=== PATIENT | male | born 1990 | race Caucasian/White ===

== ENCOUNTER → 2017-04-28 | Outpatient (CLI) | payer OTHER ==
[~2017-04-28] MED LIST: CITA10TA8 PO; MULT-506 PO
== END | disposition home or self-care (01) ==
LOC: C.LAB 02:15
DX: Z02.83 Encounter for blood-alcohol and blood-drug test (principal)

== ENCOUNTER 2019-08-01 02:54 | Inpatient (IN) ==
[2019-08-01 05:03] LABS: Hemoglobin 15.6 g/dL (14.0-18.0); Mean Corpuscular Hemoglobin 28.6 pg (25-34); Mean Corpuscular Hgb Conc 36.3 g/dL (32-36); Mean Corpuscular Volume 78.9 fL (80-100); Mean Platelet Volume 10.6 fL (7.4-10.4); Platelet Count 216 K/uL (130-400); RDW Coefficient of Variation 12.6 % (11.5-14.5); RDW Standard Deviation 35.8 fL (36.4-46.3); Red Blood Count 5.45 M/uL (4.7-6.1)
[2019-08-01 05:06] LABS: Appearance Urine Clear (Clear); Bilirubin Urine Negative (Negative); Blood Urine Negative (Negative); Color Urine Yellow; Glucose Urine UA Negative (Negative); Ketones Urine Negative (Negative); Leukocyte Esterase Urine Negative (Negative); Nitrite Urine Negative (Negative); Protein Urine Negative (Negative); Specific Gravity Urine 1.011 (1.000-1.030); Urobilinogen Urine Negative (Negative)
[2019-08-01 05:10] LABS: BUN Creatinine Ratio 13.5 (10-20); Blood Urea Nitrogen 14 mg/dl (7-18); Calcium 8.5 mg/dl (8.5-10.1); Carbon Dioxide 25 mmol/L (21-32); Chloride 109 mmol/L (98-107); Est GFR (African American) 113.8; Est GFR (Non-African American) 98.2; Glucose 96 mg/dl (70-99); Potassium 3.8 mmol/L (3.5-5.1); Sodium 140 mmol/L (136-145)
[2019-08-01 05:26] LABS: Amphetamines+Metham, Urine Neg (Neg); Barbiturates, Urine Neg (Neg); Benzodiazepine, Urine Neg (Neg); Cocaine, Urine Neg (Neg); MDMA (Ecstacy), Urine Neg (Neg); Methadone, Urine Neg (Neg); Opiate, Urine Neg (Neg); Phencyclidine, Urine Neg (Neg)
[2019-08-01 05:27] LABS: Acetaminophen < 2 ug/ml (10-30)
[2019-08-01 05:28] LABS: Salicylate < 1.7 mg/dl (2.8-20)
--- NOTE | 2019-08-01 06:27 | Emergency Department Note ---
Entered by Ivan Silva acting as a scribe for Carina Vallejo DO History of Present Illness General Chief complaint: Mental Health Evaluation Time Seen by Provider: 08/01/19 04:12 Source: patient History of Present Illness Onset (ago): day(s) (this morning) Location: head Pain Consistency: + other (an episode) Quality: + other (suicide attempt) Associated symptoms: + other (Positive for throat pain.) The patient is a 29 year old male who presents to the emergency department with complaints of an episode of a suicide attempt occurring this morning. The patient states that he has a history of previous suicide attempts from ten years ago. He notes that he put a lamp cord over a cushioned chair and tried to hang himself this morning. He reports that he was drinking tonight. The patient states that he wants to be treated for his alcoholism. He notes that he spoke to his sister on the phone this morning, which upset him and caused him to drink. He also complains of throat pain. Home Medications Home Medications Medication Instructions Recorded Confirmed Type citalopram 10 mg PO QAM 10/15/18 08/01/19 History citalopram 20 mg PO QAM 10/15/18 08/01/19 History multivitamin 1 tab PO QAM 10/31/18 08/01/19 History ascorbic acid (vitamin C) [Vitamin 1 g PO QAM 12/04/18 08/01/19 History C] cyclobenzaprine 10 mg PO TID PRN #10 tab 02/02/19 08/01/19 Rx Allergies Allergy/AdvReac Type Severity Reaction Status Date / Time No Known Allergies Allergy Verified 08/01/19 05:49 Past Med/Surg History Medical History Asthma (Chronic) Depression Deviated nasal septum Elevated blood uric acid level Elevated liver enzymes IN THE PAST (NOW WNL) Obesity Sciatica Sleep apnea NO DEVICE Surgical History [place] teeth removed (Resolved) History of appendectomy History of esophageal dilatation History of esophagogastroduodenoscopy (EGD) History of removal of skin mole History of tooth extraction Social History Preferred Language: Telugu Communication Ability: Effective 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 and A total of 10 systems reviewed and were otherwise negative Physical Exam General: Smells of alcohol. HEENT: Head - normocephalic and atraumatic Pupils are equal, round, and reactive to light. Extraocular eye muscles are intact, and sclera are anicteric. Nose - moist nasal mucosa without discharge. Mouth - moist buccal mucosa. Oropharynx is nonerythematous and there is no tonsillar exudate or edema noted. Neck: Supple; no JVD, nuchal rigidity, cervical lymphadenopathy Small area of contusion to the left anterior neck Heart: Regular rate and rhythm. There is a normal S1 and S2 with no murmurs, clicks, or gallops appreciated. Lungs: Clear to auscultation bilaterally with no wheezes, rales, or rhonchi. Abdomen: Soft, completely nontender, nondistended, with good bowel sounds. There are no palpable pulsatile masses or hepatosplenomegaly. There is no guarding, rigidity, or rebound noted. Extremities: No evidence of cyanosis, clubbing, or edema. There are easily palpable peripheral pulses. Skin: warm and dry with good turgor and no rashes. Psych: Intoxicated, admits to attempt to hang himself. Course 0302: The patient was evaluated in room A5. A complete history and physical exam was performed. Laboratory studies were drawn as above. 0552: I rechecked the patient. He is sleeping. 0630: The patient will be signed out to Dr. Castillo at the change of shift. Medical Decision Making Differential Diagnosis Differential diagnoses include: alcohol intoxication, mood disorder, suicide attempt by hanging. Medical Records Attestation: I reviewed the patient's medical records. Home Medications Current Medication List: was personally reviewed by me Laboratory Data Attestation: I reviewed the patient's lab results. Result diagrams: 08/01/19 03:45 08/01/19 03:45 Lab Results 08/01/19 08/01/19 08/01/19 Range/Units 03:45 03:45 03:45 WBC 8.10 (4.8-10.8) K/uL RBC 5.45 (4.7-6.1) M/uL Hgb 15.6 (14.0-18.0) g/dL Hct 43.0 (42-52) % MCV 78.9 L (80-100) fL MCH 28.6 (25-34) pg MCHC 36.3 H (32-36) g/dL RDW Std Deviation 35.8 L (36.4-46.3) fL RDW Coeff of Lobo 12.6 (11.5-14.5) % Plt Count 216 (130-400) K/uL MPV 10.6 H (7.4-10.4) fL Sodium 140 (136-145) mmol/L Potassium 3.8 (3.5-5.1) mmol/L Chloride 109 H (98-107) mmol/L Carbon Dioxide 25 (21-32) mmol/L Anion Gap 6.0 (3-11) BUN 14 (7-18) mg/dl Creatinine 1.02 (0.6-1.4) mg/dl Est Cr Clr Drug Dosing Not Reportable Est GFR ( Amer) 113.8 Est GFR (Non-Af Amer) 98.2 BUN/Creatinine Ratio 13.5 (10-20) Glucose 96 (70-99) mg/dl Calcium 8.5 (8.5-10.1) mg/dl TSH 1.640 (0.300-4.500) uIu/ml Urine Color Urine Appearance (Clear) Urine pH (4.5-7.5) Ur Specific [place] (1.000-1.030) Urine Protein (Negative) Urine Glucose (UA) (Negative) Urine Ketones (Negative) Urine Blood (Negative) Urine Nitrite (Negative) Urine Bilirubin (Negative) Urine Urobilinogen (Negative) Ur Leukocyte Esterase (Negative) Salicylates < 1.7 L (2.8-20) mg/dl Urine Opiates Screen (Neg) Ur Methadone, Qual (Neg) Acetaminophen < 2 L (10-30) ug/ml Urine Barbiturates (Neg) Ur Phencyclidine (PCP) (Neg) U Amphetamin/Meth Scrn (Neg) MDMA (Ecstasy) Screen (Neg) U Benzodiazepines Scrn (Neg) Ur Cocaine Metabolite (Neg) U Marijuana (THC) Screen (Neg) Ethyl Alcohol mg/dL (0-3) mg/dl 1008/01/19 08/01/19 Range/Units 03:45 03:45 03:45 WBC (4.8-10.8) K/uL RBC (4.7-6.1) M/uL Hgb (14.0-18.0) g/dL Hct (42-52) % MCV (80-100) fL MCH (25-34) pg MCHC (32-36) g/dL RDW Std Deviation (36.4-46.3) fL RDW Coeff of Lobo (11.5-14.5) % Plt Count (130-400) K/uL MPV (7.4-10.4) fL Sodium (136-145) mmol/L Potassium (3.5-5.1) mmol/L Chloride (98-107) mmol/L Carbon Dioxide (21-32) mmol/L Anion Gap (3-11) BUN (7-18) mg/dl Creatinine (0.6-1.4) mg/dl Est Cr Clr Drug Dosing Est GFR ( Amer) Est GFR (Non-Af Amer) BUN/Creatinine Ratio (10-20) Glucose (70-99) mg/dl Calcium (8.5-10.1) mg/dl TSH (0.300-4.500) uIu/ml Urine Color Yellow Urine Appearance Clear (Clear) Urine pH 5.0 (4.5-7.5) Ur Specific [place] 1.011 (1.000-1.030) Urine Protein Negative (Negative) Urine Glucose (UA) Negative (Negative) Urine Ketones Negative (Negative) Urine Blood Negative (Negative) Urine Nitrite Negative (Negative) Urine Bilirubin Negative (Negative) Urine Urobilinogen Negative (Negative) Ur Leukocyte Esterase Negative (Negative) Salicylates (2.8-20) mg/dl Urine Opiates Screen Neg (Neg) Ur Methadone, Qual Neg (Neg) Acetaminophen (10-30) ug/ml Urine Barbiturates Neg (Neg) Ur Phencyclidine (PCP) Neg (Neg) U Amphetamin/Meth Scrn Neg (Neg) MDMA (Ecstasy) Screen Neg (Neg) U Benzodiazepines Scrn Neg (Neg) Ur Cocaine Metabolite Neg (Neg) U Marijuana (THC) Screen Neg (Neg) Ethyl Alcohol mg/dL 225.0 H (0-3) mg/dl Blood Pressure Blood Pressure Findings: Normal blood pressure Blood Pressure Disposition: did not require urgent referral MDM Narrative The patient is a 29 year old male who presents to the emergency department with complaints of an episode of a suicide attempt occurring this morning. The patient admits to frequently drinking alcohol to self medicate. He denies any previous inpatient psychiatric stays. He states that he had a conversation today with his sister that was very disappointing. He then attempted to hang himself with a lamp cord over a chair. He was unsuccessful and called 911. The patient is significantly intoxicated with an alcohol greater than 200. He will be given some time to sober up and then will have further evaluation. The case will be signed out to Dr. Castillo at change of shift awaiting sobriety. Impression & Plan Suicide attempt, Alcohol intoxication Discharge Plan Visit Data Chief Complaint: Mental Health Evaluation ED Provider: Carina Vallejo Discharge Problem: Suicide attempt, Alcohol intoxication Patient Disposition: Still a Patient Forms Stand Alone Forms: My [facility], Suicide Prevention Resources Prescriptions Prescriptions: No Action multivitamin Tablet 1 tab PO QAM RF: 0 cyclobenzaprine 10 mg tablet 10 mg PO TID PRN (Reason: muscle spasm) Qty: 10 RF: 0 citalopram 10 mg tablet 10 mg PO QAM RF: 0 citalopram 20 mg tablet 20 mg PO QAM RF: 0 ascorbic acid (vitamin C) [Vitamin C] 1,000 mg Tablet 1 g PO QAM RF: 0 Referrals Referrals: Gabriel Ashford [Primary Care Provider] - Discharge Problem: Alcohol intoxication Qualifiers: Complication of substance-induced condition: uncomplicated Qualified Code(s): F10.920 - Alcohol use, unspecified with intoxication, uncomplicated The scribe's documentation has been prepared under my direction and personally reviewed by me in its entirety. I confirm that the note above accurately reflects all work, treatment, procedures, and medical decision making performed by me.
[2019-08-01] MEDS ORDERED: GABAPENTIN 1200MG ALCOHOL WITHDRAWAL LOAD PO STA (13:27)
[2019-08-01] MEDS ORDERED: SODIUM CHLORIDE 0.65% NA SOLN 45 ML (OCEAN) PRN (13:27)
[2019-08-01] MEDS ORDERED: BISMUTH SUBSALICYLATE PER ML OMNICELL CHARGE PO PRN (13:27)
[2019-08-01] MEDS ORDERED: MAGNESIUM HYDROXIDE SUSP 30 ML UDC PO PRN (13:27)
[2019-08-01] MEDS ORDERED: LORazepam 1 MG TAB PO PRN (13:27)
--- NOTE | 2019-08-01 13:59 | Emergency Department Note ---
ED Visit Note Patient signed out to me at change of shift by Dr. Vallejo awaiting sobriety and psychiatric evaluation. Patient seen and evaluated and referred to [facility] Patient seen and evaluated by [facility] who will accept the patient for additional inpatient psychiatric treatment of his depression and suicidal ideation. . : Alcohol intoxication Qualifiers: Complication of substance-induced condition: uncomplicated Qualified Code(s): F10.920 - Alcohol use, unspecified with intoxication, uncomplicated
[2019-08-01] MEDS ORDERED: GABAPENTIN 600 MG TAB PO SCH (14:30)
[2019-08-01] MEDS ORDERED: NON-FORMULARY MEDICATION (Citalopram 10 MG) PO SCH (15:45)
[2019-08-01] MEDS: CITALOPRAM 20 MG TAB PO SCH (17:16)
[2019-08-01] MEDS: NICOTINE 21 MG/24 HR TDSY TD SCH (17:16)
[2019-08-01] MEDS: ALUMINUM/MAGNESIUM SUSP 30 ML UDC PO PRN ×2 (17:18→22:53)
[2019-08-01] MEDS ORDERED: INFLUENZA VIRUS QUAD VACCINE 0.5 ML SYR IM ONE (19:45)
[2019-08-01] MEDS ORDERED: INFLUENZA ADMINISTRATION CHARGE ONE (19:45)
[2019-08-01] MEDS: GABAPENTIN 600 MG TAB PO SCH (21:30)
[2019-08-01] MEDS: LORazepam 1 MG TAB PO PRN (21:43)
[2019-08-02] MEDS: GABAPENTIN 600 MG TAB PO SCH ×3 (02:11→21:27)
--- NOTE | 2019-08-02 09:32 | History & Physical ---
Date of Service August 02, 2019 Impression / Recommendations Impression 29-year-old male admitted voluntarily for inpatient psychiatric treatment on 08/01/19 after present to the ED via police following a reported suicide attempt. Pt admits to rather significant alcohol abuse, and reported that while intoxicated he had attempted to hang himself with an extension cord in his living room. When his attempt was interrupted by the cord slipping, the patient called police requesting treatment. Pt states that due to intoxication, he is unable to recall a specific triggering event that led to the attempt and is unsure of his thought process at the time. He does admit to having had suicidal ideation prior to the attempt. Pt does have a history of a prior plan to hang himself back around 2011, but states he was interrupted by his father entering the room. Pt recognizes his alcohol abuse has been playing a detrimental role in his life at this point, and verbalizes willingness at time of encounter to consider inpatient D&A rehabilitation after discharge. He is open to working with social work to determine possible outpatient treatment options that would target both his mental health concerns as well as his substance abuse. After significant discussion regarding medication options (titration of citalopram versus trial of an alternative agent), patient is requesting initiation of fluoxetine. He is agreeable to cross-taper from citalopram to fluoxetine starting with tomorrow morning's doses. Risks, benefits, and potential side effects of this medication decision were reviewed, patient verbalized understanding and is agreeable with treatment plan. Pt will be encouraged to participate in group and recreational programming during his admission. He will be encouraged to involve outpatient supports in a meeting to discuss discharge and safety planning. Inpatient psychiatric admission is medically necessary at this time due to suicidal ideation, having had an attempt to end his life with prior history of such, inability to contract for safety outside of the hospital setting, and need to monitor for symptoms/treatment of alcohol withdrawal. He remains at high risk of suicide if he is discharged prematurely, without adequate mitigation of risk factors. Dr. Rome Craig was directly involved in review and discussion of the patient's case and participated in medical decision making regarding treatment recommendations. (1) Suicide attempt: 08/02 - Admitted to a locked inpatient behavioral health unit, on q15 minute safety checks - Encourage medication initiation/adjustments as indicated - Encourage participation in group and recreational therapies - Gather collateral information from outpatient providers - Suggest family meeting to involve outpatient supports in safety planning - Arrange appropriate aftercare (2) Depression: 08/02 - Pt verbalizes recognition that citalopram at its current dosage has not been effective for his symptoms of depression and anxiety. Various treatment options were reviewed, including option to titrate citalopram to a higher dosage as well as consideration to switch antidepressant agents. After reviewing several options in detail, patient verbalized desire to cross-taper from citalopram to fluoxetine. - Will order 20mg of citalopram tomorrow morning, and initiate 10mg of fluoxetine tomorrow morning - can continue remainder of cross-taper as tolerated - Encourage participation in group and recreational programming - Encourage development of healthy and effective coping strategies - Family meeting with outpatient supports - Referral for after care prior to discharge Active/Remission status: currently active Depression Type: major depressive disorder Major depression episode severity: severe Major depression recurrence: recurrent Psychotic features: without psychotic features Qualified Code(s): F33.2 - Major depressive disorder, recurrent severe without psychotic features (3) Generalized anxiety disorder with panic attacks: 08/02 - Cross taper from citalopram to fluoxetine as outlined above - Hydroxyzine 25mg prn for episodes of acute anxiety - Encourage development of healthy and effective coping strategies (4) Alcohol abuse: 08/02 - AWSS protocol ordered with gabapentin taper, pt has been periodically sco ring high enough to receive lorazepam - highest score has been 6 - Recovery protocol, encourage processing of circumstances leading to alcohol use, assist with development of healthy and effective coping strategies - Recommending inpatient D&A rehab, which patient is open to considering - ideally would at least agree to outpatient D&A counseling - Brief intervention was offered and accepted: Intervention was greater than 5 min in length. Brief interventions include: 1. Assess Readiness to Quit, 2. Advise: Help Patient to Reduce or Abstain from Alcohol, 3. Agree: Set Specific, Feasible Goa ls, 4. Assist: Anticipate barriers, Problem-Solving Solutions. Social work to 5. Arrange: Referrals to appropriate treatment. Summary of intervention: The patient is in contemplation stage with regards to transtheoretical model of change. The patient is advised to decrease alcohol consumption due to depressant effects and risk of interactions with prescription medications. The patient was advised of recommendations for abstinence from alcohol and other abusable substances and to attend substance abuse treatment at discharge, and will be provided with recovery materials to continue to education self on how to cope with their condition without drinking. (5) Disordered eatin/1 - Pt admits to episodes of disordered eating habits, including periods of binge eating, purging behavior by vomiting, and excessive exercise - Continue to gather information to determine criteria for formal diagnoses, as patient admits that at times the vomiting has been brought on by anxiety/difficulty swallowing - Episodes of disordered eating are reportedly intermittent, and related to periods of worsening depression/anxiety Inventory Assets Strengths: willingness for treatment, desire to consider D&A rehab, supportive family Needs: cessation from alcohol use, medication adjustments to target anxiety and depression, completion of discharge and safety planning Risk Factors Assessment Male: Yes : Yes Health Problems: No Mental Health Diagnoses: Yes Substance Use Disorders: Yes Previous Attempt: Yes Previous Psychiatric Hospitalization: No Hopelessness: Yes Smoker: Yes Protective Factors Assessment Mormon Beliefs: No : No Responsible for Young Children: No 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 Pt has a history of anxiety and depression, and was admitted on 08/01/19 13:27 on a 201 voluntary commitment for worsening depression, anxiety, and suicidality. He reportedly called 911 after a failed hanging attempt while intoxicated. [address] warrant was completed in order to complete mental health evaluation, and patient agreed to voluntarily psychiatric treatment after he regained sobriety. Information is gathered from hospital documentation and the patient himself, the combination of which is considered to be reliable. Chief Complaint "So there are like different aspects of my life, and I just feel like there is something going on in each category. When I look at everything, the top position on the tree is alcohol." History of Present Illness Branden Browning is a 29-year-old male admitted voluntarily for inpatient psychiatric treatment on 08/01/19 after presenting to the ED for mental health evaluation. Pt was brought to the ED by police after he called 911 to report he had attempted to end his life. Pt had admitted to attempting to utilize a electrical cord to hang himself while intoxicated from a night of alcohol use. When patient regained sobriety, he verbalized ongoing SI and was requesting inpatient mental health treatment. [address] warrant completed by [employer] Police was dispo'ed in the ED given patient's voluntary status. His case was reviewed and discussed this morning during treatment team. Pt is cooperative with psychiatric evaluation. He states that he has had numerous stressors recently, including financial concerns, strained relationship with sister, guilt regarding relying on parents, and anxiety surrounding the physical health of his parents and grandparents. He states that in order to cope with these stressors, he often turns to alcohol. Pt admits to consuming alcohol daily, often drinking a fifth of vodka. He admits to two DUIs, finishing up CESAR for his second. Pt states, "I see that as a good thing, but it still worries me. I can't get another one. I need help." Pt admits to history of D&A counseling as part of CESAR, but did not find it helpful. Pt states that the alcohol use even interfered with his understanding of the events that occurred prior to his admission. He states he had been having suicidal ideation prior to the night of ED presentation, but he is unsure of the thought process that led him to his hanging attempt. ED documentation suggests it was a difficult phone call with his sister, but patient cannot confirm this. He states, "from what I remember, there are just bits and pieces. I must have been upset or something. I grabbed an extension cord and pulled it over a chair in my living room. The next thing I remember was the cord slipping off my chin and it came off. I just sat there and cried. I knew I needed help, so I called 911." Pt admits to a prior plan to end his life by hanging in 2011, having all the materials ready in his parent's house. He states his plan was interrupted by his father coming home. This led to the initiation of outpatient psychiatric treatment with Dr. Shaffer. Pt was started on citalopram 30mg and has remained on it "for over 10 years." Pt admits to depressive symptoms of low mood, anhedonia, decreased energy, increased desire to sleep, difficulty falling and staying asleep, hopelessness, guilt, and SI. He admits to limited appetite during the day, but reports "binge eating" at night - waking from sleep to "eat everything in my house." Pt admits to increased anxiety, reporting symptoms of irritability, tendency to withdrawal from friends/family, increased stress eating, and diaphoresis. He admits that panic attacks are triggered at times, often related to public speaking or conver sations with superiors. 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 He estimates washing his hands about 30 times a day. Pt denies HI, SIB, A/V hallucinations, paranoia, aria/hypomania, other symptoms more suggestive of a bipolar presentation, PTSD, and other specific psychiatric symptoms. Past Psychiatric History Previous Psych History: Pt reports outpatient psychiatric treatment for anxiety and depression, but now receives medication from his PCP. He admits to D&A counseling through [facility] after his DUIs, but states he did not find it helpful. Current Psychiatric Diagnosis: MDD Outpatient Services: Celexa has been prescribed by patient's PCP; has worked with Dr. Shaffer in the past - no current therapy Previous Psych Admissions: Denies History of Previous Suicide Attempt: Yes Describe Attempts in the Past: 2011 attempted hanging, interrupted by dad Past Medication Trials: Per patient reports: 1. Celexa - 30mg x 10+ years 2. Ativan - lost insurance 3. BuSpar - paradoxical effects, increased anxiety Past Head Trauma/Neuro History History of Concussion/Seizure: No Allergies Allergy/AdvReac Type Severity Reaction Status Date / Time No Known Allergies Allergy Verified 08/01/19 05:49 Home Medications Home Medications Medication Instructions Recorded Confirmed Type citalopram 10 mg PO QAM 10/15/18 08/01/19 History citalopram 20 mg PO QAM 10/15/18 08/01/19 History multivitamin 1 tab PO QAM 10/31/18 08/01/19 History ascorbic acid (vitamin C) [Vitamin 1 g PO QAM 12/04/18 08/01/19 History C] Family History Family History of: Depression (father and mother), Anxiety (father), Alcoholism/Drug Abuse (paternal side of family, uncles, aunts, grandmother and several cousins ), Suicide Attempts and Suicide Completion (maternal second cousin) Alcohol History Hx of Alcohol Use Over the Past 12 Months: Yes (Drinks a fifth of vodka daily, 6 out of 7 days a week) AUDIT Total Score: 31 Pt admits to consuming alcohol daily, generally a fifth of vodka. Often goes out to drink while socializing with friends. Admits to 2 DUIs, reporting he is nearly done with CESAR requirements for his second. Admits to mandated D&A coun seling after receiving DUIs, but denies inpatient rehab or other formal treatment Smoking Use Have You Smoked or Used Tobacco Products in the Last 30 Days: Yes tobacco type: cigarettes Smoking Status: Current every day smoker Smoking packs per day: 20 Substance History Hx of Prescription Med Misuse Over the Past 12 Months: No Hx of Over the Counter Med Misuse Over the Past 12 Months: No Hx of Inhalent Misuse Over the Past 12 Months: No Hx of Organic Substance Use Over the Past 12 Months: Yes (Marijuana ocassionally, last use yesterday) Hx of Illegal Substances/Street Drug Use Over Past 12 Months: No Problems as a Result of Past Substance Use: Arrested Problems as a Result of Past Substance Use Comments: 2 DUIs in the past Admits to occasional use of marijuana. Denies use of other illicit substances. Drinks several cups of coffee daily. 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 [employer]) Marital Status: Single Number Of Children: None Beliefs That Will Affect Care: None Current Legal Problems: Yes (serving CESAR for 2nd DUI) Hx Legal Problems: Yes (probation and house arrest for DUIs) Hx Traumatic Life Events: Yes ( of uncle 10+ years ago) Patient History Medical History Asthma (Chronic) Depression Deviated nasal septum Elevated blood uric acid level Elevated liver enzymes IN THE PAST (NOW WNL) Obesity Sciatica Sleep apnea NO DEVICE Surgical History [place] teeth removed (Resolved) History of appendectomy History of esophageal dilatation History of esophagogastroduodenoscopy (EGD) History of removal of skin mole History of tooth extraction Family History Father Multiple sclerosis Father Family history of ITP Aunt Family history of diabetes mellitus Social History Preferred Language: Yoruba Communication Ability: Effective Internal Communications Intern Required: No Beliefs That Will Affect Care: None Feels Safe at Home: Yes Smoking Status: Current every day smoker Tobacco Type: cigarettes ; Second Hand Exposure: No ; Hx Alcohol Use: Yes Alcohol type: wine and hard liquor Alcohol Intake Frequency: Daily Hx Substance Use: No Review of Systems Review of Systems: Constitutional: reports headache and generalized body aches Cardiovascular: denied Respiratory: denied Gastrointestinal: reports nausea, persistent diarrhea Neurological: reports tremor Psychiatric: denies symptoms other than stated above Total of at least 10 systems reviewed, pertinent positives as above and in HPI. Physical Exam Psychiatric: Orientation: alert, oriented x 3 and cooperative (and pleasant) Apperance: appropriately dressed, appropriately groomed and appeared stated age Obese-appearing male seated in no acute distress. Pt is appropriately dressed in casually clothing, wearing a thermal long-sleeve shirt and scrub pants. Pt has a full richter and clean-appearing hair. Level of hygiene and grooming appears adequate. Eye Contact: good eye contact Motor Behavior: steady gait and station and no abnormal motor movements Speech: normal rate/rhythm/volume of speech Affect: + depressed affect, + tearful affect and mood congruent with affect Mood: + depressed mood and + anxious mood ("I know I need something for anxiety") Thought Process: goal directed thought process, clear/coherent thought process and thought association intact Thought Content: reality based without delusions, + hopelessness, + guilt and + self deprecation Suicidal Thoughts: + reports suicidal thoughts Admits to ongoing SI at time of encounter, but denies current intent to act. Admits to attempt to hang himself prior to admission. Homicidal Thoughts: denies homicidal thoughts Hallucinations: no auditory hallucinations and no visual hallucinations Cognition: remote memory grossly intact, attention grossly intact and language grossly intact; + recent memory not intact (impaired by level of intoxication prior to admission) Estimated Intelligence: consistent with education level Insight: + fair insight Judgement: + poor judgement Vital Signs (Past 24 Hours): Last Vital Signs Temp 36.5 C 08/02/19 06:44 Pulse 71 08/02/19 06:44 Resp 18 08/02/19 06:44 BP 122/75 08/02/19 06:44 Pulse Ox 95 08/01/19 14:12 Exam Statement: A physical exam was performed in the ER prior to admission to the unit by Dr. Lynne Vallejo DO. I accept that physical as correct/medical clearance for the inpatient physical exam. Results & Data Current Inpatient Medications Current Inpatient Medications: Current Inpatient Medications Acetaminophen (Tylenol) 650 mg PO Q4H PRN PRN Reason: Headache or Minor Fever Stop: 08/31/19 13:26 Al Hydrox/Mg Hydrox/Simethicone (Maalox) 30 ml PO Q4H PRN PRN Reason: GI Upset Stop: 08/31/19 13:26 Last Admin: 08/01/19 22:53 Dose: 30 ml Documented by: Ascorbic Acid (Vitamin C) 1,000 mg PO QAM LISA Stop: 09/01/19 08:59 Bismuth Subsalicylate (Kaopectate) 15 ml PO PRN PRN PRN Reason: Loose Stool Stop: 08/31/19 13:26 Citalopram Hydrobromide (Celexa) 30 mg PO QAM LISA Stop: 08/31/19 15:59 Last Admin: 08/01/19 17:16 Dose: 30 mg Documented by: Gabapentin (Neurontin) 600 mg PO Q12H LISA Stop: 08/04/19 06:01 Gabapentin (Neurontin) 600 mg PO Q24H LISA Stop: 08/05/19 06:01 Gabapentin (Neurontin) 600 mg PO Q8H LISA Stop: 08/03/19 06:01 Hydroxyzine HCl (Vistaril) 25 mg PO Q4H PRN PRN Reason: Anxiety Stop: 08/31/19 13:26 Last Admin: 08/01/19 18:46 Dose: 25 mg Documented by: Hydroxyzine HCl (Vistaril) 50 mg PO HSZ PRN PRN Reason: Insomnia Stop: 08/31/19 13:26 Last Admin: 08/02/19 02:25 Dose: 50 mg Documented by: Lorazepam (Ativan) 1 - 3 mg PO UD PRN; Protocol PRN Reason: EtoH Withdrawal AWSS 6-10+ Stop: 08/31/19 16:36 Last Admin: 08/01/19 21:43 Dose: 1 mg Documented by: Magnesium Hydroxide (Milk Of Magnesia) 30 ml PO DAILY PRN PRN Reason: Constipation Stop: 08/31/19 13:26 Miscellaneous (Remove Nicoderm Patch) 1 ea N/A HS LISA Stop: 08/31/19 20:59 Last Admin: 08/01/19 21:35 Dose: Not Given Documented by: Multivitamins (Multivitamin Tab) 1 tab PO QAM [facility] Stop: 09/01/19 08:59 Nicotine (Nicoderm Cq) 21 mg TD QAM [facility] Stop: 08/31/19 16:14 Last Admin: 08/01/19 17:16 Dose: 21 mg Documented by: Sodium Chloride (Elbert Nasal) 1 - 2 sprays NA PRN PRN PRN Reason: Nasal Dryness/Congestion Stop: 08/31/19 13:26
[2019-08-02] MEDS: CITALOPRAM 20 MG TAB PO SCH (10:27)
[2019-08-02] MEDS: ASCORBIC ACID 500 MG TAB PO SCH (10:28)
[2019-08-02] MEDS: MULTIVITAMIN TAB PO SCH (10:29)
[2019-08-02] MEDS: LORazepam 1 MG TAB PO PRN ×5 (10:31→21:59)
[2019-08-02] MEDS: NICOTINE 21 MG/24 HR TDSY TD SCH (10:31)
[2019-08-02] MEDS: ONDANSETRON 8MG OD TAB PO PRN (14:20)
[2019-08-02] MEDS ORDERED: ONDANSETRON 8MG OD TAB PO STA (20:02)
[2019-08-02] MEDS ORDERED: chlordiazePOXIDE HCl 25 MG CAP PO ONE (23:03)
[2019-08-03] MEDS: GABAPENTIN 600 MG TAB PO SCH ×2 (06:10→17:18)
[2019-08-03] MEDS ORDERED: CITALOPRAM 20 MG TAB PO SCH (09:00)
[2019-08-03] MEDS: MULTIVITAMIN TAB PO SCH (09:11)
[2019-08-03] MEDS: NICOTINE 21 MG/24 HR TDSY TD SCH (09:11)
[2019-08-03] MEDS: FLUOXETINE HCL 10 MG CAP PO SCH (09:12)
[2019-08-03] MEDS: ASCORBIC ACID 500 MG TAB PO SCH (09:12)
--- NOTE | 2019-08-03 09:55 | Psychiatric Progress Note ---
Date of Service August 03, 2019 Impression / Recommendations Impression 29-year-old male admitted voluntarily for inpatient psychiatric treatment on 08/01/19 after present to the ED via police following a reported suicide attempt. Pt admits to rather significant alcohol abuse, and reported that while intoxicated he had attempted to hang himself with an extension cord in his living room. Pt does have a history of a prior plan to hang himself back around 2011, but states he was interrupted by his father entering the room. Crosstapering from Celexa to fluoxetine. Inpatient psychiatric admission is medically necessary at this time due to suicidal ideation, having had an attempt to end his life with prior history of such, inability to contract for safety outside of the hospital setting, and need to monitor for symptoms/treatment of alcohol withdrawal. He remains at high ris k of suicide if he is discharged prematurely, without adequate mitigation of risk factors. (1) Suicide attempt: 08/02 - Admitted to a locked inpatient behavioral health unit, on q15 minute safety checks - Encourage medication initiation/adjustments as indicated - Encourage participation in group and recreational therapies - Gather collateral information from outpatient providers - Suggest family meeting to involve outpatient supports in safety planning - Arrange appropriate aftercare (2) Depression: 08/02 - Pt verbalizes recognition that citalopram at its current dosage has not been effective for his symptoms of depression and anxiety. Various treatment options were reviewed, including option to titrate citalopram to a higher dosage as well as consideration to switch antidepressant agents. After reviewing several options in detail, patient verbalized desire to cross-taper from citalopram to fluoxetine. - Will order 20mg of citalopram tomorrow morning, and initiate 10mg of fluoxetine tomorrow morning - can continue remainder of cross-taper as tolerated - Encourage participation in group and recreational programming - Encourage development of healthy and effective coping strategies - Family meeting with outpatient supports - Referral for after care prior to discharge 08/03--decrease Celexa to 10 mg tomorrow for last dose, hold titration of Prozac until no emesis for >24 hrs. (3) Generalized anxiety disorder with panic attacks: 08/02 - Cross taper from citalopram to fluoxetine as outlined above - Hydroxyzine 25mg prn for episodes of acute anxiety - Encourage development of healthy and effective coping strategies (4) Alcohol abuse: 08/02 - AWSS protocol ordered with gabapentin taper, pt has been periodically scoring high enough to receive lorazepam - highest score has been 6 - Recovery protocol, encourage processing of circumstances leading to alcohol use, assist with development of healthy and effective coping strategies - Recommending inpatient D&A rehab, which patient is open to considering - ideally would at least agree to outpatient D&A counseling - Brief intervention was offered and accepted: Intervention was greater than 5 min in length. Brief interventions include: 1. Assess Readiness to Quit, 2. Advise: Help Patient to Reduce or Abstain from Alcohol, 3. Agree: Set Specific, Feasible Goals, 4. Assist: Anticipate barriers, Problem-Solving Solutions. Social work to 5. Arrange: Referrals to appropriate treatment. Summary of intervention: The patient is in contemplation stage with regards to transtheoretical model of change. The patient is advised to decrease alcohol consumption due to depressant effects and risk of interactions with prescription medications. The patient was advised of recommendations for abstinence from alcohol and other abusable substances and to attend substance abuse treatment at discharge, and will be provided with recovery materials to continue to education self on how to cope with their condition without drinking. 08/03--AWSS protocol, Librium 50 mg po BID today with plan to taper. (5) Disordered eatin/1 - Pt admits to episodes of disordered eating habits, including periods of binge eating, purging behavior by vomiting, and excessive exercise - Continue to gather information to determine criteria for formal diagnoses, as patient admits that at times the vomiting has been brought on by anxiety/difficulty swallowing - Episodes of disordered eating are reportedly intermittent, and related to periods of worsening depression/anxiety Inventory Assets Strengths: willingness for treatment, desire to consider D&A rehab, supportive family Needs: cessation from alcohol use, medication adjustments to target anxiety and depression, completion of discharge and safety planning Risk Factors Assessment Male: Yes : Yes Health Problems: No Mental Health Diagnoses: Yes Substance Use Disorders: Yes Previous Attempt: Yes Previous Psychiatric Hospitalization: No Hopelessness: Yes Smoker: Yes Protective Factors Assessment Shinto Beliefs: No : No Responsible for Young Children: No 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 Review of Systems Sleep Information Total Hours of Sleep: 5.5 Meal Information Percent Meal Consumed - Breakfast: 100 Percent Meal Consumed - Lunch: 50 Percent Meal Consumed - Dinner: 100 Nutrition Comment: pt. vomited after eating breakfast Subjective Subjective Patient was seen & assessed and interval progress reviewed with nursing and social work. Patient having breathrough withdrawal yesterday pm, minimal change in symptoms after 8 mg total of Ativan, given librium 50 mg X1 with good effect. VS stable this am, does have coarse hand tremor and reports nausea with emesis after breakfast. Racing thoughts are attributed to withdrawal. Looking forward to family meeting, still considering options for residential vs outpatient rehab programs, discussed impact of his drinking on DUIs and [employer] license. Physical Exam Psychiatric Orientation: alert Apperance: appropriately dressed and appropriately groomed Eye Contact: good eye contact Motor Behavior: steady gait and station Speech: normal rate/rhythm/volume of speech Affect: + depressed affect Mood: + depressed mood Thought Process: goal directed thought process Thought Content: + preoccupation Suicidal Thoughts: denies suicidal thoughts Homicidal Thoughts: denies homicidal thoughts Hallucinations: no auditory hallucinations and no visual hallucinations Cognition: recent memory grossly intact Estimated Intelligence: consistent with education level Insight: + fair insight Judgement: + fair judgement Vital Signs (Past 24 Hours) Last Vital Signs Temp 36.7 C 08/03/19 08:51 Pulse 72 08/03/19 08:51 Resp 14 08/03/19 08:51 BP 113/73 08/03/19 08:51 Pulse Ox 95 08/01/19 14:12 Results & Data Current Inpatient Medications Current Inpatient Medications: Current Inpatient Medications Acetaminophen (Tylenol) 650 mg PO Q4H PRN PRN Reason: Headache or Minor Fever Stop: 08/31/19 13:26 Al Hydrox/Mg Hydrox/Simethicone (Maalox) 30 ml PO Q4H PRN PRN Reason: GI Upset Stop: 08/31/19 13:26 Last Admin: 08/01/19 22:53 Dose: 30 ml Documented by: Ascorbic Acid (Vitamin C) 1,000 mg PO QAM [facility] Stop: 09/01/19 08:59 Last Admin: 08/03/19 09:12 Dose: 1,000 mg Documented by: Bismuth Subsalicylate (Kaopectate) 15 ml PO PRN PRN PRN Reason: Loose Stool Stop: 08/31/19 13:26 Chlordiazepoxide HCl (Librium) 50 mg PO BID [facility] Stop: 09/02/19 09:44 Fluoxetine HCl (Prozac) 10 mg PO QAM [facility] Stop: 09/02/19 08:59 Last Admin: 08/03/19 09:12 Dose: 10 mg Documented by: Gabapentin (Neurontin) 600 mg PO Q12H [facility] Stop: 08/04/19 06:01 Gabapentin (Neurontin) 600 mg PO Q24H [facility] Stop: 08/05/19 06:01 Hydroxyzine HCl (Vistaril) 25 mg PO Q4H PRN PRN Reason: Anxiety Stop: 08/31/19 13:26 Last Admin: 08/03/19 09:15 Dose: 25 mg Documented by: Hydroxyzine HCl (Vistaril) 50 mg PO HSZ PRN PRN Reason: Insomnia Stop: 08/31/19 13:26 Last Admin: 08/02/19 23:41 Dose: 50 mg Documented by: Lorazepam (Ativan) 1 - 3 mg PO UD PRN; Protocol PRN Reason: EtoH Withdrawal AWSS 6-10+ Stop: 08/31/19 16:36 Last Admin: 08/02/19 21:59 Dose: 2 mg Documented by: Magnesium Hydroxide (Milk Of Magnesia) 30 ml PO DAILY PRN PRN Reason: Constipation Stop: 08/31/19 13:26 Miscellaneous (Remove Nicoderm Patch) 1 ea N/A HS [facility] Stop: 08/31/19 20:59 Last Admin: 08/02/19 21:27 Dose: Not Given Documented by: [facility]it[facility] ([facility] Tab) [facility] [place]: 09/01/19 08:59 Last Admin: 08/03/19 09:11 Dose: 1 tab Documented by: Nicotine (Nicoderm Cq) 21 mg TD QAM [facility] Stop: 08/31/19 16:14 Last Admin: 08/03/19 09:11 Dose: 21 mg Documented by: Ondansetron HCl (Zofran Odt) 8 mg PO Q6H PRN PRN Reason: Nausea Stop: 09/01/19 13:45 Last Admin: 08/02/19 14:20 Dose: 8 mg Documented by: Sodium Chloride ([place] Nasal) 1 - 2 sprays NA PRN PRN PRN Reason: Nasal Dryness/Congestion Stop: 08/31/19 13:26 Post Discharge Appointments Primary Care Physician Name Of Family Doctor: Dr. Ashford at [facility] (1) Depression Depression Type: major depressive disorder Major depression recurrence: recurrent Active/Remission status: currently active Major depression episode severity: severe Psychotic features: without psychotic features Qualified Code(s): F33.2 - Major depressive disorder, recurrent severe without psychotic features
[2019-08-03] MEDS: ONDANSETRON 8MG OD TAB PO PRN ×2 (10:07→15:26)
[2019-08-03] MEDS: chlordiazePOXIDE HCl 25 MG CAP PO SCH ×2 (10:07→20:53)
[2019-08-03] MEDS: LORazepam 1 MG TAB PO PRN ×3 (13:10→19:55)
[2019-08-03 16:21] LABS: Albumin Level 3.7 gm/dl (3.4-5.0); BUN Creatinine Ratio 8.5 (10-20); Calcium 8.9 mg/dl (8.5-10.1); Creatinine Clr Calc Pharmacy 104.2 ml/min; Est GFR (African American) 85.7; Est GFR (Non-African American) 73.9; Magnesium 2.4 mg/dl (1.8-2.4); Potassium 4.2 mmol/L (3.5-5.1)
[2019-08-03 16:25] LABS: Albumin Globulin Ratio 1.1 (0.9-2); Bilirubin,Total 0.4 mg/dl (0.2-1); Globulin 3.3 gm/dl (2.5-4.0); Phosphorus 3.1 mg/dl (2.5-4.9)
[2019-08-03] MEDS: LANSOPRAZOLE 15 MG SOLTAB PO SCH ×2 (19:48→20:51)
[2019-08-04] MEDS: GABAPENTIN 600 MG TAB PO SCH (06:12)
[2019-08-04] MEDS ORDERED: CITALOPRAM 20 MG TAB PO ONE (09:00)
[2019-08-04] MEDS: MULTIVITAMIN TAB PO SCH (09:12)
[2019-08-04] MEDS: NICOTINE 21 MG/24 HR TDSY TD SCH (09:12)
[2019-08-04] MEDS: chlordiazePOXIDE HCl 25 MG CAP PO SCH ×2 (09:12→20:52)
[2019-08-04] MEDS: LANSOPRAZOLE 15 MG SOLTAB PO SCH ×2 (09:13→20:52)
[2019-08-04] MEDS: FLUOXETINE HCL 10 MG CAP PO SCH (09:13)
[2019-08-04] MEDS: ASCORBIC ACID 500 MG TAB PO SCH (09:13)
--- NOTE | 2019-08-04 11:01 | Psychiatric Progress Note ---
Date of Service August 04, 2019 Impression / Recommendations Impression 29-year-old male admitted voluntarily for inpatient psychiatric treatment on 08/01/19 after present to the ED via police following a reported suicide attempt. Pt admits to rather significant alcohol abuse, and reported that while intoxicated he had attempted to hang himself with an extension cord in his living room. Pt does have a history of a prior plan to hang himself back around 2011, but states he was interrupted by his father entering the room. Crosstapering from Celexa to fluoxetine. Inpatient psychiatric admission is medically necessary at this time due to suicidal ideation, having had an attempt to end his life with prior history of such, inability to contract for safety outside of the hospital setting, and need to monitor for symptoms/treatment of alcohol withdrawal. He remains at high ris k of suicide if he is discharged prematurely, without adequate mitigation of risk factors. (1) Suicide attempt: 08/02 - Admitted to a locked inpatient behavioral health unit, on q15 minute safety checks - Encourage medication initiation/adjustments as indicated - Encourage participation in group and recreational therapies - Gather collateral information from outpatient providers - Suggest family meeting to involve outpatient supports in safety planning - Arrange appropriate aftercare (2) Depression: 08/02 - Pt verbalizes recognition that citalopram at its current dosage has not been effective for his symptoms of depression and anxiety. Various treatment options were reviewed, including option to titrate citalopram to a higher dosage as well as consideration to switch antidepressant agents. After reviewing several options in detail, patient verbalized desire to cross-taper from citalopram to fluoxetine. - Will order 20mg of citalopram tomorrow morning, and initiate 10mg of fluoxetine tomorrow morning - can continue remainder of cross-taper as tolerated - Encourage participation in group and recreational programming - Encourage development of healthy and effective coping strategies - Family meeting with outpatient supports - Referral for after care prior to discharge 08/03--decrease Celexa to 10 mg tomorrow for last dose, hold titration of Prozac until no emesis for >24 hrs. 08/04--titrate Prozac to 20 mg starting tomorrow. (3) Generalized anxiety disorder with panic attacks: 08/02 - Cross taper from citalopram to fluoxetine as outlined above - Hydroxyzine 25mg prn for episodes of acute anxiety - Encourage development of healthy and effective coping strategies (4) Alcohol abuse: 08/02 - AWSS protocol ordered with gabapentin taper, pt has been periodically scoring high enough to receive lorazepam - highest score has been 6 - Recovery protocol, encourage processing of circumstances leading to alcohol use, assist with development of healthy and effective coping strategies - Recommending inpatient D&A rehab, which patient is open to considering - ideally would at least agree to outpatient D&A counseling - Brief intervention was offered and accepted: Intervention was greater than 5 min in length. Brief interventions include: 1. Assess Readiness to Quit, 2. Advise: Help Patient to Reduce or Abstain from Alcohol, 3. Agree: Set Specific, Feasible Goals, 4. Assist: Anticipate barriers, Problem-Solving Solutions. Social work to 5. Arrange: Referrals to appropriate treatment. Summary of intervention: The patient is in contemplation stage with regards to transtheoretical model of change. The patient is advised to decrease alcohol consumption due to depressant effects and risk of interactions with prescription medications. The patient was advised of recommendations for abstinence from alcohol and other abusable substances and to attend substance abuse treatment at discharge, and will be provided with recovery materials to continue to education self on how to cope with their condition without drinking. 08/03--AWSS protocol, Librium 50 mg po BID today with plan to taper. SW initiating referral to [facility]. 08/04--decrease Librium to 25 mg po BID starting tomorrow. (5) Disordered eatin/1 - Pt admits to episodes of disordered eating habits, including periods of binge eating, purging behavior by vomiting, and excessive exercise - Continue to gather information to determine criteria for formal diagnoses, as patient admits that at times the vomiting has been brought on by anxiety/difficulty swallowing - Episodes of disordered eating are reportedly intermittent, and related to periods of worsening depression/anxiety Inventory Assets Strengths: willingness for treatment, desire to consider D&A rehab, supportive family Needs: cessation from alcohol use, medication adjustments to target anxiety and depression, completion of discharge and safety planning Risk Factors Assessment Male: Yes : Yes Health Problems: No Mental Health Diagnoses: Yes Substance Use Disorders: Yes Previous Attempt: Yes Previous Psychiatric Hospitalization: No Hopelessness: Yes Smoker: Yes Protective Factors Assessment Holiness Beliefs: No : No Responsible for Young Children: No 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 Review of Systems Sleep Information Total Hours of Sleep: 8.75 Meal Information Percent Meal Consumed - Breakfast: 100 Percent Meal Consumed - Lunch: 0 Percent Meal Consumed - Dinner: 75 Nutrition Comment: N/V Subjective Subjective Patient was seen & assessed and interval progress reviewed with nursing and social work. Father presented as angry and accusatory in family meeting per SW, patient is able to recognize that father is projecting anger at himself for feelings of inadequate parenting given the patient's and his sister's issues. He reports they also may be angry as he withheld his difficulties. He also expressed guilt for "cheating" on his partner though they are clearly not in a monogamous relationship. Reviewed with patient that Truvada may be appropriate and states his partner is taking it and will follow through with PCP following hospitalization (or subsequent rehab). Still some tremor and quick to tear up but able to eat this am, gastritis/withdrawal appear to be resolving. VS improved. Minimal Ativan yesterday. Physical Exam Mental Examination The patient presented as alert and cooperative. The patient was casually dressed and groomed. Eye contact was fair. No psychomotor restlessness or agitation was noted. Speech was normal in rate, rhythm, and volume. Affect was mood congruent. The patients mood appeared depressed. Thought processes were clear, coherent and goal directed without evidence of loose associations or flight of ideas. Thought content/perception was reality based without delusions. The patient denied suicidal and homicidal ideation. The patient denied hallucinations and did not appear to be responding to internal stimuli. Cognition was grossly intact with orientation to person, place and time. Fund of Knowledge/Intelligence were consistent with level of education. Insight and Judgement were improving. Vital Signs (Past 24 Hours) Last Vital Signs Temp 36.5 C 08/04/19 08:39 Pulse 71 08/04/19 08:39 Resp 14 08/04/19 08:39 BP 114/71 08/04/19 08:39 Pulse Ox 95 08/01/19 14:12 Results & Data Laboratory Results Laboratory Results - last 24 hr 08/03/19 15:58 Sodium 138 Potassium 4.2 Chloride 108 H Carbon Dioxide 25 Anion Gap 6.0 BUN 11 Creatinine 1.29 Est Cr Clr Drug Dosing 104.2 Est GFR ( Amer) 85.7 Est GFR (Non-Af Amer) 73.9 BUN/Creatinine Ratio 8.5 L Glucose 108 H Calcium 8.9 Phosphorus 3.1 Magnesium 2.4 Total Bilirubin 0.4 AST 26 ALT 74 Alkaline Phosphatase 50 Total Protein 7.0 Albumin 3.7 Globulin 3.3 Albumin/Globulin Ratio 1.1 Amylase 49 Lipase 121 Current Inpatient Medications Current Inpatient Medications: Current Inpatient Medications Acetaminophen (Tylenol) 650 mg PO Q4H PRN PRN Reason: Headache or Minor Fever Stop: 08/31/19 13:26 Al Hydrox/Mg Hydrox/Simethicone (Maalox) 30 ml PO Q4H PRN PRN Reason: GI Upset Stop: 08/31/19 13:26 Last Admin: 08/01/19 22:53 Dose: 30 ml Documented by: Ascorbic Acid (Vitamin C) 1,000 mg PO QAM [facility] Stop: 09/01/19 08:59 Last Admin: 08/04/19 09:13 Dose: 1,000 mg Documented by: Bismuth Subsalicylate (Kaopectate) 15 ml PO PRN PRN PRN Reason: Loose Stool Stop: 08/31/19 13:26 Chlordiazepoxide HCl (Librium) 50 mg PO BID [facility] Stop: 08/04/19 21:01 Last Admin: 08/04/19 09:12 Dose: 50 mg Documented by: Chlordiazepoxide HCl (Chlordiazepoxide Alcohol Withdrawl 25mg) 1 ea PO BID [facility]; Protocol Stop: 09/04/19 08:59 Fluoxetine HCl (Prozac) 20 mg PO QAM [facility] Stop: 09/04/19 08:59 Gabapentin (Neurontin) 600 mg PO Q24H [facility] Stop: 08/05/19 06:01 Hydroxyzine HCl (Vistaril) 25 mg PO Q4H PRN PRN Reason: Anxiety Stop: 08/31/19 13:26 Last Admin: 08/03/19 13:55 Dose: 25 mg Documented by: Hydroxyzine HCl (Vistaril) 50 mg PO HSZ PRN PRN Reason: Insomnia Stop: 08/31/19 13:26 Last Admin: 08/04/19 02:55 Dose: 50 mg Documented by: Lansoprazole (Prevacid) 15 mg PO BID [facility] Stop: 09/02/19 17:29 Last Admin: 08/04/19 09:13 Dose: 15 mg Documented by: Lorazepam (Ativan) 1 - 3 mg PO UD PRN; Protocol PRN Reason: EtoH Withdrawal AWSS 6-10+ Stop: 08/31/19 16:36 Last Admin: 08/03/19 19:55 Dose: 1 mg Documented by: Magnesium Hydroxide (Milk Of Magnesia) 30 ml PO DAILY PRN PRN Reason: Constipation Stop: 08/31/19 13:26 Miscellaneous (Remove Nicoderm Patch) 1 ea N/A HS [facility] Stop: 08/31/19 20:59 Last Admin: 08/03/19 20:56 Dose: Not Given Documented by: Multivitamins (Multivitamin Tab) 1 tab PO QAM [facility] Stop: 09/01/19 08:59 Last Admin: 08/04/19 09:12 Dose: 1 tab Documented by: Nicotine (Nicoderm Cq) 21 mg TD QAM [facility] Stop: 08/31/19 16:14 Last Admin: 08/04/19 09:12 Dose: 21 mg Documented by: Ondansetron HCl (Zofran Odt) 8 mg PO Q6H PRN PRN Reason: Nausea Stop: 09/01/19 13:45 Last Admin: 08/03/19 15:26 Dose: 8 mg Documented by: Sodium Chloride ([place] Nasal) 1 - 2 sprays NA PRN PRN PRN Reason: Nasal Dryness/Congestion Stop: 08/31/19 13:26 Post Discharge Appointments Primary Care Physician Name Of Family Doctor: Dr. Ashford at [facility] (1) Depression Depression Type: major depressive disorder Major depression recurrence: recurrent Active/Remission status: currently active Major depression episode severity: severe Psychotic features: without psychotic features Qualified Code(s): F33.2 - Major depressive disorder, recurrent severe without psychotic features
[2019-08-04] MEDS: ACETAMINOPHEN 325 MG TAB PO PRN (12:12)
[2019-08-04] MEDS: LORazepam 1 MG TAB PO PRN (12:12)
[2019-08-04] MEDS: ONDANSETRON 8MG OD TAB PO PRN (13:39)
[2019-08-04] MEDS: ALUMINUM/MAGNESIUM SUSP 30 ML UDC PO PRN (18:32)
[2019-08-05] MEDS ORDERED: GABAPENTIN 600 MG TAB PO SCH (06:00)
[2019-08-05] MEDS ORDERED: chlordiazePOXIDE ALCOHOL WITHDRAWL 25MG PO SCH (09:00)
[2019-08-05] MEDS: NICOTINE 21 MG/24 HR TDSY TD SCH (09:01)
[2019-08-05] MEDS: MULTIVITAMIN TAB PO SCH (09:01)
[2019-08-05] MEDS: FLUOXETINE HCL 20 MG CAP PO SCH (09:01)
[2019-08-05] MEDS: LANSOPRAZOLE 15 MG SOLTAB PO SCH ×2 (09:01→21:26)
[2019-08-05] MEDS: ASCORBIC ACID 500 MG TAB PO SCH (09:02)
[2019-08-05] MEDS: chlordiazePOXIDE HCl 25 MG CAP PO SCH ×2 (09:03→21:26)
--- NOTE | 2019-08-05 12:40 | Psychiatric Progress Note ---
Date of Service August 05, 2019 Impression / Recommendations Impression 29-year-old male admitted voluntarily for inpatient psychiatric treatment on 08/01/19 after present to the ED via police following a reported suicide attempt. Pt admits to rather significant alcohol abuse, and reported that while intoxicated he had attempted to hang himself with an extension cord in his living room. Pt does have a history of a prior plan to hang himself back around 2011, but states he was interrupted by his father entering the room. Crosstapering from Celexa to fluoxetine. Inpatient psychiatric admission is medically necessary until patient is accepted at an inpatient D&A rehab facility. He remains at high risk of continued alcohol use and possible suicide if he is discharged prematurely, without adequate mitigation of risk factors. (1) Suicide attempt: 08/02 - Admitted to a locked inpatient behavioral health unit, on q15 minute safety checks - Encourage medication initiation/adjustments as indicated - Encourage participation in group and recreational therapies - Gather collateral information from outpatient providers - Suggest family meeting to involve outpatient supports in safety planning - Arrange appropriate aftercare 08/05 - Pt denies persistent SI - Unable to better process suicidal thoughts, as admits he was drunk and does not recall what event/thoughts led him to this point (2) Depression: 08/02 - Pt verbalizes recognition that citalopram at its current dosage has not been effective for his symptoms of depression and anxiety. Various treatment options were reviewed, including option to titrate citalopram to a higher dosage as well as consideration to switch antidepressant agents. After reviewing several options in detail, patient verbalized desire to cross-taper from citalopram to fluoxetine. - Will order 20mg of citalopram tomorrow morning, and initiate 10mg of fluoxetine tomorrow morning - can continue remainder of cross-taper as tolerated - Encourage participation in group and recreational programming - Encourage development of healthy and effective coping strategies - Family meeting with outpatient supports - Referral for after care prior to discharge 08/03--decrease Celexa to 10 mg tomorrow for last dose, hold titration of Prozac until no emesis for >24 hrs. 08/04--titrate Prozac to 20 mg starting tomorrow. 08/05 - Continue fluoxetine 20mg for tomorrow morning, as patient admits to continued nausea (3) Generalized anxiety disorder with panic attacks: 11/1 - Cross taper from citalopram to fluoxetine as outlined above - Hydroxyzine 25mg prn for episodes of acute anxiety - Encourage development of healthy and effective coping strategies 08/05 - Pt reports hydroxyzine has been ineffective for anxiety - agreeable to trial of dose titration - Reviewed risks, benefits, and potential side effects; will titrate daytime dosing to 50mg, and HS dosing to 100mg (4) Alcohol abuse: 08/02 - AWSS protocol ordered with gabapentin taper, pt has been periodically scoring high enough to receive lorazepam - highest score has been 6 - Recovery protocol, encourage processing of circumstances leading to alcohol use, assist with development of healthy and effective coping strategies - Recommending inpatient D&A rehab, which patient is open to considering - ideally would at least agree to outpatient D&A counseling - Brief intervention was offered and accepted: Intervention was greater than 5 min in length. Brief interventions include: 1. Assess Readiness to Quit, 2. Advise: Help Patient to Reduce or Abstain from Alcohol, 3. Agree: Set Specific, Feasible Goals, 4. Assist: Anticipate barriers, Problem-Solving Solutions. Social work to 5. Arrange: Referrals to appropriate treatment. Summary of intervention: The patient is in contemplation stage with regards to transtheoretical model of change. The patient is advised to decrease alcohol consumption due to depressant effects and risk of interactions with prescription medications. The patient was advised of recommendations for abstinence from alcohol and other abusable substances and to attend substance abuse treatment at discharge, and will be provided with recovery materials to continue to education self on how to cope with their condition without drinking. 08/03--AWSS protocol, Librium 50 mg po BID today with plan to taper. SW initiating referral to [facility]. 08/04--decrease Librium to 25 mg po BID starting tomorrow. 08/05 - In light of rehab referrals, will taper Librium to 25mg qAM starting tomorrow - Can discontinue if rehab requesting patient be off the medication (5) Disordered eatin/1 - Pt admits to episodes of disordered eating habits, including periods of binge eating, purging behavior by vomiting, and excessive exercise - Continue to gather information to determine criteria for formal diagnoses, as patient admits that at times the vomiting has been brought on by anxiety/difficulty swallowing - Episodes of disordered eating are reportedly intermittent, and related to periods of worsening depression/anxiety 08/05 - Pt admitting he has not been consuming most meals, reporting nausea/vomiting with withdrawal symptoms and anxiety - Does admit to waking up in the middle of the night and eating a snack - Continue to encourage appropriate coping strategies - Although it would be helpful to continue to monitor and discuss, this is not a primary focus of treatment at this time Inventory Assets Strengths: willingness for treatment, desire to consider D&A rehab, supportive family Needs: cessation from alcohol use, medication adjustments to target anxiety and depression, completion of discharge and safety planning Risk Factors Assessment Male: Yes : Yes Health Problems: No Mental Health Diagnoses: Yes Substance Use Disorders: Yes Previous Attempt: Yes Previous Psychiatric Hospitalization: No Hopelessness: Yes Smoker: Yes Protective Factors Assessment Muslim Beliefs: No : No Responsible for Young Children: No 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 Pt has a history of anxiety and depression, and was admitted on 08/01/19 13:27 on a 201 voluntary commitment for worsening depression, anxiety, and suicidality. He reportedly called 911 after a failed hanging attempt while intoxicated. Patient agreed to voluntarily psychiatric treatment after he regained sobriety. Chief Complaint "I have been pretty emotional today." Review of Systems Notes Constitutional: reports reduced appetite Cardiovascular: denied Respiratory: denied Gastrointestinal: reports nausea after meals, no emesis since yesterday afternoon Neurological: denied Psychiatric: denies symptoms other than stated above Total of at least 10 systems reviewed, pertinent positives as above and in HPI. Sleep Information Total Hours of Sleep: 6.75 Sleep Comments: nettie was awake shortly after 0230 rounds. he was feeling hungry so ate his saved food. he requested and received his second hs vistaril dose for sleep aid Meal Information Percent Meal Consumed - Breakfast: 0 Percent Meal Consumed - Lunch: 0 Percent Meal Consumed - Dinner: 100 Nutrition Comment: patient notified that dinner arrived but requested to sleep instead Subjective Subjective Patient was seen & assessed and interval progress reviewed with treatment team. Staff reports the patient has been participating in group programming. He consented to a meeting with his parents this weekend, which was reportedly difficult for the patient. Last evening, the patient rated his mood a 34/10 and "irritated." He has remained agreeable to inpatient drug and alcohol rehab after discharge. Patient was seen today to assess progress since admission. He states that he is feeling "emotional" today. Patient states "my anxiety is pretty high, like really high." Patient is honest with this provider about being "pissed off" that he will likely not be able to see his cat he is transported to rehab. Patient verbalizes understanding, but states that he was hoping to go home prior to attending rehab, and was shocked was not recommended. Patient states that he has continued to benefit from his admission here and states "groups are helping a lot, and is still not sure what I should start letting things out." Patient shares that there is some things from his past that he still does not yet feel comfortable sharing in the group setting, but is hoping to discuss these further once he is at rehab. Patient reports ongoing confusion about the thoughts that lead to his suicide attempt. Patient states "I just want to know why I did it. I do not even know what triggered the thought because I was drunk." The patient is honest about admitting to this provider that his alcohol cravings are very high, stating "all I want right now is vodka." Patient states that he feels comfortable with going to rehab when a bed becomes available as "I feel like I need to be around people who are struggling with the same things. This is helpful, but I need to move forward." Patient denies ongoing suicidality, as well as other needs or concerns at this time. Physical Exam Psychiatric Orientation: alert, oriented x 3 and cooperative (and pleasant) Apperance: appropriately dressed (casually in a t-shirt and sweat pants), appropriately groomed and appeared stated age Eye Contact: good eye contact Motor Behavior: steady gait and station and no abnormal motor movements Speech: normal rate/rhythm/volume of speech Affect: + depressed affect, + anxious affect, + tearful affect and mood congruent with affect Mood: + depressed mood and + anxious mood ("My anxiety is pretty high, like really high") Thought Process: goal directed thought process, linear/logical thought process, clear/coherent thought process and thought association intact Thought Content: reality based without delusions and + guilt; no hopelessness and no worthlessness Suicidal Thoughts: denies suicidal thoughts and denies suicidal intent Homicidal Thoughts: denies homicidal thoughts Hallucinations: no auditory hallucinations and no visual hallucinations Cognition: attention grossly intact and language grossly intact Insight: + fair insight Judgement: + fair judgement Vital Signs (Past 24 Hours) Last Vital Signs Temp 36.7 C 08/05/19 06:57 Pulse 79 08/05/19 06:58 Resp 18 08/05/19 06:57 BP 105/72 08/05/19 06:58 Pulse Ox 95 08/01/19 14:12 Results & Data Current Inpatient Medications Current Inpatient Medications: Current Inpatient Medications Acetaminophen (Tylenol) 650 mg PO Q4H PRN PRN Reason: Headache or Minor Fever Stop: 08/31/19 13:26 Last Admin: 08/04/19 12:12 Dose: 650 mg Documented by: Al Hydrox/Mg Hydrox/Simethicone (Maalox) 30 ml PO Q4H PRN PRN Reason: GI Upset Stop: 08/31/19 13:26 Last Admin: 08/04/19 18:32 Dose: 30 ml Documented by: Ascorbic Acid (Vitamin C) 1,000 mg PO QAM [facility] Stop: 09/01/19 08:59 Last Admin: 08/05/19 09:02 Dose: 1,000 mg Documented by: Bismuth Subsalicylate (Kaopectate) 15 ml PO PRN PRN PRN Reason: Loose Stool Stop: 08/31/19 13:26 Chlordiazepoxide HCl (Librium) 25 mg PO BID [facility] Stop: 09/04/19 08:59 Last Admin: 08/05/19 09:03 Dose: 25 mg Documented by: Fluoxetine HCl (Prozac) 20 mg PO QAM [facility] Stop: 09/04/19 08:59 Last Admin: 08/05/19 09:01 Dose: 20 mg Documented by: Hydroxyzine HCl (Vistaril) 25 mg PO Q4H PRN PRN Reason: Anxiety Stop: 08/31/19 13:26 Last Admin: 08/05/19 12:36 Dose: 25 mg Documented by: Hydroxyzine HCl (Vistaril) 50 mg PO HSZ PRN PRN Reason: Insomnia Stop: 08/31/19 13:26 Last Admin: 08/05/19 02:42 Dose: 50 mg Documented by: Lansoprazole (Prevacid) 15 mg PO BID [facility] Stop: 09/02/19 17:29 Last Admin: 08/05/19 09:01 Dose: 15 mg Documented by: Lorazepam (Ativan) 1 - 3 mg PO UD PRN; Protocol PRN Reason: EtoH Withdrawal AWSS 6-10+ Stop: 08/31/19 16:36 Last Admin: 08/04/19 12:12 Dose: 1 mg Documented by: Magnesium Hydroxide (Milk Of Magnesia) 30 ml PO DAILY PRN PRN Reason: Constipation Stop: 08/31/19 13:26 Miscellaneous (Remove Nicoderm Patch) 1 ea N/A HS [facility] Stop: 08/31/19 20:59 Last Admin: 08/04/19 20:57 Dose: Not Given Documented by: Multivitamins (Multivitamin Tab) 1 tab PO QAM [facility] Stop: 09/01/19 08:59 Last Admin: 08/05/19 09:01 Dose: 1 tab Documented by: Nicotine (Nicoderm Cq) 21 mg TD QAM [facility] Stop: 08/31/19 16:14 Last Admin: 08/05/19 09:01 Dose: 21 mg Documented by: Ondansetron HCl (Zofran Odt) 8 mg PO Q6H PRN PRN Reason: Nausea Stop: 09/01/19 13:45 Last Admin: 08/04/19 13:39 Dose: 8 mg Documented by: Sodium Chloride ([place] Nasal) 1 - 2 sprays NA PRN PRN PRN Reason: Nasal Dryness/Congestion Stop: 08/31/19 13:26 Post Discharge Appointments Primary Care Physician Name Of Family Doctor: Dr. Ashford at [facility] (1) Depression Active/Remission status: currently active Depression Type: major depressive disorder Major depression episode severity: severe Major depression recurrence: recurrent Psychotic features: without psychotic features Qualified Code(s): F33.2 - Major depressive disorder, recurrent severe without psychotic features
[2019-08-05] MEDS: ACETAMINOPHEN 325 MG TAB PO PRN (16:08)
[2019-08-06] MEDS: chlordiazePOXIDE HCl 25 MG CAP PO SCH ×2 (08:42→10:34)
[2019-08-06] MEDS: MULTIVITAMIN TAB PO SCH (08:42)
[2019-08-06] MEDS: LANSOPRAZOLE 15 MG SOLTAB PO SCH ×2 (08:43→22:00)
[2019-08-06] MEDS: NICOTINE 21 MG/24 HR TDSY TD SCH (08:43)
[2019-08-06] MEDS: ASCORBIC ACID 500 MG TAB PO SCH (08:43)
[2019-08-06] MEDS: FLUOXETINE HCL 20 MG CAP PO SCH (08:43)
--- NOTE | 2019-08-06 09:34 | Psychiatric Progress Note ---
Date of Service August 06, 2019 Impression / Recommendations Impression 29-year-old male admitted voluntarily for inpatient psychiatric treatment on 08/01/19 after present to the ED via police following a reported suicide attempt. Pt admits to rather significant alcohol abuse, and reported that while intoxicated he had attempted to hang himself with an extension cord in his living room. Pt does have a history of a prior plan to hang himself back around 2011, but states he was interrupted by his father entering the room. Crosstapering from Celexa to fluoxetine. Fluoxetine is being titrated to 40 mg daily after discussion of risks, benefits, and potential side effects. Patient has been accepted to [facility] for inpatient D&A rehabilitation, with anticipated discharge date of 08/07/19. Inpatient psychiatric admission is medically necessary until patient is accepted at an inpatient D&A rehab facility. He remains at high risk of continued alcohol use and possible suicide if he is discharged prematurely, without adequate mitigation of risk factors. (1) Suicide attempt: 08/02 - Admitted to a locked inpatient behavioral health unit, on q15 minute safety checks - Encourage medication initiation/adjustments as indicated - Encourage participation in group and recreational therapies - Gather collateral information from outpatient providers - Suggest family meeting to involve outpatient supports in safety planning - Arrange appropriate aftercare 08/05 - Pt denies persistent SI - Unable to better process suicidal thoughts, as admits he was drunk and does not recall what event/thoughts led him to this point 08/06 - Denies ongoing SI (2) Depression: 08/02 - Pt verbalizes recognition that citalopram at its current dosage has not been effective for his symptoms of depression and anxiety. Various treatment options were reviewed, including option to titrate citalopram to a higher dosage as well as consideration to switch antidepressant agents. After reviewing several options in detail, patient verbalized desire to cross-taper from citalopram to fluoxetine. - Will order 20mg of citalopram tomorrow morning, and initiate 10mg of fluoxetine tomorrow morning - can continue remainder of cross-taper as tolerated - Encourage participation in group and recreational programming - Encourage development of healthy and effective coping strategies - Family meeting with outpatient supports - Referral for after care prior to discharge 08/03--decrease Celexa to 10 mg tomorrow for last dose, hold titration of Prozac until no emesis for >24 hrs. 08/04--titrate Prozac to 20 mg starting tomorrow. 08/05 - Continue fluoxetine 20mg for tomorrow morning, as patient admits to continued nausea 08/06 - will receive additional 20mg dose this afternoon, titrating to 40mg qAM for tomorrow - Pt reports still feeling "a little black cloud over my head", but reports hopefulness for the future - Coordinate care with [facility], who has accepted the patient for inpatient D&A rehabilitation (3) Generalized anxiety disorder with panic attacks: 08/02 - Cross taper from citalopram to fluoxetine as outlined above - Hydroxyzine 25mg prn for episodes of acute anxiety - Encourage development of healthy and effective coping strategies 08/05 - Pt reports hydroxyzine has been ineffective for anxiety - agreeable to trial of dose titration - Reviewed risks, benefits, and potential side effects; will titrate daytime dosing to 50mg, and HS dosing to 100mg 08/06 - Titration of hydroxyzine has reportedly been beneficial (4) Alcohol abuse: 08/02 - AWSS protocol ordered with gabapentin taper, pt has been periodically scoring high enough to receive lorazepam - highest score has been 6 - Recovery protocol, encourage processing of circumstances leading to alcohol use, assist with development of healthy and effective coping strategies - Recommending inpatient D&A rehab, which patient is open to considering - ideally would at least agree to outpatient D&A counseling - Brief intervention was offered and accepted: Intervention was greater than 5 min in length. Brief interventions include: 1. Assess Readiness to Quit, 2. Advise: Help Patient to Reduce or Abstain from Alcohol, 3. Agree: Set Specific, Feasible Goals, 4. Assist: Anticipate barriers, Problem-Solving Solutions. Social work to 5. Arrange: Referrals to appropriate treatment. Summary of intervention: The patient is in contemplation stage with regards to transtheoretical model of change. The patient is advised to decrease alcohol consumption due to depressant effects and risk of interactions with prescription medications. The patient was advised of recommendations for abstinence from alcohol and other abusable substances and to attend substance abuse treatment at discharge, and will be provided with recovery materials to continue to education self on how to cope with their condition without drinking. 08/03--AWSS protocol, Librium 50 mg po BID today with plan to taper. SW initiating referral to [facility]. 08/04--decrease Librium to 25 mg po BID starting tomorrow. 08/05 - In light of rehab referrals, will taper Librium to 25mg qAM starting tomorrow - Can discontinue if rehab requesting patient be off the medication (5) Disordered eatin/1 - Pt admits to episodes of disordered eating habits, including periods of binge eating, purging behavior by vomiting, and excessive exercise - Continue to gather information to determine criteria for formal diagnoses, as patient admits that at times the vomiting has been brought on by anxiety/difficulty swallowing - Episodes of disordered eating are reportedly intermittent, and related to periods of worsening depression/anxiety 08/05 - Pt admitting he has not been consuming most meals, reporting nausea/vomiting with withdrawal symptoms and anxiety - Does admit to waking up in the middle of the night and eating a snack - Continue to encourage appropriate coping strategies - Although it would be helpful to continue to monitor and discuss, this is not a primary focus of treatment at this time Inventory Assets Strengths: willingness for treatment, desire to consider D&A rehab, supportive family Needs: cessation from alcohol use, medication adjustments to target anxiety and depression, completion of discharge and safety planning Risk Factors Assessment Male: Yes : Yes Health Problems: No Mental Health Diagnoses: Yes Substance Use Disorders: Yes Previous Attempt: Yes Previous Psychiatric Hospitalization: No Hopelessness: Yes Smoker: Yes Protective Factors Assessment Confucianist Beliefs: No : No Responsible for Young Children: No 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 Pt has a history of anxiety and depression, and was admitted on 08/01/19 13:27 on a 201 voluntary commitment for worsening depression, anxiety, and suicidality. He reportedly called 911 after a failed hanging attempt while intoxicated. Patient agreed to voluntarily psychiatric treatment after he regained sobriety. Chief Complaint "I. Finally. Slept." Review of Systems Notes Constitutional: reports improvement in appetite Cardiovascular: denied Respiratory: denied Gastrointestinal: denied Neurological: denied Psychiatric: denies symptoms other than stated above Total of at least 10 systems reviewed, pertinent positives as above and in HPI. Sleep Information Total Hours of Sleep: 7.5 Sleep Comments: nettie was awake shortly after 0230 rounds. he was feeling hungry so ate his saved food. he requested and received his second hs vistaril dose for sleep aid Meal Information Percent Meal Consumed - Breakfast: 0 Percent Meal Consumed - Lunch: 0 Percent Meal Consumed - Dinner: 25 Nutrition Comment: patient notified that dinner arrived but requested to sleep instead Subjective Subjective Patient was seen & assessed and interval progress reviewed with nursing and social work. Staff reports the patient continues to participate appropriately in group programming. He was accepted to [facility] D&A rehab facility, with anticipated discharge of 08/07/19. Patient rated his mood a 03/11 and "content" last evening. Staff report the patient responded favorably to titration of evening dose of hydroxyzine. Patient reportedly slept 7.5 hours last night. Patient was seen today to assess progress since admission. Patient, too, admits that he "finally slept." Patient states that he feels well rested and "refreshed" this morning, which is reduced his usual anxiety level. Patient states that he does anticipate some increased anxiety later this morning, as his parents are coming to drop off some belongings for rehab. Patient states "I know I am going to be emotional." We discussed utilization of hydroxyzine, as patient states he will likely need some after his interaction. This provider also offered the suggestion that he could utilize the medication before his parents arrive, if he is aware that it will be a stressful visit. Patient states he also received a visit from his boss last evening, who was supportive and reassured him he will still have a position when he completes delmi ab. Patient reports improvement in physical concerns previously related to withdrawal. He does inquire about ability to titrate his dose of fluoxetine. This topic was reviewed, and patient's questions were answered. Patient is agreeable to receiving an additional 20 mg dose of fluoxetine this afternoon, with titration to 40 mg each morning starting tomorrow. Patient denies any physical side effects he believes to be related to the medication. He states that he leaves a higher dose will be helpful as "I still have a little black cloud over my head." We reviewed anticipated necessary dosing, as well as a reasonable timeline for response to the medications. Patient states he is aware it will take multiple weeks in order to know the full benefits received from the medication. Patient denies ongoing suicidality and reports hopefulness about going to rehab. He does state that he continues to be anxious about these next steps. Patient denies other needs or concerns at this time. Physical Exam Psychiatric Orientation: alert, oriented x 3 and cooperative (And pleasant) Apperance: appropriately dressed (Casually), appropriately groomed and appeared stated age Eye Contact: good eye contact Motor Behavior: steady gait and station and no abnormal motor movements Speech: normal rate/rhythm/volume of speech Affect: + depressed affect (Demonstrating some improvement, joking at times) and + anxious affect Mood: + depressed mood ("I still have a little black cloud over my head") and + anxious mood ("Just still nervous about these next steps") Thought Process: goal directed thought process, linear/logical thought process, clear/coherent thought process and thought association intact Thought Content: reality based without delusions and + guilt; no hopelessness Suicidal Thoughts: denies suicidal thoughts and denies suicidal intent Homicidal Thoughts: denies homicidal thoughts Hallucinations: no auditory hallucinations and no visual hallucinations Cognition: attention grossly intact and language grossly intact Insight: good insight Judgement: good judgement Vital Signs (Past 24 Hours) Last Vital Signs Temp 36.5 C 08/06/19 06:00 Pulse 62 08/06/19 06:23 Resp 16 08/06/19 06:00 BP 110/75 08/06/19 06:23 Pulse Ox 95 08/01/19 14:12 Results & Data Current Inpatient Medications Current Inpatient Medications: Current Inpatient Medications Acetaminophen (Tylenol) 650 mg PO Q4H PRN PRN Reason: Headache or Minor Fever Stop: 08/31/19 13:26 Last Admin: 08/05/19 16:08 Dose: 650 mg Documented by: Al Hydrox/Mg Hydrox/Simethicone (Maalox) 30 ml PO Q4H PRN PRN Reason: GI Upset Stop: 08/31/19 13:26 Last Admin: 08/04/19 18:32 Dose: 30 ml Documented by: Ascorbic Acid (Vitamin C) 1,000 mg PO QAM [facility] Stop: 09/01/19 08:59 Last Admin: 08/06/19 08:43 Dose: 1,000 mg Documented by: Bismuth Subsalicylate (Kaopectate) 15 ml PO PRN PRN PRN Reason: Loose Stool Stop: 08/31/19 13:26 Chlordiazepoxide HCl (Librium) 25 mg PO BID [facility] Stop: 09/04/19 08:59 Last Admin: 08/06/19 08:42 Dose: 25 mg Documented by: Fluoxetine HCl (Prozac) 20 mg PO ONE ONE Stop: 08/06/19 12:31 Fluoxetine HCl (Prozac) [facility] [place] Stop: 09/06/19 08:59 Hydroxyzine HCl (Vistaril) 100 mg PO HSZ PRN PRN Reason: Insomnia Stop: 08/31/19 13:26 Last Admin: 08/05/19 21:28 Dose: 100 mg Documented by: Hydroxyzine HCl (Vistaril) 50 mg PO Q4H PRN PRN Reason: Anxiety Stop: 08/31/19 13:26 Last Admin: 08/05/19 17:40 Dose: 50 mg Documented by: Lansoprazole (Prevacid) 15 mg PO BID [facility] Stop: 09/02/19 17:29 Last Admin: 08/06/19 08:43 Dose: 15 mg Documented by: Lorazepam (Ativan) 1 - 3 mg PO UD PRN; Protocol PRN Reason: EtoH Withdrawal AWSS 6-10+ Stop: 08/31/19 16:36 Last Admin: 08/04/19 12:12 Dose: 1 mg Documented by: Magnesium Hydroxide (Milk Of Magnesia) 30 ml PO DAILY PRN PRN Reason: Constipation Stop: 08/31/19 13:26 Miscellaneous (Remove Nicoderm Patch) 1 ea N/A HS [facility] Stop: 08/31/19 20:59 Last Admin: 08/05/19 21:32 Dose: Not Given Documented by: Multivitamins (Multivitamin Tab) 1 tab PO [facility] Stop: 09/01/19 08:59 Last Admin: 08/06/19 08:42 Dose: 1 tab Documented by: Nicotine (Nicoderm Cq) 21 mg TD [facility] Stop: 08/31/19 16:14 Last Admin: 08/06/19 08:43 Dose: 21 mg Documented by: Ondansetron HCl (Zofran Odt) 8 mg PO Q6H PRN PRN Reason: Nausea Stop: 09/01/19 13:45 Last Admin: 08/04/19 13:39 Dose: 8 mg Documented by: Sodium Chloride (Glades Nasal) 1 - 2 sprays NA PRN PRN PRN Reason: Nasal Dryness/Congestion Stop: 08/31/19 13:26 Post Discharge Appointments Primary Care Physician Name Of Family Doctor: Dr. Ashford at [facility] Other #1: Name of Aftercare Appointment: [facility] Phone Number of Aftercare Appointment: Aftercare Appointment Comment: [address], [place] [id number] (1) Depression Active/Remission status: currently active Depression Type: major depressive disorder Major depression episode severity: severe Major depression recurrence: recurrent Psychotic features: without psychotic features Qualified Code(s): F33.2 - Major depressive disorder, recurrent severe without psychotic features
[2019-08-06] MEDS ORDERED: FLUOXETINE HCL 20 MG CAP PO ONE (12:30)
[2019-08-07] MEDS ORDERED: FLUOXETINE HCL 20 MG CAP PO SCH (09:00)
--- NOTE | 2019-08-07 09:11 | Discharge Summary ---
Date of Service August 07, 2019 History of Present Illness Branden Browning is a 29-year-old male admitted voluntarily for inpatient psychiatric treatment on 08/01/19 after presenting to the ED for mental health evaluation. Pt was brought to the ED by police after he called 911 to report he had attempted to end his life. Pt had admitted to attempting to utilize a electrical cord to hang himself while intoxicated from a night of alcohol use. When patient regained sobriety, he verbalized ongoing SI and was requesting inpatient mental health treatment. [address] warrant completed by [employer] Police was dispo'ed in the ED given patient's voluntary status. His case was reviewed and discussed this morning during treatment team. Pt is cooperative with psychiatric evaluation. He states that he has had numerous stressors recently, including financial concerns, strained relationship with sister, guilt regarding relying on parents, and anxiety surrounding the physical health of his parents and grandparents. He states that in order to cope with these stressors, he often turns to alcohol. Pt admits to consuming alcohol daily, often drinking a fifth of vodka. He admits to two DUIs, finishing up [facility] for his second. Pt states, "I see that as a good thing, but it still worries me. I can't get another one. I need help." Pt admits to history of D&A counseling as part of [facility], but did not find it helpful. Pt states that the alcohol use even interfered with his understanding of the events that occurred prior to his admission. He states he had been having suicidal ideation prior to the night of ED presentation, but he is unsure of the thought process that led him to his hanging attempt. ED documentation suggests it was a difficult phone call with his sister, but patient cannot confirm this. He states, "from what I remember, there are just bits and pieces. I must have been upset or something. I grabbed an extension cord and pulled it over a chair in my living room. The next thing I remember was the cord slipping off my chin and it came off. I just sat there and cried. I knew I needed help, so I called 911." Pt admits to a prior plan to end his life by hanging in 2011, having all the materials ready in his parent's house. He states his plan was interrupted by his father coming home. This led to the initiation of outpatient psychiatric treatment with Dr. Shaffer. Pt was started on citalopram 30mg and has remained on it "for over 10 years." Pt admits to depressive symptoms of low mood, anhedonia, decreased energy, increased desire to sleep, difficulty falling and staying asleep, hopelessness, guilt, and SI. He admits to limited appetite during the day, but reports "binge eating" at night - waking from sleep to "eat everything in my house." Pt admits to increased anxiety, reporting symptoms of irritability, tendency to withdrawal from friends/family, increased stress eating, and diaphoresis. He admits that panic attacks are triggered at times, often related to public speaking or conversations with superiors. He endorses "calling in sick to meetings to get out of having to speak." Pt also reports increased hand washing behavior - admitting it is part of his job as an [employer], but also that he has anxiety surrounding smelling like tobacco - so will wash his hands after each cigarette. He estimates washing his hands about 30 times a day. Pt denies HI, SIB, A/V hallucinations, paranoia, aria/hypomania, other symptoms more suggestive of a bipolar presentation, PTSD, and other specific psychiatric symptoms. Physical Exam Psychiatric Orientation: alert, oriented x 3 and cooperative (And pleasant) Apperance: appropriately dressed (Casually, in pullover sweater and sweatpants), appropriately groomed (And recently showered) and appeared stated age Eye Contact: good eye contact Motor Behavior: steady gait and station and no abnormal motor movements Speech: normal rate/rhythm/volume of speech Affect: + depressed affect (Mildly, but appropriately reactive during conversation; smiling/laughing), + anxious affect and mood congruent with affect Mood: + depressed mood and + anxious mood ("Really nervous. Really, really nervous.") Thought Process: goal directed thought process, linear/logical thought process, clear/coherent thought process and thought association intact Thought Content: reality based without delusions and + guilt (Improving over the course of admission); no hopelessness and no worthlessness Suicidal Thoughts: denies suicidal thoughts, denies suicidal plan and denies suicidal intent Homicidal Thoughts: denies homicidal thoughts Hallucinations: no auditory hallucinations and no visual hallucinations Cognition: remote memory grossly intact, attention grossly intact and language grossly intact Insight: good insight Judgement: good judgement Vital Signs (Past 24 Hours) Last Vital Signs Temp 36.4 C L 08/07/19 07:18 Pulse 79 08/07/19 07:19 Resp 16 08/07/19 07:18 BP 112/73 08/07/19 07:19 Pulse Ox 95 08/01/19 14:12 Principal Diagnosis - Major depressive disorder, recurrent, severe, without psychotic features - Generalized anxiety disorder with panic attacks - Alcohol abuse - r/o Disordered eating behaviors Psychiatric Data 29-year-old male admitted voluntarily for inpatient psychiatric treatment on 08/01/2019 following a failed attempt to hang himself while intoxicated. Patient presented to the ED on a [address] warrant, after he admitted to calling 911, reportedly scared by his suicidal actions. Patient was evaluated for mental health concerns after he regained sobriety, and continued to verbalize depression and was willing for admission for psychiatric treatment. Pt verbalized worsening depression and anxiety related to multiple situational stressors. He also admits that he has been consuming alcohol daily, reportedly utilizing it to cope with his anxiety. Pt admitted that he was not sure what led to his suicidal actions, as he was heavily intoxicated at the time - but admitted to hopelessness and significant guilt upon admission. Pt was placed on AWSS protocol for alcohol withdrawal, initially with high enough scores to receive prn dosing of lorazepam. Lorazepam was eventually discontinued in favor of Librium taper, which was discontinued by the time of discharge. Pt had been prescribed citalopram for 10+ years prior to admission, having been titrated to a dose of 30mg daily. After review of medication options, including possibility to further titrate citalopram, patient verbalized desire for a trial of fluoxetine. Once withdrawal symptoms improved, crosstaper from citalopram to fluoxetine was initiated. Pt was titrated to a dose of fluoxetine 40mg qAM by the time of discharge, and is reportedly tolerating the medication. Pt did utilize hydroxyzine prn for both anxiety and insomnia. Hydroxyzine was titrated to effective dosing, 100mg qHS and 50mg prn for daytime anxiety. He participated appropriately in group and recreational programming. Pt consented to a family meeting involving his parents, who remain supportive. He also completed a safety plan prior to discharge, which was personally reviewed by this provider. D&A treatment options were discussed with the patient, who verba lized desire for inpatient D&A rehabilitation. Referral was sent to [facility], who accepted the patient and arranged transportation. Pt continued to deny suicidality over the course of his admission, and reported improvement in mood. Anxiety remained high due to uncertainties of rehab and maintaining stability. Based on review of patient's case and their current presentation, risk of harm to self or others is no longer perceived to be acute. Pt seems appropriate for discharge with recommendation for consistent follow-up with outpatient psychiatric prescriber and therapist after rehab. Pt verbalized understanding of discharge plan reviewed and is agreeable with plan to be discharged [facility] D&A rehab facility today. Recommendation is for outpatient mental health treatment after completion of their program. Day of Discharge Assessment Patient's case was reviewed and discussed during treatment team. Staff reports the patient has continued to attend group programming, and has been supportive of peers. He has been observed to be rather anxious on the unit, verbalizing a feeling of nervousness surrounding transfer to rehab. Discharge plans have been coordinated with [facility] D&A rehab facility - who is accepting the patient for admission today, with transportation arriving around 10:00 AM. Patient was seen today to assess readiness for discharge. Patient presents as upbeat, but admits to feeling "really nervous. Really, really nervous." Patient denies any specific anxieties, stating that in general he is nervous about "the unknown." Patient states he is motivated to "make this whole experience worth it", and verbalizes desire to ensure he is connecting with the appropriate people to keep him working towards his goal. Patient does admit that his anxiety is an 8/10 (10 = highest). Despite feeling nervous, he states "overall I am feeling really good." Patient denies any physical symptoms rel ated to medication side effects or continued withdrawal. He states that his appetite has slowly been improving, and he has been better able to stomach meals. He does share with this provider that he had "a breakdown" yesterday, over "just really wanting a drink." Patient states that he is motivated to "tackle this problem", but admits that his alcohol cravings are rather high. Patient is cooperative with review of discharge plan and medications. He remains agreeable with discharge today, and is being provided with transportation to [facility] for specialized D&A treatment. Patient denies ongoing suicidality, as well as other needs or concerns prior to discharge. ROS: Constitutional: reports significant improvement in sleep with use of hydroxyzine Cardiovascular: denied Respiratory: denied Gastrointestinal: denied Neurological: denied Psychiatric: denies symptoms other than stated above Total of at least 10 systems reviewed, pertinent positives as above and in HPI. Transition of Care Transition Of Care Record: was reviewed with the patient Advance Directives Advance Directives Information Provided: Yes Advance Directives: No Mental Health Advance Directive: No Advance Directives on File: No Living Will: No Power of Supervisor Electrolytic Tinning: No Advance Directives Reason:: Declines as Mental Health Visit. Risk Factors Assessment Presenting risk factors reviewed on discharge. Precipitating stressors mitigated by: admission for inpatient psychiatric observation and treatment, appropriate adjustments to medications to target symptoms, attendance of therapeutic treatment groups, development of healthy and effective coping strategies, involvement of outpatient supports, completion of a safety plan, confirmation of guns and weapons being secured, discussion regarding substance abuse and effects on mental health diagnoses, and education on diagnoses. Pt has demonstrated improvement in condition with regard to improvement in mood, resolution of SI, ability to address alcohol abuse, involvement of outpatient supports in family meeting, and referral for inpatient D&A rehab on discharge. At this time, patient is requesting discharge and is no longer considered to be at acute risk of harm to himself or others. Pt will be discharged to inpatient D&A rehab, with recommendation for ongoing outpatient psychiatric treatment after completion of their program. 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) Stable Relationships: No Supportive Family: Yes Tobacco Cessation at Discharge Tobacco Cessation Medication Prescribed at Discharge: Offered & Prescribed (Rx for nicotine patches printed at patient's request) Total Time Total Time Spent: Greater Than 30 Minutes Total Time Includes: Examination of the patient, Discharge Planning, Medication Reconciliation and Communication with other providers Discharge Data Lab Results 08/01/19 08/01/19 08/01/19 03:45 03:45 03:45 WBC 8.10 RBC 5.45 Hgb 15.6 Hct 43.0 MCV 78.9 L MCH 28.6 MCHC 36.3 H RDW Std Deviation 35.8 L RDW Coeff of Lobo 12.6 Plt Count 216 MPV 10.6 H Sodium 140 Potassium 3.8 Chloride 109 H Carbon Dioxide 25 Anion Gap 6.0 BUN 14 Creatinine 1.02 Est Cr Clr Drug Dosing Not Reportable Est GFR ( Amer) 113.8 Est GFR (Non-Af Amer) 98.2 BUN/Creatinine Ratio 13.5 Glucose 96 Calcium 8.5 Phosphorus Magnesium Total Bilirubin AST ALT Alkaline Phosphatase Total Protein Albumin Globulin Albumin/Globulin Ratio Amylase Lipase TSH 1.640 Urine Color Urine Appearance Urine pH Ur Specific [place] Urine Protein Urine Glucose (UA) Urine Ketones Urine Blood Urine Nitrite Urine Bilirubin Urine Urobilinogen Ur Leukocyte Esterase Salicylates < 1.7 L Urine Opiates Screen Ur Methadone, Qual Acetaminophen < 2 L Urine Barbiturates Ur Phencyclidine (PCP) U Amphetamin/Meth Scrn MDMA (Ecstasy) Screen U Benzodiazepines Scrn Ur Cocaine Metabolite U Marijuana (THC) Screen Ethyl Alcohol mg/dL 08/01/19 08/01/19 08/01/19 03:45 03:45 03:45 WBC RBC Hgb Hct MCV MCH MCHC RDW Std Deviation RDW Coeff of Lobo Plt Count MPV Sodium Potassium Chloride Carbon Dioxide Anion Gap BUN Creatinine Est Cr Clr Drug Dosing Est GFR ( Amer) Est GFR (Non-Af Amer) BUN/Creatinine Ratio Glucose Calcium Phosphorus Magnesium Total Bilirubin AST ALT Alkaline Phosphatase Total Protein Albumin Globulin Albumin/Globulin Ratio Amylase Lipase TSH Urine Color Yellow Urine Appearance Clear Urine pH 5.0 Ur Specific [place] 1.011 Urine Protein Negative Urine Glucose (UA) Negative Urine Ketones Negative Urine Blood Negative Urine Nitrite Negative Urine Bilirubin Negative Urine Urobilinogen Negative Ur Leukocyte Esterase Negative Salicylates Urine Opiates Screen Neg Ur Methadone, Qual Neg Acetaminophen Urine Barbiturates Neg Ur Phencyclidine (PCP) Neg U Amphetamin/Meth Scrn Neg MDMA (Ecstasy) Screen Neg U Benzodiazepines Scrn Neg Ur Cocaine Metabolite Neg U Marijuana (THC) Screen Neg Ethyl Alcohol mg/dL 225.0 H 08/03/19 15:58 WBC RBC Hgb Hct MCV MCH MCHC RDW Std Deviation RDW Coeff of Lobo Plt Count MPV Sodium 138 Potassium 4.2 Chloride 108 H Carbon Dioxide 25 Anion Gap 6.0 BUN 11 Creatinine 1.29 Est Cr Clr Drug Dosing 104.2 Est GFR ( Amer) 85.7 Est GFR (Non-Af Amer) 73.9 BUN/Creatinine Ratio 8.5 L Glucose 108 H Calcium 8.9 Phosphorus 3.1 Magnesium 2.4 Total Bilirubin 0.4 AST 26 ALT 74 Alkaline Phosphatase 50 Total Protein 7.0 Albumin 3.7 Globulin 3.3 Albumin/Globulin Ratio 1.1 Amylase 49 Lipase 121 TSH Urine Color Urine Appearance Urine pH Ur Specific [place] Urine Protein Urine Glucose (UA) Urine Ketones Urine Blood Urine Nitrite Urine Bilirubin Urine Urobilinogen Ur Leukocyte Esterase Salicylates Urine Opiates Screen Ur Methadone, Qual Acetaminophen Urine Barbiturates Ur Phencyclidine (PCP) U Amphetamin/Meth Scrn MDMA (Ecstasy) Screen U Benzodiazepines Scrn Ur Cocaine Metabolite U Marijuana (THC) Screen Ethyl Alcohol mg/dL Hospital Course (1) Suicide attempt: 08/02 - Admitted to a locked inpatient behavioral health unit, on q15 minute safety checks - Encourage medication initiation/adjustments as indicated - Encourage participation in group and recreational therapies - Gather collateral information from outpatient providers - Suggest family meeting to involve outpatient supports in safety planning - Arrange appropriate aftercare 08/05 - Pt denies persistent SI - Unable to better process suicidal thoughts, as admits he was drunk and does not recall what event/thoughts led him to this point 08/06 - Denies ongoing SI (2) Depression: 08/02 - Pt verbalizes recognition that citalopram at its current dosage has not been effective for his symptoms of depression and anxiety. Various treatment options were reviewed, including option to titrate citalopram to a higher dosage as well as consideration to switch antidepressant agents. After reviewing several options in detail, patient verbalized desire to cross-taper from c italopram to fluoxetine. - Will order 20mg of citalopram tomorrow morning, and initiate 10mg of fluoxetine tomorrow morning - can continue remainder of cross-taper as tolerated - Encourage participation in group and recreational programming - Encourage development of healthy and effective coping strategies - Family meeting with outpatient supports - Referral for after care prior to discharge 08/03--decrease Celexa to 10 mg tomorrow for last dose, hold titration of Prozac until no emesis for >24 hrs. 08/04--titrate Prozac to 20 mg starting tomorrow. 08/05 - Continue fluoxetine 20mg for tomorrow morning, as patient admits to continued nausea 08/06 - will receive additional 20mg dose this afternoon, titrating to 40mg qAM for tomorrow - Pt reports still feeling "a little black cloud over my head", but reports hopefulness for the future - Coordinate care with [facility], who has accepted the patient for inpatient D&A rehabilitation (3) Generalized anxiety disorder with panic attacks: 08/02 - Cross taper from citalopram to fluoxetine as outlined above - Hydroxyzine 25mg prn for episodes of acute anxiety - Encourage development of healthy and effective coping strategies 08/05 - Pt reports hydroxyzine has been ineffective for anxiety - agreeable to trial of dose titration - Reviewed risks, benefits, and potential side effects; will titrate daytime dosing to 50mg, and HS dosing to 100mg 08/06 - Titration of hydroxyzine has reportedly been beneficial (4) Alcohol abuse: 08/02 - AWSS protocol ordered with gabapentin taper, pt has been periodically scoring high enough to receive lorazepam - highest score has been 6 - Recovery protocol, encourage processing of circumstances leading to alcohol use, assist with development of healthy and effective coping strategies - Recommending inpatient D&A rehab, which patient is open to considering - ideally would at least agree to outpatient D&A counseling - Brief intervention was offered and accepted: Intervention was greater than 5 min in length. Brief interventions include: 1. Assess Readiness to Quit, 2. Advise: Help Patient to Reduce or Abstain from Alcohol, 3. Agree: Set Specific, Feasible Goals, 4. Assist: Anticipate barriers, Problem-Solving Solutions. Social work to 5. Arrange: Referrals to appropriate treatment. Summary of intervention: The patient is in contemplation stage with regards to transtheoretical model of change. The patient is advised to decrease alcohol consumption due to depressant effects and risk of interactions with prescription medications. The patient was advised of recommendations for abstinence from alcohol and other abusable substances and to attend substance abuse treatment at discharge, and will be provided with recovery materials to continue to education self on how to cope with their condition without drinking. 08/03--AWSS protocol, Librium 50 mg po BID today with plan to taper. SW initiating referral to [facility]. 08/04--decrease Librium to 25 mg po BID starting tomorrow. 08/05 - In light of rehab referrals, will taper Librium to 25mg qAM starting tomorrow - Can discontinue if rehab requesting patient be off the medication (5) Disordered eatin/1 - Pt admits to episodes of disordered eating habits, including periods of binge eating, purging behavior by vomiting, and excessive exercise - Continue to gather information to determine criteria for formal diagnoses, as patient admits that at times the vomiting has been brought on by anxiety/difficulty swallowing - Episodes of disordered eating are reportedly intermittent, and related to periods of worsening depression/anxiety 08/05 - Pt admitting he has not been consuming most meals, reporting nausea/vomiting with withdrawal symptoms and anxiety - Does admit to waking up in the middle of the night and eating a snack - Continue to encourage appropriate coping strategies - Although it would be helpful to continue to monitor and discuss, this is not a primary focus of treatment at this time Post Discharge Appointments Primary Care Physician Name Of Family Doctor: Pranav Arias - Dr. Ashford Primary Care Time of Appointment with PCP: Follow up as needed Provider Appointment Comment: [address] [facility], [address], [place] Smoking Cessation Counseling Tobacco Cessation Medication Prescribed at Discharge: Offered & Prescribed (Rx for nicotine patches printed at patient's request) Other #1: Name of Aftercare Appointment: [facility] Phone Number of Aftercare Appointment: Date of Aftercare Appointment: 08/07/19 Time of Aftercare Appointment: 10:00 a.m. Aftercare Appointment Comment: [facility] [address], [place] [address] Contact Information Discharge Discharge Address: [address] [place] [address], [place] [address] Contact Information Comment: Discharged directly to [facility] Discharge Plan Discharge Items Patient Disposition: Drug & Alcohol Rehab Reason For Visit: DEPRESSIVE DISORDER UNSPECIFIED Discharge Diagnosis: - Depression - Anxiety - Alcohol Abuse Condition on Discharge: Good Activity: Resume your previous activity Non-emergency contact: Primary Care Provider, Psychiatrist and Therapist Call non-emergency contact if: you have any medication questions and your symptoms worsen Follow-up/Referrals: Gabriel Ashford [Primary Care Provider] - Diet: Regular Addtl Attending Provider Instructions: SPECIAL CARE INSTRUCTIONS: Follow discharge instructions per D&A rehab 1. Follow through with your scheduled aftercare appointments. If unable to keep an appointment, please call to reschedule. 2. Take your medication only as prescribed. Medication should not be changed or stopped without the approval of your doctor. In the event of worsening symptoms or concerns about side effects, contact your doctor immediately. 3. Utilize new healthy coping skills, anger management skills, and stress management skills learned during your hospitalization. Journal feelings and process them with a support person. Identify stressors or situations that may result in relapse, deterioration or inappropriate behaviors and develop a plan to deal with those issues. 4. If your coping skills are ineffective and you are in crisis, contact your outpatient providers for direction. If unable to reach your providers, please call the CAN HELP LINE AT or go to the closest Emergency Room. 5. Avoid alcohol and un-prescribed drugs. 6. You have been provided with the Mental Health Advance Directives Pamphlet for your review. AFTERCARE APPOINTMENTS: * Please call your insurance company prior to your scheduled appointment to confirm your aftercare providers are covered. Take your insurance information to your appointments. WHO TO CALL AND WHEN: Medical Emergencies: For questions or emergencies related to your hospital stay, please contact the Inpatient Behavioral Health Unit at [phone]. A rn invasive is on-call 24/04 for the Behavioral Health Unit for emergencies At any time you feel your situation is an emergency, you may also call 911 immediately. Your Discharge Instructions noted above were prepared by provider Kary Avalos PA-C. Pending Studies at Discharge: No Stand-Alone Forms: My [facility], Suicide Prevention Resources Skilled Items Patient informed of condition?: Yes DNR: No Discharge Level of Care: Other Communicable Disease: No Discharge Prognosis: Stable Lines: None Urinary Catheter: No Medications and DC Order Prescriptions: New nicotine [Nicoderm CQ] 21 mg/24 hr Patch 24 Hour 21 mg transdermal QAM PRN (Reason: nicotine cravings) Qty: 28 RF: 0 fluoxetine 40 mg capsule 40 mg PO QAM 30 Days Qty: 30 RF: 0 hydroxyzine HCl 50 mg tablet 100 mg PO HSZ PRN (Reason: insomnia) 30 Days Qty: 60 RF: 0 hydroxyzine HCl 50 mg tablet 50 mg PO Q4H PRN (Reason: anxiety) 30 Days Qty: 30 RF: 0 Continued multivitamin Tablet 1 tab PO QAM RF: 0 ascorbic acid (vitamin C) [Vitamin C] 1,000 mg Tablet 1 g PO QAM RF: 0 Discontinued citalopram 10 mg tablet 10 mg PO QAM RF: 0 citalopram 20 mg tablet 20 mg PO QAM RF: 0 Discharge Orders: Discharge Order (Routine); Ordered 08/07/19 Ordered By: Kary Avalos Admission Data Admit Date/Time: 08/01/19 13:27 Attending Provider: Shanda Palafox Admit Provider: Shanda Palafox Primary Care Provider: Gabriel Ashford Other Interventions: PSY Interdisciplinary Discharge Planning Last Done: 08/07/19 09:33 Coding Level of Care Code 59756 D/C day mgmt > 30 min Diagnoses Suicide attempt [id number] Depression F33.2 Active/Remission status: currently active Depression Type: major depressive disorder Major depression episode severity: severe Major depression recurrence: recurrent Psychotic features: without psychotic features Generalized anxiety disorder with panic attacks F41.1; F41.0 Alcohol abuse F10.10 Disordered eating F50.9
[2019-08-07] MEDS: NICOTINE 21 MG/24 HR TDSY TD SCH (09:38)
[2019-08-07] MEDS: MULTIVITAMIN TAB PO SCH (09:38)
[2019-08-07] MEDS: ASCORBIC ACID 500 MG TAB PO SCH (09:39)
[2019-08-07] MEDS: LANSOPRAZOLE 15 MG SOLTAB PO SCH (09:40)
[2019-08-07] MEDS: chlordiazePOXIDE HCl 25 MG CAP PO SCH (09:43)
== END 2019-08-07 10:09 | disposition alcohol treatment (31) | DRG 885 ==
LOC: ED 02:54 → 3S 13:27

== ENCOUNTER 2020-07-31 03:37 | Inpatient (IN) ==
[2020-07-31] MEDS ORDERED: SODIUM CHLORIDE 0.9% 1000ML 1,000 ML IV SCH (04:00)
[2020-07-31] MEDS ORDERED: PIPERACILL/TAZOBAC CONSULT ACTIVE PRN ×2 (04:00→08:16)
[2020-07-31] MEDS ORDERED: PIPERACILLIN/TAZOBACTAM 4.5 GM/120 ML BAG IV ONE (04:00)
[2020-07-31] MEDS ORDERED: MoRPHine SULFATE 4 MG/ML 1 ML CARP\\VIAL IV STA (04:02)
[2020-07-31] MEDS ORDERED: ONDANSETRON INJ 2 MG/ML 2 ML VIAL IV STA (04:02)
--- NOTE | 2020-07-31 04:12 | Emergency Department Note ---
History of Present Illness General Chief complaint: Fever Stated complaint: +COVID, FEVER 102,SOB,PAIN Time Seen by Provider: 07/31/20 03:47 History of Present Illness Maximum Pain Intensity: 10 This 30-year-old presents to the ER complaining of fever, chills, rectal pain for the past 5 days who tested positive for Covid 10 days ago. 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 He tested positive for Covid 10 days ago. Initially he was feeling better and then 5 days ago he started to feel ill again with rectal pain fevers and chills. Patient saw his family doctor and was given Valtrex and prednisone for possible herpes outbreaks. He does receive anal intercourse. Patient states he put his fingers up his rectum and had severe pain. His main complaint is the rectal discomfort and fever. Home Medications Home Medications Medication Instructions Recorded Confirmed Type multivitamin 1 tab PO QAM 10/31/18 07/31/20 History acetaminophen [Tylenol Extra 1,000 mg PO Q8H PRN 07/31/20 07/31/20 History Strength] ascorbic acid (vitamin C) [Vitamin 1 g PO DAILY 07/31/20 07/31/20 History C] cholecalciferol (vitamin D3) 100 mcg PO DAILY 07/31/20 07/31/20 History [Vitamin D3] ibuprofen 800 mg PO TID PRN 07/31/20 07/31/20 History prednisone 40 mg PO DAILY 07/31/20 07/31/20 History sertraline 100 mg PO DAILY 07/31/20 07/31/20 History valacyclovir 500 mg PO BID 07/31/20 07/31/20 History zinc 50 mg PO DAILY 07/31/20 07/31/20 History Allergies Allergy/AdvReac Type Severity Reaction Status Date / Time No Known Allergies Allergy Verified 07/31/20 04:52 Past Med/Surg History Medical History (Updated 07/31/20 @ 05:53 by Faina Carlson PA-C) Asthma Bursitis Depression Deviated nasal septum Elevated blood uric acid level Elevated liver enzymes IN THE PAST (NOW WNL) Gout Obesity Sciatica Sleep apnea NO DEVICE Surgical History History of appendectomy History of esophageal dilatation History of esophagogastroduodenoscopy (EGD) History of removal of skin mole History of tooth extraction [place] teeth removed Family History Father Multiple sclerosis Father Family history of ITP Aunt Family history of diabetes mellitus Social History Smoking Status: Never smoker Tobacco Type: Cigarettes Second Hand Exposure: No; Hx Alcohol Use: Yes Alcohol type: wine and hard liquor Hx Substance Use: No Preferred Language: Wolof Communication Ability: Effective Circulation Tender Required: No Beliefs That Will Affect Care: None Feels Safe at Home: Yes Assistive Devices: None Review of Systems A total of 10 systems reviewed and were otherwise negative Physical Exam Vital Signs Vital Signs - 24 hr 07/31/20 03:47 07/31/20 04:04 07/31/20 04:30 Temperature 37.8 C H Temperature Source Oral Pulse Rate 108 H 99 H Respiratory Rate 18 19 Blood Pressure 160/93 H 140/88 Blood Pressure Mean 115 101 Blood Pressure Position Lying Pulse Oximetry 99 98 Oxygen Delivery Method Room Air Room Air Sepsis Recent Fever Within 48 Hours Yes Sepsis New/Unexplained Change in Mental Status No Sepsis Action Taken by Nursing No Action Required 07/31/20 05:19 07/31/20 05:54 Temperature 38 C H Temperature Source Oral Pulse Rate 110 H Respiratory Rate 22 Blood Pressure 139/97 Blood Pressure Mean 120 Blood Pressure Position Pulse Oximetry 100 Oxygen Delivery Method Sepsis Recent Fever Within 48 Hours Sepsis New/Unexplained Change in Mental Status Sepsis Action Taken by Nursing VITALS: Vitals are noted on the nurse's note and reviewed by myself. Vital sign s febrile. GENERAL: Pleasant male mildly ill-appearing, who appears in pain SKIN: The skin was without rashes, erythema, edema, or bruising. There is no tenting of the skin. Capillary reflex less than 2 seconds. HEAD: Normocephalic atraumatic. EARS: External auditory canals clear, tympanic membranes pearly [place] without erythema or effusion bilaterally. EYES: Pupils equal round and reactive to light and accommodation. Conjunctivae without injection, sclerae without icterus. Extraocular movements intact. NOSE: Patent, turbinates without inflammation or discharge. No sinus tenderness. MOUTH: Mucous membranes moist. Pharynx without erythema or exudate. Uvula midline. Airway patent. Tongue does not deviate. NECK: Supple without nuchal rigidity. No lymphadenopathy. No thyromegaly. Cervical spine is nontender. No JVD. HEART: Mildly tachycardic rate and rhythm LUNGS: Mild diffuse end expiratory wheezes, without rales or rhonchi. No retractions or accessory muscle use. ABDOMEN: Positive bowel sounds x 4. Normal tympanic percussion. Soft, nontender, without masses or organomegaly. Bunch sign negative. No guarding or rebound tenderness. No CVA tenderness Rectal exam: No fissures or tears, no lesions for herpes, exquisitely tender just above the rectum. No palpable abscess. Hazmat Cdl A Driver present of the nurses. MUSCULOSKELETAL: No muscle atrophy, erythema, or edema noted. NEURO: Patient was alert and oriented to person place and time. Normal sensation to light and sharp touch. No focal neurological deficits. Course Administered Medications Sodium Chloride (Nss 1000ml) 1,000 mls @ 999 mls/hr IV .Q1H1M ONE Stop: 07/31/20 06:12 Last Admin: 07/31/20 05:20 Dose: 999 mls/hr Documented by: [id number] Discontinued Medications Doxycycline Hyclate (Doxycycline Hyclate 100 Mg Cap) 100 mg PO NOW STA Stop: 07/31/20 05:36 Last Admin: 07/31/20 05:49 Dose: 100 mg Documented by: [id number] Hydromorphone HCl (Hydromorphone Inj 1 Mg/Ml Syringe) 1 mg IV NOW STA Stop: 07/31/20 04:40 Last Admin: 07/31/20 04:46 Dose: 1 mg Documented by: [id number] Hydromorphone HCl (Hydromorphone Inj 1 Mg/Ml Syringe) 1 mg IV NOW STA Stop: 07/31/20 05:13 Last Admin: 07/31/20 05:20 Dose: 1 mg Documented by: [id number] Piperacillin Sod/Tazobactam Sod (Zosyn) 4.5 gm in 120 mls @ 240 mls/hr IV NOW ONE Stop: 07/31/20 04:29 Last Infusion: 07/31/20 04:49 Dose: 0 mls/hr Documented by: [id number] Admin: 07/31/20 04:14 Dose: 240 mls/hr Documented by: [id number] Sodium Chloride (Nss 1000ml) 1,000 mls @ 999 mls/hr IV .Q1H1M LISA Stop: 07/31/20 05:00 Last Infusion: 07/31/20 05:16 Dose: 0 mls/hr Documented by: [id number] Admin: 07/31/20 04:14 Dose: 999 mls/hr Documented by: [id number] Ioversol (Ioversol 100ml) 94 ml IV ONCE ONE Stop: 07/31/20 05:20 Last Admin: 07/31/20 05:20 Dose: 94 ml Documented by: [id number] Morphine Sulfate (Morphine Sulfate 4 Mg/Ml 1 Ml Carp\Vial) 4 mg IV NOW STA Stop: 07/31/20 04:03 Last Admin: 07/31/20 04:14 Dose: 4 mg Documented by: [id number] Ondansetron HCl (Ondansetron Inj 2 Mg/Ml 2 Ml Vial) 4 mg IV NOW STA Stop: 07/31/20 04:03 Last Admin: 07/31/20 04:14 Dose: 4 mg Documented by: [id number] Medical Decision Making Medical Records Attestation: I reviewed the patient's medical records. Home Medications Current Medication List: was personally reviewed by me Laboratory Data Attestation: I reviewed the patient's lab results. Result diagrams: 07/31/20 04:04 07/31/20 04:04 Lab Results 07/31/20 07/31/20 07/31/20 Range/Units 04:04 04:04 04:04 WBC 13.80 H (4.8-10.8) K/uL RBC 5.18 (4.7-6.1) M/uL Hgb 14.2 (14.0-18.0) g/dL Hct 42.3 (42-52) % MCV 81.7 (80-100) fL MCH 27.4 (25-34) pg MCHC 33.6 (32-36) g/dL RDW Std Deviation 38.8 (36.4-46.3) fL RDW Coeff of Lobo 12.8 (11.5-14.5) % Plt Count 227 (130-400) K/uL MPV 10.8 H (7.4-10.4) fL Immature Gran % (Auto) 0.3 % Neut % (Auto) 73.3 % Lymph % (Auto) 18.0 % [place] % (Auto) 7.9 % Eos % (Auto) 0.4 % Baso % (Auto) 0.1 % Neut # (Auto) 10.10 H (1.4-6.5) K/uL Lymph # (Auto) 2.49 (1.2-3.4) K/uL [place] # (Auto) 1.09 H (0.11-0.59) K/uL Eos # (Auto) 0.06 (0-0.5) K/uL Baso # (Auto) 0.02 (0-0.2) K/uL Immature Gran # (Auto) 0.04 H (0.00-0.02) K/uL PT 10.2 (9.0-12.0) Seconds INR 1.0 (0.9-1.1) APTT 26.9 (21.0-31.0) Seconds PTT Ratio 1.0 Sodium 138 (136-145) mmol/L Potassium 3.2 L (3.5-5.1) mmol/L Chloride 108 H (98-107) mmol/L Carbon Dioxide 22 (21-32) mmol/L Anion Gap 8.0 (3-11) BUN 13 (7-18) mg/dl Creatinine 0.96 (0.6-1.4) mg/dl Est Cr Clr Drug Dosing 142.7 ml/min Est GFR ( Amer) 121.6 Est GFR (Non-Af Amer) 104.9 BUN/Creatinine Ratio 13.0 (10-20) Glucose 128 H (70-99) mg/dl Lactate (0.4-2.0) mmol/L Calcium 8.8 (8.5-10.1) mg/dl Magnesium 2.0 (1.8-2.4) mg/dl Total Bilirubin 0.3 (0.2-1) mg/dl AST 234 H (15-37) U/L ALT 370 H (12-78) U/L Alkaline Phosphatase 196 H (45-117) U/L Troponin I < 0.015 (0-0.045) ng/ml Total Protein 7.4 (6.4-8.2) gm/dl Albumin 3.2 L (3.4-5.0) gm/dl Globulin 4.2 H (2.5-4.0) gm/dl Albumin/Globulin Ratio 0.8 L (0.9-2) Urine Color Urine Appearance (Clear) Urine pH (4.5-7.5) Ur Specific [place] (1.000-1.030) Urine Protein (Negative) Urine Glucose (UA) (Negative) Urine Ketones (Negative) Urine Blood (Negative) Urine Nitrite (Negative) Urine Bilirubin (Negative) Urine Urobilinogen (Negative) Ur Leukocyte Esterase (Negative) 07/31/20 07/31/20 Range/Units 04:04 04:45 WBC (4.8-10.8) K/uL RBC (4.7-6.1) M/uL Hgb (14.0-18.0) g/dL Hct (42-52) % MCV (80-100) fL MCH (25-34) pg MCHC (32-36) g/dL RDW Std Deviation (36.4-46.3) fL RDW Coeff of Lobo (11.5-14.5) % Plt Count (130-400) K/uL MPV (7.4-10.4) fL Immature Gran % (Auto) % Neut % (Auto) % Lymph % (Auto) % [place] % (Auto) % Eos % (Auto) % Baso % (Auto) % Neut # (Auto) (1.4-6.5) K/uL Lymph # (Auto) (1.2-3.4) K/uL [place] # (Auto) (0.11-0.59) K/uL Eos # (Auto) (0-0.5) K/uL Baso # (Auto) (0-0.2) K/uL Immature Gran # (Auto) (0.00-0.02) K/uL PT (9.0-12.0) Seconds INR (0.9-1.1) APTT (21.0-31.0) Seconds PTT Ratio Sodium (136-145) mmol/L Potassium (3.5-5.1) mmol/L Chloride (98-107) mmol/L Carbon Dioxide (21-32) mmol/L Anion Gap (3-11) BUN (7-18) mg/dl Creatinine (0.6-1.4) mg/dl Est Cr Clr Drug Dosing ml/min Est GFR ( Amer) Est GFR (Non-Af Amer) BUN/Creatinine Ratio (10-20) Glucose (70-99) mg/dl Lactate 1.5 (0.4-2.0) mmol/L Calcium (8.5-10.1) mg/dl Magnesium (1.8-2.4) mg/dl Total Bilirubin (0.2-1) mg/dl AST (15-37) U/L ALT (12-78) U/L Alkaline Phosphatase (45-117) U/L Troponin I (0-0.045) ng/ml Total Protein (6.4-8.2) gm/dl Albumin (3.4-5.0) gm/dl Globulin (2.5-4.0) gm/dl Albumin/Globulin Ratio (0.9-2) Urine Color Yellow Urine Appearance Clear (Clear) Urine pH 5.5 (4.5-7.5) Ur Specific [place] 1.014 (1.000-1.030) Urine Protein Negative (Negative) Urine Glucose (UA) Negative (Negative) Urine Ketones Negative (Negative) Urine Blood Negative (Negative) Urine Nitrite Negative (Negative) Urine Bilirubin Negative (Negative) Urine Urobilinogen Negative (Negative) Ur Leukocyte Esterase Negative (Negative) Imaging Data Attestation: I personally reviewed and interpreted this imaging study as follows: MDM Narrative Prior records/ancillary studies reviewed. Triage Nursing notes reviewed. The patient's history was concerning for fever. Differential diagnosis: Etiologies such as prostatitis, rectal infx, viral syndrome, otitis, pharyngitis, pneumonia, influenza, meningitis, urinary tract infection, sepsis, bacteremia, as well as others were entertained. Physical examination: As above ER treatment provided: An order was placed for continuous cardiac monitoring. The monitor shows a rate of 60-1 20 with a sinus rhythm. IV fluids, Zosyn, morphine, Zofran, doxy On reassessment the patient felt better. Diagnostics interpreted by me: ECG: Normal sinus, incomplete right bundle branch block, no acute ST-T wave changes. Impression sinus tachycardia with incomplete right bundle branch block interpreted by myself Ordered for dyspnea I think arrhythmia is unlikely. EKG shows no interval abnormalities such as QT prolongation or WPW. There are no findings to suggest Brugada syndrome. Cardiac monitoring in the emergency department reveals no tachycardic or bradycardic dysrhythmia. Hypertrophic cardiomyopathy was considered but there are no clear historical elements pointing toward this. EKG is not suggestive. The QRS voltage is not extremely large and there are no suggestive Q waves. The labs revealed leukocytosis, elevated LFTs Blood cultures pending Stable coags Imaging studies: CT ABDOMEN & PELVIS With Contrast: Impression: There is 4.3 x 1.6 cm right perianal abscess. There is also 2.4 cm diameter low density focus seen posterior to the anorectal junction which also likely represents an abscess with communication with the right perianal abscess. Radiologist: Jose Goncalves MD Consultation: A consultation was placed with Dr. Mohamud and Dr. Marti. The case was discussed and diagnostics were reviewed. The patient was evaluated in the ER for further treatment. Medicine will admit and surgery will evaluate the patient. This appears to be consistent with perianal and analorectal infection. Patient most likely also has prostatitis. Patient also tested positive for Covid 10 days ago. Medicine and surgery were consulted. He is started on antibiotics. By the evaluation outlined above emergent etiologies such as otitis, pharyngitis, pneumonia, meningitis, urinary tract infection, as well as others were deemed relatively unlikely. The pt informed about the findings as listed above. All questions were answered and pleased with the treatment. . The chart was completed utilizing [employer] Speech voice recognition software. Grammatical errors, random word insertions, pronoun errors, and incomplete sentences are an occassional consequence of this system due to software limitations, ambient noise, and hardware issues. Any formal questions or concerns about the content, text, or information contained within the body of this dictation should be directly addressed to the physician assistant hall director for clarification. Impression & Plan Perianal abscess, COVID-19, Fever, Elevated liver function tests Discharge Plan Visit Data Chief Complaint: Fever Stated Complaint: +COVID, FEVER 102,SOB,PAIN ED Provider: Carina Vallejo ED Midlevel Provider: Faina Carlson Discharge Problem: Perianal abscess, COVID-19, Fever, Elevated liver function tests Patient Disposition: Admitted As Inpatient Condition: Fair Forms Stand Alone Forms: [employer] [facility] [employer] Prescriptions Prescriptions: No Action multivitamin Tablet 1 tab PO QAM RF: 0 ascorbic acid (vitamin C) [Vitamin C] 1,000 mg Tablet 1 g PO DAILY RF: 0 ibuprofen 800 mg tablet 800 mg PO TID PRN (Reason: FEVER/PAIN) RF: 0 prednisone 20 mg tablet 40 mg PO DAILY RF: 0 sertraline 100 mg tablet 100 mg PO DAILY RF: 0 valacyclovir 500 mg tablet 500 mg PO BID RF: 0 acetaminophen [Tylenol Extra Strength] 500 mg Tablet 1,000 mg PO Q8H PRN (Reason: FEVER/PAIN) RF: 0 Vitamin D3 100 mcg (4,000 unit) Capsule 100 mcg PO DAILY RF: 0 zinc 50 mg Tablet 50 mg PO DAILY RF: 0 Referrals Referrals: Angeles Jay CRNP [Primary Care Provider] -
[2020-07-31 04:27] LABS: Partial Thromboplastin Time 26.9 Seconds (21.0-31.0); Prothrombin Time 10.2 Seconds (9.0-12.0)
[2020-07-31 04:34] LABS: Alanine Aminotransferase 370 U/L (12-78); Albumin Level 3.2 gm/dl (3.4-5.0); Aspartate Aminotransferase 234 U/L (15-37); Blood Urea Nitrogen 13 mg/dl (7-18); Calcium 8.8 mg/dl (8.5-10.1); Carbon Dioxide 22 mmol/L (21-32); Chloride 108 mmol/L (98-107); Creatinine Clr Calc Pharmacy 142.7 ml/min; Est GFR (African American) 121.6; Est GFR (Non-African American) 104.9; Glucose 128 mg/dl (70-99); Potassium 3.2 mmol/L (3.5-5.1); Sodium 138 mmol/L (136-145)
[2020-07-31 04:39] LABS: Albumin Globulin Ratio 0.8 (0.9-2); Alkaline Phosphatase 196 U/L (45-117); Bilirubin,Total 0.3 mg/dl (0.2-1); Globulin 4.2 gm/dl (2.5-4.0); Total Protein 7.4 gm/dl (6.4-8.2); Troponin I < 0.015 ng/ml (0-0.045)
[2020-07-31] MEDS ORDERED: HYDROmorphone INJ 1 MG/ML SYRINGE IV STA ×2 (04:39→05:12)
[2020-07-31 04:41] LABS: Basophils # (auto) 0.02 K/uL (0-0.2); Basophils % (auto) 0.1 %; Eosinophils # (auto) 0.06 K/uL (0-0.5); Eosinophils % (auto) 0.4 %; Hematocrit (blood only) 42.3 % (42-52); Hemoglobin 14.2 g/dL (14.0-18.0); Immature Granulocytes # (auto) 0.04 K/uL (0.00-0.02); Immature Granulocytes % (auto) 0.3 %; Lymphocytes # (auto) 2.49 K/uL (1.2-3.4); Mean Corpuscular Hemoglobin 27.4 pg (25-34); Mean Corpuscular Hgb Conc 33.6 g/dL (32-36); Mean Corpuscular Volume 81.7 fL (80-100); Mean Platelet Volume 10.8 fL (7.4-10.4); Monocytes # (auto) 1.09 K/uL (0.11-0.59); Monocytes % (auto) 7.9 %; Neutrophils % (auto) 73.3 %; Platelet Count 227 K/uL (130-400); RDW Coefficient of Variation 12.8 % (11.5-14.5); RDW Standard Deviation 38.8 fL (36.4-46.3); Red Blood Count 5.18 M/uL (4.7-6.1)
[2020-07-31 05:00] LABS: Appearance Urine Clear (Clear); Bilirubin Urine Negative (Negative); Blood Urine Negative (Negative); Color Urine Yellow; Glucose Urine UA Negative (Negative); Ketones Urine Negative (Negative); Leukocyte Esterase Urine Negative (Negative); Nitrite Urine Negative (Negative); Protein Urine Negative (Negative); Specific Gravity Urine 1.014 (1.000-1.030); Urobilinogen Urine Negative (Negative); pH Urine 5.5 (4.5-7.5)
[2020-07-31] MEDS ORDERED: SODIUM CHLORIDE 0.9% 1000ML 1,000 ML IV ONE (05:12)
[2020-07-31] MEDS ORDERED: IOVERSOL 100ml IV ONE (05:19)
[2020-07-31] MEDS ORDERED: DOXYCYCLINE HYCLATE 100 MG CAP PO STA (05:35)
--- NOTE | 2020-07-31 06:41 | History & Physical Report ---
Date of Service July 31, 2020 Assessment & Plan (1) Perianal abscess: NPO Zosyn 4.5 g IV every 8 hours Flagyl 500 mg IV every 8 hours Zofran 4 mg IV every 6 hours as needed Famotidine 20 mg IV every 12 hours Dilaudid 0.5 mg IV every 3 hours as needed severe pain NSS + KCl 20 mEq at 100 mils per hour General surgery consult Present on Admission?: Yes (2) COVID-19: Diagnosed initially 10 days ago. No hypoxia at this time. Does still report issues with decreased smell and taste Present on Admission?: Yes (3) Elevated liver function tests: AST 234, ALT 370. No baseline laboratories for comparison CT abdomen/ pelvis did not note liver abnormalities structurally Concerns include alcohol related, TALBOT, hepatitis. Order acute hepatitis profile Present on Admission?: Yes (4) Depression: Depression/generalized anxiety disorder with panic attacks- Resume sertraline 100 mg daily when no longer n.p.o. Present on Admission?: Yes (5) Generalized anxiety disorder with panic attacks: (6) Alcohol abuse: History of Present Illness Chief Complaint: The patient presents to the emergency department with complaint of fevers, chills and rectal pain for the past 5 days Primary Care Provider: Angeles Jay The patient is a 30-year-old male with a past medical history included generalized anxiety disorder with panic attacks, depression, alcohol abuse, suicide attempt, asthma and obesity. 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 He presents today with complaints of rectal pain, fevers and chills. He did have recent anal receptive intercourse. He reports that he had a telemedicine consult due to concerns regarding possible herpes infection, and that was recently prescribed acyclovir and prednisone. Work-up in the emergency department included a CT scan of abdomen pelvis which showed 2 perianal abscesses. Allergies Allergy/AdvReac Type Severity Reaction Status Date / Time No Known Allergies Allergy Verified 07/31/20 04:52 Home Medications Home Medications Medication Instructions Recorded Confirmed Type multivitamin 1 tab PO QAM 10/31/18 07/31/20 History acetaminophen [Tylenol Extra 1,000 mg PO Q8H PRN 07/31/20 07/31/20 History Strength] ascorbic acid (vitamin C) [Vitamin 1 g PO DAILY 07/31/20 07/31/20 History C] cholecalciferol (vitamin D3) 100 mcg PO DAILY 07/31/20 07/31/20 History [Vitamin D3] ibuprofen 800 mg PO TID PRN 07/31/20 07/31/20 History prednisone 40 mg PO DAILY 07/31/20 07/31/20 History sertraline 100 mg PO DAILY 07/31/20 07/31/20 History valacyclovir 500 mg PO BID 07/31/20 07/31/20 History zinc 50 mg PO DAILY 07/31/20 07/31/20 History Past Med/Surg History Medical History (Updated 07/31/20 @ 13:50 by Ben Moreno MD) Asthma Bursitis COVID-19 Depression Deviated nasal septum Elevated blood uric acid level Elevated liver enzymes IN THE PAST (NOW WNL) Gout Obesity Sciatica Sleep apnea NO DEVICE Surgical History History of appendectomy History of esophageal dilatation History of esophagogastroduodenoscopy (EGD) History of removal of skin mole History of tooth extraction [place] teeth removed Family History Father Multiple sclerosis Father Family history of ITP Aunt Family history of diabetes mellitus Social History Smoking Status: Current every day smoker Tobacco Type: Cigarettes Cigarettes Per Day: 10; Second Hand Exposure: Yes; Do You Dip or Chew Tobacco: No; Tobacco Cessation Education Requested by Patient: Yes Hx Alcohol Use: No Hx Substance Use: No Preferred Language: Korean Communication Ability: Effective Child Care Associate Required: Yes Beliefs That Will Affect Care: None Current Living Situation: Other Current Living Situation Comment: roomate Other Information That Helps Us Care for You: No Feels Safe at Home: Yes Safety Concerns: Feels Safe At This Time Assistive Devices: None Review of Systems Review of Systems: The patient denies chest pain, palpitations, shortness of breath, dyspnea on exertion, cough, lower extremity swelling, sore throat, fevers, chills, sweats, nausea, vomiting, blood in urine or stool, dysuria, urinary frequency or urgency, lightheadedness, dizziness, headache, memory loss, loss of consciousness, rash, abnormal bruising or bleeding, imbalance, focal or generalized weakness, numbness or tingling in arms or legs, generalized arthralgias or myalgias, back or neck pain, or night sweats. The review of systems is otherwise negative other than for that already noted above, and at least 10 systems have been reviewed. Physical Exam Physical Exam: The patient is awake, alert and oriented 3, well developed and well nourished, normocephalic and atraumatic, lying in bed and in mild to moderate distress. HEENT--PERRL, EOMI, mucous membranes and oropharynx dry. Neck--supple. No JVD. No bruits. Thyroid normal, trachea midline, no adenopathy. Heart--normal S1 and S2. No murmurs, rubs or gallops. Lungs--clear bilaterally, no respiratory distress, no accessory muscle use. Abdomen--normal bowel sounds and soft. Nontender. Nondistended. Rectal exam as noted in ED notes Extremities--no cyanosis or clubbing. No edema. Dermatologic--normal skin turgor, normal color, no abnormal lymph nodes, no rash. Neurologic--cranial nerves II through XII grossly intact. Rheumatologic--normal range of motion. Psychiatric--normal affect. Results & Data Results & Data ([facility]) Vital Signs (Past 12 Hours) Vital Signs Temp Pulse Resp BP Pulse Ox 07/31/20 05:54 100.4 F H 07/31/20 05:19 110 H 22 139/97 100 07/31/20 04:30 99 H 19 140/88 98 07/31/20 03:47 100.0 F H 108 H 18 160/93 H 99 Laboratory Results Laboratory Results WBC 13.80 K/uL (4.8-10.8) H 07/31/20 04:04 RBC 5.18 M/uL (4.7-6.1) 07/31/20 04:04 Hgb 14.2 g/dL (14.0-18.0) 07/31/20 04:04 Hct 42.3 % (42-52) 07/31/20 04:04 MCV 81.7 fL (80-100) 07/31/20 04:04 MCH 27.4 pg (25-34) 07/31/20 04:04 MCHC 33.6 g/dL (32-36) 07/31/20 04:04 RDW Std Deviation 38.8 fL (36.4-46.3) 07/31/20 04:04 RDW Coeff of Lobo 12.8 % (11.5-14.5) 07/31/20 04:04 Plt Count 227 K/uL (130-400) 07/31/20 04:04 MPV 10.8 fL (7.4-10.4) H 07/31/20 04:04 Immature Gran % (Auto) 0.3 % 07/31/20 04:04 Neut % (Auto) 73.3 % 07/31/20 04:04 Lymph % (Auto) 18.0 % 07/31/20 04:04 [place] % (Auto) 7.9 % 07/31/20 04:04 Eos % (Auto) 0.4 % 07/31/20 04:04 Baso % (Auto) 0.1 % 07/31/20 04:04 Neut # (Auto) 10.10 K/uL (1.4-6.5) H 07/31/20 04:04 Lymph # (Auto) 2.49 K/uL (1.2-3.4) 07/31/20 04:04 [place] # (Auto) 1.09 K/uL (0.11-0.59) H 07/31/20 04:04 Eos # (Auto) 0.06 K/uL (0-0.5) 07/31/20 04:04 Baso # (Auto) 0.02 K/uL (0-0.2) 07/31/20 04:04 Immature Gran # (Auto) 0.04 K/uL (0.00-0.02) H 07/31/20 04:04 PT 10.2 Seconds (9.0-12.0) 07/31/20 04:04 INR 1.0 (0.9-1.1) 07/31/20 04:04 APTT 26.9 Seconds (21.0-31.0) 07/31/20 04:04 PTT Ratio 1.0 07/31/20 04:04 Sodium 138 mmol/L (136-145) 07/31/20 04:04 Potassium 3.2 mmol/L (3.5-5.1) L 07/31/20 04:04 Chloride 108 mmol/L (98-107) H 07/31/20 04:04 Carbon Dioxide 22 mmol/L (21-32) 07/31/20 04:04 Anion Gap 8.0 (3-11) 07/31/20 04:04 BUN 13 mg/dl (7-18) 07/31/20 04:04 Creatinine 0.96 mg/dl (0.6-1.4) 07/31/20 04:04 Est Cr Clr Drug Dosing 142.7 ml/min 07/31/20 04:04 Est GFR ( Amer) 121.6 07/31/20 04:04 Est GFR (Non-Af Amer) 104.9 07/31/20 04:04 BUN/Creatinine Ratio 13.0 (-20) 07/31/20 04:04 Glucose 128 mg/dl (70-99) H 07/31/20 04:04 Lactate 1.5 mmol/L (0.4-2.0) 07/31/20 04:04 Calcium 8.8 mg/dl (8.5-10.1) 07/31/20 04:04 Magnesium 2.0 mg/dl (1.8-2.4) 07/31/20 04:04 Total Bilirubin 0.3 mg/dl (0.2-1) 07/31/20 04:04 AST 234 U/L (15-37) H 07/31/20 04:04 ALT 370 U/L (12-78) H 07/31/20 04:04 Alkaline Phosphatase 196 U/L (45-117) H 07/31/20 04:04 Troponin I < 0.015 ng/ml (0-0.045) 07/31/20 04:04 Total Protein 7.4 gm/dl (6.4-8.2) 07/31/20 04:04 Albumin 3.2 gm/dl (3.4-5.0) L 07/31/20 04:04 Globulin 4.2 gm/dl (2.5-4.0) H 07/31/20 04:04 Albumin/Globulin Ratio 0.8 (0.9-2) L 07/31/20 04:04 Procalcitonin 0.06 ng/ml (0-0.5) 07/31/20 04:04 Urine Color Yellow 07/31/20 04:45 Urine Appearance Clear (Clear) 07/31/20 04:45 Urine pH 5.5 (4.5-7.5) 07/31/20 04:45 Ur Specific [place] 1.014 (1.000-1.030) 07/31/20 04:45 Urine Protein Negative (Negative) 07/31/20 04:45 Urine Glucose (UA) Negative (Negative) 07/31/20 04:45 Urine Ketones Negative (Negative) 07/31/20 04:45 Urine Blood Negative (Negative) 07/31/20 04:45 Urine Nitrite Negative (Negative) 07/31/20 04:45 Urine Bilirubin Negative (Negative) 07/31/20 04:45 Urine Urobilinogen Negative (Negative) 07/31/20 04:45 Ur Leukocyte Esterase Negative (Negative) 07/31/20 04:45 COVID-19 Eval Order Covid19 Done at [facility] 07/31/20 05:53 Diagnostic Findings [facility] Patient: SADE NUÑEZ (Male) : 88 Status: ER Date: 07/31/20 05:19 Room #: History: rectal pain, recent rectal intercourse, ? prostatitis, no appendix Slices: [phone] Priors: Tech: MaklauraNata guillermo @ [phone] Exams: CT ABDOMEN & PELVIS With Contrast Contrast: IV Amt: 94 cc's Accession Numbers: [id number] Preliminary Findings Only See Final Report For Complete Findings CT ABDOMEN & PELVIS With Contrast: Impression: There is 4.3 x 1.6 cm right perianal abscess. There is also 2.4 cm diameter low density focus seen posterior to the anorectal junction which also likely represents an abscess with communication with the right perianal abscess. Radiologist: Jose Goncalves MD Study ready at 05:24 and initial results transmitted at 05:43 *This report constitutes a preliminary interpretation only. Non-acute findings felt to be unrelated to the clinical presentation may not be discussed in this report. The study will be interpreted and a final report will be generated by the local Radiologist the following shift. To reach the hospital radiology department call [phone]. If a discrepancy is found between the preliminary and final interpretations of this study, please notify us via our Client Portal at [email or web address] can also fax this report with a description of the discrepancy, or include the final report, to our daytime fax number [phone].If faxing, please indicate the severity of discrepancy using one of the following categories: [ ] 1 - Agree/Informational [ ] 2 - Unlikely to Affect Management [ ] 3 - Possible Eventual Change of Management [ ] 4 - Probable Immediate Change of Management For all other patient related information, please fax us at [phone]. [id number] Code Status & VTE Plan Code Status Full code VTE Prophylaxis Plan VTE Prophylaxis will be ordered: Yes PG Care Time/CCT Total # of Minutes Spent Total Time Spent with Patient: Total time spent is greater than 50% in coordination of care (as documented) at patient's floor/unit and/or counseling patient: Coding Level of Care Code 49021 Initial Inpt Care Lvl 3 Diagnoses Perianal abscess K61.0 COVID-19 U07.1 Elevated liver function tests R79.89 Depression F33.3 Active/Remission status: currently active Depression Type: major depressive disorder Major depression episode severity: severe Major depression recurrence: recurrent Psychotic features: with psychotic features Generalized anxiety disorder with panic attacks F41.1; F41.0 Alcohol abuse F10.10 (1) Depression Active/Remission status: currently active Depression Type: major depressive disorder Major depression episode severity: severe Major depression recurrence: recurrent Psychotic features: with psychotic features Qualified Code(s): F33.3 - Major depressive disorder, recurrent, severe with psychotic symptoms
--- NOTE | 2020-07-31 06:54 | XRay Report ---
XR chest 1V portable CLINICAL HISTORY: SEPSIS COMPARISON STUDY: 04/08/2020 FINDINGS: The cardiac and mediastinal contours are normal. There is no evidence of focal pulmonary co nsolidation. There is no evidence of failure. No pleural effusions are visualized.[ IMPRESSION: No active disease in the chest. ACT 112: Negative or not required by law. Electronically signed by: Jose Henderson M.D. 07/31/2020 6:52 AM
--- NOTE | 2020-07-31 07:37 | CT Scan Report ---
ABDOMEN AND PELVIS CT WITH IV CONTRAST CT DOSE: 1161.73 mGycm HISTORY: rectal pain,? prostatitis,anal intercourse, fever,+COVID TECHNIQUE: Multiaxial CT images of the abdomen and pelvis were performed following the use of intrave nous contrast. A dose lowering technique was utilized adhering to the principles of ALARA. COMPARISON STUDY: Abdomen and pelvis CT 02/02/2019. FINDINGS: The lung bases are clear. No pneumoperitoneum. No pneumatosis. No suspicious lytic or blast ic osseous lesions. The liver, gallbladder, pancreas, spleen, adrenal glands unremarkable. The kidney s enhance normally. No hydronephrosis. Normal caliber abdominal aorta. There is a left retroaortic re nal vein. No retroperitoneal lymphadenopathy. Normal bladder. No evidence for bowel obstruction. The appendix is not identified and reportedly surgically absent. There are 2 adjacent perianal abscesses. The right-sided perianal abscess measures 4.7 x 2.1 cm. The posterior perianal abscess measures 2.6 x 2.2 cm. These may communicate. There is mild perianal fat stranding likely reactive. No supralevato r extension of the abscesses. IMPRESSION: There are 2 adjacent perianal abscesses as described above which may communicate. ACT 112: Negative or not required by law. Electronically signed by: Nathanael James M.D. 07/31/2020 7:35 AM
[2020-07-31] MEDS ORDERED: ONDANSETRON INJ 2 MG/ML 2 ML VIAL IV PRN ×2 (08:16→16:09)
[2020-07-31 08:33] LABS: Hepatitis B Surface Antigen Neg (Neg)
[2020-07-31] MEDS: HYDROmorphone INJ 0.5 MG/0.5 ML SYR IV PRN ×5 (08:40→21:31)
[2020-07-31 09:02] LABS: Hepatitis C IgG 13Yrs+Old_Rflx Neg (Neg)
[2020-07-31] MEDS ORDERED: INFLUENZA VIRUS QUAD VACCINE 0.5 ML SYR IM ONE (09:03)
[2020-07-31] MEDS ORDERED: INFLUENZA ADMINISTRATION CHARGE ONE (09:03)
[2020-07-31] MEDS: NSS + 20MEQ KCL 20 MEQ/1,000 ML BAG IV SCH ×2 (09:48→17:25)
[2020-07-31] MEDS: PIPERACILLIN/TAZOBACTAM 4.5 GM in DEXTROSE 5% 100 ML IV SCH ×2 (09:48→17:24)
[2020-07-31] MEDS: NICOTINE 21 MG/24 HR TDSY TD SCH (09:57)
[2020-07-31] MEDS: POTASSIUM CHLORIDE CRTAB 20 MEQ TABCR PO SCH ×3 (09:57→21:31)
[2020-07-31] MEDS: KETOROLAC 30 MG/ML VIAL IV PRN ×2 (09:57→17:59)
[2020-07-31] MEDS ORDERED: metroNIDAZOLE 500 MG/100 ML BAG IV SCH (10:00)
--- NOTE | 2020-07-31 10:38 | Surgery Consultation ---
Date of Consultation July 31, 2020 Assessment & Plan (1) Perianal abscess: This is a 30y M with PMH of anxiety/depression & history suicidal attempts & recent positive diagnosis of Covid-19 who presents to the [facility] ED on 07/31/20 with rectal pain. Workup with a CT a/p revealed findings concerning for 2 perianal abscesses measuring 4.7x2.1cm and 2.6x2.2 cm. Patient's WBC 13.8 and he is febrile and tachycardic. Patient has been started on IV zosyn and flagyl. Patient reports pain has been present since about Monday with no relief. He endorses + pain and swelling asya-rectally without drainage noted. Based on clinical findings we will proceed with operative intervention for I&D of asya- anal abscesses. Patient is Covid19 positive so we will have to coordinate with the OR regarding timing. We have him tentatively placed on the schedule for today. Please keep NPO with IV abx. as above. pt seen. +gluteal abcesses on both sides, right greater than left. discussed options/risks. will proceed with Incision and drainage of bilateral asya-rectal abcesses. pt agreeable. History of Present Illness Attending Physician: Mervin Becker History of Present Illness This is a 30y M with PMH of anxiety/depression & history suicidal attempts & recent positive diagnosis of Covid-19 who presents to the [facility] [place] ED on 07/31/20 with rectal pain. Of note this H&P was obtained via telephone interview due to + Covid isolation. 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 He was sent home and felt fatigued and over the course of the next few days developed fever, nausea, diarrhea, headaches, and loss of taste & smell. Starting this past Monday he developed pain around his rectum. He called his PCP thinking he was having an outbreak of herpes and they prescribed him valtrex, tylenol and ibuprofen. Then starting Monday his symptoms were not better so his PCP prescribed him a course of prednisone. Over the next few days his pain started to become even more severe that he could not sit, lie on his back, or walk without discomfort and he noticed an elevation in his fevers. Last night he noticed the area above his anus started swelling and due to progression in his symptoms he decided to come to the ER for further evaluation. A CT a/p was obtained that revealed 2 adjacent perianal abscesses. The right-sided perianal abscess measures 4.7 x 2.1 cm. The posterior perianal abscess measures 2.6 x 2.2 cm. Patient reports his pain is a 10/10 and says the buttocks swelling is becoming worse. He is only getting minimal relief with pain medication. He denies any drainage from the site. His last BM was 1 day ago which was normal. He currently denies any chest pain or shortness of breath. He does have a history of anal sex. Allergies Allergy/AdvReac Type Severity Reaction Status Date / Time No Known Allergies Allergy Verified 07/31/20 04:52 Home Medications Home Medications Medication Instructions Recorded Confirmed Type multivitamin 1 tab PO QAM 10/31/18 07/31/20 History acetaminophen [Tylenol Extra 1,000 mg PO Q8H PRN 07/31/20 07/31/20 History Strength] ascorbic acid (vitamin C) [Vitamin 1 g PO DAILY 07/31/20 07/31/20 History C] cholecalciferol (vitamin D3) 100 mcg PO DAILY 07/31/20 07/31/20 History [Vitamin D3] ibuprofen 800 mg PO TID PRN 07/31/20 07/31/20 History prednisone 40 mg PO DAILY 07/31/20 07/31/20 History sertraline 100 mg PO DAILY 07/31/20 07/31/20 History valacyclovir 500 mg PO BID 07/31/20 07/31/20 History zinc 50 mg PO DAILY 07/31/20 07/31/20 History Patient History Medical History (Updated 07/31/20 @ 13:50 by Ben Moreno MD) Asthma Bursitis COVID-19 Depression Deviated nasal septum Elevated blood uric acid level Elevated liver enzymes IN THE PAST (NOW WNL) Gout Obesity Sciatica Sleep apnea NO DEVICE Surgical History History of appendectomy History of esophageal dilatation History of esophagogastroduodenoscopy (EGD) History of removal of skin mole History of tooth extraction [place] teeth removed Family History Father Multiple sclerosis Father Family history of ITP Aunt Family history of diabetes mellitus Social History Smoking Status: Current every day smoker Tobacco Type: Cigarettes Cigarettes Per Day: 10; Second Hand Exposure: Yes; Do You Dip or Chew Tobacco: No; Tobacco Cessation Education Requested by Patient: Yes Hx Alcohol Use: No Hx Substance Use: No Preferred Language: Eritrean Communication Ability: Effective Wire Spooler Required: Yes Beliefs That Will Affect Care: None Current Living Situation: Other Current Living Situation Comment: roomate Other Information That Helps Us Care for You: No Feels Safe at Home: Yes Safety Concerns: Feels Safe At This Time Assistive Devices: None Review of Systems Constitutional: + fever and + fatigue Respiratory: no dyspnea Cardiovascular: no chest pain Gastrointestinal: + nausea; no vomiting Integumentary: + perianal swelling and tenderness to palpation; no drainage Physical Exam Physical Exam: awake/alert; cooperative and pleasant over the phone. Full exam not performed on this telephone visit due to covid-19 isolation. Results & Data ([facility]) Vital Signs (Past 12 Hours) Vital Signs Temp Pulse Pulse Resp BP BP Pulse Ox 07/31/20 09:04 18 97 07/31/20 08:46 39.2 C H 115 H 18 129/73 97 07/31/20 08:21 39.2 C H 115 H 18 129/73 97 07/31/20 07:30 121 H 15 111/64 98 07/31/20 06:30 117 H 31 H 158/97 H 99 07/31/20 06:00 118 H 19 150/100 H 97 07/31/20 05:54 38 C H 07/31/20 05:30 94 H 18 154/95 H 97 07/31/20 05:19 110 H 22 139/97 100 07/31/20 04:30 99 H 19 140/88 98 07/31/20 03:47 37.8 C H 108 H 18 160/93 H [address] WITH IV CONTRAST CT DOSE: 1161.73 mGycm HISTORY: rectal pain,? prostatitis,anal intercourse, fever,+COVID TECHNIQUE: Multiaxial CT images of the abdomen and pelvis were performed following the use of intravenous contrast. A dose lowering technique was utilized adhering to the principles of ALARA. COMPARISON STUDY: Abdomen and pelvis CT 02/02/2019. FINDINGS: The lung bases are clear. No pneumoperitoneum. No pneumatosis. No suspicious lytic or blastic osseous lesions. The liver, gallbladder, pancreas, spleen, adrenal glands unremarkable. The kidneys enhance normally. No hydronephrosis. Normal caliber abdominal aorta. There is a left retroaortic renal vein. No retroperitoneal lymphadenopathy. Normal bladder. No evidence for bowel obstruction. The appendix is not identified and reportedly surgically absent. There are 2 adjacent perianal abscesses. The right-sided perianal abscess measures 4.7 x 2.1 cm. The posterior perianal abscess measures 2.6 x 2.2 cm. These may communicate. There is mild perianal fat stranding likely reactive. No supralevator extension of the abscesses. IMPRESSION: There are 2 adjacent perianal abscesses as described above which may communicate. ACT 112: Negative or not required by law. Electronically signed by: Nathanael James M.D. 07/31/2020 7:35 AM PG Care Time/CCT Total # of Minutes Spent Total Time Spent with Patient: Total time spent is greater than 50% in coordination of care (as documented) at patient's floor/unit and/or counseling patient: Coding Level of Care Code 08989 Inpt Consult Level 2 Diagnoses Perianal abscess K61.0
[2020-07-31] MEDS ORDERED: LORazepam 0.5 MG/1 ML VIAL IV STA (13:35)
[2020-07-31] MEDS ORDERED: DexMEDEtomidine HCL IV 100 MCG/ML VIAL ONE (13:43)
[2020-07-31] MEDS ORDERED: ACETAMINOPHEN 1000 MG/100 ML IV IV ONE (13:43)
--- NOTE | 2020-07-31 13:50 | Anesthesiology Consultation ---
Date of Service July 31, 2020 Assessment & Plan (1) Encounter for pre-operative examination: Chart Review Chart Review: Acceptable Risk for Surgery (Covid positive but urgent surgery) History Surgery Operation Date: 07/31/20 14:55 Proposed Procedures p Perirectal Abscess - Bill Barahona DO Height/Weight Height: 5 ft 10 in Weight: 116.8 kg Allergies Allergy/AdvReac Type Severity Reaction Status Date / Time No Known Allergies Allergy Verified 07/31/20 04:52 Medications Home Medications Medication Instructions Recorded Confirmed Last Taken multivitamin 1 tab PO QAM 10/31/18 07/31/20 07/30/20 acetaminophen [Tylenol Extra 1,000 mg PO Q8H PRN 07/31/20 07/31/20 07/31/20 03:00 Strength] ascorbic acid (vitamin C) [Vitamin 1 g PO DAILY 07/31/20 07/31/20 07/30/20 C] cholecalciferol (vitamin D3) 100 mcg PO DAILY 07/31/20 07/31/20 07/30/20 [Vitamin D3] ibuprofen 800 mg PO TID PRN 07/31/20 07/31/20 07/30/20 23:00 prednisone 40 mg PO DAILY 07/31/20 07/31/20 07/30/20 sertraline 100 mg PO DAILY 07/31/20 07/31/20 07/30/20 valacyclovir 500 mg PO BID 07/31/20 07/31/20 07/30/20 zinc 50 mg PO DAILY 07/31/20 07/31/20 07/30/20 Active Medications Generic Name Dose Route Start Last Admin Trade Name Freq PRN Reason Stop Dose Admin Hydromorphone HCl 0.5 mg 07/31/20 08:16 07/31/20 13:32 Hydromorphone Inj 0.5 Mg/0.5 Ml Syr IV 08/14/20 08:15 0.5 mg Q3H PRN Administration Severe Pain Piperacillin Sod/Tazobactam 120 mls @ 30 mls/hr 07/31/20 10:00 07/31/20 13:34 Sod 4.5 gm/ Dextrose IV 08/10/20 09:59 Infused Q8H LISA Infusion Protocol Potassium Chloride/Sodium Chloride 20 meq in 1,000 mls @ 100 mls/hr 07/31/20 08:30 07/31/20 09:48 Normal Saline W/20 Meq Kcl IV 08/30/20 08:29 100 mls/hr .Q10H LISA Administration Ketorolac Tromethamine 30 mg 07/31/20 08:41 07/31/20 09:57 Ketorolac 30 Mg/Ml Vial IV 08/05/20 08:40 30 mg Q6H PRN Administration Pain or temp >100 degrees Nicotine 21 mg 07/31/20 09:45 07/31/20 09:57 Nicotine 21 Mg/24 Hr Tdsy TD 08/30/20 09:44 21 mg QAM LISA Administration Potassium Chloride 40 meq 07/31/20 09:35 07/31/20 09:57 Potassium Chloride 20 Meq Tabcr PO 07/31/20 21:01 40 meq TID LISA Administration NPO Date Last Intake of Fluids: 07/31/20 Time Last Intake of Fluids: 00:00 Date Last Intake of Solids: 07/30/20 Time Last Intake of Solids: 03:00 Past Medical History Medical History (Updated 07/31/20 @ 13:50 by Ben Moreno MD) Asthma Bursitis COVID-19 Depression Deviated nasal septum Elevated blood uric acid level Elevated liver enzymes IN THE PAST (NOW WNL) Gout Obesity Sciatica Sleep apnea NO DEVICE Past Family History Family History Father Multiple sclerosis Father Family history of ITP Aunt Family history of diabetes mellitus Past Surgical History Surgical History History of appendectomy History of esophageal dilatation History of esophagogastroduodenoscopy (EGD) History of removal of skin mole History of tooth extraction [place] teeth removed Social History Smoking Status: Current every day smoker tobacco type: cigarettes Smoking cigarettes per day: 10 Do You Dip or Chew Tobacco: No Hx Alcohol Use: No Alcohol type: wine and hard liquor alcohol intake frequency: holidays/special occasions only Hx Substance Use: No substance use type: does not use Physical Exam Vital Signs Last Vital Signs Temp 39.2 C H 07/31/20 08:46 Pulse 115 H 07/31/20 08:46 Resp 18 07/31/20 09:04 BP 129/73 07/31/20 08:46 Pulse Ox 97 07/31/20 09:04 Testing Laboratory Results 07/31/20 04:04 07/31/20 04:04 PT 10.2 Seconds (9.0-12.0) 07/31/20 04:04 INR 1.0 (0.9-1.1) 07/31/20 04:04 APTT 26.9 Seconds (21.0-31.0) 07/31/20 04:04 Urine Color Yellow 07/31/20 04:45 Urine Appearance Clear (Clear) 07/31/20 04:45 Urine pH 5.5 (4.5-7.5) 07/31/20 04:45 Ur Specific [place] 1.014 (1.000-1.030) 07/31/20 04:45 Urine Protein Negative (Negative) 07/31/20 04:45 Urine Glucose (UA) Negative (Negative) 07/31/20 04:45 Urine Ketones Negative (Negative) 07/31/20 04:45 Urine Nitrite Negative (Negative) 07/31/20 04:45 Ur Leukocyte Esterase Negative (Negative) 07/31/20 04:45
[2020-07-31] MEDS ORDERED: fentaNYL citrate 100 MCG/2 ML VIAL ONE ×2 (14:12)
[2020-07-31] MEDS ORDERED: MIDAZOLAM HCL 1 MG/ML 2ML VIAL ONE ×2 (14:12→14:19)
[2020-07-31] MEDS ORDERED: BUPIVACAINE 0.5 % 5 MG/1 ML MPF 30ML VIAL ONE (14:14)
[2020-07-31] MEDS ORDERED: PROPOFOL IV EMULSION 10 MG/ML 20 ML VIAL IV ONE (14:17)
--- NOTE | 2020-07-31 15:42 | Operative Report ---
PG Post Operative Report Pre & Post Diagnosis Operation Date: 07/31/20 14:55 Pre-Op Diagnosis: asya rectal abcess Post-Op Diagnosis: asya rectal abcess I identified the patient and participated in the time-out.: Yes Procedure Operation Date: 07/31/20 14:55 Actual Procedures p Incision and drainage of Perirectal Abscess - Bill Barahona DO Surgeon Bill Barahona, DO Vp Production none Estimated Blood Loss 20 Findings Consistent with Post-Op Diagnosis Specimens none Description of Procedure After informed consent was obtained the patient was taken to the procedure room and placed in supine position. IV sedation was administered by anesthesia and titrated to effect. After adequate sedation the patient was placed in a high lithotomy position. The perirectal area was sterilely prepped and draped in usual fashion. I began with a 15 blade scalpel and made a vertical incision directly over the firm palpable mass on his right gluteal area. I used hemostats and primarily blunt dissection to tunnel my way into the ischial rectal fossa. I was at least 4 to 5 cm into the fossa and was unable to obtain any purulent fluid. The entire area was very firm indurated consistent with a severe cellulitis. I also used a large bore needle to try and acess the abscess cavity closer to the rectum without success. Additionally I made a second small incision lateral and posterior to the initial 1 on a different area of the large indurated mass. Again I was able to tunnel my way for at least 4 cm in depth. Again no purulent fluid was encountered. Again I tried to access any hidden cavities using a large bore needle. In similar fashion on the left buttock I again made incision directly over the palpable indurated area. Again I tunneled my way for several centimeters deep into the fossa without success as far as obtaining purulent fluid. I also performed a digital rectal exam to to rule out a more superior abscess. The digital rectal exam felt normal. I certainly did not feel comfortable going deeper or more medial for fear of injuring the sphincter muscles. I thoroughly irrigated the wound. They were packed with half-inch plain packing and sterile dressings were applied. The patient was awakened and recovered in the very same room. I attest to the content of the Intraoperative Record and any orders documented therein. Any exceptions are noted below.
[2020-07-31] MEDS ORDERED: ATROPINE SULFATE 0.1 MG/ML 10ML SYR IV PRN (16:09)
[2020-07-31] MEDS ORDERED: KETOROLAC 30 MG/ML VIAL IV PRN (16:09)
--- NOTE | 2020-07-31 16:09 | Anesthesiology Progress Note ---
Date of Service July 31, 2020 Anesthesia Post Procedure Vital Signs Vital Signs: Temp Pulse Pulse Pulse Resp BP BP 07/31/20 16:00 82 16 101/64 07/31/20 15:50 85 16 93/54 L 07/31/20 15:40 100 H 14 98/57 L 07/31/20 15:30 103 H 14 92/53 L 07/31/20 15:20 101 H 14 105/65 07/31/20 09:04 18 07/31/20 08:46 39.2 C H 115 H 18 129/73 07/31/20 08:21 39.2 C H 115 H 18 129/73 07/31/20 07:30 121 H 15 111/64 07/31/20 06:30 117 H 31 H 158/97 H 07/31/20 06:00 118 H 19 150/100 H 07/31/20 05:54 38 C H 07/31/20 05:30 94 H 18 154/95 H 07/31/20 05:19 110 H 22 139/97 07/31/20 04:30 99 H 19 140/88 07/31/20 03:47 37.8 C H 108 H 18 160/93 H Pulse Ox 07/31/20 16:00 97 07/31/20 15:50 98 07/31/20 15:40 97 07/31/20 15:30 99 07/31/20 15:20 96 07/31/20 09:04 97 07/31/20 08:46 97 07/31/20 08:21 97 07/31/20 07:30 98 07/31/20 06:30 99 07/31/20 06:00 97 07/31/20 05:54 07/31/20 05:30 97 07/31/20 05:19 100 07/31/20 04:30 98 07/31/20 03:47 99 Pain Intensity Rectal: Pain Intensity: 8 Transfer of Care Handoff Completed per policy Notes Mental Status: alert / awake / arousable Patient Amnestic to Procedure: Yes Nausea / Vomiting: adequately controlled Pain: adequately controlled Airway Patency, RR, SpO2: stable & adequate BP & HR: stable & adequate Hydration State: stable & adequate Anesthetic Complications: no major complications apparent
[2020-07-31] MEDS: HYDROmorphone INJ 1 MG/ML SYRINGE IV PRN ×3 (16:20→16:30)
[2020-07-31] MEDS: valACYclovir HCL 500 MG TABLET PO SCH ×2 (17:21→21:31)
[2020-07-31] MEDS: SERTRALINE HCL 100 MG TABLET PO SCH (17:22)
--- NOTE | 2020-07-31 19:28 | Electrocardiogram Report ---
Test Reason : Blood Pressure : / mmHG Vent. Rate : 102 BPM Atrial Rate : 102 BPM P-R Int : 148 ms QRS Dur : 108 ms QT Int : 326 ms P-R-T Axes : 061 046 054 degrees QTc Int : 424 ms Poor data quality, interpretation may be adversely affected Sinus tachycardia Possible Left atrial enlargement Incomplete right bundle branch block Borderline ECG When compared with ECG of 08-APR-2020 19:05, Vent. rate has increased BY 36 BPM Confirmed by James Kohler ([id number]) on 07/31/2020 7:28:16 PM Referred By: REFERRED SELF Confirmed By:James Kohler
[2020-07-31 21:29] LABS: Albumin Level 2.6 gm/dl (3.4-5.0); Bilirubin Direct 0.4 mg/dl (0-0.2); Bilirubin,Total 0.9 mg/dl (0.2-1); Total Protein 6.6 gm/dl (6.4-8.2)
--- NOTE | 2020-07-31 21:29 | Communication Note ---
Date of Service: July 31, 2020 Spoke with patient post I/D by gen surg. Reported 7/10 pain despite dilaudid and toradol. Reports toradol working well for fever and discomfort. Requests increase in dilaudid. I asked him about recent etoh use. Denies that he has been drinking since he was diagnosed with COVID on MondayJuly 20. He reports tylenol use for fever related to COVID last week, and tylenol over the last few days related to fever with his perirectal abscess. Most days he was taking about 4000mg. Able to eat some dinner following his procedure. Discussed that abnormal LFTs may be related to COVID. Potentially/theoretically could be tylenol-related -- but doubt. Liver appeared healthy on CT abd/pelvis. INR normal this am. Will repeat LFTs and tylenol level this am. If LFTs are rising still - even if tylenol level is normal - consider mucomyst protocol to be on safe side. Mervin Becker MD
[2020-08-01] MEDS: HYDROmorphone INJ 0.5 MG/0.5 ML SYR IV PRN ×7 (00:21→20:15)
[2020-08-01] MEDS: KETOROLAC 30 MG/ML VIAL IV PRN ×4 (00:21→18:11)
[2020-08-01] MEDS ORDERED: MELATONIN 3 MG TAB PO ONE (01:26)
[2020-08-01] MEDS: PIPERACILLIN/TAZOBACTAM 4.5 GM in DEXTROSE 5% 100 ML IV SCH ×3 (01:47→17:29)
[2020-08-01] MEDS: NSS + 20MEQ KCL 20 MEQ/1,000 ML BAG IV SCH ×2 (01:48→11:48)
[2020-08-01 04:21] LABS: Hepatitis A Antibody IgM NON-REACTIVE (NON-REACTIVE); Hepatitis B Core Antibody IgM NON-REACTIVE (NON-REACTIVE)
[2020-08-01 05:39] LABS: Hematocrit (blood only) 37.4 % (42-52); Hemoglobin 12.5 g/dL (14.0-18.0); Mean Corpuscular Hemoglobin 27.8 pg (25-34); Mean Corpuscular Hgb Conc 33.4 g/dL (32-36); Mean Corpuscular Volume 83.1 fL (80-100); Mean Platelet Volume 10.8 fL (7.4-10.4); Platelet Count 218 K/uL (130-400); RDW Standard Deviation 39.4 fL (36.4-46.3); White Blood Count 15.31 K/uL (4.8-10.8)
[2020-08-01 06:18] LABS: Albumin Globulin Ratio 0.7 (0.9-2); Albumin Level 2.5 gm/dl (3.4-5.0); BUN Creatinine Ratio 10.1 (10-20); Bilirubin,Total 0.9 mg/dl (0.2-1); Calcium 8.4 mg/dl (8.5-10.1); Creatinine Clr Calc Pharmacy 142.7 ml/min; Est GFR (African American) 121.6; Est GFR (Non-African American) 104.9; Globulin 3.8 gm/dl (2.5-4.0); Potassium 4.4 mmol/L (3.5-5.1); Total Protein 6.3 gm/dl (6.4-8.2)
[2020-08-01] MEDS ORDERED: ACETAMINOPHEN 500 MG TAB PO STA (09:42)
[2020-08-01] MEDS: SERTRALINE HCL 100 MG TABLET PO SCH (09:42)
[2020-08-01] MEDS ORDERED: VANCOMYCIN CONSULT ACTIVE PRN (09:42)
[2020-08-01] MEDS: valACYclovir HCL 500 MG TABLET PO SCH ×2 (09:43→20:15)
[2020-08-01] MEDS: NICOTINE 21 MG/24 HR TDSY TD SCH (09:43)
[2020-08-01] MEDS ORDERED: VANCOMYCIN HCL 2,500 MG in SODIUM CHLORIDE 0.9% 500 ML IV SCH (10:00)
--- NOTE | 2020-08-01 12:01 | Pharmacy Report ---
Pharmacy Abx Initial Consult - Date of Service August 01, 2020 - Pharmacy Dosing Scope Date of Consult: 08/01/20 Consultation requested by: Dr. Becker Pharmacy is consulted to initiate vancomycin and Zosyn IV dosing therapy, order appropriate labs and adjust drug dose/frequency. - Subjective The patient is a 30 year old M admitted on 07/31/20 06:20. - Objective Height: 5 ft 10 in Weight: 116.8 kg Vital Signs (Past 12hrs): Vital Signs Temp Pulse Resp BP Pulse Ox 08/01/20 11:26 37.8 C H 101 H 16 152/89 H 96 08/01/20 09:39 39.2 C H 104 H 16 143/97 H 96 08/01/20 03:44 36.8 C 102 H 14 120/72 99 08/01/20 00:20 37.7 C H 103 H 16 122/83 98 Lab Results (24hrs): Laboratory Tests (24 Hours) 08/01/20 08/01/20 05:15 05:15 WBC 15.31 H Creatinine 0.96 Est Cr Clr Drug Dosing 142.7 - Assessment & Plan Assessment * 30 year old M who presented to [facility] with complaints of fever,chills, and rectal pain. CT scan reveal 2 adjacent perianal abscesses. * Pharmacy consulted to initiate Zosyn. * General surgery also consulted, pt underwent I&D yesterday. * Despite I&D + Zosyn therapy, patient remains febrile. Vancomycin added on today for more coverage. * Of note, patient has recent concern for possible herpes infection - prescribed Valtrex outpatient. Continued inpatient. Plan Vancomycin IV * Estimated PK Parameters: Vd 0.6 L/kg, Shaji 0.083 hr-1, t1/2 8 hr * Loading dose: 2500 mg (21.5 mg/kg) * Maintenance dose: 1500 mg IV (13 mg/kg) every 12 hours * Goal trough level: 15 to 20 mcg/mL * Trough level ordered for 08/03 @ 1130 * A less than traditional dose and/or extended dosing interval have been selected due to likelihood of drug accumulation in obese patient Piperacillin/tazobactam * 4.5 g bolus administered over 30 minutes, then 4.5 g IV extended infusion every 8 hours for CrCl greater than 20 mL/min * Aggressive dosing selected due to BMI 35 or more Pharmacy will continue to follow and will adjust dose/frequency as necessary. Thank you.
--- NOTE | 2020-08-01 12:20 | Surgery Progress Note ---
Date of Service August 01, 2020 Assessment & Plan (1) Perianal abscess: pt with low grade fever and wbc slightly elevated....? if infection worsening or from me "stirring " it up yesterday yesterday was primarily severe cellulitis with no formal fluid organization. if no better tomorrow and WBC goes higher I may repeat CT scan and may need to go back to OR for washout/packing change under anesthesia. continue IV antibiotics. Admission and Anticipated Discharge Date Admission Date: July 31, 2020 Subjective pt still quite sore on his asya rectal area. no new complaints. Physical Exam Physical Exam: alert. nad dressings intact with small amount of blood. Results & Data ([facility]) Vital Signs (Past 12 Hours) Vital Signs Temp Pulse Resp BP Pulse Ox 08/01/20 11:26 37.8 C H 101 H 16 152/89 H 96 08/01/20 09:39 39.2 C H 104 H 16 143/97 H 96 08/01/20 03:44 36.8 C 102 H 14 120/72 99 08/01/20 00:20 37.7 C H 103 H 16 122/83 98 PG Care Time/CCT Total # of Minutes Spent Total Time Spent with Patient: Total time spent is greater than 50% in c oordination of care (as documented) at patient's floor/unit and/or counseling patient: Coding Level of Care Code None Diagnoses Perianal abscess K61.0
[2020-08-01] MEDS ORDERED: POLYETHYLENE (MIRALAX) 17 GM PACK PO PRN (14:54)
--- NOTE | 2020-08-01 15:45 | Hospitalist Progress Note ---
Date of Service August 01, 2020 Assessment & Plan (1) Sepsis: 2nd perirectal abscesses. hemodynamically stable. cont IVF. appreciate gen surg consultation and recs. blood cx's remain neg. (2) Perianal abscess: POD #1 - s/p incision/drainage by Dr Barahona. Unfortunately during drainage procedure no purulence was obtained for culture (no pus could be expressed). He remains febrile on Zosyn 4.5 g IV every 8 hours. Check MRSA [employer] swab. Add IV vanco. Dr Barahona states that patient may need repeat imaging and/or return to OR tomorrow. Keep NPO after MN tonight for possible OR on Monday. (3) COVID-19: Diagnosed initially 10-11 days ago. cxr neg. No symptoms from COVID at this time. Does have resolving transaminitis. (4) Elevated liver function tests: improving. likely reactive transaminitis from COVID-19. patient adamant he hadn't drank etoh in last 2 weeks. infectious hepatitis panel thus far negative. repeat lfts am. (5) Depression: Depression/generalized anxiety disorder with panic attacks- Resume sertraline 100 mg daily. (6) Generalized anxiety disorder with panic attacks: SSRI (7) Alcohol abuse: none while ill with COVID per patient no signs/symptoms of etoh withdrawal (8) Constipation: miralax daily (9) DVT prophylaxis: add lovenox 40m daliy cont IVF stop valtrex no evidence of herpes infection in rectal area Admission and Anticipated Discharge Date Admission Date: July 31, 2020 Subjective patient still w/ significant discomfort in rectal region. requiring dilaudid and toradol frequently; patient reports latter is more effective. pain maybe slightly better than pre-incision/drainage. denies any nasal congestion, sore throat, headache, loss of taste or smell, diarrhea, nausea, abd pain, cough or dyspnea. previous COVID-19 symptoms are resolved (he had had loss of taste/smell, fever, and diarrhea when dx with COVID). denies h/o MRSA infection. 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 Review of Systems Constitutional: + fever, + chills and + fatigue; no anorexia Respiratory: no dyspnea Cardiovascular: no chest pain Gastrointestinal: + constipation; no abdominal pain Physical Exam Constitutional: + obese; no acute distress and no altered mental status ENMT: external ear and nose normal, oropharynx normal Respiratory: normal respiratory effort, lungs clear to auscultation Cardiovascular: Rate/Rhythm: regular rate and regular rhythm Heart Sounds: normal S1 and normal S2; no murmur Vessels: posterior tibial pulses present and dorsalis pedis pulses present; no JVD Extremities: no edema Gastrointestinal (Abdomen): normal bowel sounds, soft, nontender, no hepatosplenomegaly external rectal exam - mild erythema of perirectal region extending onto the buttocks; evidence of b/l incision/drainage procedures of b/l perirectal abscess; minimal drainage on dressing Skin: no rashes, warm and dry Psychiatric: A+Ox3, euthymic affect Results & Data Results & Data ([facility]) Vital Signs (Past 12 Hours) Vital Signs Temp Pulse Resp BP Pulse Ox 08/01/20 11:26 37.8 C H 101 H 16 152/89 H 96 08/01/20 09:39 39.2 C H 104 H 16 143/97 H 96 Laboratory Results Laboratory Results - last 24 hr 07/31/20 07/31/20 07/31/20 04:04 20:52 20:52 WBC RBC Hgb Hct MCV MCH MCHC RDW Std Deviation RDW Coeff of Lobo Plt Count MPV Sodium Potassium Chloride Carbon Dioxide Anion Gap BUN Creatinine Est Cr Clr Drug Dosing Est GFR ( Amer) Est GFR (Non-Af Amer) BUN/Creatinine Ratio Glucose Calcium Total Bilirubin 0.9 D Direct Bilirubin 0.4 H AST 63 H ALT 214 H Alkaline Phosphatase 140 H Total Protein 6.6 Albumin 2.6 L Globulin Albumin/Globulin Ratio Nasal Screen MRSA (PCR) Acetaminophen < 2 L Hepatitis A IgM Ab NON-REACTIVE Hep B Core IgM Ab NON-REACTIVE 08/01/20 08/01/20 08/01/20 05:15 05:15 14:25 WBC 15.31 H RBC 4.50 L Hgb 12.5 L Hct 37.4 L MCV 83.1 MCH 27.8 MCHC 33.4 RDW Std Deviation 39.4 RDW Coeff of Lobo 13.0 Plt Count 218 MPV 10.8 H Sodium 138 Potassium 4.4 D Chloride 108 H Carbon Dioxide 26 Anion Gap 4.0 BUN 10 Creatinine 0.96 Est Cr Clr Drug Dosing 142.7 Est GFR ( Amer) 121.6 Est GFR (Non-Af Amer) 104.9 BUN/Creatinine Ratio 10.1 Glucose 101 H Calcium 8.4 L Total Bilirubin 0.9 Direct Bilirubin AST 42 H ALT 183 H Alkaline Phosphatase 150 H Total Protein 6.3 L Albumin 2.5 L Globulin 3.8 Albumin/Globulin Ratio 0.7 L Nasal Screen MRSA (PCR) Pending Acetaminophen Hepatitis A IgM Ab Hep B Core IgM Ab blood cx's neg PG Care Time/CCT Total # of Minutes Spent Total Time Spent with Patient: Total time spent is greater than 50% in coordination of care (as documented) at patient's floor/unit and/or counseling patient: Coding Level of Care Code 05733 Subseq Hosp Care Lvl 3 Diagnoses Sepsis A41.9 Perianal abscess K61.0 COVID-19 U07.1 Elevated liver function tests R79.89 Depression F33.3 Depression Type: major depressive disorder Major depression recurrence: recurrent Active/Remission status: currently active Major depression episode severity: severe Psychotic features: with psychotic features Generalized anxiety disorder with panic attacks F41.1; F41.0 Alcohol abuse F10.10 Constipation K59.00 DVT prophylaxis Z29.9 (1) Depression Depression Type: major depressive disorder Major depression recurrence: recurrent Active/Remission status: currently active Major depression episode severity: severe Psychotic features: with psychotic features Qualified Code(s): F33.3 - Major depressive disorder, recurrent, severe with psychotic symptoms
[2020-08-01] MEDS: VANCOMYCIN HCL 1,500 MG in SODIUM CHLORIDE 0.9% 500 ML IV SCH (23:57)
[2020-08-02] MEDS: KETOROLAC 30 MG/ML VIAL IV PRN ×4 (00:32→21:07)
[2020-08-02] MEDS: HYDROmorphone INJ 0.5 MG/0.5 ML SYR IV PRN ×5 (00:32→14:46)
[2020-08-02] MEDS: ZOLPIDEM TARTRATE 10 MG TAB PO PRN ×2 (00:32→21:07)
[2020-08-02] MEDS: NSS + 20MEQ KCL 20 MEQ/1,000 ML BAG IV SCH ×3 (00:33→21:39)
[2020-08-02] MEDS: PIPERACILLIN/TAZOBACTAM 4.5 GM in DEXTROSE 5% 100 ML IV SCH ×3 (02:30→17:46)
[2020-08-02 05:49] LABS: Basophils # (auto) 0.02 K/uL (0-0.2); Basophils % (auto) 0.1 %; Eosinophils # (auto) 0.07 K/uL (0-0.5); Eosinophils % (auto) 0.5 %; Hematocrit (blood only) 37.1 % (42-52); Hemoglobin 12.2 g/dL (14.0-18.0); Immature Granulocytes # (auto) 0.07 K/uL (0.00-0.02); Immature Granulocytes % (auto) 0.5 %; Lymphocytes # (auto) 1.78 K/uL (1.2-3.4); Lymphocytes % (auto) 12.1 %; Mean Corpuscular Hemoglobin 27.4 pg (25-34); Mean Corpuscular Hgb Conc 32.9 g/dL (32-36); Mean Corpuscular Volume 83.4 fL (80-100); Mean Platelet Volume 10.4 fL (7.4-10.4); Monocytes # (auto) 1.53 K/uL (0.11-0.59); Monocytes % (auto) 10.4 %; Neutrophils # (auto) 11.21 K/uL (1.4-6.5); Neutrophils % (auto) 76.4 %; Platelet Count 229 K/uL (130-400); RDW Standard Deviation 39.4 fL (36.4-46.3); Red Blood Count 4.45 M/uL (4.7-6.1); White Blood Count 14.68 K/uL (4.8-10.8)
[2020-08-02 06:30] LABS: Albumin Level 2.4 gm/dl (3.4-5.0); BUN Creatinine Ratio 10.2 (10-20); Calcium 8.5 mg/dl (8.5-10.1); Creatinine Clr Calc Pharmacy 147.4 ml/min; Est GFR (African American) 126.3; Potassium 4.3 mmol/L (3.5-5.1)
[2020-08-02 06:33] LABS: Albumin Globulin Ratio 0.6 (0.9-2); Total Protein 6.4 gm/dl (6.4-8.2)
--- NOTE | 2020-08-02 07:25 | History & Physical Bridge Note ---
Date of Service August 02, 2020 History & Physical Bridge Note I have examined the patient, reviewed the History & Physical and in the interval since the performance of the History & Physical I have noted the following changes of clinical significance: no changes noted pt seen. not feeling any better. low grade fever and tachycardic with leukocytosis. area with increased erythema. will take back to OR for repeat attempt at incision and drainage with general anesthesia. discussed options/risks ( bleeding/infection/injury to nearby structure such as sphincter muscles etc....). questions answered. will proceed with this AM.
--- NOTE | 2020-08-02 08:06 | Anesthesiology Consultation ---
Date of Service August 02, 2020 Assessment & Plan (1) Encounter for pre-operative examination: Chart Review Chart Review: Acceptable Risk for Surgery History Surgery Operation Date: 07/31/20 14:55 Proposed Procedures p Perirectal Abscess - Bill Barahona DO Height/Weight Height: 5 ft 10 in Weight: 116.8 kg Allergies Allergy/AdvReac Type Severity Reaction Status Date / Time No Known Allergies Allergy Verified 07/31/20 04:52 Medications Home Medications Medication Instructions Recorded Confirmed Last Taken multivitamin 1 tab PO QAM 10/31/18 07/31/20 07/30/20 acetaminophen [Tylenol Extra 1,000 mg PO Q8H PRN 07/31/20 07/31/20 07/31/20 03:00 Strength] ascorbic acid (vitamin C) [Vitamin 1 g PO DAILY 07/31/20 07/31/20 07/30/20 C] cholecalciferol (vitamin D3) 100 mcg PO DAILY 07/31/20 07/31/20 07/30/20 [Vitamin D3] ibuprofen 800 mg PO TID PRN 07/31/20 07/31/20 07/30/20 23:00 prednisone 40 mg PO DAILY 07/31/20 07/31/20 07/30/20 sertraline 100 mg PO DAILY 07/31/20 07/31/20 07/30/20 valacyclovir 500 mg PO BID 07/31/20 07/31/20 07/30/20 zinc 50 mg PO DAILY 07/31/20 07/31/20 07/30/20 Active Medications Generic Name Dose Route Start Last Admin Trade Name Freq PRN Reason Stop Dose Admin Hydromorphone HCl 1 mg 07/31/20 20:15 08/02/20 06:25 Hydromorphone Inj 0.5 Mg/0.5 Ml Syr IV 08/14/20 20:14 1 mg Q3H PRN Administration Pain Piperacillin Sod/Tazobactam 120 mls @ 30 mls/hr 07/31/20 10:00 08/02/20 07:28 Sod 4.5 gm/ Dextrose IV 08/10/20 09:59 Infused Q8H LISA Infusion Protocol Potassium Chloride/Sodium Chloride 20 meq in 1,000 mls @ 100 mls/hr 07/31/20 08:30 08/02/20 00:33 Normal Saline W/20 Meq Kcl IV 08/30/20 08:29 100 mls/hr .Q10H LISA Administration Vancomycin HCl 1,500 mg/ 530 mls @ 200 mls/hr 08/02/20 00:00 08/02/20 02:28 Sodium Chloride IV 08/12/20 00:00 Infused Q12H LISA Infusion Protocol Ketorolac Tromethamine 30 mg 07/31/20 08:41 08/02/20 07:13 Ketorolac 30 Mg/Ml Vial IV 08/05/20 08:40 30 mg Q6H PRN Administration Pain or temp >100 degrees Miscellaneous 1 ea 08/01/20 08:59 08/01/20 05:59 Remove Nicoderm Patch N/A 08/31/20 08:58 1 ea [id number] LISA Administration Nicotine 21 mg 07/31/20 09:45 08/01/20 09:43 Nicotine 21 Mg/24 Hr Tdsy TD 08/30/20 09:44 21 mg QAM LISA Administration Sertraline HCl 100 mg 07/31/20 13:30 08/01/20 09:42 Sertraline Hcl 100 Mg Tablet PO 08/30/20 13:29 100 mg QAM LISA Administration Zolpidem Tartrate 10 mg 08/01/20 12:21 08/02/20 00:32 Zolpidem Tartrate 10 Mg Tab PO 08/31/20 12:20 10 mg HS PRN Administration Sleep NPO Date Last Intake of Fluids: 07/31/20 Time Last Intake of Fluids: 00:00 Date Last Intake of Solids: 07/30/20 Time Last Intake of Solids: 03:00 Past Medical History Medical History Asthma Bursitis COVID-19 Depression Deviated nasal septum Elevated blood uric acid level Elevated liver enzymes IN THE PAST (NOW WNL) Gout Obesity Sciatica Sleep apnea NO DEVICE Past Family History Family History Father Multiple sclerosis Father Family history of ITP Aunt Family history of diabetes mellitus Past Surgical History Surgical History History of appendectomy History of esophageal dilatation History of esophagogastroduodenoscopy (EGD) History of removal of skin mole History of tooth extraction [place] teeth removed Social History Smoking Status: Current every day smoker tobacco type: cigarettes Smoking cigarettes per day: 10 Do You Dip or Chew Tobacco: No Hx Alcohol Use: No Alcohol type: wine and hard liquor alcohol intake frequency: holidays/special occasions only Hx Substance Use: No substance use type: does not use Physical Exam Vital Signs Last Vital Signs Temp 37.0 C 08/02/20 01:55 EST Pulse 100 H 08/02/20 02:30 Resp 20 08/01/20 23:43 BP 144/71 H 08/01/20 23:43 Pulse Ox 99 08/02/20 02:30 Testing Laboratory Results 08/02/20 05:33 08/02/20 05:33 PT 10.2 Seconds (9.0-12.0) 07/31/20 04:04 INR 1.0 (0.9-1.1) 07/31/20 04:04 APTT 26.9 Seconds (21.0-31.0) 07/31/20 04:04 Urine Color Yellow 07/31/20 04:45 Urine Appearance Clear (Clear) 07/31/20 04:45 Urine pH 5.5 (4.5-7.5) 07/31/20 04:45 Ur Specific [place] 1.014 (1.000-1.030) 07/31/20 04:45 Urine Protein Negative (Negative) 07/31/20 04:45 Urine Glucose (UA) Negative (Negative) 07/31/20 04:45 Urine Ketones Negative (Negative) 07/31/20 04:45 Urine Nitrite Negative (Negative) 07/31/20 04:45 Ur Leukocyte Esterase Negative (Negative) 07/31/20 04:45 07/31/20 04:04 Aerobic Blood Culture - Preliminary Blood No growth in Aerobic bottle after 48 hours. Anaerobic Blood Culture - Preliminary No growth in Anaerobic bottle after 48 hours. 07/31/20 04:13 Aerobic Blood Culture - Preliminary Blood No growth in Aerobic bottle after 48 hours. Anaerobic Blood Culture - Preliminary No growth in Anaerobic bottle after 48 hours.
[2020-08-02] MEDS: SERTRALINE HCL 100 MG TABLET PO SCH (08:39)
[2020-08-02] MEDS: NICOTINE 21 MG/24 HR TDSY TD SCH (08:39)
--- NOTE | 2020-08-02 09:43 | Hospitalist Progress Note ---
Date of Service August 02, 2020 Assessment & Plan (1) Sepsis: resolved with treatment of perirectal abscesses. General surgery returns Pt to OR 08/02/20 blood cx's remain neg. wound culture grew group B beta strep antibiotics were streamlined to Zosyn therapy to cover the strep but also anaerobic gram-negative since the areas in his perirectal region (2) Perianal abscess: Pt with scheduled second drainage on 08/02/20 on Zosyn therapy likely t ransition to Augmentin at time of discharge will need wounds packed will have nursing begin to educate the patient and his significant other about packing of the wound (3) COVID-19: Diagnosed initially 10-11 days ago. cxr neg. No symptoms from COVID at this time. Does have resolving transaminitis. (4) Elevated liver function tests: improving. likely reactive transaminitis from COVID-19. patient adamant he hadn't drank etoh in last 2 weeks. infectious hepatitis panel thus far negative. repeat lfts continue improving (5) Depression: Depression/generalized anxiety disorder with panic attacks- Resume sertraline 100 mg daily, if taking po well. (6) Generalized anxiety disorder with panic attacks: SSRI (7) Alcohol abuse: none while ill with COVID per patient no signs/symptoms of etoh withdrawal (8) Constipation: miralax daily (9) DVT prophylaxis: add lovenox 40m daliy cont IVF stop valtrex no evidence of herpes infection in rectal area Admission and Anticipated Discharge Date Admission Date: July 31, 2020 Subjective pt was having consistent and persistent pain around his surgical incisions difficulty with mobility moving about the room, has had very little symptoms from his Covid diagnoses he has had no shortness of breath or cough no coryza or upper respiratory type symptoms Review of Systems Review of Systems: Mild distress and fatigue no headache, blurry or double vision no speech or swallowing issues no chest pain, pressure or palpitations no shortness of breath, cough or wheezes no abdominal pain, nausea or vomiting, persistent asya rectal pain no dysuria, hematuria or frequency no focal joint pain or swelling no back pain, CVA tenderness or radicular pain no bruising, bleeding or rashes no focal signs of weakness or numbness or altered sensation no complaints of anxiety or depression. Physical Exam Physical Exam: The patient appeared well nourished and normally developed. Vital signs as documented. Head exam is normocephalic atraumatic no scleral icterus Neck is without JVD, thyromegaly, or carotid bruits. Lungs are clear to auscultation, no focal loss of breath sounds Cardiac exam, Rhythm is regular.. No murmurs, rubs or gallops. Abdominal exam reveals normal bowel sounds, soft non tender, no masses Extremities are nonedematous and both pedal pulses are present Neurologic exam is alert and oriented, no focal loss of strength or sensation Skin is 3 stab wounds on his buttocks to the right one on the left the upper most wounds are approximately 2 to 3 cm in length and 1 cm deep there is some mild packing is fallen out of the right upper 1. The lower right buttock wound has a Lance drain which is sutured in place. There is no significant erythema or drainage or fluctuance in the area. Psychologically is without concerns for anxiety or depression. Results & Data Results & Data ([facility]) Vital Signs (Past 12 Hours) Vital Signs Temp Pulse Pulse Resp BP Pulse Ox 08/02/20 08:36 99.0 F 104 H 18 156/80 H 95 08/02/20 02:30 100 H 99 08/02/20 01:55 EST 98.6 F 08/01/20 23:43 100.6 F H 103 H 20 144/71 H 99 PG Care Time/CCT Total # of Minutes Spent Total Time Spent with Patient: Total time spent is greater than 50% in coordination of care (as documented) at patient's floor/unit and/or counseling patient: Coding Level of Care Code 92240 Subseq Hosp Care Lvl 3 Diagnoses Sepsis A41.9 Perianal abscess K61.0 COVID-19 U07.1 Elevated liver function tests R79.89 Depression F33.3 Active/Remission status: currently active Depression Type: major depressive disorder Major depression episode severity: severe Major depression recurrence: recurrent Psychotic features: with psychotic features Generalized anxiety disorder with panic attacks F41.1; F41.0 Alcohol abuse F10.10 Constipation K59.00 DVT prophylaxis Z29.9 (1) Depression Active/Remission status: currently active Depression Type: major depressive disorder Major depression episode severity: severe Major depression recurrence: recurrent Psychotic features: with psychotic features Qualified Code(s): F33.3 - Major depressive disorder, recurrent, severe with psychotic symptoms
[2020-08-02] MEDS: POLYETHYLENE (MIRALAX) 17 GM PACK PO SCH (10:46)
[2020-08-02] MEDS: ENOXAPARIN INJ 40 MG/0.4 ML SYR SQ SCH (11:13)
[2020-08-02] MEDS ORDERED: SUCCINYLCHOLINE CHLORIDE 20 MG/ML 10 ML VIAL IV ONE (11:38)
[2020-08-02] MEDS ORDERED: ROCURONIUM BROMIDE 10 MG/ML 5 ML VIAL IV ONE (11:39)
[2020-08-02] MEDS ORDERED: fentaNYL citrate 100 MCG/2 ML VIAL ONE (11:40)
[2020-08-02] MEDS ORDERED: NEOSTIGMINE METHYLSULFATE 5 MG/5 ML SYR ONE (11:41)
[2020-08-02] MEDS ORDERED: GLYCOPYRROLATE 0.2 MG/ML VIAL ONE (11:41)
[2020-08-02] MEDS ORDERED: MIDAZOLAM HCL 1 MG/ML 2ML VIAL ONE (11:42)
[2020-08-02] MEDS ORDERED: PROPOFOL IV EMULSION 10 MG/ML 20 ML VIAL IV ONE (11:43)
[2020-08-02] MEDS ORDERED: ONDANSETRON INJ 2 MG/ML 2 ML VIAL IV PRN (12:07)
[2020-08-02] MEDS ORDERED: LABETALOL HCL IV 5 MG/ML 20ML IV PRN (12:07)
[2020-08-02] MEDS ORDERED: HYDROmorphone INJ 1 MG/ML SYRINGE IV PRN ×2 (12:07→15:44)
[2020-08-02] MEDS ORDERED: ATROPINE SULFATE 0.1 MG/ML 10ML SYR IV PRN (12:07)
--- NOTE | 2020-08-02 13:35 | Operative Report ---
PG Post Operative Report Pre & Post Diagnosis Operation Date: 07/31/20 14:55 Pre-Op Diagnosis: asya rectal abcess Post-Op Diagnosis: asya rectal abcess Operation Date: 08/02/20 10:00 Pre-Op Diagnosis: Perirectal abscess Post-Op Diagnosis: Perirectal abscess I identified the patient and participated in the time-out.: Yes Procedure Operation Date: 07/31/20 14:55 Actual Procedures p Incision and drainage of Perirectal Abscess - Bill Barahona DO Operation Date: 08/02/20 10:00 Actual Procedures p Incision and Drainage perirectal abscess - Bill Barahona DO Surgeon Bill Barahona DO Tray Packer none Estimated Blood Loss 15 Findings Consistent with Post-Op Diagnosis Specimens abcess fluid for culture Description of Procedure After informed consent was obtained the patient was taken to the operating room and placed in supine position. After successful intubation the patient was placed into a high lithotomy position in candycane stirrups. The previous packing was removed and the entire gluteal/rectal area was sterilely prepped and draped in usual fashion with Betadine solution. I began by using an 18-gauge needle to identify the abscess cavity. It was directly medial to the previous incision. I was able to use a Elisa clamp to come in through the previous incision and spread the abscess cavity releasing a large amount of purulent fluid. A portion of this was sent to the lab for Gram stain culture and sensitivity. I was able to express several 100 cc of fluid. Gentle finger fractionation was performed. The wound was thoroughly irrigated. The previous left-sided abscess was much improved. I did attempt several times with the finder needle to find a second left-sided abscess cavity on the left gluteal region but there was none. I irrigated the other 2 wounds ( one other one on the right side as well as the only one on the left side). These 2 wounds were packed with quarter inch plain packing. In the larger abscess cavity wound I placed 1/2 inch [place] drain and secured to the skin using 2-0 nylon. Sterile dressings were applied. Mesh shorts were applied as well. The patient was placed back to a supine position extubated and transferred to recovery area in stable condition. I attest to the content of the Intraoperative Record and any orders documented therein. Any exceptions are noted below.
--- NOTE | 2020-08-02 14:06 | Anesthesiology Progress Note ---
Date of Service August 02, 2020 Anesthesia Post Procedure Vital Signs Vital Signs: Temp Pulse Pulse Resp BP BP Pulse Ox 08/02/20 13:40 99 H 18 111/80 95 08/02/20 13:34 37.2 C 91 H 18 118/80 96 08/02/20 11:42 37.2 C 91 H 18 137/88 96 08/02/20 08:36 37.2 C 104 H 18 156/80 H 95 08/02/20 02:30 100 H 99 08/02/20 01:55 EST 37.0 C 08/01/20 23:43 38.1 C H 103 H 20 144/71 H 99 08/01/20 20:14 37.3 C 08/01/20 18:25 39 C H 08/01/20 17:44 38 C H 98 H 18 142/93 H 98 Pain Intensity Rectal: Pain Intensity: 10 Bilateral Buttock: Pain Intensity: 8 Transfer of Care Handoff Completed per policy Notes Mental Status: alert / awake / arousable Patient Amnestic to Procedure: Yes Nausea / Vomiting: adequately controlled Pain: adequately controlled Airway Patency, RR, SpO2: stable & adequate BP & HR: stable & adequate Hydration State: stable & adequate Anesthetic Complications: no major complications apparent
[2020-08-02] MEDS: VANCOMYCIN HCL 1,500 MG in SODIUM CHLORIDE 0.9% 500 ML IV SCH (14:46)
[2020-08-02] MEDS ORDERED: ACETAMINOPHEN 500 MG TAB PO PRN (15:43)
[2020-08-02] MEDS: HYDROmorphone INJ 1 MG/ML SYRINGE IV PRN ×2 (17:46→21:05)
[2020-08-03] MEDS: HYDROmorphone INJ 0.5 MG/0.5 ML SYR IV PRN ×4 (00:54→17:37)
[2020-08-03] MEDS: HYDROmorphone INJ 1 MG/ML SYRINGE IV PRN ×7 (02:24→23:40)
[2020-08-03] MEDS: VANCOMYCIN HCL 1,500 MG in SODIUM CHLORIDE 0.9% 500 ML IV SCH ×2 (02:24→14:40)
[2020-08-03] MEDS: PIPERACILLIN/TAZOBACTAM 4.5 GM in DEXTROSE 5% 100 ML IV SCH ×3 (02:25→17:35)
[2020-08-03] MEDS: KETOROLAC 30 MG/ML VIAL IV PRN ×4 (03:34→23:39)
[2020-08-03 05:38] LABS: Basophils # (auto) 0.04 K/uL (0-0.2); Basophils % (auto) 0.3 %; Eosinophils # (auto) 0.32 K/uL (0-0.5); Eosinophils % (auto) 2.1 %; Hematocrit (blood only) 36.4 % (42-52); Hemoglobin 11.9 g/dL (14.0-18.0); Immature Granulocytes # (auto) 0.12 K/uL (0.00-0.02); Immature Granulocytes % (auto) 0.8 %; Lymphocytes # (auto) 2.32 K/uL (1.2-3.4); Lymphocytes % (auto) 15.3 %; Mean Corpuscular Hemoglobin 27.3 pg (25-34); Mean Corpuscular Hgb Conc 32.7 g/dL (32-36); Mean Corpuscular Volume 83.5 fL (80-100); Mean Platelet Volume 10.5 fL (7.4-10.4); Monocytes # (auto) 1.67 K/uL (0.11-0.59); Neutrophils # (auto) 10.69 K/uL (1.4-6.5); Neutrophils % (auto) 70.5 %; Platelet Count 272 K/uL (130-400); RDW Coefficient of Variation 13.3 % (11.5-14.5); RDW Standard Deviation 40.5 fL (36.4-46.3); Red Blood Count 4.36 M/uL (4.7-6.1); White Blood Count 15.16 K/uL (4.8-10.8)
[2020-08-03 06:01] LABS: Albumin Level 2.4 gm/dl (3.4-5.0); BUN Creatinine Ratio 8.3 (10-20); Calcium 8.5 mg/dl (8.5-10.1); Creatinine Clr Calc Pharmacy 144.2 ml/min; Est GFR (African American) 123.1; Est GFR (Non-African American) 106.2; Potassium 3.7 mmol/L (3.5-5.1)
[2020-08-03 06:03] LABS: Albumin Globulin Ratio 0.5 (0.9-2); Bilirubin,Total 0.6 mg/dl (0.2-1); Globulin 4.4 gm/dl (2.5-4.0); Total Protein 6.8 gm/dl (6.4-8.2)
[2020-08-03] MEDS: NSS + 20MEQ KCL 20 MEQ/1,000 ML BAG IV SCH ×2 (07:34→16:07)
[2020-08-03] MEDS: POLYETHYLENE (MIRALAX) 17 GM PACK PO SCH (07:44)
[2020-08-03] MEDS: NICOTINE 21 MG/24 HR TDSY TD SCH (07:44)
[2020-08-03] MEDS: SERTRALINE HCL 100 MG TABLET PO SCH (07:44)
[2020-08-03] MEDS: ENOXAPARIN INJ 40 MG/0.4 ML SYR SQ SCH (07:44)
[2020-08-03 09:46] VITALS: TEMP 98.8; O2SAT 95
--- NOTE | 2020-08-03 11:15 | Surgery Progress Note ---
Date of Service August 03, 2020 Assessment & Plan (1) Perianal abscess: clinically improving d/w Dr. Cordoba. Ok for d/c when ok with primary service.... catherine is sutured in place so visiting nurses may or may not be required. f/u with me on Monday for drain removal. Admission and Anticipated Discharge Date Admission Date: July 31, 2020 Subjective pt seen. still having pain but "different, definitely better than yesterday" Results & Data ([facility]) Vital Signs (Past 12 Hours) Vital Signs Temp Pulse Resp BP Pulse Ox 08/03/20 09:45 37.1 C 84 18 146/84 H 95 08/03/20 00:57 37 C 82 16 144/72 H 96 PG Care Time/CCT Total # of Minutes Spent Total Time Spent with Patient: Total time spent is greater than 50% in coordination of care (as documented) at patient's floor/unit and/or counseling patient: Coding Level of Care Code None Diagnoses Perianal abscess K61.0
[2020-08-03] MEDS ORDERED: VANCOMYCIN TROUGH ONE ×2 (11:30→13:30)
[2020-08-03] MEDS ORDERED: SODIUM CHLORIDE 0.65% NA SOLN 45 ML (OCEAN) PRN (19:59)
[2020-08-03] MEDS: ZOLPIDEM TARTRATE 10 MG TAB PO PRN (23:38)
[2020-08-04] MEDS: NSS + 20MEQ KCL 20 MEQ/1,000 ML BAG IV SCH ×2 (02:20→13:01)
[2020-08-04] MEDS: PIPERACILLIN/TAZOBACTAM 4.5 GM in DEXTROSE 5% 100 ML IV SCH ×2 (02:20→10:13)
[2020-08-04] MEDS: HYDROmorphone INJ 1 MG/ML SYRINGE IV PRN ×2 (02:52→06:40)
[2020-08-04] MEDS: KETOROLAC 30 MG/ML VIAL IV PRN (06:40)
[2020-08-04] MEDS ORDERED: traMADol HCL 50 MG TABLET PO PRN (07:19)
[2020-08-04] MEDS ORDERED: oxyCODONE HCL IR 5 MG TAB (IMMEDIATE RELEASE) PO PRN ×2 (08:19)
--- NOTE | 2020-08-04 08:25 | Surgery Progress Note ---
Date of Service August 04, 2020 Assessment & Plan (1) Perianal abscess: will recheck cbc prior do d/c. if decreasing could be discharged at any time added ibuprofen and stopped toradol added percocet. would try to wean off dilaudid follow up with me monday for drain removal. Admission and Anticipated Discharge Date Admission Date: July 31, 2020 Subjective pt seen. continues to slowly improve. Physical Exam Physical Exam: area much improved. much less firm, red etc...continues to have some purulent drainage. PG Care Time/CCT Total # of Minutes Spent Total Time Spent with Patient: Total time spent is greater than 50% in coordination of care (as documented) at patient's floor/unit and/or counseling patient: Coding Level of Care Code None Diagnoses Perianal abscess K61.0
[2020-08-04] MEDS ORDERED: ZOLPIDEM TARTRATE 5 MG TAB PO PRN (08:30)
[2020-08-04] MEDS ORDERED: IBUPROFEN 600 MG TAB PO SCH (09:00)
[2020-08-04] MEDS ORDERED: traMADol HCL 50 MG TABLET PO SCH (09:00)
[2020-08-04] MEDS: ENOXAPARIN INJ 40 MG/0.4 ML SYR SQ SCH (09:20)
[2020-08-04] MEDS: POLYETHYLENE (MIRALAX) 17 GM PACK PO SCH (09:21)
[2020-08-04] MEDS: ACETAMINOPHEN 500 MG TAB PO SCH ×2 (09:22→13:02)
[2020-08-04] MEDS: NICOTINE 21 MG/24 HR TDSY TD SCH (09:22)
[2020-08-04] MEDS: SERTRALINE HCL 100 MG TABLET PO SCH (09:23)
[2020-08-04 09:53] LABS: Basophils # (auto) 0.03 K/uL (0-0.2); Basophils % (auto) 0.3 %; Eosinophils # (auto) 0.33 K/uL (0-0.5); Eosinophils % (auto) 3.1 %; Hematocrit (blood only) 32.8 % (42-52); Hemoglobin 10.9 g/dL (14.0-18.0); Immature Granulocytes % (auto) 1.9 %; Lymphocytes # (auto) 1.85 K/uL (1.2-3.4); Lymphocytes % (auto) 17.4 %; Mean Corpuscular Hemoglobin 27.5 pg (25-34); Mean Corpuscular Hgb Conc 33.2 g/dL (32-36); Mean Corpuscular Volume 82.8 fL (80-100); Mean Platelet Volume 10.2 fL (7.4-10.4); Monocytes # (auto) 1.34 K/uL (0.11-0.59); Monocytes % (auto) 12.6 %; Neutrophils # (auto) 6.89 K/uL (1.4-6.5); Neutrophils % (auto) 64.7 %; Platelet Count 327 K/uL (130-400); RDW Coefficient of Variation 13.4 % (11.5-14.5); RDW Standard Deviation 40.9 fL (36.4-46.3); Red Blood Count 3.96 M/uL (4.7-6.1); White Blood Count 10.64 K/uL (4.8-10.8)
[2020-08-04] MEDS ORDERED: HYDROmorphone INJ 0.5 MG/0.5 ML SYR IV PRN (10:00)
[2020-08-04 14:07] VITALS: BP 139/80; PULSE 100
--- NOTE | 2020-08-04 17:21 | Discharge Summary ---
Date of Service August 04, 2020 Admission HPI Per Admitting Provider The patient is a 30-year-old male with a past medical history included generalized anxiety disorder with panic attacks, depression, alcohol abuse, suicide attempt, asthma and obesity. 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 He presents today with complaints of rectal pain, fevers and chills. He did have recent anal receptive intercourse. He reports that he had a telemedicine consult due to concerns regarding possible herpes infection, and that was recently prescribed acyclovir and prednisone. Work-up in the emergency department included a CT scan of abdomen pelvis which showed 2 perianal abscesses. Principal Diagnosis perirectal abscess s/p drainage covid positive prior to arrival at hospital-> no pulmonary symptoms Discharge Exam The patient appeared to be in much less pain Vital signs as documented. Lungs are clear to auscultation and appear unlabored Cardiac exam, Rhythm is regular.. No murmurs, rubs or gallops. Abdominal exam reveals normal bowel sounds, soft non tender, no masses Extremities are nonedematous and both pedal pulses are normal. Neurologic exam is alert and oriented, no focal loss of strength or sensation Skin is with [place] drain sutured in place and most inferior buttocks wound 2 small lacerations in the upper buttocks which are not draining at this time Psychologically is without concerns for anxiety or depression. Discharge Data Allergies Allergy/AdvReac Type Severity Reaction Status Date / Time No Known Allergies Allergy Verified 07/31/20 04:52 Consultations 07/31/20 05:53 ED Decision to Admit Stat 07/31/20 09:37 Consult General Surgery Routine Procedures Performed Operation Date: 07/31/20 14:55 Actual Procedures p Incision and drainage of Perirectal Abscess - Bill Barahona DO Operation Date: 08/02/20 10:00 Actual Procedures p Incision and Drainage perirectal abscess - Bill Barahona DO Ordered Studies 07/31/20 04:00 CT abd pelvis IV con only Urgent Hospital Course (1) Sepsis: resolved with treatment of perirectal abscesses. General surgery returns Pt to OR 08/02/20 blood cx's remain neg. wound culture grew group B beta strep antibiotics were streamlined to Zosyn therapy to cover the strep but also anaerobic gram-negative since the areas in his perirectal region, will discharge on augmentin and have surgical follow up in surgery office (2) Perianal abscess: Pt with scheduled second drainage on 08/02/20 on Zosyn transition to Augmentin at time of discharge will need wound addressed in office and may need wound care follow up (3) COVID-19: Diagnosed initially almost 2 weeks ago cxr neg. No symptoms from COVID at this time. Does have resolving transaminitis. (4) Elevated liver function tests: improving. likely reactive transaminitis from COVID-19. patient adamant he hadn't drank etoh in last 2 weeks. infectious hepatitis panel thus far negative. repeat lfts continue improving (5) Depression: Depression/generalized anxiety disorder with panic attacks- Resume sertraline 100 mg daily, if taking po well. (6) Generalized anxiety disorder with panic attacks: SSRI (7) Alcohol abuse: none while ill with COVID per patient no signs/symptoms of etoh withdrawal (8) Constipation: miralax daily Total Time Total Time Spent Total Time Spent (In Minutes): It required greater than 30 minutes to prepare this patient for discharge Discharge Plan Discharge Items Patient Disposition: Home - Self-Care Reason For Visit: +COVID, FEVER 102,SOB,PAIN Discharge Diagnosis: asya rectal abscess s/p drainage strep infection in abscess covid 19 infection pre hospital Condition on Discharge: Fair Activity: Per Instructions section Activity Comment: no submersion bathing, Non-emergency contact: Surgeon Call non-emergency contact if: you have any medication questions Follow-up/Referrals: Bill Barahona, [Surgeon] - 08/07/20 9:30 am (call to schedule follow up in clinic within 1-2 weeks) Angeles Jay CRNP [Primary Care Provider] - Diet: Regular Addtl Attending Provider Instructions: please keep wounds clean and dry, no need to attempt packing until you see Dr Barahona in the office wear disposable underwear to avoid blood staining on your clothes follow up with Dr Barahona this week Pending Studies at Discharge: No Stand-Alone Forms: My [employer], Smoking Cessation Medications and DC Order Prescriptions: New tramadol 50 mg Tablet 50 mg PO BID PRN (Reason: pain) Qty: 20 RF: 0 sertraline 100 mg Tablet 100 mg PO QAM Qty: 30 RF: 3 amoxicillin-pot clavulanate [Augmentin] 875-125 mg tablet 1 tab PO BID Qty: 22 RF: 0 Continued multivitamin Tablet 1 tab PO QAM RF: 0 ascorbic acid (vitamin C) [Vitamin C] 1,000 mg Tablet 1 g PO DAILY RF: 0 ibuprofen 800 mg tablet 800 mg PO TID PRN (Reason: FEVER/PAIN) RF: 0 sertraline 100 mg tablet 100 mg PO DAILY RF: 0 acetaminophen [Tylenol Extra Strength] 500 mg Tablet 1,000 mg PO Q8H PRN (Reason: FEVER/PAIN) RF: 0 Vitamin D3 100 mcg (4,000 unit) Capsule 100 mcg PO DAILY RF: 0 Discontinued prednisone 20 mg tablet 40 mg PO DAILY RF: 0 valacyclovir 500 mg tablet 500 mg PO BID RF: 0 zinc 50 mg Tablet 50 mg PO DAILY RF: 0 Discharge Orders: Discharge Order (Routine); Ordered 08/04/20 Ordered By: Sonny Vogt/Other Patient Handouts: Understanding Perianal Abscess Admission Data Admit Date/Time: 07/31/20 06:20 Attending Provider: Sonny Cordoba Admit Provider: Eros Harvey Primary Care Provider: Angeles Jay Other Providers: Eros Harvey ; Bill Barahona ; [facility] Other Interventions: Discharge Summary Assessment (RN) Last Done: 08/04/20 14:06 Coding Level of Care Code D/C Day Management >30 mins Diagnoses Sepsis A41.9 Perianal abscess K61.0 COVID-19 U07.1 Elevated liver function tests R79.89 Depression F33.3 Depression Type: major depressive disorder Major depression recurrence: recurrent Active/Remission status: currently active Major depression episode severity: severe Psychotic features: with psychotic features Generalized anxiety disorder with panic attacks F41.1; F41.0 Alcohol abuse F10.10 Constipation K59.00
== END 2020-08-04 14:58 | disposition home or self-care (01) | DRG 853 ==
LOC: ED 03:37 → SUATTDRO 06:20 → 3W 06:20
DX: M10.9 Gout, unspecified; J45.909 Unspecified asthma, uncomplicated; U07.1 COVID-19; F41.0 Panic disorder [episodic paroxysmal anxiety]; A41.9 Sepsis, unspecified organism; F32.9 Major depressive disorder, single episode, unspecified; Z68.36 Body mass index [BMI] 36.0-36.9, adult; K61.1 Rectal abscess; R43.8 Other disturbances of smell and taste; Z79.899 Other long term (current) drug therapy; E66.9 Obesity, unspecified; K59.00 Constipation, unspecified; Z79.52 Long term (current) use of systemic steroids; K61.0 Anal abscess; F10.10 Alcohol abuse, uncomplicated; F41.1 Generalized anxiety disorder; F17.210 Nicotine dependence, cigarettes, uncomplicated

== ENCOUNTER 2021-10-28 22:37 | Inpatient (IN) ==
[2021-10-28 23:04] LABS: Basophils # (auto) 0.02 K/uL (0-0.2); Basophils % (auto) 0.1 %; Eosinophils # (auto) 0.06 K/uL (0-0.5); Eosinophils % (auto) 0.4 %; Hematocrit (blood only) 46.7 % (42-52); Hemoglobin 15.5 g/dL (14.0-18.0); Immature Granulocytes # (auto) 0.02 K/uL (0.00-0.02); Immature Granulocytes % (auto) 0.1 %; Lymphocytes # (auto) 2.31 K/uL (1.2-3.4); Lymphocytes % (auto) 15.4 %; Mean Corpuscular Hemoglobin 27.7 pg (25-34); Mean Corpuscular Hgb Conc 33.2 g/dL (32-36); Mean Corpuscular Volume 83.4 fL (80-100); Monocytes # (auto) 1.51 K/uL (0.11-0.59); Monocytes % (auto) 10.1 %; Neutrophils # (auto) 11.05 K/uL (1.4-6.5); Neutrophils % (auto) 73.9 %; Platelet Count 212 K/uL (130-400); RDW Coefficient of Variation 13.2 % (11.5-14.5); RDW Standard Deviation 39.7 fL (36.4-46.3); White Blood Count 14.97 K/uL (4.8-10.8)
[2021-10-28 23:27] LABS: Albumin Globulin Ratio 1.5 (0.9-2); Albumin Level 4.6 gm/dl (3.4-5.0); Bilirubin,Total 0.9 mg/dl (0.2-1.0); Creatinine Clr Calc Pharmacy 134.9 ml/min; Est GFR (African American) 114.9 ml/min; Est GFR (Non-African American) 99.1 ml/min; Globulin 3.1 gm/dl (2.5-4.0); Potassium 3.8 mmol/L (3.5-5.1); Total Protein 7.7 gm/dl (6.0-8.3)
[2021-10-28] MEDS ORDERED: SODIUM CHLORIDE 0.9% 1000ML 1,000 ML IV ONE (23:28)
[2021-10-28] MEDS ORDERED: ONDANSETRON INJ 2 MG/ML 2 ML VIAL IV STA (23:28)
[2021-10-28] MEDS ORDERED: PIPERACILLIN/TAZOBACTAM 4.5 GM/120 ML BAG IV ONE (23:28)
[2021-10-28] MEDS ORDERED: HYDROmorphone INJ 1 MG/ML SYRINGE IV STA (23:28)
--- NOTE | 2021-10-28 23:57 | Emergency Department Note ---
History of Present Illness General Chief complaint: Pain (Generalized) Stated complaint: FEVER 102, RECTAL PAIN, CHILLS, NAUSEA, Time Seen by Provider: 10/28/21 23:14 History of Present Illness Maximum Pain Intensity: 7 This 31-year-old male patient presents to the emergency department today for evaluation of buttock pain. The patient states he had similar symptoms in the past and was diagnosed with perianal abscess requiring surgical I&D. The patient does report a history of herpes and states he felt a tingling sensation about 2 days ago. He immediately started taking Valtrex, but has not noticed improvement in his symptoms. He notes this evening that he noted his right buttock appeared to be swollen, causing him concern. He is extremely tender in this area. He has been experiencing fevers for the past few days, taking ibuprofen for the fevers. He denies any nausea or vomiting. No recent diarrhea. He is sexually active with male partners, but has not been sexually active in about 4 months. The patient states he does get regular HIV and STD testing, testing has been negative in the past. He rates his current pain a 7/10 and describes it as aching and sharp. Home Medications Medication Instructions Recorded Confirmed Type multivitamin 1 tab PO QAM 10/31/18 10/29/21 History ascorbic acid (vitamin C) 1,000 mg 1,000 mg PO QAM 07/31/20 03/21/21 History tablet (Vitamin C) sertraline 100 mg tablet 100 mg PO QAM #30 tab 08/04/20 10/29/21 Rx cholecalciferol (vitamin D3) 50 50 mcg PO QAM 12/22/20 03/21/21 History mcg (2,000 unit) capsule (Vitamin D3) ondansetron 4 mg disintegrating 4 mg PO Q6H PRN #10 tab 03/21/21 Rx tablet Allergies Allergy/AdvReac Type Severity Reaction Status Date / Time No Known Allergies Allergy Verified 03/21/21 12:07 Past Med/Surg History Medical History Asthma Bursitis COVID-19 Depression Deviated nasal septum Elevated blood uric acid level Elevated liver enzymes IN THE PAST (NOW WNL) Gout Leg pain, right Obesity Sciatica Sleep apnea NO DEVICE Surgical History History of appendectomy History of esophageal dilatation History of esophagogastroduodenoscopy (EGD) History of removal of skin mole History of tooth extraction [place] teeth removed Family History Father Multiple sclerosis Father Family history of ITP Aunt Family history of diabetes mellitus Social History Smoking Status: Current every day smoker Tobacco Type: Cigarettes Cigarettes Per Day: 5-10; Second Hand Exposure: Yes; Hx Alcohol Use: Yes Alcohol type: wine Hx Substance Use: No Preferred Language: Malawian Communication Ability: Effective Professor Of Geography Required: No Beliefs That Will Affect Care: None Current Living Situation: Alone Current Living Situation Comment: roomate Feels Safe at Home: Yes Assistive Devices: None Review of Systems A total of 10 systems reviewed and were otherwise negative Physical Exam Vital Signs Vital Signs - 24 hr 10/28/21 22:43 Temperature 37.8 C H Temperature Source Oral Pulse Rate 109 H Respiratory Rate 20 Respiratory Effort / Characteristics Non-Labored Spontaneous Respiratory Depth Normal Blood Pressure 151/94 H Blood Pressure Mean 113 Pulse Oximetry 97 Oxygen Delivery Method Room Air Sepsis Recent Fever Within 48 Hours Yes Sepsis New/Unexplained Change in Mental Status N/A Sepsis Action Taken by Nursing No Action Required VITALS: Vitals are noted on the nurse's note and reviewed by myself. Patient febrile. GENERAL: This is a 31-year-old white male, in no acute distress, nondiaphoretic, well-developed well-nourished. SKIN: The skin was without rashes, erythema, edema, or bruising. There is no tenting of the skin. Capillary refill less than 2 seconds. HEAD: Normocephalic atraumatic. EYES: Conjunctivae without injection, sclerae without icterus. NECK: Supple without nuchal rigidity. No lymphadenopathy. No JVD. HEART: Regular rate and rhythm without murmurs gallops or rubs. LUNGS: Clear to auscultation bilaterally without wheezes, rales or rhonchi. No retractions or accessory muscle use. ABDOMEN: Positive bowel sounds x 4. Soft, nontender, without masses or organomegaly. Bunch sign negative. No guarding or rebound tenderness. BUTTOCKS: Right buttock inflamed and indurated. No fluctuance. No pointing or drainage. No obvious perianal involvement at this time. MUSCULOSKELETAL: No muscle atrophy, erythema, or edema noted. Full range of motion without joint tenderness in all extremities. No tenderness to palpation. Normal gait. Strength 5/5 throughout. NEURO: Patient was alert and oriented to person place and time. No focal neurological deficits. Course Course The patient was seen and evaluated as above. An order was placed for continuous cardiac monitoring. The monitor shows a normal sinus rhythm at a rate of 90 bpm. IV access obtained, labs drawn. Pt. medicated with IV fluids, Dilaudid, Zofran, and Zosyn. Imaging performed and reviewed by myself and radiologist as noted. Labs reviewed by myself. I discussed the findings with the patient at bedside. He is still complaining of pain. He was medicated with IV Toradol and Dilaudid. I discussed case with the flight operations manager I discussed the case with Dr. Lorenzo, [facility] physician. She did agree to see and evaluate the patient for admission. Administered Medications Acetaminophen (Acetaminophen 325 Mg Tab) 650 mg PO Q6H PRN PRN Reason: Pain & Pre PT Stop: 11/28/21 02:56 Last Admin: 10/29/21 03:47 Dose: 650 mg Documented by: [id number] Lactated Ringer's (Lr) 1,000 mls @ 125 mls/hr IV .Q8H LISA Stop: 10/29/21 18:56 Last Admin: 10/29/21 03:10 Dose: 125 mls/hr Documented by: [id number] Morphine Sulfate (Morphine Sulfate 4 Mg/Ml 1 Ml Carp\Vial) 3 mg IV Q2H PRN PRN Reason: Pain (6,7,8,9,10) Stop: 11/12/21 02:56 Last Admin: 10/29/21 03:03 Dose: 3 mg Documented by: [id number] Discontinued Medications Hydromorphone HCl (Hydromorphone Inj 1 Mg/Ml Syringe) 1 mg IV NOW STA Stop: 10/28/21 23:29 Last Admin: 10/28/21 23:46 Dose: 1 mg Documented by: [id number] Hydromorphone HCl (Hydromorphone Inj 0.5 Mg/0.5 Ml Syr) 0.5 mg IV NOW STA Stop: 10/29/21 00:58 Last Admin: 10/29/21 01:11 Dose: 0.5 mg Documented by: [id number] Sodium Chloride (Nss 1000ml) 1,000 mls @ 999 mls/hr IV .Q1H1M ONE Stop: 10/29/21 00:28 Last Infusion: 10/29/21 01:26 Dose: 0 mls/hr Documented by: [id number] Admin: 10/29/21 00:10 Dose: 999 mls/hr Documented by: [id number] Piperacillin Sod/Tazobactam Sod (Zosyn) 4.5 gm in 120 mls @ 240 mls/hr IV NOW ONE Stop: 10/28/21 23:57 Last Infusion: 10/29/21 00:37 Dose: 0 mls/hr Documented by: [id number] Admin: 10/29/21 00:10 Dose: 240 mls/hr Documented by: [id number] Ioversol (Optiray 320 100ml) 94 ml IV ONCE ONE Stop: 10/29/21 00:00 Last Admin: 10/29/21 00:00 Dose: 94 ml Documented by: [id number] Ketorolac Tromethamine (Ketorolac Tromethamine 15 Mg/Ml Vial) Confirm Administered Dose 15 mg .ROUTE .STK-MED ONE Stop: 10/29/21 00:53 Last Admin: 10/29/21 00:55 Dose: 15 mg Documented by: [id number] Ketorolac Tromethamine (Ketorolac 30 Mg/Ml Vial) 30 mg IV NOW STA Stop: 10/29/21 00:58 Last Admin: 10/29/21 01:05 Dose: Not Given Documented by: [id number] Morphine Sulfate (Morphine Sulfate 4 Mg/Ml 1 Ml Carp\Vial) Confirm Administered Dose 4 mg .ROUTE .STK-MED ONE Stop: 10/29/21 03:02 Last Admin: 10/29/21 03:54 Dose: Not Given Documented by: [id number] Ondansetron HCl (Ondansetron Inj 2 Mg/Ml 2 Ml Vial) 4 mg IV NOW STA Stop: 10/28/21 23:29 Last Admin: 10/28/21 23:46 Dose: 4 mg Documented by: [id number] Medical Decision Making Differential Diagnosis Cellulitis, abscess, MRSA infection, DVT, necrotizing fasciitis, dermatitis, drug eruption, allergic reaction, Yumiko's gangrene, as well as other pathologies. Medical Records Attestation: I reviewed the patient's medical records. Home Medications Current Medication List: was personally reviewed by me Laboratory Data Attestation: I reviewed the patient's lab results. Leukocytosis of 14,000. No anemia or thrombocytopenia. Renal, hepatic function and electrolytes without significant abnormality though transaminases are mildly elevated. CRP 20. Urinalysis positive for trace ketones, but no evidence of bl ood. COVID-19 testing negative Result diagrams: 10/28/21 22:54 10/28/21 22:54 Lab Results 10/28/21 10/28/21 10/28/21 Range/Units 22:54 22:54 22:54 WBC 14.97 H (4.8-10.8) K/uL RBC 5.60 (4.7-6.1) M/uL Hgb 15.5 (14.0-18.0) g/dL Hct 46.7 (42-52) % MCV 83.4 (80-100) fL MCH 27.7 (25-34) pg MCHC 33.2 (32-36) g/dL RDW Std Deviation 39.7 (36.4-46.3) fL RDW Coeff of [place] 13.2 (11.5-14.5) % Plt Count 212 (130-400) K/uL MPV 11.0 H (7.4-10.4) fL Immature Gran % (Auto) 0.1 % Neut % (Auto) 73.9 % Lymph % (Auto) 15.4 % [place] % (Auto) 10.1 % Eos % (Auto) 0.4 % Baso % (Auto) 0.1 % Neut # (Auto) 11.05 H (1.4-6.5) K/uL Lymph # (Auto) 2.31 (1.2-3.4) K/uL [place] # (Auto) 1.51 H (0.11-0.59) K/uL Eos # (Auto) 0.06 (0-0.5) K/uL Baso # (Auto) 0.02 (0-0.2) K/uL Immature Gran # (Auto) 0.02 (0.00-0.02) K/uL Sodium 135 L (136-145) mmol/L Potassium 3.8 (3.5-5.1) mmol/L Chloride 101 (98-107) mmol/L Carbon Dioxide 26 (21-32) mmol/L Anion Gap 8 (3-11) BUN 12 (6-23) mg/dl Creatinine 1.00 (0.6-1.4) mg/dl Est Cr Clr Drug Dosing 134.9 ml/min Est GFR ( Amer) 114.9 ml/min Est GFR (Non-Af Amer) 99.1 ml/min BUN/Creatinine Ratio 12.0 (10-20) Glucose 95 (70-99(Fasting)) mg/dl Calcium 10.0 (8.5-10.1) mg/dl Total Bilirubin 0.9 (0.2-1.0) mg/dl AST 75 H (13-39) U/L ALT 89 H (7-52) U/L Alkaline Phosphatase 81 (34-104) U/L C-Reactive Protein 20.15 H (0-0.5) mg/dl Total Protein 7.7 (6.0-8.3) gm/dl Albumin 4.6 (3.4-5.0) gm/dl Globulin 3.1 (2.5-4.0) gm/dl Albumin/Globulin Ratio 1.5 (0.9-2) Urine Color Urine Appearance (Clear) Urine pH (4.5-7.5) Ur Specific [place] (1.000-1.030) Urine Protein (Negative) Urine Glucose (UA) (Negative) Urine Ketones (Negative) Urine Blood (Negative) Urine Nitrite (Negative) Urine Bilirubin (Negative) Urine Urobilinogen (Negative) Ur Leukocyte Esterase (Negative) SARS-CoV-2, RNA, NAAT (NEGATIVE) 10/28/21 10/29/21 Range/Units 23:50 00:00 WBC (4.8-10.8) K/uL RBC (4.7-6.1) M/uL Hgb (14.0-18.0) g/dL Hct (42-52) % MCV (80-100) fL MCH (25-34) pg MCHC (32-36) g/dL RDW Std Deviation (36.4-46.3) fL RDW Coeff of [place]obo (11.5-14.5) % Plt Count (130-400) K/uL MPV (7.4-10.4) fL Immature Gran % (Auto) % Neut % (Auto) % Lymph % (Auto) % [place] % (Auto) % Eos % (Auto) % Baso % (Auto) % Neut # (Auto) (1.4-6.5) K/uL Lymph # (Auto) (1.2-3.4) K/uL [place] # (Auto) (0.11-0.59) K/uL Eos # (Auto) (0-0.5) K/uL Baso # (Auto) (0-0.2) K/uL Immature Gran # (Auto) (0.00-0.02) K/uL Sodium (136-145) mmol/L Potassium (3.5-5.1) mmol/L Chloride (98-107) mmol/L Carbon Dioxide (21-32) mmol/L Anion Gap (3-11) BUN (6-23) mg/dl Creatinine (0.6-1.4) mg/dl Est Cr Clr Drug Dosing ml/min Est GFR ( Amer) ml/min Est GFR (Non-Af Amer) ml/min BUN/Creatinine Ratio (10-20) Glucose (70-99(Fasting)) mg/dl Calcium (8.5-10.1) mg/dl Total Bilirubin (0.2-1.0) mg/dl AST (13-39) U/L ALT (7-52) U/L Alkaline Phosphatase (34-104) U/L C-Reactive Protein (0-0.5) mg/dl Total Protein (6.0-8.3) gm/dl Albumin (3.4-5.0) gm/dl Globulin (2.5-4.0) gm/dl Albumin/Globulin Ratio (0.9-2) Urine Color Dark Yellow Urine Appearance Clear (Clear) Urine pH 5.5 (4.5-7.5) Ur Specific [place] 1.028 (1.000-1.030) Urine Protein Negative (Negative) Urine Glucose (UA) Negative (Negative) Urine Ketones Trace H (Negative) Urine Blood Negative (Negative) Urine Nitrite Negative (Negative) Urine Bilirubin Negative (Negative) Urine Urobilinogen Negative (Negative) Ur Leukocyte Esterase Negative (Negative) SARS-CoV-2, RNA, NAAT NEGATIVE (NEGATIVE) Imaging Data Radiologist's Impression: CT ABDOMEN & PELVIS With Contrast: Comparison to December 22, 2020. There is an a pproximately 1.8 cm lobular phlegmon/developing perirectal abscess posteriorly and to the right with respect to the anal sphincter. This does not extend up into the perirectal fat plane. The appendix has been removed. The bowel loops are nondilated. No other acute inflammatory changes are seen involving the bowel. The liver, gallbladder, pancreas, spleen, adrenal glands, and kidneys appear within normal limits. Skeletal structures are unremarkable. Radiologist: Saurabh Lorenzo MD Blood Pressure Blood Pressure Findings: Elevated blood pressure Blood Pressure Disposition: elevated BP felt to be situational MDM Narrative This 31-year-old male patient presents to the emergency department today for evaluation of right buttock pain. He does have history of perirectal abscess requiring surgical I&D in the past. Patient is febrile upon arrival. Given his history and examination, CT imaging performed which was consistent with early phlegmon/abscess perirectally on the right. The patient does have a leukocytosis. He was medicated with narcotics and antibiotics. He will be admitted to the hospitalist service for ongoing management of his infection. Please see hospitalist dictation regarding ongoing management care of this patient. The chart was completed utilizing [employer] voice recognition software. Grammatical errors, random word insertions, pronoun errors, and incomplete sentences are an occasional consequence of this system due to software limitati ons, ambient noise, and hardware issues. Any formal questions or concerns about the content, text, or information contained within the body of this dictation should be directly addressed to the provider for clarification. Impression & Plan Perianal abscess, Fever Discharge Plan Visit Data Chief Complaint: Pain (Generalized) Stated Complaint: FEVER 102, RECTAL PAIN, CHILLS, NAUSEA, ED Midlevel Provider: Clara Dumont Discharge Problem: Perianal abscess, Fever Patient Disposition: Admitted As Inpatient Discharge Instructions Interventions: ED Discharge Assessment Last Done: 10/29/21 02:26
[2021-10-28] MEDS ORDERED: OPTIRAY 320 100ml IV ONE (23:59)
[2021-10-29 00:04] LABS: Appearance Urine Clear (Clear); Bilirubin Urine Negative (Negative); Blood Urine Negative (Negative); Color Urine Dark Yellow; Glucose Urine UA Negative (Negative); Ketones Urine Trace (Negative); Leukocyte Esterase Urine Negative (Negative); Nitrite Urine Negative (Negative); Protein Urine Negative (Negative); Specific Gravity Urine 1.028 (1.000-1.030); Urobilinogen Urine Negative (Negative); pH Urine 5.5 (4.5-7.5)
[2021-10-29] MEDS ORDERED: KETOROLAC TROMETHAMINE 15 MG/ML VIAL ONE (00:52)
[2021-10-29] MEDS ORDERED: KETOROLAC 30 MG/ML VIAL IV STA (00:57)
[2021-10-29] MEDS ORDERED: HYDROmorphone INJ 0.5 MG/0.5 ML SYR IV STA (00:57)
--- NOTE | 2021-10-29 02:05 | History & Physical Report ---
Date of Service October 29, 2021 Assessment & Plan (1) Perianal abscess: Plan: 31yo male presenting early perirectal abscess. Patient with history of large bilateral perirectal abscess requiring surgical drainage x 2 and antibiotics in 2019. Patient's symptoms feel similar to prior abscess. He reports fever, severe perirectal and lower abdominal pain and nausea. Labs are significant for leukocytosis with wbc=14.97 and elevated CRP to 20.15. CT findings as above. -Admit to medical -IVF with LR at 125mL/hr x 2 liters -Pain control with Tylenol, Morphine PRN -Zofran as needed for nausea -Zosyn 3.275gm IV q 8 -General surgery consultation appreciated (2) Depression: Plan: Chronic. Well controlled on Sertraline -Continue Sertraline 100mg po daily (3) Elevated liver function tests: Plan: Patient with history of the same. No RUQ tenderness noted on exam -Repeat LFTs in AM Plan: F/E/N - LR at 125mL/hr x 2 liters, electrolytes WNL, NPO for now for possible surgical intervention Ppx - SCDs Code - Full Dispo - Admit to medical History of Present Illness Chief Complaint: perirectal pain Primary Care Provider: [place] Jay Branden Browning is a 31yo male presenting with perirectal pain. Patient has history of perirectal abscess requiring surgical drainage x 2 and antibiotics in August 2020. Case performed by Dr. Barahona. Patient recovered fully with no complications identified. He returns to the ER today with perirectal pain that started 3 days ago. Patient has history of HSV-2 and began to feel some tingling in his perineum. He though that he may be getting a herpes outbreak so he took Valtrex 1gm on the evening of 10/27, he took two doses of Valtrex yesterday with no improvement in symptoms. He began developing perirectal fullness, swelling and pain as well as fever to 102. Has mild lower abdominal discomfort. Nausea associated with pain with one episode of non-bloody/non-bilious vomiting. Severe perirectal pain. No additional complaints. Patient with elevated temperature on arrival at 37.8, HR of 109 ER Course: Toradol 30mg IV, Dilaudid 1mg + 0.5mg, Zosyn, Zofran 4mg IV Allergies Allergy/AdvReac Type Severity Reaction Status Date / Time No Known Allergies Allergy Verified 03/21/21 12:07 Home Medications Medication Instructions Recorded Confirmed Type multivitamin 1 tab PO QAM 10/31/18 10/29/21 History ascorbic acid (vitamin C) 1,000 mg 1,000 mg PO QAM 07/31/20 03/21/21 History tablet (Vitamin C) sertraline 100 mg tablet 100 mg PO QAM #30 tab 08/04/20 10/29/21 Rx cholecalciferol (vitamin D3) 50 50 mcg PO QAM 12/22/20 03/21/21 History mcg (2,000 unit) capsule (Vitamin D3) ondansetron 4 mg disintegrating 4 mg PO Q6H PRN #10 tab 03/21/21 Rx tablet Past Med/Surg History Medical History Asthma Bursitis COVID-19 Depression Deviated nasal septum Elevated blood uric acid level Elevated liver enzymes IN THE PAST (NOW WNL) Gout Leg pain, right Obesity Sciatica Sleep apnea NO DEVICE Surgical History History of appendectomy History of esophageal dilatation History of esophagogastroduodenoscopy (EGD) History of removal of skin mole History of tooth extraction [place] teeth removed Family History Father Multiple sclerosis Father Family history of ITP Aunt Family history of diabetes mellitus Social History Smoking Status: Current every day smoker Tobacco Type: Cigarettes Cigarettes Per Day: 10; Second Hand Exposure: Yes; Hx Alcohol Use: No Hx Substance Use: No Preferred Language: Bulgarian Communication Ability: Effective Corporate Administrative Assistant Required: Yes Beliefs That Will Affect Care: None Current Living Situation: Other Current Living Situation Comment: roomate Feels Safe at Home: Yes Assistive Devices: None Review of Systems Review of Systems: All systems reviewed & are unremarkable except as noted in HPI & below Physical Exam Physical Exam: General: patient resting comfortably, NAD, non-toxic in appearance, AA&O x 4 Skin: warm, dry, intact HEENT: NC/AT, PERRL, EOMI, anicteric sclera, conjunctiva without injection, external ear normal to inspection and nontender, nares patent, moist mucus membranes, dentition intact, no oropharyngeal lesions, neck supple, trachea midline, no LAD, no thyromegaly, no JVD Heart: +S1/S2, regular, no m/r/g Lungs: equal air entry bilaterally, no rales/rhonchi/wheezes Abd: +BS, soft, NT/ND, no masses/organomegaly/ascites Extreme tenderness with palpation of buttock and perirectal region, fullness/firmness noted. No lesions, drainage or fluctuance Ext: warm, 2+ pulses in UE/LE bilaterally, no clubbing/cyanosis or edema Neuro: nonfocal, patient AA&O x 4, speech intact, no facial droop, moving all extremities on command with equal strength 5/5 Results & Data Results & Data ([facility]) Vital Signs (Past 12 Hours) Vital Signs Temp Pulse Resp BP Pulse Ox 10/28/21 22:43 37.8 C H 109 H 20 151/94 H 97 Laboratory Results Laboratory Results WBC 14.97 K/uL (4.8-10.8) H 10/28/21 22:54 RBC 5.60 M/uL (4.7-6.1) 10/28/21 22:54 Hgb 15.5 g/dL (14.0-18.0) 10/28/21 22:54 Hct 46.7 % (42-52) 10/28/21 22:54 MCV 83.4 fL (80-100) 10/28/21 22:54 MCH 27.7 pg (25-34) 10/28/21 22:54 MCHC 33.2 g/dL (32-36) 10/28/21 22:54 RDW Std Deviation 39.7 fL (36.4-46.3) 10/28/21 22:54 RDW Coeff of Lobo 13.2 % (11.5-14.5) 10/28/21 22:54 Plt Count 212 K/uL (130-400) 10/28/21 22:54 MPV 11.0 fL (7.4-10.4) H 10/28/21 22:54 Immature Gran % (Auto) 0.1 % 10/28/21 22:54 Neut % (Auto) 73.9 % 10/28/21 22:54 Lymph % (Auto) 15.4 % 10/28/21 22:54 [place] % (Auto) 10.1 % 10/28/21 22:54 Eos % (Auto) 0.4 % 10/28/21 22:54 Baso % (Auto) 0.1 % 10/28/21 22:54 Neut # (Auto) 11.05 K/uL (1.4-6.5) H 10/28/21 22:54 Lymph # (Auto) 2.31 K/uL (1.2-3.4) 10/28/21 22:54 [place] # (Auto) 1.51 K/uL (0.11-0.59) H 10/28/21 22:54 Eos # (Auto) 0.06 K/uL (0-0.5) 10/28/21 22:54 Baso # (Auto) 0.02 K/uL (0-0.2) 10/28/21 22:54 Immature Gran # (Auto) 0.02 K/uL (0.00-0.02) 10/28/21 22:54 Sodium 135 mmol/L (136-145) L 10/28/21 22:54 Potassium 3.8 mmol/L (3.5-5.1) 10/28/21 22:54 Chloride 101 mmol/L (98-107) 10/28/21 22:54 Carbon Dioxide 26 mmol/L (21-32) 10/28/21 22:54 Anion Gap 8 (3-11) 10/28/21 22:54 BUN 12 mg/dl (6-23) 10/28/21 22:54 Creatinine 1.00 mg/dl (0.6-1.4) 10/28/21 22:54 Est Cr Clr Drug Dosing 134.9 ml/min 10/28/21 22:54 Est GFR ( Amer) 114.9 ml/min 10/28/21 22:54 Est GFR (Non-Af Amer) 99.1 ml/min 10/28/21 22:54 BUN/Creatinine Ratio 12.0 (10-20) 10/28/21 22:54 Glucose 95 mg/dl (70-99(Fasting)) 10/28/21 22:54 Calcium 10.0 mg/dl (8.5-10.1) 10/28/21 22:54 Total Bilirubin 0.9 mg/dl (0.2-1.0) 10/28/21 22:54 AST 75 U/L (13-39) H 10/28/21 22:54 ALT 89 U/L (7-52) H 10/28/21 22:54 Alkaline Phosphatase 81 U/L (34-104) 10/28/21 22:54 C-Reactive Protein 20.15 mg/dl (0-0.5) H 10/28/21 22:54 Total Protein 7.7 gm/dl (6.0-8.3) 10/28/21 22:54 Albumin 4.6 gm/dl (3.4-5.0) 10/28/21 22:54 Globulin 3.1 gm/dl (2.5-4.0) 10/28/21 22:54 Albumin/Globulin Ratio 1.5 (0.9-2) 10/28/21 22:54 Urine Color Dark Yellow 10/28/21 23:50 Urine Appearance Clear (Clear) 10/28/21 23:50 Urine pH 5.5 (4.5-7.5) 10/28/21 23:50 Ur Specific [place] 1.028 (1.000-1.030) 10/28/21 23:50 Urine Protein Negative (Negative) 10/28/21 23:50 Urine Glucose (UA) Negative (Negative) 10/28/21 23:50 Urine Ketones Trace (Negative) H 10/28/21 23:50 Urine Blood Negative (Negative) 10/28/21 23:50 Urine Nitrite Negative (Negative) 10/28/21 23:50 Urine Bilirubin Negative (Negative) 10/28/21 23:50 Urine Urobilinogen Negative (Negative) 10/28/21 23:50 Ur Leukocyte Esterase Negative (Negative) 10/28/21 23:50 SARS-CoV-2, RNA, NAAT NEGATIVE (NEGATIVE) 10/29/21 00:[address] Abdomen and Pelvis with contrast: Comparison to December 22, 2020. There is an approximately 1.8cm lobular phlegmon/developing perirectal abscess posteriorly and to the right with respect to the anal sphincter. This does not extend up into the perirectal fat plane. The appendix has been removed. The bowel loops are nondilated. No other acute inflammatory changes are seen involving the bowel. The liver, gallbladder, pancreas, spleen and adrenal glands, kidneys appear within normal limits. Skeletal structures are unremarkable. Code Status & VTE Plan VTE Prophylaxis Plan VTE Prophylaxis will be ordered: Yes PG Care Time/CCT Total # of Minutes Spent Total Time Spent with Patient: Total time spent is greater than 50% in coordination of care (as documented) at patient's floor/unit and/or counseling patient: Coding Level of Care Code 78433 Initial Inpt Care Lvl 2 Diagnoses Depression F33.3 Depression Type: major depressive disorder Major depression recurrence: recurrent Active/Remission status: currently active Major depression episode severity: severe Psychotic features: with psychotic features Perianal abscess K61.0 Elevated liver function tests R79.89 (1) Depression Depression Type: major depressive disorder Major depression recurrence: recurrent Active/Remission status: currently active Major depression episode severity: severe Psychotic features: with psychotic features Qualified Code(s): F33.3 - Major depressive disorder, recurrent, severe with psychotic symptoms
[2021-10-29] MEDS ORDERED: ONDANSETRON INJ 2 MG/ML 2 ML VIAL IV PRN (02:57)
[2021-10-29] MEDS ORDERED: PIPERACILL/TAZOBAC CONSULT ACTIVE PRN (02:57)
[2021-10-29] MEDS ORDERED: DOCUSATE SODIUM/SENNA 50/8.6MG TAB PO PRN (02:57)
[2021-10-29] MEDS ORDERED: MoRPHine SULFATE 2 MG/ML CARP IV PRN (02:57)
[2021-10-29] MEDS ORDERED: PIPERACILLIN/TAZOBACTAM 3.375 GM in DEXTROSE 5% 100 ML IV SCH (02:57)
[2021-10-29] MEDS ORDERED: MoRPHine SULFATE 4 MG/ML 1 ML CARP\\VIAL ONE (03:01)
[2021-10-29] MEDS: MoRPHine SULFATE 4 MG/ML 1 ML CARP\\VIAL IV PRN ×6 (03:03→14:43)
[2021-10-29] MEDS: LACTATED RINGER'S 1,000 ML IV SCH ×2 (03:10→11:19)
[2021-10-29] MEDS: ACETAMINOPHEN 325 MG TAB PO PRN ×3 (03:47→16:17)
[2021-10-29] MEDS: PIPERACILLIN/TAZOBACTAM 4.5 GM in DEXTROSE 5% 100 ML IV SCH ×3 (05:26→22:07)
--- NOTE | 2021-10-29 08:06 | CT Scan Report ---
ABDOMEN AND PELVIS CT WITH IV CONTRAST CT DOSE: 1336.57 mGy.cm HISTORY: Acute pain and swelling of the right buttock with possible abscess. right buttock swelling/ pain, hx. abscess TECHNIQUE: Multiaxial CT images of the abdomen and pelvis were performed following the IV administrat ion of 94 cc of Optiray, A dose lowering technique was utilized adhering to the principles of ALARA. COMPARISON STUDY: CT abdomen and pelvis 12/22/2020 FINDINGS: Clear lung bases. No pneumatosis or pneumoperitoneum. The imaged inferior cardiac chambers are unrema rkable. The spleen, pancreas, gallbladder, adrenal glands and liver appear unremarkable. The kidneys are within normal limits. Coarse calcifications of the prostate. Partial distention of the urinary bl adder. Aorta and IVC are unremarkable. Retroaortic left renal vein. No adenopathy. There is no bowel obstruction or bowel wall thickening. Appendectomy. There is perianal inflammatory stranding. Peripherally enhancing perianal abscess is noted within the 4:00 to 7:00 position of the p osterior perianal tissues. There is an adjacent 1.9 cm right-sided perianal fistula which appears to be intersphincteric on image 91 series 2. The abscess with adjacent fistula conglomerate measures up to approximately 2.4 x 2.3 x 3.2 cm. No supralevator extension. Inflammatory stranding extends into t he medial gluteal folds. No acute fracture. Mild lumbar levoscoliosis. IMPRESSION: 1. Perianal abscess with small likely intersphincteric perianal fistula conglomerate measure up to ap proximately 3.2 cm. No supralevator extension. 2. No bowel obstruction. 3. Appendectomy. ACT 112: Negative or not required by law. The above report was generated using voice recognition software. It may contain grammatical, syntax o r spelling errors. Electronically signed by: Will Swartz M.D. 10/29/2021 8:05 AM
[2021-10-29] MEDS: SERTRALINE HCL 100 MG TABLET PO SCH (08:48)
--- NOTE | 2021-10-29 08:51 | Surgery Consultation ---
Date of Consultation October 29, 2021 Assessment & Plan (1) Perianal abscess: I discussed the patient the present finding that his symptomatology was certainly is out of proportion with a small abscess that was seen on CAT scan I did mention to the patient that I would have discussion with Dr. Barahona who had operated on him in the past because at this time I will note no where to make the incision to try to identify a small abscess and he wanted Dr. Barahona to take over his care I did review the CAT scan with the radiologist and felt the abscess with a similar place as before may be less pronounced Addendum Dr. Barahona would not be available until Monday with this information I went over and talked to the patient again and he stated that he did not like my demeanor tell him that I would not operate on him I tried to explain to him that at this time it would be hard for me to find exactly where that area is in his before on his last bout with these abscesses Dr. Barahona on initial surgery was not able to find the abscess and waited a few days and then he could only find it with a needle Is a physician is created a situation did not feel comfortable taking care of this patient and I told him that no matter what I would do it would not meet his expectations and since I am the only physician pond worker this weekend I told him the option would be to discussed with the admitting physician and potentially transfer him to another institution I did talk with Dr. Rojas and she will talk with the patient History of Present Illness Reason for Consultation: Perirectal abscess Attending Physician: Kary Rojas MD History of Present Illness This 31-year-old gentleman presents with bilateral buttock pain extending down towards the legs thinking that it may have been related to herpes that he has had a condition of in the past came into the emergency room CAT scan was obtained which showed 1.8 cm abscess in the perianal area His past history revealed that approximately a year or so ago presented with similar findings was initially taken to surgery abscess could not be identified and 24 hours later was taken back to surgery were 100 cc of purulent drainage was obtained Apparently that area had healed well and there was no further drainage until recently it acted up again Allergies Allergy/AdvReac Type Severity Reaction Status Date / Time No Known Allergies Allergy Verified 03/21/21 12:07 Home Medications Medication Instructions Recorded Confirmed Type multivitamin 1 tab PO QAM 10/31/18 10/29/21 History ascorbic acid (vitamin C) 1,000 mg 1,000 mg PO QAM 07/31/20 03/21/21 History tablet (Vitamin C) sertraline 100 mg tablet 100 mg PO QAM #30 tab 08/04/20 10/29/21 Rx cholecalciferol (vitamin D3) 50 50 mcg PO QAM 12/22/20 03/21/21 History mcg (2,000 unit) capsule (Vitamin D3) ondansetron 4 mg disintegrating 4 mg PO Q6H PRN #10 tab 03/21/21 Rx tablet Patient History Medical History Asthma Bursitis COVID-19 Depression Deviated nasal septum Elevated blood uric acid level Elevated liver enzymes IN THE PAST (NOW WNL) Gout Leg pain, right Obesity Sciatica Sleep apnea NO DEVICE Surgical History History of appendectomy History of esophageal dilatation History of esophagogastroduodenoscopy (EGD) History of removal of skin mole History of tooth extraction [place] teeth removed Family History Father Multiple sclerosis Father Family history of ITP Aunt Family history of diabetes mellitus Social History Smoking Status: Current every day smoker Tobacco Type: Cigarettes Cigarettes Per Day: 5-10; Second Hand Exposure: Yes; Hx Alcohol Use: Yes Alcohol type: wine Hx Substance Use: No Preferred Language: Latvian Communication Ability: Effective Painting Supervisor Required: No Beliefs That Will Affect Care: None Current Living Situation: Alone Current Living Situation Comment: roomate Feels Safe at Home: Yes Assistive Devices: None Physical Exam Physical Exam: I first went in to examine the patient he was standing upright in the bathroom without any obvious discomfort when he came back into the bed laying on his left side he was complaining significant pain With the nurse present placed him in prone position I can barely touch both buttocks just to spread and see where the abscess possibly be the pain was out of proportion to what I could see in fact I cannot delineate any area of induration or cellulitis multiple scars were appreciated in both buttock areas Of note the patient appeared to have a mild pruritus ani of possible etiology Results & Data ([facility]) Vital Signs (Past 12 Hours) Vital Signs Temp Pulse Pulse Resp BP BP Pulse Ox 10/29/21 07:33 37.5 C 102 H 16 124/69 95 10/29/21 02:45 37.5 C 106 H 20 160/91 H 98 10/29/21 02:26 37 C 90 14 147/87 H 97 10/28/21 22:43 37.8 C H 109 H 20 151/94 H 97 PG Care Time/CCT Total # of Minutes Spent Total Time Spent with Patient: Total time spent is greater than 50% in coordination of care (as documented) at patient's floor/unit and/or counseling patient: Coding Level of Care Code 25960 Inpt Consult Level 3 Diagnoses Perianal abscess K61.0
[2021-10-29] MEDS ORDERED: NICOTINE 14 MG/24 HR PATCH TD PRN (16:32)
--- NOTE | 2021-10-29 16:34 | Hospitalist Progress Note ---
Date of Service October 29, 2021 Assessment & Plan (1) Perianal abscess: Plan: 31yo male presenting early perirectal abscess. Patient with history of large bilateral perirectal abscess requiring surgical drainage x 2 and antibiotics in 2019. Patient's symptoms feel similar to prior abscess. He reports fever, severe perirectal and lower abdominal pain and nausea. Labs are significant for leukocytosis with wbc=14.97 and elevated CRP to 20.15. CT abdomen/pelvis with perirectal abscess Appreciate surgery consultation-not large enough to drain at this time-continue antibiotics and repeat CT pelvis imaging on Monday with follow-up with Dr. Barahona who saw the patient previously for perirectal abscess drainage Continues to have fevers and pain -Change IV morphine to IV Dilaudid 0.5 mg IV every 2 hours as needed Increase acetaminophen 1000 mg p.o. every 6 hours as needed pain fever -Add on IV Toradol 15 mg IV every 6 hours as needed pain for max of 6 doses -Continue IV fluids with LR with decreased to 100 mL/h -Advance diet to regular for today as no surgery planned until at least Monday when Dr. Barahona returns -Continue IV Zofran as needed for nausea -Continue IV Zosyn antibiotics -Follow CBC, CMP in the morning --patient has no desire to transfer to tertiary care facility nor do I think this is indicated (2) Sepsis: Plan: With fevers, leukocytosis, and perirectal abscess as a source Continue antibiotics Blood pressure stable Continue IV fluids (3) Elevated liver function tests: Plan: Patient with history of the same. No RUQ tenderness noted on exam, CT abdomen/pelvis with normal liver gallbladder Could be secondary to sepsis -Repeat LFTs in AM (4) Depression: Plan: Chronic. Well controlled on Sertraline -Continue Sertraline 100mg po daily (5) Current smoker: Plan: Declines nicotine patch at this time but is considering quitting smoking Will order nicotine patch as needed in case he changes his mind later Plan: Ppx - SCDs Code - Full Dispo -continued stay on medical/surgical Admission and Anticipated Discharge Date Admission Date: October 29, 2021 Subjective Having a lot of pain in the right buttocks region. Continues to have fevers today and does not feel well. Discussed his care with the surgeon-plan to await return of his surgeon Dr. Barahona on Monday as surgeon today does not think there is a large enough area to drain just yet. Patient denies chest pain or shortness of breath. Review of Systems Review of Systems: All systems reviewed & are unremarkable except as noted in HPI & below Physical Exam Constitutional: WD/WN, vitals as above Neck: trachea midline, no thyromegaly Respiratory: normal respiratory effort, lungs clear to auscultation Cardiovascular: RRR, no murmur, no edema Chest (Breasts): Chest: normal inspection of chest Gastrointestinal (Abdomen): normal bowel sounds, soft, nontender, no hepato splenomegaly Positive fluctuance and tenderness with induration over right buttocks in the perianal region with incisional scar overlying Musculoskeletal: Extremities: extremities normal to inspection; no cyanosis and no clubbing Skin: no rashes, warm and dry Neurologic: moves all extremities and awake; no focal motor deficits Psychiatric: A+Ox3, euthymic affect Lymphatic: no lymphedema Results & Data Results & Data ([facility]) Vital Signs (Past 12 Hours) Vital Signs Temp Pulse Resp BP Pulse Ox 10/29/21 16:07 39.1 C H 10/29/21 15:02 37.8 C H 98 H 16 122/71 96 10/29/21 08:52 38.6 C H 10/29/21 07:33 37.5 C 102 H 16 124/69 95 PG Care Time/CCT Total # of Minutes Spent Total Time Spent with Patient: Total time spent is greater than 50% in coordination of care (as documented) at patient's floor/unit and/or counseling patient: Coding Level of Care Code None Diagnoses Perianal abscess K61.0 Depression F33.3 Active/Remission status: currently active Depression Type: major depressive disorder Major depression episode severity: severe Major depression recurrence: recurrent Psychotic features: with psychotic features Elevated liver function tests R79.89 Sepsis A41.9 Current smoker F17.200 (1) Depression Active/Remission status: currently active Depression Type: major depressive disorder Major depression episode severity: severe Major depression recurrence: recurrent Psychotic features: with psychotic features Qualified Code(s): F33.3 - Major depressive disorder, recurrent, severe with psychotic symptoms
[2021-10-29] MEDS: HYDROmorphone INJ 0.5 MG/0.5 ML SYR IV PRN ×3 (17:08→22:07)
[2021-10-29] MEDS: ACETAMINOPHEN 500 MG TAB PO PRN (20:04)
[2021-10-29] MEDS: DOCUSATE SODIUM/SENNA 50/8.6MG TAB PO SCH (22:06)
[2021-10-30] MEDS: HYDROmorphone INJ 0.5 MG/0.5 ML SYR IV PRN ×10 (00:31→23:01)
[2021-10-30] MEDS: KETOROLAC TROMETHAMINE 15 MG/ML VIAL IV PRN ×2 (00:31→14:32)
[2021-10-30] MEDS: PIPERACILLIN/TAZOBACTAM 4.5 GM in DEXTROSE 5% 100 ML IV SCH ×3 (05:51→23:02)
[2021-10-30] MEDS: ACETAMINOPHEN 500 MG TAB PO PRN ×3 (05:52→19:41)
[2021-10-30 06:53] LABS: Basophils # (auto) 0.03 K/uL (0-0.2); Basophils % (auto) 0.2 %; Eosinophils # (auto) 0.07 K/uL (0-0.5); Eosinophils % (auto) 0.5 %; Hematocrit (blood only) 41.2 % (42-52); Hemoglobin 13.4 g/dL (14.0-18.0); Immature Granulocytes # (auto) 0.02 K/uL (0.00-0.02); Immature Granulocytes % (auto) 0.2 %; Lymphocytes # (auto) 1.63 K/uL (1.2-3.4); Lymphocytes % (auto) 12.3 %; Mean Corpuscular Hemoglobin 27.1 pg (25-34); Mean Corpuscular Hgb Conc 32.5 g/dL (32-36); Mean Corpuscular Volume 83.4 fL (80-100); Mean Platelet Volume 11.4 fL (7.4-10.4); Monocytes # (auto) 1.63 K/uL (0.11-0.59); Monocytes % (auto) 12.3 %; Neutrophils # (auto) 9.85 K/uL (1.4-6.5); Neutrophils % (auto) 74.5 %; Platelet Count 190 K/uL (130-400); RDW Standard Deviation 39.3 fL (36.4-46.3); Red Blood Count 4.94 M/uL (4.7-6.1); White Blood Count 13.23 K/uL (4.8-10.8)
--- NOTE | 2021-10-30 07:53 | Hospitalist Progress Note ---
Date of Service October 30, 2021 Assessment & Plan (1) Perianal abscess: Plan: (1) Perianal abscess: Plan: 31yo male presenting early perirectal abscess. Patient with history of large bilateral perirectal abscess requiring surgical drainage x 2 and antibiotics in 2019. Patient's symptoms feel similar to prior abscess. He reports fever, severe perirectal and lower abdominal pain and nausea. Labs are significant for leukocytosis with wbc=14.97 and elevated CRP to 20.15. CT abdomen/pelvis with perirectal abscess Appreciate surgery consultation-not large enough to drain at this time-continue antibiotics and repeat CT pelvis imaging on Monday with follow-up with Dr. Barahona who saw the patient previously for perirectal abscess drainage -Continues to have fevers and pain despite on tylenol 1000mg q6 PRN, room fan ordered -Change IV morphine to IV Dilaudid 0.5 mg IV every 2 hours as needed -Add on IV Toradol 15 mg IV every 6 hours as needed pain for max of 6 doses -Continue IV fluids with LR with decreased to 100 mL/h --> IVF resumed at 150ml/h -Advance diet to regular for today as no surgery planned until at least Monday when Dr. Barahona returns -Continue IV Zofran as needed for nausea -Continue IV Zosyn antibiotics -added IV vanc -WBC downtrending 14.97 --> 13.23 -ordered HIV testing to rlue out cause of abscess -ordered blood cultures given persistent fever -Follow CBC, CMP in the morning --patient has no desire to transfer to tertiary care facility nor do I think this is indicated (2) Sepsis: Plan: With fevers, leukocytosis, and perirectal abscess as a source Continue antibiotics zosyn and vanc Blood pressure stable Continue IV fluids (3) Elevated liver function tests: Patient has history alcohol abuse, however has attended rehab and denies alcohol use No RUQ tenderness noted on exam, no noted jaundice, CT abdomen/pelvis with normal liver gallbladder -AST ALT downtrending -new elevated Alk Phos 81 ---> 140 -new elevated total bilirubin 1.6, direct bilirubin 0.7 Could be secondary to sepsis -Repeat LFTs in AM (4) Depression: Plan: Chronic. Well controlled on Sertraline -Continue Sertraline 100mg po daily (5) Current smoker: Plan: Declines nicotine patch at this time but is considering quitting smoking Will order nicotine patch as needed in case he changes his mind later (6) Pyuria patient described burning with urination and suprapubic fullness UA showed urobilinogen, negative WBC nitrites bacteria IVF resumed, continue to monitor, may be 2/2 to his sepsis FENa: regular Code Status: full DVT PPX: SCDs Dispo: med/surg Kiana Barrera Do PGY 1, FCM (2) Sepsis: (3) Elevated liver function tests: (4) Depression: Admission and Anticipated Discharge Date Admission Date: October 29, 2021 Supervising Physician Co-Signing Physician Notes Attending attestation Pt seen and examined in concert with Dr. Barrera. In agreement with the documented findings as noted in the resident documentation with any exceptions or additions as noted here. Stable rectal pain adequately controlled on present pain medication regimen. Still subjectively febrile but tolerating APAP and box fan. On examination, S1/S2 nl RRR no MCG. CTAB. Abd ND, mild suprapubic/RLQ TTP stable from yesterday per patient. Sepsis (tachycardia, febrile, leukocytosis) w/ perirectal abscess - BCx pending. Add vancomycin, continue zosyn. IVF as noted. General surgery consultation appreciated, will await Dr. Barahona on Monday for evaluation for definitive management. Donut pillow for comfort if available. Pain control as noted. STI testing per patient request to include HIV in the setting of recurrent infection. Hyperbilirubinemia w/ Elevated LFTs - no RUQ complaint, n/v, nl GB and liver on CT. continue to trend in PM and daily Else see resident documentation as noted. Subjective 31yo Male with perianal abcesss and fistula seen at bedside today, calm comfortable cooperative. He states his pain is well controlled on his current regime. States he feels burning with urination, his urine has gotten darker since IV fluids stopped despite drinking more fluid. He has been having constant fever overnight despite being on tylenol, has fan in room to help temperature. Patient states walking is painful due to location of abcess. Patient understands he is waiting for monday for surgiacl evaluation and repeat CT. Patient denies medication allergies, is unsure of abx resistance. He is uncertain how he developed this abcess or the one in 2019. He denies abd pain, states he has sens ation of fullness in lower quadrants, has not had BM yet and is afraid of them agitating his abcess. Later in day added vanc and IV fluids, patient states fever hasn't changed but pain is better controlled. Patient states he and his partner have been tested for HIV and STIs 5 months ago was negative, no history immunosuppression or liver disease, previously had alcohol use disorder but was treated with rehab doing well, no IV drug use, uses safe sexual practices, denies trauma to anal region. He consents to HIV testing to rule out causes for his repeat anal abscess. Review of Systems Review of Systems: Negative headache dizziness Negative chest pain palpitations SOB Negative nausea vomitting diarrhea constipation Negative numbness tingling Physical Exam Constitutional: WD/WN, vitals as above + obese and cooperative Eyes: PERRL, conjunctivae normal, anicteric sclerae ENMT: external ear and nose normal, oropharynx normal Neck: trachea midline, no thyromegaly Respiratory: normal respiratory effort, lungs clear to auscultation Cardiovascular: RRR, no murmur, no edema Gastrointestinal (Abdomen): normal bowel sounds, soft, nontender, no hepatosplenomegaly Rectal Exam: + rectal tenderness Patient has tenderness around anal region, increased erythema, unable to visualize fistula or fissure Results & Data Results & Data ([facility]) Vital Signs (Past 12 Hours) Vital Signs Temp Pulse Resp BP Pulse Ox 10/30/21 07:32 38.5 C H 93 H 16 106/66 92 10/29/21 22:37 38.3 C H 97 H 18 112/70 95 Laboratory Results 10/30/21 10/30/21 10/30/21 Range/Units 10:00 06:15 06:15 WBC 13.23 H (4.8-10.8) K/uL RBC 4.94 (4.7-6.1) M/uL Hgb 13.4 L (14.0-18.0) g/dL Hct 41.2 L (42-52) % MCV 83.4 (80-100) fL MCH 27.1 (25-34) pg MCHC 32.5 (32-36) g/dL RDW Std Deviation 39.3 (36.4-46.3) fL RDW Coeff of Lobo 13.0 (11.5-14.5) % Plt Count 190 (130-400) K/uL MPV 11.4 H (7.4-10.4) fL Immature Gran % (Auto) 0.2 % Neut % (Auto) 74.5 % Lymph % (Auto) 12.3 % [place] % (Auto) 12.3 % Eos % (Auto) 0.5 % Baso % (Auto) 0.2 % Neut # (Auto) 9.85 H (1.4-6.5) K/uL Lymph # (Auto) 1.63 (1.2-3.4) K/uL [place] # (Auto) 1.63 H (0.11-0.59) K/uL Eos # (Auto) 0.07 (0-0.5) K/uL Baso # (Auto) 0.03 (0-0.2) K/uL Immature Gran # (Auto) 0.02 (0.00-0.02) K/uL Sodium 135 L (136-145) mmol/L Potassium 3.9 (3.5-5.1) mmol/L Chloride 101 (98-107) mmol/L Carbon Dioxide 24 (21-32) mmol/L Anion Gap 10 (3-11) BUN 11 (6-23) mg/dl Creatinine 1.03 (0.6-1.4) mg/dl Est Cr Clr Drug Dosing 130.5 ml/min Est GFR ( Amer) 110.9 ml/min Est GFR (Non-Af Amer) 95.7 ml/min BUN/Creatinine Ratio 10.7 (10-20) Glucose 109 H (70-99(Fasting)) mg/dl Calcium 9.0 (8.5-10.1) mg/dl Total Bilirubin 1.6 H D (0.2-1.0) mg/dl Direct Bilirubin 0.7 H (0-0.2) mg/dl AST 35 (13-39) U/L ALT 65 H (7-52) U/L Alkaline Phosphatase 140 H (34-104) U/L Total Protein 7.0 (6.0-8.3) gm/dl Albumin 3.9 (3.4-5.0) gm/dl Urine Color Dark Yellow Urine Appearance Clear (Clear) Urine pH 5.0 (4.5-7.5) Ur Specific [place] 1.030 (1.000-1.030) Urine Protein 1+ H (Negative) Urine Glucose (UA) Negative (Negative) Urine Ketones Trace H (Negative) Urine Blood Negative (Negative) Urine Nitrite Negative (Negative) Urine Bilirubin 1+ H (Negative) Urine Urobilinogen Positive H (Negative) Ur Leukocyte Esterase Negative (Negative) Urine WBC (Auto) 1-5 (0-5) /hpf Urine RBC (Auto) 0-4 (0-4) /hpf U Hyaline Cast (Auto) 0 (0-5) /lpf U Epithel Cells (Auto) 0-5 (0-5) /lpf Urine Bacteria (Auto) Negative (Negative) Diagnostic Findings Impressions Abdomen/Pelvis CT 10/28/21 23:[address] WITH IV CONTRAST CT DOSE: 1336.57 mGy.cm HISTORY: Acute pain and swelling of the right buttock with possible abscess. right buttock swelling/pain, hx. abscess TECHNIQUE: Multiaxial CT images of the abdomen and pelvis were performed following the IV administration of 94 cc of Optiray, A dose lowering technique was utilized adhering to the principles of ALARA. COMPARISON STUDY: CT abdomen and pelvis 12/22/2020 FINDINGS: Clear lung bases. No pneumatosis or pneumoperitoneum. The imaged inferior cardiac chambers are unremarkable. The spleen, pancreas, gallbladder, adrenal glands and liver appear unremarkable. The kidneys are within normal limits. Coarse calcifications of the prostate. Partial distention of the urinary bladder. Aorta and IVC are unremarkable. Retroaortic left renal vein. No adenopathy. There is no bowel obstruction or bowel wall thickening. Appendectomy. There is perianal inflammatory stranding. Peripherally enhancing perianal abscess is noted within the 4:00 to 7:00 position of the posterior perianal tissues. There is an adjacent 1.9 cm right-sided perianal fistula which appears to be intersphincteric on image 91 series 2. The abscess with adjacent fistula conglomerate measures up to approximately 2.4 x 2.3 x 3.2 cm. No supralevator extension. Inflammatory stranding extends into the medial gluteal folds. No acute fracture. Mild lumbar levoscoliosis. IMPRESSION: 1. 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 No supralevator extension. 2. No bowel obstruction. 3. Appendectomy. ACT 112: Negative or not required by law. The above report was generated using voice recognition software. It may contain grammatical, syntax or spelling errors. Electronically signed by: Will Swartz M.D. 10/29/2021 8:05 AM Medications Administered Current Inpatient Medications Acetaminophen (Acetaminophen 500 Mg Tab) 1,000 mg PO Q6H PRN PRN Reason: Pain or fever Stop: 11/28/21 02:56 Last Admin: 10/30/21 12:10 Dose: 1,000 mg Documented by: Hydromorphone HCl (Hydromorphone Inj 0.5 Mg/0.5 Ml Syr) 0.5 mg IV Q2H PRN PRN Reason: severe pain 7,8,9,10 Stop: 11/12/21 16:29 Last Admin: 10/30/21 12:42 Dose: 0.5 mg Documented by: Piperacillin Sod/Tazobactam (Sod 4.5 gm/ Dextrose) 120 mls @ 30 mls/hr IV Q8H [facility]; Protocol Stop: 11/05/21 05:59 Last Admin: 10/30/21 14:14 Dose: 30 mls/hr Documented by: Sodium Chloride (Nss 1000ml) 1,000 mls @ 125 mls/hr IV .Q8H [facility] [place] Stop: 11/01/21 11:44 Last Admin: 10/30/21 12:10 Dose: 125 mls/hr Documented by: Vancomycin HCl 1,500 mg/ (Sodium Chloride) 530 mls @ 200 mls/hr IV Q12H [facility] Stop: 11/06/21 20:59 Ketorolac Tromethamine (Ketorolac Tromethamine 15 Mg/Ml Vial) 15 mg IV Q6H PRN PRN Reason: Pain Last Admin: 10/30/21 14:32 Dose: 15 mg Documented by: Miscellaneous (Remove Nicoderm Patch) 1 ea N/A DAILY@0859 [facility] [place] Stop: 11/29/21 08:58 Last Admin: 10/30/21 08:15 Dose: Not Given Documented by: Miscellaneous Information (Piperacill/Tazobac Consult Active) 1 ea N/A UD PRN PRN Reason: Consult Stop: 11/28/21 02:56 Miscellaneous Information (Vancomycin Consult Active) 1 ea N/A UD PRN PRN Reason: Consult Stop: 11/29/21 11:41 Nicotine (Nicotine 14 Mg/24 Hr Patch) 14 mg TD DAILY PRN PRN Reason: nicotine craving Stop: 11/28/21 16:44 Ondansetron HCl (Ondansetron Inj 2 Mg/Ml 2 Ml Vial) 4 mg IV Q6H PRN PRN Reason: Nausea Stop: 11/28/21 02:56 Polyethylene Glycol (Polyethylene (Miralax) 17 Gm Pack) 17 gm PO DAILY LISA Stop: 11/29/21 11:44 Last Admin: 10/30/21 12:10 Dose: 17 gm Documented by: Senna/Docusate Sodium (Docusate Sodium/Senna 50/8.6mg Tab) 1 tab PO HS [facility] [place] Stop: 11/28/21 20:59 Last Admin: 10/29/21 22:06 Dose: 1 tab Documented by: Sertraline HCl (Sertraline Hcl 100 Mg Tablet) 100 mg PO QAM [facility] Stop: 11/28/21 08:59 Last Admin: 10/30/21 08:09 Dose: 100 mg Documented by: Resident Activity Tracking Resident Involvement: Resident Care Provided Care Provided: Adult Hospital Medicine (1) Depression Active/Remission status: currently active Depression Type: major depressive disorder Major depression episode severity: severe Major depression recurrence: recurrent Psychotic features: with psychotic features Qualified Code(s): F33.3 - Major depressive disorder, recurrent, severe with psychotic symptoms
[2021-10-30] MEDS: SERTRALINE HCL 100 MG TABLET PO SCH (08:09)
[2021-10-30 08:28] LABS: Albumin Level 3.9 gm/dl (3.4-5.0); BUN Creatinine Ratio 10.7 (10-20); Bilirubin Direct 0.7 mg/dl (0-0.2); Bilirubin,Total 1.6 mg/dl (0.2-1.0); Creatinine Clr Calc Pharmacy 130.5 ml/min; Est GFR (African American) 110.9 ml/min; Est GFR (Non-African American) 95.7 ml/min; Potassium 3.9 mmol/L (3.5-5.1)
[2021-10-30 10:32] LABS: Appearance Urine Clear (Clear); Bacteria Urine Automated Negative (Negative); Blood Urine Negative (Negative); Cast Urine Automated 0 /lpf (0-5); Color Urine Dark Yellow; Epithelial Cell Urine Auto 0-5 /lpf (0-5); Glucose Urine UA Negative (Negative); Ketones Urine Trace (Negative); Leukocyte Esterase Urine Negative (Negative); Nitrite Urine Negative (Negative); Protein Urine 1+ (Negative); RBC Urine Automated 0-4 /hpf (0-4); Urobilinogen Urine Positive (Negative)
[2021-10-30 10:34] LABS: Bilirubin Urine 1+ (Negative)
[2021-10-30] MEDS ORDERED: VANCOMYCIN CONSULT ACTIVE PRN (11:42)
[2021-10-30] MEDS ORDERED: VANCOMYCIN HCL 2,250 MG in SODIUM CHLORIDE 0.9% 500 ML IV ONE ×2 (11:42→12:15)
[2021-10-30] MEDS: POLYETHYLENE (MIRALAX) 17 GM PACK PO SCH (12:10)
[2021-10-30] MEDS: SODIUM CHLORIDE 0.9% 1000ML 1,000 ML IV SCH ×2 (12:10→19:44)
--- NOTE | 2021-10-30 13:23 | Pharmacy Report ---
Pharmacy Vanc AUC Short Note - Date of Service October 30, 2021 - Assessment & Plan Assessment 31 year old M receiving IV vancomycin and zosyn for treatment of perirectal abscess. BCx pending. Previous I&D/surgical drainage X 2 in 2019. Awaiting surgical evaluation Monday Day # 1 of antimicrobial therapy Plan Vancomycin * AUC/JIMBO is the preferred PK/PD target for vancomycin * AUC guided dosing is effective and associated with decreased risk of nephrotoxicity compared to traditional trough targets * Trough level of 17.9mcg/mL is predicted to achieve target AUC/JIMBO of 400-600 mg/L.hr and may be associated with a 14 % risk of nephrotoxicity * S/p vancomycin LD 2250mg X1. Begin maintenance regimen of 1500 mg IV every 12 hours * Will obtain a trough level around steady state to correlate with AUC if vancomycin continued. Pharmacy will continue to follow and will adjust dose/frequency as necessary. Thank you.
[2021-10-30] MEDS: VANCOMYCIN HCL 1,500 MG in SODIUM CHLORIDE 0.9% 500 ML IV SCH (19:59)
[2021-10-30] MEDS: DOCUSATE SODIUM/SENNA 50/8.6MG TAB PO SCH (19:59)
[2021-10-31] MEDS: KETOROLAC TROMETHAMINE 15 MG/ML VIAL IV PRN (00:17)
[2021-10-31] MEDS: HYDROmorphone INJ 0.5 MG/0.5 ML SYR IV PRN ×10 (01:25→21:24)
[2021-10-31] MEDS: ACETAMINOPHEN 500 MG TAB PO PRN ×4 (01:35→21:11)
[2021-10-31] MEDS: SODIUM CHLORIDE 0.9% 1000ML 1,000 ML IV SCH ×3 (04:02→19:21)
[2021-10-31] MEDS: PIPERACILLIN/TAZOBACTAM 4.5 GM in DEXTROSE 5% 100 ML IV SCH ×3 (05:33→21:16)
[2021-10-31 06:06] LABS: Basophils # (auto) 0.03 K/uL (0-0.2); Basophils % (auto) 0.3 %; Eosinophils # (auto) 0.12 K/uL (0-0.5); Hematocrit (blood only) 39.9 % (42-52); Hemoglobin 13.1 g/dL (14.0-18.0); Immature Granulocytes # (auto) 0.03 K/uL (0.00-0.02); Immature Granulocytes % (auto) 0.3 %; Lymphocytes # (auto) 1.79 K/uL (1.2-3.4); Lymphocytes % (auto) 15.5 %; Mean Corpuscular Hemoglobin 27.3 pg (25-34); Mean Corpuscular Hgb Conc 32.8 g/dL (32-36); Mean Corpuscular Volume 83.3 fL (80-100); Mean Platelet Volume 11.3 fL (7.4-10.4); Monocytes % (auto) 12.1 %; Neutrophils # (auto) 8.19 K/uL (1.4-6.5); Neutrophils % (auto) 70.8 %; Platelet Count 209 K/uL (130-400); RDW Standard Deviation 39.1 fL (36.4-46.3); Red Blood Count 4.79 M/uL (4.7-6.1); White Blood Count 11.56 K/uL (4.8-10.8)
[2021-10-31 06:36] LABS: Albumin Globulin Ratio 1.3 (0.9-2); Albumin Level 3.7 gm/dl (3.4-5.0); BUN Creatinine Ratio 6.5 (10-20); Bilirubin,Total 1.1 mg/dl (0.2-1.0); Calcium 8.7 mg/dl (8.5-10.1); Creatinine Clr Calc Pharmacy 144.6 ml/min; Est GFR (African American) 125.5 ml/min; Est GFR (Non-African American) 108.2 ml/min; Globulin 2.9 gm/dl (2.5-4.0); Potassium 3.8 mmol/L (3.5-5.1); Total Protein 6.6 gm/dl (6.0-8.3)
--- NOTE | 2021-10-31 08:07 | Hospitalist Progress Note ---
Date of Service October 31, 2021 Assessment & Plan (1) Perianal abscess: Plan: (1) Perianal abscess: Plan: 31yo male presenting early perirectal abscess. Patient with history of large bilateral perirectal abscess requiring surgical drainage x 2 and antibiotics in 2019. Patient's symptoms feel similar to prior abscess. He reports fever, severe perirectal and lower abdominal pain and nausea. Labs are significant for leukocytosis with wbc=14.97 and elevated CRP to 20.15. CT abdomen/pelvis with perirectal abscess Appreciate surgery consultation-not large enough to drain at this time-continue antibiotics and repeat CT pelvis imaging on Monday with follow-up with Dr. Barahona who saw the patient previously for perirectal abscess drainage -Continues to have fevers and pain despite on tylenol 1000mg q6 PRN, room fan ordered -Change IV morphine to IV Dilaudid 0.5 mg IV every 2 hours as needed -Add on IV Toradol 15 mg IV every 6 hours as needed pain for max of 6 doses -Continue IV fluids with LR with decreased to 100 mL/h --> IVF resumed at 150ml/h -Advance diet to regular for today as no surgery planned until at least Monday when Dr. Barahona returns -Continue IV Zofran as needed for nausea -Continue IV Zosyn antibiotics -added IV vanc -WBC downtrending 14.97 --> 13.23 --> 11.56 -ordered HIV testing to rlue out cause of abscess -ordered blood cultures, pending -Follow CBC, CMP in the morning -Added oxycodone 5mg q6h for better pain control --patient has no desire to transfer to tertiary care facility nor do I think this is indicated (2) Sepsis: Plan: With fevers, leukocytosis, and perirectal abscess as a source Continue antibiotics zosyn and vanc Blood pressure stable Continue IV fluids (3) Elevated liver function tests: Patient has history alcohol abuse, however has attended rehab and denies alcohol use No RUQ tenderness noted on exam, no noted jaundice, CT abdomen/pelvis with normal liver gallbladder -AST ALT downtrending -new elevated Alk Phos 81 ---> 140 --> 161 -new elevated total bilirubin 1.6, direct bilirubin 0.7 -Could be secondary to sepsis -bilirubin and ALT continue to downtrend after IV fluids restarted -Repeat LFTs in AM (4) Depression: Plan: Chronic. Well controlled on Sertraline -Continue Sertraline 100mg po daily (5) Current smoker: Plan: Declines nicotine patch at this time but is considering quitting smoking Will order nicotine patch as needed in case he changes his mind later (6) Pyuria patient described burning with urination and suprapubic fullness UA showed urobilinogen, negative WBC nitrites bacteria IVF resumed, continue to monitor, may be 2/2 to his sepsis currently resolved FENa: regular Code Status: full DVT PPX: SCDs Dispo: med/surg Kiana Barrera Do PGY 1, FCM (2) Sepsis: (3) Elevated liver function tests: (4) Depression: Admission and Anticipated Discharge Date Admission Date: October 29, 2021 Supervising Physician Co-Signing Physician Notes Attending attestation Pt seen and examined in concert with Dr. Barrera. In agreement with the documented findings as noted in the resident documentation with any exceptions or additions as noted here. Stable rectal pain with borderline poor control per patient on present pain medication regimen. Still subjectively febrile but tolerating APAP and box fan. On examination, S1/S2 nl RRR no MCG. CTAB. Abd ND, mild suprapubic/RLQ TTP stable from yesterday per patient. Sepsis (tachycardia, febrile, leukocytosis) w/ perirectal abscess - BCx pending. Continue vanc/Zosyn. IVF as noted. General surgery consultation appreciated - awaiting Dr. Barahona on Monday for evaluation for definitive management but based on continued fevers will inquire re: appropriate repeat documentation. Donut pillow for comfort if available. Add PO oxycodone for stable pain control Hyperbilirubinemia w/ Elevated LFTs - downtrending bilirubin, elevated alk phos. no RUQ complaint, n/v, nl GB and liver on CT. continue to trend daily Else see resident documentation as noted. Subjective 31yo Male with perianal abcesss and fistula seen at bedside today. Patient states he hasn't slept well, his pain broke out to 10/10 overnight, he is very destressed and states he wants to cry, wants his condition to be fixed already. Patient states the swelling on his right buttocks is slightly improved, states the area is still very tender to light touch and palpation. Patient states he is certain his condition will require surgery, he hopes his abcess will be drained. Patient states since IV fluids were started his urine is less frequently dark colored, the burning during urination has resolved, abd tenderness resolved. Overnight patient's fever did resolved for short periods of time before return ing. Patients WBC continue to downtrend, patient was glad to be informed. Review of Systems Review of Systems: Negative headache dizziness Negative chest pain palpitations SOB Negative nausea vomitting diarrhea constipation Negative numbness tingling Physical Exam Constitutional: WD/WN, vitals as above + obese and cooperative Eyes: PERRL, conjunctivae normal, anicteric sclerae ENMT: external ear and nose normal, oropharynx normal Neck: trachea midline, no thyromegaly Respiratory: normal respiratory effort, lungs clear to auscultation Cardiovascular: RRR, no murmur, no edema Gastrointestinal (Abdomen): normal bowel sounds, soft, nontender, no hepatosplenomegaly Rectal Exam: + rectal tenderness Results & Data Results & Data ([facility]) Vital Signs (Past 12 Hours) Vital Signs Temp Pulse Resp BP Pulse Ox 10/31/21 07:21 38.9 C H 89 18 146/78 H 94 10/31/21 00:25 38 C H 10/30/21 22:45 37.5 C 81 16 128/75 98 Laboratory Results 10/31/21 10/31/21 Range/Units 05:23 05:23 WBC 11.56 H (4.8-10.8) K/uL RBC 4.79 (4.7-6.1) M/uL Hgb 13.1 L (14.0-18.0) g/dL Hct 39.9 L (42-52) % MCV 83.3 (80-100) fL MCH 27.3 (25-34) pg MCHC 32.8 (32-36) g/dL RDW Std Deviation 39.1 (36.4-46.3) fL RDW Coeff of Lobo 13.0 (11.5-14.5) % Plt Count 209 (130-400) K/uL MPV 11.3 H (7.4-10.4) fL Immature Gran % (Auto) 0.3 % Neut % (Auto) 70.8 % Lymph % (Auto) 15.5 % [place] % (Auto) 12.1 % Eos % (Auto) 1.0 % Baso % (Auto) 0.3 % Neut # (Auto) 8.19 H (1.4-6.5) K/uL Lymph # (Auto) 1.79 (1.2-3.4) K/uL [place] # (Auto) 1.40 H (0.11-0.59) K/uL Eos # (Auto) 0.12 (0-0.5) K/uL Baso # (Auto) 0.03 (0-0.2) K/uL Immature Gran # (Auto) 0.03 H (0.00-0.02) K/uL Sodium 137 (136-145) mmol/L Potassium 3.8 (3.5-5.1) mmol/L Chloride 104 (98-107) mmol/L Carbon Dioxide 27 (21-32) mmol/L Anion Gap 6 (3-11) BUN 6 (6-23) mg/dl Creatinine 0.93 (0.6-1.4) mg/dl Est Cr Clr Drug Dosing 144.6 ml/min Est GFR ( Amer) 125.5 ml/min Est GFR (Non-Af Amer) 108.2 ml/min BUN/Creatinine Ratio 6.5 L (10-20) Glucose 90 (70-99(Fasting)) mg/dl Calcium 8.7 (8.5-10.1) mg/dl Total Bilirubin 1.1 H (0.2-1.0) mg/dl AST 30 (13-39) U/L ALT 60 H (7-52) U/L Alkaline Phosphatase 161 H (34-104) U/L Total Protein 6.6 (6.0-8.3) gm/dl Albumin 3.7 (3.4-5.0) gm/dl Globulin 2.9 (2.5-4.0) gm/dl Albumin/Globulin Ratio 1.3 (0.9-2) Medications Administered Current Inpatient Medications Acetaminophen (Acetaminophen 500 Mg Tab) 1,000 mg PO Q6H PRN PRN Reason: As Needed for Fever or Pain Stop: 11/30/21 16:44 Last Admin: 10/31/21 14:04 Dose: 1,000 mg Documented by: Hydromorphone HCl (Hydromorphone Inj 0.5 Mg/0.5 Ml Syr) 0.5 mg IV Q2H PRN PRN Reason: severe pain 7,8,9,10 Stop: 11/12/21 16:29 Last Admin: 10/31/21 16:51 Dose: 0.5 mg Documented by: Piperacillin Sod/Tazobactam (Sod 4.5 gm/ Dextrose) 120 mls @ 30 mls/hr IV Q8H [facility]; Protocol Stop: 11/05/21 05:59 Last Admin: 10/31/21 13:42 Dose: 30 mls/hr Documented by: Sodium Chloride (Nss 1000ml) 1,000 mls @ 125 mls/hr IV .Q8H [facility] Stop: 11/01/21 11:44 Last Admin: 10/31/21 11:32 Dose: 125 mls/hr Documented by: Vancomycin HCl 1,500 mg/ (Sodium Chloride) 530 mls @ 200 mls/hr IV Q12H [facility] Stop: 11/06/21 20:59 Last Infusion: 10/31/21 11:32 Dose: Infused Documented by: Ketorolac Tromethamine (Ketorolac Tromethamine 15 Mg/Ml Vial) 15 mg IV Q6H PRN PRN Reason: Pain Last Admin: 10/31/21 00:17 Dose: 15 mg Documented by: Miscellaneous (Remove Nicoderm Patch) 1 ea N/A DAILY@0859 [facility] Stop: 11/29/21 08:58 Last Admin: 10/31/21 08:15 Dose: Not Given Documented by: Miscellaneous Information (Piperacill/Tazobac Consult Active) 1 ea N/A UD PRN PRN Reason: Consult Stop: 11/28/21 02:56 Miscellaneous Information (Vancomycin Consult Active) 1 ea N/A UD PRN PRN Reason: Consult Stop: 11/29/21 11:41 Nicotine (Nicotine 14 Mg/24 Hr Patch) 14 mg TD DAILY PRN PRN Reason: nicotine craving Stop: 11/28/21 16:44 Ondansetron HCl (Ondansetron Inj 2 Mg/Ml 2 Ml Vial) 4 mg IV Q6H PRN PRN Reason: Nausea Stop: 11/28/21 02:56 Oxycodone HCl (Oxycodone Hcl Ir 5 Mg Tab (Immediate Release)) 5 mg PO Q6 [facility] Stop: 11/14/21 11:59 Last Admin: 10/31/21 12:04 Dose: 5 mg Documented by: Polyethylene Glycol (Polyethylene (Miralax) 17 Gm Pack) 17 gm PO BID [facility] Stop: 11/30/21 20:59 Senna/Docusate Sodium (Docusate Sodium/Senna 50/8.6mg Tab) 1 tab PO HS [facility] Stop: 11/28/21 20:59 Last Admin: 10/30/21 19:59 Dose: 1 tab Documented by: Sertraline HCl (Sertraline Hcl 100 Mg Tablet) 100 mg PO QAM [facility] Stop: 11/28/21 08:59 Last Admin: 10/31/21 08:11 Dose: 100 mg Documented by: Resident Activity Tracking Resident Involvement: Resident Care Provided Care Provided: Adult Hospital Medicine (1) Depression Active/Remission status: currently active Depression Type: major depressive disorder Major depression episode severity: severe Major depression recurrence: recurrent Psychotic features: with psychotic features Qualified Code(s): F33.3 - Major depressive disorder, recurrent, severe with psychotic symptoms
[2021-10-31] MEDS: POLYETHYLENE (MIRALAX) 17 GM PACK PO SCH ×2 (08:11→21:12)
[2021-10-31] MEDS: SERTRALINE HCL 100 MG TABLET PO SCH (08:11)
[2021-10-31] MEDS: VANCOMYCIN HCL 1,500 MG in SODIUM CHLORIDE 0.9% 500 ML IV SCH ×2 (08:18→21:10)
[2021-10-31] MEDS: oxyCODONE HCL IR 5 MG TAB (IMMEDIATE RELEASE) PO SCH ×2 (12:04→17:57)
[2021-10-31] MEDS ORDERED: ACETAMINOPHEN 500 MG TAB PO SCH (16:45)
[2021-10-31] MEDS: DOCUSATE SODIUM/SENNA 50/8.6MG TAB PO SCH (21:12)
[2021-11-01] MEDS: oxyCODONE HCL IR 5 MG TAB (IMMEDIATE RELEASE) PO SCH ×5 (00:11→23:47)
[2021-11-01] MEDS: HYDROmorphone INJ 0.5 MG/0.5 ML SYR IV PRN ×4 (00:12→08:29)
[2021-11-01] MEDS: ACETAMINOPHEN 500 MG TAB PO PRN (03:42)
[2021-11-01] MEDS: PIPERACILLIN/TAZOBACTAM 4.5 GM in DEXTROSE 5% 100 ML IV SCH (05:49)
[2021-11-01] MEDS: SODIUM CHLORIDE 0.9% 1000ML 1,000 ML IV SCH ×3 (05:50→19:22)
[2021-11-01 06:36] LABS: Basophils # (auto) 0.03 K/uL (0-0.2); Basophils % (auto) 0.2 %; Eosinophils # (auto) 0.11 K/uL (0-0.5); Eosinophils % (auto) 0.8 %; Hematocrit (blood only) 37.5 % (42-52); Hemoglobin 12.4 g/dL (14.0-18.0); Immature Granulocytes # (auto) 0.03 K/uL (0.00-0.02); Immature Granulocytes % (auto) 0.2 %; Lymphocytes # (auto) 1.73 K/uL (1.2-3.4); Lymphocytes % (auto) 13.3 %; Mean Corpuscular Hemoglobin 27.4 pg (25-34); Mean Corpuscular Hgb Conc 33.1 g/dL (32-36); Mean Platelet Volume 10.3 fL (7.4-10.4); Monocytes # (auto) 1.64 K/uL (0.11-0.59); Monocytes % (auto) 12.6 %; Neutrophils % (auto) 72.9 %; Platelet Count 250 K/uL (130-400); RDW Coefficient of Variation 13.1 % (11.5-14.5); RDW Standard Deviation 39.8 fL (36.4-46.3); Red Blood Count 4.52 M/uL (4.7-6.1); White Blood Count 13.04 K/uL (4.8-10.8)
[2021-11-01 07:02] LABS: Albumin Globulin Ratio 1.2 (0.9-2); Albumin Level 3.6 gm/dl (3.4-5.0); BUN Creatinine Ratio 7.6 (10-20); Bilirubin,Total 0.8 mg/dl (0.2-1.0); Calcium 8.8 mg/dl (8.5-10.1); Creatinine Clr Calc Pharmacy 146.2 ml/min; Est GFR (African American) 127.1 ml/min; Est GFR (Non-African American) 109.7 ml/min; Potassium 3.8 mmol/L (3.5-5.1); Total Protein 6.6 gm/dl (6.0-8.3)
--- NOTE | 2021-11-01 08:11 | Medical Student Progress Note ---
Date of Service November 01, 2021 Assessment & Plan (1) Perianal abscess: Plan: Assessment: 31 year old M with history of large perianal abscess requiring surgical drainage x2 and abx in 2020 on hospital day 4 for perianal abscess. (1) Perianal abscess: Plan: Patient's symptoms feel similar to prior abscess. He reports fever, severe perirectal and lower abdominal pain and nausea. Labs are significant for leukocytosis with wbc=14.97 and elevated CRP to 20.15. CT abdomen/pelvis with perirectal abscess Appreciate surgery consultation-not large enough to drain at this time-continue antibiotics and repeat CT pelvis imaging on Monday with follow-up with Dr. Barahona who saw the patient previously for perirectal abscess drainage -Continues to have fevers and pain despite on tylenol 1000mg q6 PRN, room fan ordered -Change IV morphine to IV Dilaudid 0.5 mg IV every 2 hours as needed -Add on IV Toradol 15 mg IV every 6 hours as needed pain for max of 6 doses -Continue IV fluids with LR with decreased to 100 mL/h --> IVF resumed at 150ml/h -Advance diet to regular for today as no surgery planned until at least Monday when Dr. Barahona returns -Continue IV Zofran as needed for nausea -Continue IV Zosyn antibiotics -added IV vanc -WBC downtrending 14.97 --> 13.23 --> 11.56 -ordered HIV testing to rlue out cause of abscess -ordered blood cultures, pending -Follow CBC, CMP in the morning -Added oxycodone 5mg q6h for better pain control (2) Elevated liver function tests: Patient has history alcohol abuse, however has attended rehab and denies alcohol use No RUQ tenderness noted on exam, no noted jaundice, CT abdomen/pelvis with normal liver gallbladder -AST ALT downtrending -new elevated Alk Phos 81 ---> 140 --> 161 -new elevated total bilirubin 1.6, direct bilirubin 0.7 -Could be secondary to sepsis -bilirubin and ALT continue to downtrend after IV fluids restarted -Repeat LFTs in AM (3) Depression: Plan: Chronic. Well controlled on Sertraline -Continue Sertraline 100mg po daily (4) Current smoker: Plan: Declines nicotine patch at this time but is considering quitting smoking Will order nicotine patch as needed in case he changes his mind later (5) Pyuria patient described burning with urination and suprapubic fullness UA showed urobilinogen, negative WBC nitrites bacteria IVF resumed, continue to monitor, may be 2/2 to his sepsis currently resolved FEN/GI: Code Status: full DVT PPX: SCDs Dispo: med/surg (2) Sepsis: (3) Elevated liver function tests: (4) Depression: Depression Type: major depressive disorder Major depression recurrence: recurrent Active/Remission status: currently active Major depression episode severity: severe Psychotic features: with psychotic features Qualified Code(s): F33.3 - Major depressive disorder, recurrent, severe with psychotic symptoms Admission and Anticipated Discharge Date Admission Date: October 29, 2021 Results & Data ([facility]) Vital Signs (Past 12 Hours) Vital Signs Temp Pulse Resp BP Pulse Ox 11/01/21 07:22 37.2 C 83 16 139/73 97 10/31/21 21:54 37.2 C 85 16 131/68 95
[2021-11-01] MEDS: POLYETHYLENE (MIRALAX) 17 GM PACK PO SCH ×2 (08:18→19:28)
[2021-11-01] MEDS: SERTRALINE HCL 100 MG TABLET PO SCH (08:18)
--- NOTE | 2021-11-01 08:20 | Medical Student Progress Note ---
Date of Service November 01, 2021 Assessment & Plan (1) Perianal abscess: Plan: 31 year old male with hx of large bilateral perirectal abscess requiring surgical drainage x 2 and antibiotics in 2019, currently stable s/p surgical drainage. 1. Perianal abscess - perirectal pain is present but stable; febrile - WBC elevated, 13.04; repeat CBC am - CT abdomen/pelvis on admission shows perirectal abscess; repeat CT not necessary - surgical drainage 11/[address] Barahona - amp/sulbactam 3 g IV q6h (changed from pip/tazo) and vanc 1.25 g IV q8h - likely etiology: perirectal herpes, consider chronic herpes ppx; HIV titer pending - pain control: IV Dilaudid 0.5 mg IV q2h PRN, IV Toradol 15 mg IV q6h PRN, oxycodone 5 mg q6h - IVF d/c'd 2. Elevated liver function tests: - No abdominal pain, no RUQ tenderness noted on exam, no noted jaundice, CT abdomen/pelvis with normal liver and gallbladder - AST and ALT downtrending; AST 25, ALT 55 - total bilirubin downtrending, 0.8 - Alk Phos uptrending, 174 - known history of alcohol use disorder - continue to monitor with qAM CMP 3. Constipation - miralax PO BID 4. Depression - Continue Sertraline 100mg po daily 5. Current smoker: - Declines nicotine patch at this time but is considering quitting smoking - Nicotine patches ordered prn in case he changes his mind later FEN/GI: regular diet Code Status: full code DVT PPX: SCDs Dispo: med/surg (2) Elevated liver function tests: (3) Depression: Active/Remission status: currently active Depression Type: major depressive disorder Major depression episode severity: severe Major depression recurrence: recurrent Psychotic features: with psychotic features Qualified C ode(s): F33.3 - Major depressive disorder, recurrent, severe with psychotic symptoms Admission and Anticipated Discharge Date Admission Date: October 29, 2021 Supervising Attestation I personally examined the patient and verified all poon points of history and exam, discussed case, and agree with decision making with Mila Rene MS4 feeling much better post op. pain much improved. vitals ntoed nad heent nc at mmm breathing unalbored no accessory muscles good effort skin no rashes no pallor or icterus perirectal abscess w sepsis present on admission - improving. drained. pain controlled. continue abx for now. ?chronic suppressive for herpes since loss of skin integrity possibly reason for abscess? otherwise as above Subjective Overall, patient feels about the same as before. Slept ok last night. He said that he felt feverish last night and had chills and sweats that soaked through his gown and required a gown change. No nausea/vomiting. Has been taking his pain meds, says they "take the edge off." He has been urinating ok and good PO fluid intake. Currently NPO because of surgery, but prior to that he was eating well. Passing gas, no bm; says he feels constipated but wants to hold off on doing anything about it until after his surgery. Feels less hopeless than before since Bill the surgery PA came to talk to him about getting surgery done this afternoon. Has questions about dispo/outpatient follow-up, as he did not expect to develop this abscess a second time and wants to prevent it from happening again. Review of Systems Constitutional: + fever, + chills and + sweats Gastrointestinal: no abdominal pain, no nausea and no vomiting Psychiatric: mood is "ok," "better than yesterday" Physical Exam Constitutional: WD/WN, vitals as above + obese and cooperative Eyes: PERRL, conjunctivae normal, anicteric sclerae ENMT: external ear and nose normal, oropharynx normal Neck: trachea midline, no thyromegaly Respiratory: normal respiratory effort, lungs clear to auscultation Cardiovascular: RRR, no murmur, no edema Gastrointestinal (Abdomen): normal bowel sounds, soft, nontender, no hepatosplenomegaly Psychiatric: Affect: euthymic affect Genitourinary: perirectal tenderness, no erythema or swelling Results & Data ([facility]) Vital Signs (Past 12 Hours) Vital Signs Temp Pulse Resp BP Pulse Ox 11/01/21 07:22 37.2 C 83 16 139/73 97 10/31/21 21:54 37.2 C 85 16 131/68 95
[2021-11-01] MEDS: VANCOMYCIN HCL 1,500 MG in SODIUM CHLORIDE 0.9% 500 ML IV SCH (08:30)
[2021-11-01] MEDS ORDERED: VANCOMYCIN TROUGH ONE (08:30)
--- NOTE | 2021-11-01 08:36 | Surgery Progress Note ---
Date of Service November 01, 2021 Assessment & Plan (1) Perianal abscess: Plan: WBC increasing will plan for EUA, drainage of perirectal abscess in OR later today Admission and Anticipated Discharge Date Admission Date: October 29, 2021 Subjective having same pain, fevers Results & Data ([facility]) Vital Signs (Past 12 Hours) Vital Signs Temp Pulse Resp BP Pulse Ox 11/01/21 07:22 37.2 C 83 16 139/73 97 10/31/21 21:54 37.2 C 85 16 131/68 95 PG Care Time/CCT Total # of Minutes Spent Total Time Spent with Patient: Total time spent is greater than 50% in coordination of care (as documented) at patient's floor/unit and/or counseling patient: Coding Level of Care Code 69301 Subseq Hosp Care Lvl 1 Diagnoses Perianal abscess K61.0
--- NOTE | 2021-11-01 09:08 | Anesthesiology Consultation ---
Date of Service November 01, 2021 Assessment & Plan (1) Encounter for pre-operative examination: Chart Review Chart Review: Acceptable Risk for Surgery and Patient NOT seen in Pre Admission Testing Consults Requested none History Surgery Operation Date: 11/01/21 13:55 Proposed Procedures p Perirectal Abscess - Bill Barahona DO Height/Weight Height: 5 ft 10 in Weight: 114.6 kg Allergies Allergy/AdvReac Type Severity Reaction Status Date / Time No Known Allergies Allergy Verified 03/21/21 12:07 Medications Home Medications Medication Instructions Recorded Confirmed Last Taken multivitamin 1 tab PO QAM 10/31/18 10/29/21 03/21/21 ascorbic acid (vitamin C) 1,000 mg 1,000 mg PO QAM 07/31/20 03/21/21 03/21/21 tablet (Vitamin C) sertraline 100 mg tablet 100 mg PO QAM #30 tab 08/04/20 10/29/21 03/21/21 cholecalciferol (vitamin D3) 50 50 mcg PO QAM 12/22/20 03/21/21 03/21/21 mcg (2,000 unit) capsule (Vitamin D3) ondansetron 4 mg disintegrating 4 mg PO Q6H PRN #10 tab 03/21/21 Unknown tablet Active Medications Generic Name Dose Route Start Last Admin Trade Name Freq PRN Reason Stop Dose Admin Acetaminophen 1,000 mg 10/31/21 10:44 11/01/21 03:42 Acetaminophen 500 Mg Tab PO 11/30/21 16:44 1,000 mg Q6H PRN Administration As Needed for Fever or Pain Hydromorphone HCl 0.5 mg 10/29/21 16:29 11/01/21 08:29 Hydromorphone Inj 0.5 Mg/0.5 Ml Syr IV 11/12/21 16:29 0.5 mg Q2H PRN Administration severe pain 7,8,9,10 Piperacillin Sod/Tazobactam 120 mls @ 30 mls/hr 10/29/21 06:00 11/01/21 08:39 Sod 4.5 gm/ Dextrose IV 11/05/21 05:59 0 mls/hr Q8H LISA Infusion Protocol Sodium Chloride 1,000 mls @ 125 mls/hr 10/30/21 11:45 11/01/21 05:50 Nss 1000ml IV 11/01/21 11:44 125 mls/hr .Q8H LISA Administration Vancomycin HCl 1,500 mg/ 530 mls @ 200 mls/hr 10/30/21 21:00 11/01/21 08:30 Sodium Chloride IV 11/06/21 20:59 200 mls/hr Q12H LISA Administration Ketorolac Tromethamine 15 mg 10/29/21 16:31 10/31/21 00:17 Ketorolac Tromethamine 15 Mg/Ml Vial IV 15 mg Q6H PRN Administration Pain Miscellaneous 1 ea 10/30/21 08:59 11/01/21 08:29 Remove Nicoderm Patch N/A 11/29/21 08:58 Not Given DAILY@0859 LISA Oxycodone HCl 5 mg 10/31/21 12:00 11/01/21 05:49 Oxycodone Hcl Ir 5 Mg Tab (Immediate Release) PO 11/14/21 11:59 5 mg Q6 LISA Administration Polyethylene Glycol 17 gm 10/31/21 21:00 11/01/21 08:18 Polyethylene (Miralax) 17 Gm Pack PO 11/30/21 20:59 Not Given BID LISA Senna/Docusate Sodium 1 tab 10/29/21 21:00 10/31/21 21:12 Docusate Sodium/Senna 50/8.6mg Tab PO 11/28/21 20:59 1 tab HS LISA Administration Sertraline HCl 100 mg 10/29/21 09:00 11/01/21 08:18 Sertraline Hcl 100 Mg Tablet PO 11/28/21 08:59 Not Given QAM LISA Past Medical History Medical History Asthma Bursitis COVID-19 Depression Deviated nasal septum Elevated blood uric acid level Elevated liver enzymes IN THE PAST (NOW WNL) Gout Leg pain, right Obesity Sciatica Sleep apnea NO DEVICE Past Family History Family History Father Multiple sclerosis Father Family history of ITP Aunt Family history of diabetes mellitus Past Surgical History Surgical History History of appendectomy History of esophageal dilatation History of esophagogastroduodenoscopy (EGD) History of removal of skin mole History of tooth extraction [place] teeth removed Social History Smoking Status: Current every day smoker tobacco type: cigarettes Smoking cigarettes per day: 5-10 Hx Alcohol Use: Yes Alcohol type: wine alcohol intake frequency: a few times a month Hx Substance Use: No substance use type: does not use Physical Exam Vital Signs Last Vital Signs Temp 99.0 F 11/01/21 07:22 Pulse 83 11/01/21 07:22 Resp 16 11/01/21 07:22 BP 139/73 11/01/21 07:22 Pulse Ox 97 11/01/21 07:22 Testing Laboratory Results 11/01/21 06:22 11/01/21 06:22 Urine Color Dark Yellow 10/30/21 10:00 Urine Appearance Clear (Clear) 10/30/21 10:00 Urine pH 5.0 (4.5-7.5) 10/30/21 10:00 Ur Specific [place] 1.030 (1.000-1.030) 10/30/21 10:00 Urine Protein 1+ (Negative) H 10/30/21 10:00 Urine Glucose (UA) Negative (Negative) 10/30/21 10:00 Urine Ketones Trace (Negative) H 10/30/21 10:00 Urine Nitrite Negative (Negative) 10/30/21 10:00 Ur Leukocyte Esterase Negative (Negative) 10/30/21 10:00 Urine WBC (Auto) 1-5 /hpf (0-5) 10/30/21 10:00 Urine RBC (Auto) 0-4 /hpf (0-4) 10/30/21 10:00 U Hyaline Cast (Auto) 0 /lpf (0-5) 10/30/21 10:00 U Epithel Cells (Auto) 0-5 /lpf (0-5) 10/30/21 10:00 Urine Bacteria (Auto) Negative (Negative) 10/30/21 10:00 10/30/21 11:42 Aerobic Blood Culture - Preliminary Blood No growth in Aerobic bottle after 24 hours. Anaerobic Blood Culture - Preliminary No growth in Anaerobic bottle after 24 hours. 10/30/21 11:42 Aerobic Blood Culture - Preliminary Blood No growth in Aerobic bottle after 24 hours. Anaerobic Blood Culture - Preliminary No growth in Anaerobic bottle after 24 hours. Electrocardiogram Date: 12/22/20 Findings: + NSR @
[2021-11-01] MEDS: KETOROLAC TROMETHAMINE 15 MG/ML VIAL IV PRN ×2 (09:34→19:35)
--- NOTE | 2021-11-01 09:56 | Pharmacy Report ---
Pharmacy Vanc AUC Short Note - Date of Service November 01, 2021 - Assessment & Plan Assessment 31 year old M receiving vancomycin/Zosyn for treatment of perianal abscess. Pertinent microbiologic data includes: N/A. Day # 3/7 of antimicrobial therapy. Plan Vancomycin * AUC/JIMBO is the preferred PK/PD target for vancomycin * AUC guided dosing is effective and associated with decreased risk of nephrotoxicity compared to traditional trough targets * Trough level of 6.2 mcg/mL is predicted to achieve less than target AUC/JIMBO of 400-600 mg/L.hr and may be associated with a 5 % risk of nephrotoxicity * Change to 1250 mg IV every 8 hours and may be associated with a 8% risk of nephrotoxicity * Trough level ordered for: 11/03/21 Pharmacy will continue to follow and will adjust dose/frequency as necessary. Thank you.
[2021-11-01] MEDS ORDERED: ePHEDrine sulfate 50 MG/ML AMP IV PRN (10:50)
[2021-11-01] MEDS ORDERED: ONDANSETRON INJ 2 MG/ML 2 ML VIAL IV PRN (10:50)
[2021-11-01] MEDS ORDERED: ATROPINE SULFATE 0.1 MG/ML 10ML SYR IV PRN (10:50)
[2021-11-01] MEDS ORDERED: HYDROmorphone INJ 1 MG/ML SYRINGE IV PRN (10:50)
[2021-11-01] MEDS ORDERED: PROPOFOL IV EMULSION 10 MG/ML 20 ML VIAL IV ONE (10:55)
[2021-11-01] MEDS ORDERED: NEOSTIGMINE METHYLSULFATE 1 MG/ML 10ML VIAL ONE (10:55)
[2021-11-01] MEDS ORDERED: fentaNYL citrate 100 MCG/2 ML VIAL ONE (10:55)
[2021-11-01] MEDS ORDERED: MIDAZOLAM HCL 1 MG/ML 2ML VIAL ONE (10:55)
[2021-11-01] MEDS ORDERED: ONDANSETRON INJ 2 MG/ML 2 ML VIAL ONE (10:55)
[2021-11-01] MEDS ORDERED: GLYCOPYRROLATE 0.2 MG/ML VIAL ONE ×2 (10:55→12:53)
[2021-11-01] MEDS ORDERED: DEXAMETHASONE SOD INJ 4 MG/ML VIAL ONE (10:55)
[2021-11-01] MEDS ORDERED: LIDOCAINE 2% 2 ML VIAL/AMP(20MG/ML) INFIL ONE (10:55)
--- NOTE | 2021-11-01 11:53 | History & Physical Bridge Note ---
Date of Service November 01, 2021 History & Physical Bridge Note I have examined the patient, reviewed the History & Physical and in the interval since the performance of the History & Physical I have noted the following changes of clinical significance: no changes noted pt with worsening pain...fever...wbc worsening...discussed options/risks ( bleeding/infection/blood clots/injury to sphincter etc...).questions answered. ok to proceed today with incision and drainage of asya-anal abcess
[2021-11-01] MEDS ORDERED: BUPIVACAINE 0.5 % 5 MG/1 ML MPF 30ML VIAL ONE (12:15)
[2021-11-01] MEDS ORDERED: LARYING-O-JET KIT (LTA) ONE (12:53)
[2021-11-01] MEDS ORDERED: ROCURONIUM BROMIDE 10 MG/ML 5 ML VIAL IV ONE (12:53)
--- NOTE | 2021-11-01 12:58 | Operative Report ---
PG Post Operative Report Pre & Post Diagnosis Operation Date: 11/01/21 13:55 Pre-Op Diagnosis: PERIRECTAL ABSCESS, PAIN Post-Op Diagnosis: PERIRECTAL ABSCESS, PAIN I identified the patient and participated in the time-out.: Yes Procedure Operation Date: 11/01/21 13:55 Actual Procedures p Perirectal Abscess - Bill Barahona DO Surgeon Blil Barahona, Scrum Coach none Estimated Blood Loss 15 Findings Consistent with Post-Op Diagnosis Specimens fluid for culture Description of Procedure After informed consent was obtained the patient was taken to the operating room and placed in supine position. After successful intubation the patient was placed in a high lithotomy position. The entire perianal area was sterilely p repped and draped in usual fashion. I began by using an 18-gauge finder needle to locate the abscess pocket which was not readily visible. Some of the aspirated fluid was sent for Gram stain and culture. I then made an incision and used primarily finger fractionation as well as hemostats to find the abscess cavity. A moderate amount of thick purulent abscess fluid was obtained. It did not appear to have a foul odor. After manually expressing the majority of the fluid we then thoroughly irrigated the cavity. Quarter inch Lance drain was placed into the cavity and sutured to the skin using 2-0 nylon. Sterile dressing was applied. The patient was placed in supine position extubated and transferred recovery in stable condition. I attest to the content of the Intraoperative Record and any orders documented therein. Any exceptions are noted below.
[2021-11-01] MEDS: fentaNYL citrate 100 MCG/2 ML VIAL IV PRN ×2 (13:08→13:20)
--- NOTE | 2021-11-01 13:29 | Anesthesiology Progress Note ---
Date of Service November 01, 2021 Anesthesia Post Procedure Vital Signs Vital Signs: Temp Pulse Pulse Resp BP BP Pulse Ox 11/01/21 13:25 80 18 116/75 95 11/01/21 13:15 75 18 128/75 94 11/01/21 13:05 74 20 118/79 99 11/01/21 12:57 97.5 F L 73 12 135/67 99 11/01/21 10:43 99.9 F H 83 18 131/84 96 11/01/21 07:22 99.0 F 83 16 139/73 97 10/31/21 21:54 99.0 F 85 16 131/68 95 10/31/21 15:00 99.3 F 87 18 123/73 97 Pain Intensity Rectal: Pain Intensity: 1 Transfer of Care Handoff Completed per policy Notes Mental Status: alert / awake / arousable and participated in evaluation Patient Amnestic to Procedure: Yes Nausea / Vomiting: adequately controlled Pain: adequately controlled Airway Patency, RR, SpO2: stable & adequate BP & HR: stable & adequate Hydration State: stable & adequate Anesthetic Complications: no major complications apparent and Pt Satisfied with anesthetic care
[2021-11-01] MEDS: AMPICILLIN/SULBACTAM SOD 3,000 MG in 0.9 % SODIUM CHLORIDE 100 ML IV SCH ×3 (13:50→23:48)
[2021-11-01] MEDS: VANCOMYCIN HCL 1,250 MG in SODIUM CHLORIDE 0.9% 250 ML IV SCH ×2 (14:55→21:38)
--- NOTE | 2021-11-01 16:30 | Billing Data ---
Date of Service November 01, 2021 Coding Level of Care Code 28950 Subseq Hosp Care Lvl 3
[2021-11-01] MEDS: DOCUSATE SODIUM/SENNA 50/8.6MG TAB PO SCH (19:28)
[2021-11-01] MEDS ORDERED: MAGNESIUM HYDROXIDE SUSP 30 ML UDC PO ONE (21:25)
[2021-11-01] MEDS ORDERED: MAGNESIUM CITRATE 296 ML/BTL PO ONE (21:28)
[2021-11-02] MEDS: KETOROLAC TROMETHAMINE 15 MG/ML VIAL IV PRN (01:55)
[2021-11-02] MEDS: SODIUM CHLORIDE 0.9% 1000ML 1,000 ML IV SCH (05:14)
[2021-11-02] MEDS: AMPICILLIN/SULBACTAM SOD 3,000 MG in 0.9 % SODIUM CHLORIDE 100 ML IV SCH (05:27)
[2021-11-02] MEDS: oxyCODONE HCL IR 5 MG TAB (IMMEDIATE RELEASE) PO SCH ×2 (06:02→12:05)
[2021-11-02] MEDS: VANCOMYCIN HCL 1,250 MG in SODIUM CHLORIDE 0.9% 250 ML IV SCH (06:03)
[2021-11-02 06:26] LABS: Basophils # (auto) 0.01 K/uL (0-0.2); Basophils % (auto) 0.1 %; Eosinophils # (auto) 0.01 K/uL (0-0.5); Eosinophils % (auto) 0.1 %; Hematocrit (blood only) 36.1 % (42-52); Hemoglobin 12.1 g/dL (14.0-18.0); Immature Granulocytes # (auto) 0.13 K/uL (0.00-0.02); Lymphocytes # (auto) 1.92 K/uL (1.2-3.4); Lymphocytes % (auto) 14.1 %; Mean Corpuscular Hemoglobin 27.4 pg (25-34); Mean Corpuscular Hgb Conc 33.5 g/dL (32-36); Mean Corpuscular Volume 81.7 fL (80-100); Mean Platelet Volume 10.5 fL (7.4-10.4); Monocytes # (auto) 1.11 K/uL (0.11-0.59); Monocytes % (auto) 8.2 %; Neutrophils # (auto) 10.42 K/uL (1.4-6.5); Neutrophils % (auto) 76.5 %; Platelet Count 273 K/uL (130-400); RDW Coefficient of Variation 13.1 % (11.5-14.5); RDW Standard Deviation 39.5 fL (36.4-46.3); Red Blood Count 4.42 M/uL (4.7-6.1)
[2021-11-02 06:47] LABS: Albumin Globulin Ratio 1.1 (0.9-2); Albumin Level 3.5 gm/dl (3.4-5.0); BUN Creatinine Ratio 20.3 (10-20); Bilirubin,Total 0.4 mg/dl (0.2-1.0); Calcium 8.9 mg/dl (8.5-10.1); Creatinine Clr Calc Pharmacy 181.7 ml/min; Est GFR (African American) 141.5 ml/min; Est GFR (Non-African American) 122.1 ml/min; Globulin 3.1 gm/dl (2.5-4.0); Potassium 4.3 mmol/L (3.5-5.1); Total Protein 6.6 gm/dl (6.0-8.3)
--- NOTE | 2021-11-02 08:18 | Surgery Progress Note ---
Date of Service November 02, 2021 Assessment & Plan (1) Perianal abscess: Plan: POD 1 I&D ok for d/c on po abx will remove drain in clinic next week as above. feeling much better. ok for d/c on augmentin. f/u with me in 1 week for drain removal. Admission and Anticipated Discharge Date Admission Date: October 29, 2021 Subjective feeling better, no fevers Physical Exam Gastrointestinal (Abdomen): dressing intact Results & Data ([facility]) Vital Signs (Past 12 Hours) Vital Signs Temp Pulse Resp BP Pulse Ox 11/02/21 07:23 36.5 C 57 L 18 145/91 H 96 11/01/21 22:34 36.9 C 56 L 16 126/87 97 PG Care Time/CCT Total # of Minutes Spent Total Time Spent with Patient: Total time spent is greater than 50% in coordination of care (as documented) at patient's floor/unit and/or counseling patient: Coding Level of Care Code None Diagnoses Perianal abscess K61.0
[2021-11-02] MEDS: SERTRALINE HCL 100 MG TABLET PO SCH (08:20)
[2021-11-02] MEDS: POLYETHYLENE (MIRALAX) 17 GM PACK PO SCH (08:20)
--- NOTE | 2021-11-02 10:38 | Medical Student Progress Note ---
Date of Service November 02, 2021 Assessment & Plan (1) Perianal abscess: Plan: 31 year old male with hx of large bilateral perirectal abscess requiring surgical drainage x 2 and antibiotics in 2020, currently stable s/p surgical drainage. 1. Perianal abscess - s/p surgical drainage (11/01): pain resolved, afebrile - WBC stable, 13.60 - IV amp/sulbactam and vanc in hospital, switch to PO Augmentin for discharge - CT abdomen/pelvis on admission shows perirectal abscess; repeat CT not necessary - etiology: ?perianal herpes vs anorectal fistula - f/u with Dr. Barahona on 11/08 to evaluate for potential anorectal fistula; otherwise, contact PCP for chronic herpes ppx - HIV negative 2. Elevated liver function tests: - No abdominal pain, no RUQ tenderness noted on exam, no noted jaundice, CT abdomen/pelvis with normal liver and gallbladder - LFTs downtrending: AST 25, ALT 55, tbili 0.8, Alk Phos uptrending, 174 - known history of alcohol use disorder 3. Constipation - Patient had bm this AM - miralax PO BID 4. Depression - Continue Sertraline 100mg po daily 5. Current smoker: - Declines nicotine patch at this time but is considering quitting smoking - Nicotine patches ordered prn in case he changes his mind later FEN/GI: regular diet Code Status: full code DVT PPX: SCDs Dispo: discharge to home (2) Elevated liver function tests: (3) Depression: Active/Remission status: currently active Depression Type: major depressive disorder Major depression episode severity: severe Major depression recurrence: recurrent Psychotic features: with psychotic features Qualified Code(s): F33.3 - Major depressive disorder, recurrent, severe with psychotic symptoms Admission and Anticipated Discharge Date Admission Date: October 29, 2021 Neeta Otero is feeling much better today than yesterday. He says that "this surgery fixed everything!" He is much more cheerful than he was yesterday and is walking around the unit comfortably. He is no longer in pain, no fever, no night sweats. He is particularly happy because he had a bowel movement today. Overall, very improved from yesterday. Review of Systems Review of Systems: per HPI Physical Exam Constitutional: WD/WN, vitals as above + obese and cooperative Eyes: PERRL, conjunctivae normal, anicteric sclerae ENMT: external ear and nose normal, oropharynx normal Neck: trachea midline, no thyromegaly Respiratory: normal respiratory effort, lungs clear to auscultation Cardiovascular: RRR, no murmur, no edema Gastrointestinal (Abdomen): normal bowel sounds, soft, nontender, no hepatosplenomegaly Genitourinary: Rectal drain present, draining a small amount of serosanguineous fluid, no pus Results & Data ([facility]) Vital Signs (Past 12 Hours) Vital Signs Temp Pulse Pulse Resp BP Pulse Ox 11/02/21 09:50 36.5 C 73 57 L 18 145/91 H 96 11/02/21 07:23 36.5 C 57 L 18 145/91 H 96 11/01/21 22:34 36.9 C 56 L 16 126/87 97
--- NOTE | 2021-11-02 12:20 | Discharge Summary ---
Date of Service November 02, 2021 Admission HPI Per Admitting Provider Branden Browning is a 31yo male presenting with perirectal pain. Patient has history of perirectal abscess requiring surgical drainage x 2 and antibiotics in August 2020. Case performed by Dr. Barahona. Patient recovered fully with no complications identified. He returns to the ER today with perirectal pain that started 3 days ago. Patient has history of HSV-2 and began to feel some tingling in his perineum. He though that he may be getting a herpes outbreak so he took Valtrex 1gm on the evening of 10/27, he took two doses of Valtrex yesterday with no improvement in symptoms. He began developing perirectal fullness, swelling and pain as well as fever to 102. Has mild lower abdominal discomfort. Nausea associated with pain with one episode of non-bloody/non-bilious vomiting. Severe perirectal pain. No additional complaints. Patient with elevated temperature on arrival at 37.8, HR of 109 ER Course: Toradol 30mg IV, Dilaudid 1mg + 0.5mg, Zosyn, Zofran 4mg IV Principal Diagnosis Perianal abscess Discharge Exam Constitutional: in no acute distress, pleasant and normal affect. Vitals as above. Lungs: Clear to auscultation bilaterally Cardiac: Regular rate and rhythm. Abdomen: Bowel sounds present. Soft, nontender, and nondistended.No guarding. Skin: I&D site show no signs on infection, drainage tube intact Neurologic: Grossly intact cranial nerves and 2+ patellar tendon reflexes bilaterally. PERRL. Discharge Data Allergies Allergy/AdvReac Type Severity Reaction Status Date / Time No Known Allergies Allergy Verified 03/21/21 12:07 Consultations 10/29/21 01:11 ED Decision to Admit Stat 10/29/21 01:48 Consult General Surgery Routine Procedures Performed Operation Date: 11/01/21 13:55 Actual Procedures p Perirectal Abscess - Bill Barahona, DO Ordered Studies Laboratory Results WBC 13.60 K/uL (4.8-10.8) H 11/02/21 05:55 RBC 4.42 M/uL (4.7-6.1) L 11/02/21 05:55 Hgb 12.1 g/dL (14.0-18.0) L 11/02/21 05:55 Hct 36.1 % (42-52) L 11/02/21 05:55 MCV 81.7 fL (80-100) 11/02/21 05:55 MCH 27.4 pg (25-34) 11/02/21 05:55 MCHC 33.5 g/dL (32-36) 11/02/21 05:55 RDW Std Deviation 39.5 fL (36.4-46.3) 11/02/21 05:55 RDW Coeff of Lobo 13.1 % (11.5-14.5) 11/02/21 05:55 Plt Count 273 K/uL (130-400) 11/02/21 05:55 MPV 10.5 fL (7.4-10.4) H 11/02/21 05:55 Immature Gran % (Auto) 1.0 % 11/02/21 05:55 Neut % (Auto) 76.5 % 11/02/21 05:55 Lymph % (Auto) 14.1 % 11/02/21 05:55 [place] % (Auto) 8.2 % 11/02/21 05:55 Eos % (Auto) 0.1 % 11/02/21 05:55 Baso % (Auto) 0.1 % 11/02/21 05:55 Neut # (Auto) 10.42 K/uL (1.4-6.5) H 11/02/21 05:55 Lymph # (Auto) 1.92 K/uL (1.2-3.4) 11/02/21 05:55 [place] # (Auto) 1.11 K/uL (0.11-0.59) H 11/02/21 05:55 Eos # (Auto) 0.01 K/uL (0-0.5) 11/02/21 05:55 Baso # (Auto) 0.01 K/uL (0-0.2) 11/02/21 05:55 Immature Gran # (Auto) 0.13 K/uL (0.00-0.02) H 11/02/21 05:55 Sodium 138 mmol/L (136-145) 11/02/21 05:55 Potassium 4.3 mmol/L (3.5-5.1) 11/02/21 05:55 Chloride 106 mmol/L (98-107) 11/02/21 05:55 Carbon Dioxide 23 mmol/L (21-32) 11/02/21 05:55 Anion Gap 9 (3-11) 11/02/21 05:55 BUN 15 mg/dl (6-23) 11/02/21 05:55 Creatinine 0.74 mg/dl (0.6-1.4) 11/02/21 05:55 Est Cr Clr Drug Dosing 181.7 ml/min 11/02/21 05:55 Est GFR ( Amer) 141.5 ml/min 11/02/21 05:55 Est GFR (Non-Af Amer) 122.1 ml/min 11/02/21 05:55 BUN/Creatinine Ratio 20.3 (10-20) H 11/02/21 05:55 Glucose 132 mg/dl (70-99(Fasting)) H 11/02/21 05:55 Calcium 8.9 mg/dl (8.5-10.1) 11/02/21 05:55 Total Bilirubin 0.4 mg/dl (0.2-1.0) 11/02/21 05:55 Direct Bilirubin 0.7 mg/dl (0-0.2) H 10/30/21 06:15 AST 21 U/L (13-39) 11/02/21 05:55 ALT 47 U/L (7-52) 11/02/21 05:55 Alkaline Phosphatase 153 U/L (34-104) H 11/02/21 05:55 C-Reactive Protein 20.15 mg/dl (0-0.5) H 10/28/21 22:54 Total Protein 6.6 gm/dl (6.0-8.3) 11/02/21 05:55 Albumin 3.5 gm/dl (3.4-5.0) 11/02/21 05:55 Globulin 3.1 gm/dl (2.5-4.0) 11/02/21 05:55 Albumin/Globulin Ratio 1.1 (0.9-2) 11/02/21 05:55 Urine Color Dark Yellow 10/30/21 10:00 Urine Appearance Clear (Clear) 10/30/21 10:00 Urine pH 5.0 (4.5-7.5) 10/30/21 10:00 Ur Specific [place] 1.030 (1.000-1.030) 10/30/21 10:00 Urine Protein 1+ (Negative) H 10/30/21 10:00 Urine Glucose (UA) Negative (Negative) 10/30/21 10:00 Urine Ketones Trace (Negative) H 10/30/21 10:00 Urine Blood Negative (Negative) 10/30/21 10:00 Urine Nitrite Negative (Negative) 10/30/21 10:00 Urine Bilirubin 1+ (Negative) H 10/30/21 10:00 Urine Urobilinogen Positive (Negative) H 10/30/21 10:00 Ur Leukocyte Esterase Negative (Negative) 10/30/21 10:00 Urine WBC (Auto) 1-5 /hpf (0-5) 10/30/21 10:00 Urine RBC (Auto) 0-4 /hpf (0-4) 10/30/21 10:00 U Hyaline Cast (Auto) 0 /lpf (0-5) 10/30/21 10:00 U Epithel Cells (Auto) 0-5 /lpf (0-5) 10/30/21 10:00 Urine Bacteria (Auto) Negative (Negative) 10/30/21 10:00 Vancomycin Trough 6.2 mcg/ml (10-20) L 11/01/21 08:18 HIV 1&2 Ab/P24 Ag 4thGn Neg (Neg) 10/30/21 15:15 SARS-CoV-2, RNA, NAAT NEGATIVE (NEGATIVE) 10/29/21 00:00 Impressions Abdomen/Pelvis CT 10/28/21 23:[address] WITH IV CONTRAST CT DOSE: 1336.57 mGy.cm HISTORY: Acute pain and swelling of the right buttock with possible abscess. right buttock swelling/pain, hx. abscess TECHNIQUE: Multiaxial CT images of the abdomen and pelvis were performed following the IV administration of 94 cc of Optiray, A dose lowering technique was utilized adhering to the principles of ALARA. COMPARISON STUDY: CT abdomen and pelvis 12/22/2020 FINDINGS: Clear lung bases. No pneumatosis or pneumoperitoneum. The imaged inferior cardiac chambers are unremarkable. The spleen, pancreas, gallbladder, adrenal glands and liver appear unremarkable. The kidneys are within normal limits. Coarse calcifications of the prostate. Partial distention of the urinary bladder. Aorta and IVC are unremarkable. Retroaortic left renal vein. No adenopathy. There is no bowel obstruction or bowel wall thickening. Appendectomy. There is perianal inflammatory stranding. Peripherally enhancing perianal abscess is noted within the 4:00 to 7:00 position of the posterior perianal tissues. There is an adjacent 1.9 cm right-sided perianal fistula which appears to be intersphincteric on image 91 series 2. The abscess with adjacent fistula conglomerate measures up to approximately 2.4 x 2.3 x 3.2 cm. No supralevator extension. Inflammatory stranding extends into the medial gluteal folds. No acute fracture. Mild lumbar levoscoliosis. IMPRESSION: 1. 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 No supralevator extension. 2. No bowel obstruction. 3. Appendectomy. ACT 112: Negative or not required by law. The above report was generated using voice recognition software. It may contain grammatical, syntax or spelling errors. Electronically signed by: Will Swartz M.D. 10/29/2021 8:05 AM Hospital Course (1) Perianal abscess: 31 year old male with hx of large bilateral perirectal abscess requiring surgical drainage x 2 and antibiotics in 2019, currently stable s/p surgical drainage. 1. Perianal abscess - s/p surgical drainage (11/01): pain resolved, afebrile - WBC stable, 13.60 - IV amp/sulbactam and vanc in hospital, switch to PO Augmentin for discharge - CT abdomen/pelvis on admission shows perirectal abscess; repeat CT not ne cessary - potential etiology: HIV negative; ?perianal herpes; ?anorectal fistula - f/u with Dr. Barahona on 11/08, may evaluate for potential anorectal fistula; consider chronic herpes ppx 2. Elevated liver function tests: - No abdominal pain, no RUQ tenderness noted on exam, no noted jaundice, CT abdomen/pelvis with normal liver and gallbladder - AST, ALT are WNL. - ALP elevated (153); would recheck for resolution during PCP f/u - known history of alcohol use disorder, although these elevations are likely reactive since similar to past instance of perianal abscess. 3. Constipation, resolved - BM this morning with miralax 4. Depression - Continue Sertraline 100mg po daily 5. Current smoker: - Declined nicotine patch at this time but is considering quitting smoking (2) Sepsis: (3) Elevated liver function tests: (4) Depression: Total Time Total Time Spent Total Time Spent (In Minutes): 30 Discharge Plan Discharge Items Patient Disposition: Home - Self-Care Reason For Visit: PERIRECTAL ABSCESS, PAIN Discharge Diagnosis: perirectal abscess Activity: As commented below Lifting: No more than 25 pounds Bathing Comment: ok to shower, also do sitz baths 3-4 times daily Driving/Machine Use: Resume 1 day after discharge Non-emergency contact: Primary Care Provider and Surgeon Call non-emergency contact if: you have any medication questions, your pain is not controlled, you have a fever and your wound has increased drainage Follow-up/Referrals: Bill Barahona DO [Surgeon] - 11/08/21 11:00 am (Call to be seen in clinic next Monday11/08/21) Angeles Jay CRNP [Primary Care Provider] - Diet: Regular Addtl Attending Provider Instructions: You were admitted to the hospital for perianal abscess. You were treated with antibiotics and the abscess was drained. A discharge summary will be sent to your primary care physician to ensure continuity of care. Please bring this discharge summary with you to your next office appointment so that your provider can review it at that time. Follow-up appointments: Make a follow-up appointment with your PCP within the next week. It is very important that you follow up with them shortly after discharge from the hosp ital. We have requested a follow-up appointment with your primary care physician within one week of discharge. Please call their office if you do not hear from them. Medications: Your medication list has been reviewed and reconciled upon discharge to ensure accuracy and continuity of care. An updated list of all your medications is included with your hospital discharge paperwork. Please review this list closely,and make note of any changes. Take your medications as instructed; do not skip a dose of your medicines. Make sure all of your doctors know every medicine you are taking (including [id number] medicines, vitamins,and supplements). Call your primary care provider before taking any new medicines (including [id number] medicines, vitamins, and supplements),because some of these may interact with your current medications, or may make your symptoms worse. Tell your primary care provider if you cannot afford your medications. CONTACT YOUR PRIMARY CARE PROVIDER if you experience any of the following: Fever, increased pain near surgical site Difficulty following your treatment plan, or difficulty taking medications. CALL 911 OR GO TO THE EMERGENCY DEPARTMENT if you experience any of the following: Sudden, severe abdominal pain or nausea/vomiting Severe chest pain, or chest pain that radiates (moves)to your jaw or arm Sudden, severe shortness of breath or difficulty breathing Thank you for allowing us to participate in your care. Addtl Activities Director [employer]outing Provider Instructions: do not go to work until you see me for f/u in 1 week. employer please excuse any absences until follow up. Pending Studies at Discharge: Yes Stand-Alone Forms: My [facility] [place] [facility], Opioid Pain Management, Work/School Release, Smoking Cessation Medications and DC Order Prescriptions: New amoxicillin-pot clavulanate [Augmentin] 875-125 mg tablet 1 tab PO BID Qty: 10 RF: 0 oxycodone-acetaminophen [Percocet] 5-325 mg tablet 1 - 2 tab PO Q4H PRN (Reason: pain, initial therapy, max 6 daily) Qty: 12 RF: 0 Continued multivitamin Tablet 1 tab PO QAM RF: 0 ascorbic acid (vitamin C) [Vitamin C] 1,000 mg Tablet 1,000 mg PO QAM RF: 0 sertraline 100 mg Tablet 100 mg PO QAM Qty: 30 RF: 3 ondansetron 4 mg tablet,disintegrating 4 mg PO Q6H PRN (Reason: nausea and vomiting) Qty: 10 RF: 0 cholecalciferol (vitamin D3) [Vitamin D3] 50 mcg (2,000 unit) Capsule 50 mcg PO QAM RF: 0 Discharge Orders: Discharge Order (Routine); Ordered 11/02/21 Ordered By: Ben Graham Admission Data Admit Date/Time: 10/29/21 01:48 Attending Provider: Andrew Harkins Admit Provider: Shameka Lorenzo Primary Care Provider: Angeles Jay Other Providers: Shameka Lorenzo ; Bill Barahona Other Interventions: Discharge Summary Assessment (RN) Last Done: 11/02/21 09:50 Supervising Physician Co-Signing Physician Notes I personally examined the patient and verified all poon points of history and exam, discussed case, and agree with decision making with P Rene MS4 pain still good, wants to go home. no new complaints. appreciate surgical input. vitals ntoed nad heent nc at mmm breathing unalbored no accessory muscles good effort skin no rashes no pallor or icterus perirectal abscess w sepsis present on admission - improving. drained. pain controlled.stable for home. outpt surgical f/u otherwise as above Resident Activity Tracking Resident Involvement: Resident Care Provided Care Provided: Adult Hospital Medicine
--- NOTE | 2021-11-02 16:58 | Billing Data ---
Date of Service November 02, 2021 Coding Level of Care Code D/C DAY MANAGEMENT <30 MINS
[2021-11-03] MEDS ORDERED: VANCOMYCIN TROUGH ONE (05:30)
== END 2021-11-02 12:36 | disposition home or self-care (01) | DRG 872 ==
LOC: ED 22:37 → SUATTDRO 10-29 01:48 → 3N 10-29 01:48
DX: K59.00 Constipation, unspecified; M10.9 Gout, unspecified; F32.A Depression, unspecified; Z86.16 Personal history of COVID-19; E66.9 Obesity, unspecified; K62.89 Other specified diseases of anus and rectum; F17.210 Nicotine dependence, cigarettes, uncomplicated; Z83.3 Family history of diabetes mellitus; K61.0 Anal abscess; A41.9 Sepsis, unspecified organism; Z68.36 Body mass index [BMI] 36.0-36.9, adult

== ENCOUNTER 2022-07-06 18:38 | Inpatient (IN) ==
[2022-07-06 19:38] LABS: Basophils % (auto) 0.7 %; Eosinophils % (auto) 1.3 %; Hematocrit (blood only) 38.9 % (40.1-51.0); Hemoglobin 13.1 g/dl (14.0-18.0); Immature Granulocytes # (auto) 0.14 K/uL (0.00-0.02); Immature Granulocytes % (auto) 0.9 %; Lymphocytes # (auto) 3.14 K/uL (1.2-3.4); Lymphocytes % (auto) 20.6 %; Mean Corpuscular Hemoglobin 27.1 pg (25.0-34.0); Mean Corpuscular Hgb Conc 33.7 g/dL (32.0-36.0); Mean Corpuscular Volume 80.4 fL (80.0-100.0); Mean Platelet Volume 9.4 fL (9.4-12.4); Monocytes % (auto) 7.2 %; Neutrophils # (auto) 10.58 K/uL (1.4-6.5); Neutrophils % (auto) 69.3 %; Platelet Count 361 K/uL (130-400); RDW Coefficient of Variation 13.1 % (11.5-14.5); RDW Standard Deviation 37.6 fL (36.4-46.3); Red Blood Count 4.84 M/uL (4.63-6.08); White Blood Count 15.26 K/ul (4.8-10.8)
[2022-07-06 19:43] LABS: Appearance Urine Clear (Clear); Bilirubin Urine Negative (Negative); Blood Urine Negative (Negative); Color Urine Yellow; Glucose Urine UA Negative (Negative); Ketones Urine Negative (Negative); Leukocyte Esterase Urine Negative (Negative); Nitrite Urine Negative (Negative); Protein Urine Negative (Negative); Specific Gravity Urine 1.014 (1.000-1.030); Urobilinogen Urine Negative (Negative)
[2022-07-06 19:56] LABS: Albumin Globulin Ratio 1.4 (0.9-2); Albumin Level 4.3 gm/dl (3.4-5.0); BUN Creatinine Ratio 13.8 (10-20); Bilirubin,Total 0.7 mg/dl (0.2-1.0); Calcium 9.6 mg/dl (8.5-10.1); Creatinine Clr Calc Pharmacy 132.5 ml/min; Est GFR (African American) 123.8 ml/min; Est GFR (Non-African American) 106.9 ml/min; Potassium 3.5 mmol/L (3.5-5.1); Total Protein 7.3 gm/dl (6.0-8.3)
[2022-07-06] MEDS ORDERED: SODIUM CHLORIDE 0.9% 1000ML 2,000 ML IV ONE (20:46)
[2022-07-06] MEDS ORDERED: ONDANSETRON INJ 2 MG/ML 2 ML VIAL IV STA (20:46)
[2022-07-06] MEDS ORDERED: MoRPHine SULFATE 4 MG/ML 1 ML CARP\\VIAL IV PRN ×2 (20:46→23:11)
[2022-07-06] MEDS ORDERED: MoRPHine SULFATE 4 MG/ML 1 ML CARP\\VIAL IV STA (20:46)
[2022-07-06] MEDS ORDERED: PIPERACILLIN/TAZOBACTAM 4.5 GM in DEXTROSE 5% 100 ML IV ONE (20:46)
[2022-07-06] MEDS ORDERED: PIPERACILLIN/TAZOBACTAM 4.5 GM/120ML D5W IV ONE (21:01)
--- NOTE | 2022-07-06 21:01 | Emergency Department Note ---
Impression & Plan Perirectal abscess, Rectal pain, Leukocytosis ED Provider Note NAME: SADE NUÑEZ AGE: 31 SEX: M : 1990 ARRIVES VIA: Walk-In INFORMANT: [Patient] ED PROVIDER(S): [Orlando Fowler MD] CHIEF COMPLAINT: Skin problem HISTORY OF PRESENT ILLNESS: The patient is a 31-year-old male who presents to the ER with 2 or 3 days of increasing right-sided rectal pain. Patient was discharged from our hospital 3 days ago after being diagnosed with mono. Since discharge, the pain has been worsening. The pain is a 9/10. The patient has a history of perirectal abscesses, he is concerned that he has another. He has had previous surgery to drain the abscesses. The patient has had a fever, temperature was 102.6. No nausea or vomiting. No abdominal pain. No cough or congestion or respiratory complaints. REVIEW OF SYSTEMS: See HPI for pertinent positives and negatives. A total of ten systems were reviewed and were otherwise negative. PMHx/PSHx: See Below SOCIAL HISTORY: See Below. PHYSICAL EXAM: GENERAL: Patient is in no acute distress. HEENT: No acute trauma, normocephalic atraumatic, mucous membranes moist, no nasal congestion, no scleral icterus. NECK: No stridor, no adenopathy, no meningismus, trachea is midline. LUNGS: Clear to auscultation bilaterally, no wheeze, no rhonchi, breath sounds equal. HEART: Mildly tachycardic, regular rhythm, no murmurs. ABDOMEN: Soft, nontender, bowel sounds positive, no peritonitis. EXTREMITIES: No cyanosis or edema, full range of motion of all the joints without pain or difficulty, no signs for acute trauma. NEUROLOGIC: Oriented x 3, no acute motor or sensory deficits, no focal weakness. SKIN: No rash, no jaundice, no diaphoresis. Rectal:. This exam was performed with his sister in the room. The patient has a fullness to the right perirectal area, this fullness is tender. There is no drainage. DIFFERENTIAL DIAGNOSIS: Perirectal abscess, fistula, sepsis, bacteremia, colitis, proctitis, hemorrhoid, electrolyte imbalance, dehydration, among others. EMERGENCY DEPARTMENT COURSE/PROCEDURES: MEDICAL DECISION MAKING: There is a moderate leukocytosis, this would be consistent with infection. A very mild anemia was noted. There was a normal platelet count. No renal failure or significant electrolyte abnormality. Lactic acid level was not elevated making severe sepsis less likely. There were some liver enzyme elevations although, the bilirubin was normal. Urinalysis did not show infection. COVID test returned negative. Abdominal and pelvis CT does show a right-sided perirectal abscess. Patient received IV morphine for pain, he was given IV Dilaudid for pain. He received 2 L of IV saline. He received IV Zosyn. He received IV Zofran. He was given IV Tylenol. The patient presents with rectal pain. He has a history of perirectal abscess. He does have another perirectal abscess based on exam and based on his CT imaging. I spoke with general surgery. The patient was seen by surgery here in the ED. He is being hospitalized for surgical intervention tomorrow. I did speak with case management, the patient is aware of all his findings. Past Med/Surg History Medical History Asthma Bursitis COVID-19 Depression Deviated nasal septum Elevated blood uric acid level Elevated liver enzymes IN THE PAST (NOW WNL) Fever Gout Leg pain, right Obesity Sciatica Sleep apnea NO DEVICE Surgical History History of appendectomy History of esophageal dilatation History of esophagogastroduodenoscopy (EGD) History of incision and drainage (11/01/21) Perirectal Abscess - Bill Barahona, DO 11/01/2021 History of removal of skin mole History of tooth extraction [place] teeth removed Family History Father Multiple sclerosis Father Family history of ITP Aunt Family history of diabetes mellitus Social History Smoking Status: Never smoker Tobacco Type: Cigarettes Cigarettes Per Day: 5-10; Second Hand Exposure: Yes; Hx Alcohol Use: Yes Alcohol type: wine Hx Substance Use: No Preferred Language: French Communication Ability: Effective Visual Impairment: No Limitations Hearing Ability: Normal Animal Nutrition Teacher Required: No Beliefs That Will Affect Care: None Current Living Situation: Alone Current Living Situation Comment: roomate Feels Safe at Home: Yes Assistive Devices: None Allergies Allergies Allergy/AdvReac Type Severity Reaction Status Date / Time No Known Allergies Allergy Verified 07/06/22 21:44 Home Meds Previous Rx's Medication Instructions Recorded sertraline 100 mg tablet 100 mg PO QAM #30 tabs 08/04/20 ondansetron 4 mg disintegrating 4 mg PO Q6H PRN nausea and 03/21/21 tablet vomiting #10 tabs Results & Data (ED) Vital Signs Vital Signs - 24 hr 07/06/22 18:58 07/06/22 21:33 Temperature 37 C Temperature Source Temporal Artery Scan Pulse Rate 132 H Pulse Rate [Right Finger] 102 H Respiratory Rate 20 16 Respiratory Effort / Characteristics Non-Labored Spontaneous Respiratory Depth Normal Blood Pressure 131/83 Blood Pressure [Right Arm] 132/82 Blood Pressure Mean 99 Blood Pressure Mean [Right Arm] 98 Blood Pressure Position Sitting Pulse Oximetry 99 98 Oxygen Delivery Method Room Air Room Air Sepsis Recent Fever Within 48 Hours Yes Sepsis New/Unexplained Change in Mental Status No Sepsis Action Taken by Nursing No Action Required Home Medications Current Medication List: was personally reviewed by me Laboratory Data Attestation: I reviewed the patient's lab results. Result diagrams: 07/06/22 19:24 07/06/22 19:24 Lab Results 07/06/22 07/06/22 07/06/22 Range/Units 19:24 19:24 19:24 WBC 15.26 H (4.8-10.8) K/ul RBC 4.84 (4.63-6.08) M/uL Hgb 13.1 L (14.0-18.0) g/dl Hct 38.9 L (40.1-51.0) % MCV 80.4 (80.0-100.0) fL MCH 27.1 (25.0-34.0) pg MCHC 33.7 (32.0-36.0) g/dL RDW Std Deviation 37.6 (36.4-46.3) fL RDW Coeff of Lobo 13.1 (11.5-14.5) % Plt Count 361 (130-400) K/uL MPV 9.4 (9.4-12.4) fL Immature Gran % (Auto) 0.9 % Neut % (Auto) 69.3 % Lymph % (Auto) 20.6 % Haines % (Auto) 7.2 % Eos % (Auto) 1.3 % Baso % (Auto) 0.7 % Neut # (Auto) 10.58 H (1.4-6.5) K/uL Lymph # (Auto) 3.14 (1.2-3.4) K/uL Haines # (Auto) 1.10 H (0.24-0.82) K/uL Eos # (Auto) 0.20 (0-0.50) K/uL Baso # (Auto) 0.10 (0-0.2) K/uL Immature Gran # (Auto) 0.14 H (0.00-0.02) K/uL Sodium 133 L (136-145) mmol/L Potassium 3.5 (3.5-5.1) mmol/L Chloride 98 (98-107) mmol/L Carbon Dioxide 24 (21-32) mmol/L Anion Gap 11 (3-11) BUN 13 (6-23) mg/dl Creatinine 0.94 (0.6-1.4) mg/dl Est Cr Clr Drug Dosing 132.5 ml/min Est GFR ( Amer) 123.8 ml/min Est GFR (Non-Af Amer) 106.9 ml/min BUN/Creatinine Ratio 13.8 (10-20) Glucose 112 H (70-99(Fasting)) mg/dl Lactate (0.4-2.0) mmol/L Calcium 9.6 (8.5-10.1) mg/dl Total Bilirubin 0.7 (0.2-1.0) mg/dl AST 26 (13-39) U/L ALT 130 H (7-52) U/L Alkaline Phosphatase 225 H (34-104) U/L Total Protein 7.3 (6.0-8.3) gm/dl Albumin 4.3 (3.4-5.0) gm/dl Globulin 3.0 (2.5-4.0) gm/dl Albumin/Globulin Ratio 1.4 (0.9-2) Urine Color Yellow Urine Appearance Clear (Clear) Urine pH 5.0 (4.5-7.5) Ur Specific [place] 1.014 (1.000-1.030) Urine Protein Negative (Negative) Urine Glucose (UA) Negative (Negative) Urine Ketones Negative (Negative) Urine Blood Negative (Negative) Urine Nitrite Negative (Negative) Urine Bilirubin Negative (Negative) Urine Urobilinogen Negative (Negative) Ur Leukocyte Esterase Negative (Negative) SARS-CoV-2, RNA, NAAT (NEGATIVE) 07/06/22 07/06/22 Range/Units 20:56 21:19 WBC (4.8-10.8) K/ul RBC (4.63-6.08) M/uL Hgb (14.0-18.0) g/dl Hct (40.1-51.0) % MCV (80.0-100.0) fL MCH (25.0-34.0) pg MCHC (32.0-36.0) g/dL RDW Std Deviation (36.4-46.3) fL RDW Coeff of Lobo (11.5-14.5) % Plt Count (130-400) K/uL MPV (9.4-12.4) fL Immature Gran % (Auto) % Neut % (Auto) % Lymph % (Auto) % Haines % (Auto) % Eos % (Auto) % Baso % (Auto) % Neut # (Auto) (1.4-6.5) K/uL Lymph # (Auto) (1.2-3.4) K/uL Haines # (Auto) (0.24-0.82) K/uL Eos # (Auto) (0-0.50) K/uL Baso # (Auto) (0-0.2) K/uL Immature Gran # (Auto) (0.00-0.02) K/uL Sodium (136-145) mmol/L Potassium (3.5-5.1) mmol/L Chloride (98-107) mmol/L Carbon Dioxide (21-32) mmol/L Anion Gap (3-11) BUN (6-23) mg/dl Creatinine (0.6-1.4) mg/dl Est Cr Clr Drug Dosing ml/min Est GFR ( Amer) ml/min Est GFR (Non-Af Amer) ml/min BUN/Creatinine Ratio (10-20) Glucose (70-99(Fasting)) mg/dl Lactate 0.9 (0.4-2.0) mmol/L Calcium (8.5-10.1) mg/dl Total Bilirubin (0.2-1.0) mg/dl AST (13-39) U/L ALT (7-52) U/L Alkaline Phosphatase (34-104) U/L Total Protein (6.0-8.3) gm/dl Albumin (3.4-5.0) gm/dl Globulin (2.5-4.0) gm/dl Albumin/Globulin Ratio (0.9-2) Urine Color Urine Appearance (Clear) Urine pH (4.5-7.5) Ur Specific [place] (1.000-1.030) Urine Protein (Negative) Urine Glucose (UA) (Negative) Urine Ketones (Negative) Urine Blood (Negative) Urine Nitrite (Negative) Urine Bilirubin (Negative) Urine Urobilinogen (Negative) Ur Leukocyte Esterase (Negative) SARS-CoV-2, RNA, NAAT NEGATIVE (NEGATIVE) Administered Medications Morphine Sulfate (Morphine Sulfate 4 Mg/Ml 1 Ml Carp\Vial) 4 mg IV Q3H PRN PRN Reason: Pain Stop: 07/20/22 23:10 Last Admin: 07/06/22 23:49 Dose: 4 mg Documented By: BURT Discontinued Medications Hydromorphone HCl (Hydromorphone Inj 1 Mg/Ml Syringe) 1 mg IV NOW STA Stop: 07/06/22 22:11 Last Admin: 07/06/22 22:16 Dose: 1 mg Documented By: COREYW Piperacillin Sod/Tazobactam (Sod 4.5 gm/ Dextrose) 120 mls @ 200 mls/hr IV NOW ONE; Protocol Stop: 07/06/22 21:21 Last Admin: 07/06/22 21:09 Dose: Not Given Documented By: ASW Sodium Chloride (Nss 1000ml) 2,000 mls @ 999 mls/hr IV .Q2H1M ONE Stop: 07/06/22 22:46 Last Admin: 07/06/22 20:59 Dose: 999 mls/hr Documented By: ASW Ioversol (Ioversol 350 Mg 100ml Prefilled Syringe) 94 ml IV ONCE ONE Stop: 07/06/22 22:02 Last Admin: 07/06/22 22:01 Dose: 94 ml Documented By: LETICIA Morphine Sulfate (Morphine Sulfate 4 Mg/Ml 1 Ml Carp\Vial) 4 mg IV NOW STA Stop: 07/06/22 20:47 Last Admin: 07/06/22 20:59 Dose: 4 mg Documented By: ASW Morphine Sulfate (Morphine Sulfate 4 Mg/Ml 1 Ml Carp\Vial) 4 mg IV Q30M PRN PRN Reason: Pain Stop: 07/20/22 20:45 Last Admin: 07/06/22 21:38 Dose: 4 mg Documented By: ASW Ondansetron HCl (Ondansetron Inj 2 Mg/Ml 2 Ml Vial) 4 mg IV NOW STA Stop: 07/06/22 20:47 Last Admin: 07/06/22 20:59 Dose: 4 mg Documented By: ASW Piperacillin Sod/Tazobactam Sod (Piperacillin/Tazobactam 4.5 Gm/120ml D5w) Confirm Administered Dose 4.5 gm IV .STK-MED ONE Stop: 07/06/22 21:02 Last Admin: 07/06/22 21:09 Dose: 4.5 gm Documented By: ASW Imaging Data Radiologist's Impression: Abdominal and pelvis CT with IV contrast: There is a bilobed horseshoe-shaped pe rirectal abscess along the posterior aspect of the anal sphincter extending partially into the right buttock measuring 3.5 cm in diameter. This is located inferior to the anal sphincter and does not extend up into the perirectal fat planes. Discharge Plan Visit Data Chief Complaint: Skin Problem Stated Complaint: RECTAL PAIN,PERIRECTAL ABSCESS, FEVER ED Provider: Orlando Fowler Discharge Problem: Perirectal abscess, Rectal pain, Leukocytosis Patient Disposition: Admitted As Inpatient Condition: Fair Forms Stand Alone Forms: [facility] Prescriptions Prescriptions: No Action sertraline 100 mg Tablet 100 mg PO QAM Qty: 30 3RF ondansetron 4 mg tablet,disintegrating 4 mg PO Q6H PRN (Reason: nausea and vomiting) Qty: 10 0RF Referrals Referrals: Angeles Jay CRNP [Primary Care Provider] -
[2022-07-06] MEDS ORDERED: IOVERSOL 350 MG 100mL Prefilled Syringe IV ONE (22:01)
[2022-07-06] MEDS ORDERED: HYDROmorphone INJ 1 MG/ML SYRINGE IV STA (22:10)
--- NOTE | 2022-07-06 22:53 | History & Physical Report ---
Date of Service July 06, 2022 Assessment & Plan (1) Perianal abscess: Plan: Due to the patient's clinical presentation and findings on imaging he will be admitted to the hospital, proceeding as follows: Analgesics we provided Antiemetics will be provided We will allow the patient a diet at this time but make him n.p.o. after midnight IV fluid will be provided for hydration The patient has received antibiotics in the form of Zosyn which we will continue Blood cultures have been sent and we will follow for the results of these We are tentatively planning on performing a exam under anesthesia as well as incision and drainage of perirectal abscess on 07/07/[address] Bunch Additional recommendations were made based on operative findings and patient's postoperative course Will use SCDs for DVT prevention, no chemical means due to planned surgery He will be a level 1 full code History of Present Illness Chief Complaint: Perirectal abscess Primary Care Provider: Angeles Jay This is a 31-year-old male who is known to the [facility] physician group general surgery service. The patient has a complicated history of perirectal abscesses. The patient underwent an I&D of perirectal abscess by Dr. Barahona on 07/31/2020. He required a repeat I&D of a perirectal abscess on 08/02/2020. Following the second I&D the patient was doing well but again developed a perirectal abscess requiring incision and drainage on 11/01/2021, again performed by Dr. Barahona. Following this procedure the patient followed up with Dr. Barahona in November 2021 where his perirectal abscesses were noted to be resolved. Due to the recurrent nature of this problem however Dr. Barahona felt referral to a colorectal specialist was indicated. Patient ultimately saw Dr. Krueger, of [facility] in January 2022. At that time Dr. Krueger recommended patient undergo an exam under anesthesia as well as a flexible sigmoidoscopy to evaluate for possible fistulous. Patient notes that he underwent these procedures in April of this year and no fistulas were found. Patient notes that he was doing well following this procedure however approximately 2 weeks ago the patient began feeling feverish and he was diagnosed with mono. The patient says that he has felt feverish as well as generally fatigued since not being diagnosed with mono in approximately 24 to 48 hours ago he began to experience rectal pain which was similar to what he experienced when he had previous perirectal abscesses. He says that he has been having pain with bowel movements and he is having fevers as high as 102.6. He denies any drainage from his rectum. He denies any dysuria or hematuria. He denies any nausea or vomiting. He does note some generalized fatigue as noted above. Because of this symptomatology and history of pararectal abscesses he presented to the emergency department. In the emergency department patient had labs and imaging which independent reviewed. He underwent a CT scan of the abdomen pelvis that showed a bilobed horseshoe-shaped perirectal abscess along the posterior aspect of the inner sphincter. This appeared to extend in the right buttocks and measured approximately 3.5 cm in diameter.Labs include a CBC her white blood cell count was 15.2. Hemoglobin and hematocrit were 13.1 and 38.9. Platelet count is within normal range. Chemistry profile showed sodium was 133 with a normal potassium. BUN and creatinine were 13 and 0.9. Lactic acid level was not elevated. Urinalysis was not indicative of infection. A COVID test was negative. At the time of my interview the patient was resting comfortably in bed and he was in no distress. Allergies Allergy/AdvReac Type Severity Reaction Status Date / Time No Known Allergies Allergy Verified 07/06/22 21:44 Home Medications Medication Instructions Recorded Confirmed Type sertraline 100 mg tablet 100 mg PO QAM #30 tabs 08/04/20 07/06/22 Rx ondansetron 4 mg disintegrating 4 mg PO Q6H PRN nausea and 03/21/21 07/06/22 Rx tablet vomiting #10 tabs Past Med/Surg History Medical History Asthma Bursitis COVID-19 Depression Deviated nasal septum Elevated blood uric acid level Elevated liver enzymes IN THE PAST (NOW WNL) Fever Gout Leg pain, right Obesity Sciatica Sleep apnea NO DEVICE Surgical History History of appendectomy History of esophageal dilatation History of esophagogastroduodenoscopy (EGD) History of incision and drainage (11/01/21) Perirectal Abscess - Bill Barahona DO 11/01/2021 History of removal of skin mole History of tooth extraction [place] teeth removed Family History Father Multiple sclerosis Father Family history of ITP Aunt Family history of diabetes mellitus Social History Smoking Status: Current every day smoker Tobacco Type: Cigarettes Cigarettes Per Day: 5-10; Second Hand Exposure: Yes; Hx Alcohol Use: Yes Alcohol type: wine Hx Substance Use: No Preferred Language: Armenian Communication Ability: Effective Visual Impairment: No Limitations Hearing Ability: Normal Transplant Immunologist Required: No Beliefs That Will Affect Care: None Current Living Situation: Alone Current Living Situation Comment: roomate Other Information That Helps Us Care for You: No Feels Safe at Home: Yes Safety Concerns: Feels Safe At This Time Assistive Devices: None Review of Systems Constitutional: + fever, + chills and + fatigue Eyes: no eye pain Ear, Nose, Mouth, Throat: no ear pain Respiratory: no cough and no dyspnea Cardiovascular: no chest pain Gastrointestinal: no abdominal pain, no nausea and no vomiting Genitourinary: no dysuria Musculoskeletal: no back pain Integumentary: no rash Neurologic: no localized weakness Physical Exam Physical Exam: The patient's rectal area and perineum were examined. The patient had tenderness noted with palpation of the anus on the right lateral aspect along with the right buttocks in close proximity to the anus. A portion of his buttocks did feel somewhat hard and indurated but there were no areas of fluctuance. There are no open areas or areas of drainage. There is no crepitus noted in the soft tissue. There is no erythema noted. I was unable to perform a complete rectal examination due to pain the patient was experiencing. There were no black areas or areas of eschar. Constitutional: WD/WN, vitals as above Eyes: no conjunctival abnormality ENMT: Ears: no hearing impairment and no external ear abnormality Mouth: no oropharynx abnormality Neck: trachea midline Respiratory: normal respiratory effort; no respiratory distress and no labored breathing Cardiovascular: Rate/Rhythm: regular rate and regular rhythm Gastrointestinal (Abdomen): Abdomen is soft, nonrigid, nondistended, nontender to palpation Musculoskeletal: No calf tenderness Skin: no rashes Neurologic: moves all extremities Psychiatric: A+Ox3, euthymic affect Results & Data Results & Data ([facility]) Vital Signs (Past 12 Hours) Vital Signs Temp Pulse Pulse Resp BP BP Pulse Ox 07/06/22 21:33 102 H 16 132/82 98 07/06/22 18:58 37 C 132 H 20 131/83 99 O2 Del Method 07/06/22 21:33 Room Air 07/06/22 18:58 Room Air Supervising Physician Co-Signing Physician Notes I personally saw and evaluated the patient with Kwaku Carmona PA-C and agree with the assessment and plan. 31-year-old male with recurrent perianal/rectal abscess CT images and results personally viewed by me, he has a complex fluid collection consistent with abscess in the right perirectal/perianal tissues Will admit to the surgery service, keep n.p.o., start IV antibiotics We will plan on incision and drainage of perirectal abscess in the OR tomorrow PG Care Time/CCT Total # of Minutes Spent Total Time Spent with Patient: Total time spent is greater than 50% in coordination of care (as documented) at patient's floor/unit and/or counseling patient: Coding Level of Care Code 28513 Initial Inpt Care Lvl 3 Diagnoses Perianal abscess K61.0
[2022-07-06] MEDS ORDERED: ACETAMINOPHEN 1,000 MG/100 ML VIAL IV PRN (23:11)
[2022-07-06] MEDS ORDERED: ONDANSETRON INJ 2 MG/ML 2 ML VIAL IV PRN (23:11)
[2022-07-07] MEDS: HYDROmorphone INJ 0.5 MG/0.5 ML SYR IV PRN ×3 (01:29→10:48)
[2022-07-07] MEDS: LACTATED RINGER'S 1,000 ML IV SCH ×3 (01:30→14:33)
[2022-07-07] MEDS: PIPERACILLIN/TAZOBACTAM 3.375 GM in DEXTROSE 5% 100 ML IV SCH ×3 (01:31→17:15)
[2022-07-07] MEDS ORDERED: HYDROmorphone INJ 0.5 MG/0.5 ML SYR IV STA (06:10)
[2022-07-07 06:47] LABS: Basophils # (auto) 0.06 K/uL (0-0.2); Basophils % (auto) 0.4 %; Eosinophils # (auto) 0.22 K/uL (0-0.50); Eosinophils % (auto) 1.5 %; Hematocrit (blood only) 36.6 % (40.1-51.0); Hemoglobin 12.3 g/dl (14.0-18.0); Immature Granulocytes # (auto) 0.11 K/uL (0.00-0.02); Immature Granulocytes % (auto) 0.8 %; Lymphocytes # (auto) 2.41 K/uL (1.2-3.4); Lymphocytes % (auto) 16.6 %; Mean Corpuscular Hgb Conc 33.6 g/dL (32.0-36.0); Mean Corpuscular Volume 80.3 fL (80.0-100.0); Mean Platelet Volume 9.8 fL (9.4-12.4); Monocytes % (auto) 8.3 %; Neutrophils # (auto) 10.53 K/uL (1.4-6.5); Neutrophils % (auto) 72.4 %; Platelet Count 307 K/uL (130-400); RDW Coefficient of Variation 13.2 % (11.5-14.5); Red Blood Count 4.56 M/uL (4.63-6.08); White Blood Count 14.53 K/ul (4.8-10.8)
[2022-07-07 07:20] LABS: Calcium 9.4 mg/dl (8.5-10.1); Creatinine Clr Calc Pharmacy 133.4 ml/min; Est GFR (African American) 114.9 ml/min; Est GFR (Non-African American) 99.1 ml/min; Potassium 4.1 mmol/L (3.5-5.1)
--- NOTE | 2022-07-07 07:35 | Anesthesiology Consultation ---
Date of Service July 07, 2022 Assessment & Plan (1) Encounter for pre-operative examination: Chart Review Chart Review: Acceptable Risk for Surgery and Patient NOT seen in Pre Admission Testing Consults Requested none History Surgery Operation Date: 07/07/22 08:30 Proposed Procedures p Evaluation Under Anesthesia, Incision and Drainage Ingrid Rectal Abscess - Des Bunch DO Height/Weight Height: 5 ft 10 in Weight: 112.8 kg Allergies Allergy/AdvReac Type Severity Reaction Status Date / Time No Known Allergies Allergy Verified 07/06/22 21:44 Medications Home Medications Medication Instructions Recorded Confirmed Last Taken sertraline 100 mg tablet 100 mg PO QAM #30 tabs 08/04/20 07/06/22 07/06/22 ondansetron 4 mg disintegrating 4 mg PO Q6H PRN nausea and 03/21/21 07/06/22 Unknown tablet vomiting #10 tabs Active Medications Generic Name Dose Route Start Last Admin Trade Name Freq PRN Reason Stop Dose Admin Hydromorphone HCl 0.5 mg 07/07/22 00:41 07/07/22 01:29 Hydromorphone Inj 0.5 Mg/0.5 Ml Syr IV 07/21/22 00:40 0.5 mg Q6H PRN Administration Pain Piperacillin Sod/Tazobactam 115 mls @ 28.75 mls/hr 07/07/22 02:00 07/07/22 05:42 Sod 3.375 gm/ Dextrose IV 07/17/22 01:59 Infused Q8H LISA Infusion Protocol Lactated Ringer's 1,000 mls @ 125 mls/hr 07/06/22 23:15 07/07/22 01:30 Lr IV 08/05/22 23:14 125 mls/hr .Q8H LISA Administration Acetaminophen 1,000 mg in 100 mls @ 400 mls/hr 07/06/22 23:11 07/07/22 01:57 Ofirmev IV 07/09/22 23:10 Infused Q8H PRN Infusion Pain Past Medical History Medical History Asthma Bursitis COVID-19 Depression Deviated nasal septum Elevated blood uric acid level Elevated liver enzymes IN THE PAST (NOW WNL) Fever Gout Leg pain, right Obesity Sciatica Sleep apnea NO DEVICE Past Family History Family History Father Multiple sclerosis Father Family history of ITP Aunt Family history of diabetes mellitus Past Surgical History Surgical History History of appendectomy History of esophageal dilatation History of esophagogastroduodenoscopy (EGD) History of incision and drainage (11/01/21) Perirectal Abscess - Bill Barahona DO 11/01/2021 History of removal of skin mole History of tooth extraction [place] teeth removed Social History Smoking Status: Current every day smoker tobacco type: cigarettes Smoking cigarettes per day: 5-10 Hx Alcohol Use: Yes Alcohol type: wine alcohol intake frequency: holidays/special occasions only Hx Substance Use: No substance use type: does not use Physical Exam Vital Signs Last Vital Signs Temp 98.2 F 07/07/22 07:28 Pulse 78 07/07/22 07:28 Resp 17 07/07/22 07:28 BP 105/59 L 07/07/22 07:28 Pulse Ox 98 07/07/22 07:28 O2 Del Method 07/07/22 07:28 Testing Laboratory Results 07/07/22 06:23 07/07/22 06:23 Urine Color Yellow 07/06/22 19:24 Urine Appearance Clear (Clear) 07/06/22 19:24 Urine pH 5.0 (4.5-7.5) 07/06/22 19:24 Ur Specific [place] 1.014 (1.000-1.030) 07/06/22 19:24 Urine Protein Negative (Negative) 07/06/22 19:24 Urine Glucose (UA) Negative (Negative) 07/06/22 19:24 Urine Ketones Negative (Negative) 07/06/22 19:24 Urine Nitrite Negative (Negative) 07/06/22 19:24 Ur Leukocyte Esterase Negative (Negative) 07/06/22 19:24 Electrocardiogram Date: 12/22/20 Findings: + NSR @ (26)
[2022-07-07] MEDS: SERTRALINE HCL 100 MG TABLET PO SCH (07:39)
--- NOTE | 2022-07-07 07:57 | CT Scan Report ---
CT OF THE ABDOMEN AND PELVIS WITH CONTRAST CLINICAL HISTORY: Possible perirectal abscess. COMPARISON STUDY: CT of the abdomen and pelvis October 28, 2021. TECHNIQUE: Following IV administration of 94 mL of Optiray, axial images of the abdomen and pelvis we re obtained from the lung bases to the proximal femurs. Images were reviewed in the axial, sagittal, and coronal planes. IV contrast was administered without complication. Automated exposure control wa s utilized for the study. A dose lowering technique was utilized adhering to the principles of ALARA . CT DOSE: 1244.45 mGy.cm FINDINGS: Lung bases are unremarkable. No pneumatosis, free air or portal venous gas is present. Live r, spleen, adrenal glands, kidneys and pancreas are unremarkable. Is no hydronephrosis. There is no b iliary or pancreatic ductal dilatation. The appendix is surgically absent. There is no evidence for a bowel obstruction. Note is made of a complex multiloculated perianal abscess, slightly increased in size compared to CT of October 28, 2021. This has several components. The largest component is locate d at the 6:00 position and measures 2.5 x 1.6 cm. A component at the 5:00 position measures 3.1 x 0.9 cm. This extends into the right ischioanal fossa. There is a 2.6 x 1.5 cm collection within the righ t ischioanal fossa. Probable associated fistulous track to the medial for the right buttock is noted with adjacent stranding. No supralevator component is noted. IMPRESSION: 1. Complex multiloculated perianal abscess, as described above. The largest component measures 3.5 x 1.6 cm. 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 No supralevator component. 2. No bowel obstruction. No bowel wall thickening. ACT 112: Negative or not required by law. Electronically signed by: Ulysses Ramirez M.D. 07/07/2022 7:55 AM
[2022-07-07] MEDS ORDERED: LIDOCAINE 2% 20 MG/ML 5 ML SYR IV ONE (10:36)
[2022-07-07] MEDS ORDERED: ONDANSETRON INJ 2 MG/ML 2 ML VIAL ONE (10:36)
[2022-07-07] MEDS ORDERED: LIDOCAINE 2% MPF LOCAL 5 ML VIAL INFIL ONE (10:36)
[2022-07-07] MEDS ORDERED: MIDAZOLAM HCL 1 MG/ML 2ML VIAL ONE (10:36)
[2022-07-07] MEDS ORDERED: PROPOFOL IV EMULSION 10 MG/ML 20 ML VIAL IV ONE (10:36)
[2022-07-07] MEDS ORDERED: fentaNYL citrate 100 MCG/2 ML VIAL ONE (10:37)
[2022-07-07] MEDS ORDERED: ONDANSETRON INJ 2 MG/ML 2 ML VIAL IV PRN (10:43)
[2022-07-07] MEDS ORDERED: ATROPINE SULFATE 0.1 MG/ML 10ML SYR IV PRN (10:43)
[2022-07-07] MEDS ORDERED: ePHEDrine sulfate 50 MG/ML AMP IV PRN (10:43)
[2022-07-07] MEDS ORDERED: BUPIVACAINE/EPINEPHRINE 0.25% 1:200,000 30 ML VIAL ONE (11:04)
--- NOTE | 2022-07-07 11:04 | Surgery Progress Note ---
Date of Service July 07, 2022 Assessment & Plan (1) Perirectal abscess: Plan: We will proceed to the OR today for incision and drainage of perirectal abscess Consent was obtained, risk discussed including bleeding, infection, fistula formation, need for further surgery Admission and Anticipated Discharge Date Admission Date: July 06, 2022 Subjective Patient seen and examined. Still with right buttock/perianal pain. Afebrile. Review of Systems Constitutional: no fever and no chills Physical Exam Constitutional: WD/WN, vitals as above Gastrointestinal (Abdomen): Inspection/Auscultation: abdomen normal to inspection; abdomen not distended Percussion/Palpation: abdomen soft; abdomen nontender Right buttock/perianal area with tenderness to palpation, fluctuance consistent with abscess Results & Data ([facility]) Vital Signs (Past 12 Hours) Vital Signs Temp Pulse Resp BP Pulse Ox O2 Del Method 07/07/22 10:15 37 C 86 20 116/60 95 Room Air 07/07/22 07:28 36.8 C 78 17 105/59 L 98 Room Air 07/07/22 00:55 37.9 C H 100 H 18 118/70 96 Room Air 07/06/22 23:53 88 20 132/82 96 Room Air PG Care Time/CCT Total # of Minutes Spent Total Time Spent with Patient: Total time spent is greater than 50% in coordination of care (as documented) at patient's floor/unit and/or counseling patient: Coding Level of Care Code 54169 Subseq Hosp Care Lvl 1 Diagnoses Perirectal abscess K61.1
[2022-07-07] MEDS ORDERED: DEXAMETHASONE SOD INJ 4 MG/ML VIAL ONE (11:36)
--- NOTE | 2022-07-07 11:58 | Post Operative Brief Note ---
PG Immediate Post Op with CF Date of Surgery July 07, 2022 Pre & Post Diagnosis Operation Date: 07/07/22 08:30 Pre-Op Diagnosis: Ingrid-rectal Abscess Post-Op Diagnosis: Ingrid-rectal Abscess I identified the patient and participated in the time-out.: Yes Procedure Operation Date: 07/07/22 08:30 Actual Procedures p Evaluation Under Anesthesia, Incision and Drainage Ingrid Rectal Abscess(Not Applicable) - Des Bunch DO Surgeon Des Bunch DO Machine Bookkeeper Ben Graham PA-C Estimated Blood Loss 10 Findings Consistent with Post-Op Diagnosis Specimens Specimen Description: Culture 1: Abscess Fluid Anesthesia Type General Complications none Disposition Disposition: Recovery Room
--- NOTE | 2022-07-07 12:01 | Operative Report ---
PG Post Operative Report Pre & Post Diagnosis Operation Date: 07/07/22 08:30 Pre-Op Diagnosis: Asya-rectal Abscess Post-Op Diagnosis: Asya-rectal Abscess I identified the patient and participated in the time-out.: Yes Procedure Operation Date: 07/07/22 08:30 Actual Procedures p Evaluation Under Anesthesia, Incision and Drainage Asya Rectal Abscess(Not Applicable) - Des Bunch DO Surgeon Des Bunch DO Network Specialist Ben Graham PA-C Estimated Blood Loss 10 Findings Consistent with Post-Op Diagnosis Specimens Abscess fluid for culture Drains None Anesthesia Type General Complications none Disposition Disposition: Recovery Room Indications 31-year-old male with perirectal abscess Description of Procedure The patient was brought to the OR and placed in the supine position. At this time he underwent General LMA anesthesia without issue. He was given appropriate pre-operative antibiotics. He was then placed in the prone jackknife position. The perineum was prepped and draped in the usual sterile fashion. A timeout was called. The procedure was verified as Incision and drainage of asya-rectal abscess. Surgical, anesthesia and nursing teams agreed and the procedure was begun. Digital rectal exam was performed and no mass or fistula was found. After injection of 0.25% Marcaine with epinephrine, an incision was made in the right buttock over the indurated area. The abscess itself was much deeper within the right buttock and perirectal tissues. This was entered bluntly. Purulent fluid was encountered. Wide drainage was ensured. All loculations were broken up bluntly. At this time the incision was irrigated until clear. Hemostasis was achieved using electrocautery. Hemostasis was complete. The incision was packed with a inch plain gauze packing. Sterile dressing was applied. The patient was awakened from anesthesia and taking to PACU having remained stable throughout the entire case. All needle and sponge counts correct x 2. The physician assistant reading teacher was present scrubbed for the entire case. He was essential in positioning, prepping and draping the patient, retraction exposure and placement the dressing. I attest to the content of the Intraoperative Record and any orders documented therein. Any exceptions are noted below.
[2022-07-07] MEDS: fentaNYL citrate 100 MCG/2 ML VIAL IV PRN ×4 (12:25→13:09)
[2022-07-07] MEDS: HYDROmorphone INJ 2 MG/ML SYR/VIAL IV PRN ×4 (12:35→12:54)
--- NOTE | 2022-07-07 13:23 | Anesthesiology Progress Note ---
Date of Service July 07, 2022 Anesthesia Post Procedure Vital Signs Vital Signs: Temp Pulse Pulse Resp BP BP Pulse Ox 07/07/22 13:10 97.9 F 74 13 112/81 94 07/07/22 13:00 83 16 107/45 L 96 07/07/22 12:50 79 20 99/57 L 95 07/07/22 12:40 89 13 96/56 L 93 07/07/22 12:20 79 13 104/64 98 07/07/22 12:30 84 18 107/59 L 96 07/07/22 12:11 97.7 F 82 13 101/57 L 100 07/07/22 10:15 98.6 F 86 20 116/60 95 07/07/22 07:28 98.2 F 78 17 105/59 L 98 07/07/22 00:55 100.2 F H 100 H 18 118/70 96 07/06/22 23:53 88 20 132/82 96 07/06/22 21:33 102 H 16 132/82 98 07/06/22 18:58 98.6 F 132 H 20 131/83 99 O2 Del Method O2 Flow Rate 07/07/22 13:10 Room Air 07/07/22 13:00 Nasal Cannula 2 07/07/22 12:50 Nasal Cannula 2 07/07/22 12:40 Room Air 07/07/22 12:20 Oxymask 5 07/07/22 12:30 Room Air 07/07/22 12:11 Oxymask 5 07/07/22 10:15 Room Air 07/07/22 07:28 Room Air 07/07/22 00:55 Room Air 07/06/22 23:53 Room Air 07/06/22 21:33 Room Air 07/06/22 18:58 Room Air Pain Intensity Rectal: Pain Intensity: 8 Buttock: Pain Intensity: 8 Transfer of Care Handoff Completed per policy Notes Mental Status: alert / awake / arousable and participated in evaluation Patient Amnestic to Procedure: Yes Nausea / Vomiting: adequately controlled Pain: adequately controlled Airway Patency, RR, SpO2: stable & adequate BP & HR: stable & adequate Hydration State: stable & adequate Anesthetic Complications: no major complications apparent and Pt Satisfied with anesthetic care
[2022-07-07] MEDS ORDERED: oxyCODONE HCL IR 5 MG TAB (IMMEDIATE RELEASE) PO PRN (14:07)
[2022-07-07] MEDS: MoRPHine SULFATE 2 MG/ML CARP IV PRN ×4 (14:50→21:53)
[2022-07-08] MEDS: MoRPHine SULFATE 2 MG/ML CARP IV PRN ×2 (01:39→06:16)
[2022-07-08] MEDS: PIPERACILLIN/TAZOBACTAM 3.375 GM in DEXTROSE 5% 100 ML IV SCH ×2 (01:39→11:00)
[2022-07-08] MEDS: LACTATED RINGER'S 1,000 ML IV SCH (06:16)
[2022-07-08 08:02] LABS: Basophils # (auto) 0.05 K/uL (0-0.2); Basophils % (auto) 0.3 %; Eosinophils # (auto) 0.11 K/uL (0-0.50); Eosinophils % (auto) 0.8 %; Hematocrit (blood only) 35.5 % (40.1-51.0); Hemoglobin 11.7 g/dl (14.0-18.0); Immature Granulocytes # (auto) 0.11 K/uL (0.00-0.02); Immature Granulocytes % (auto) 0.8 %; Lymphocytes # (auto) 2.56 K/uL (1.2-3.4); Lymphocytes % (auto) 17.5 %; Mean Corpuscular Hemoglobin 26.7 pg (25.0-34.0); Mean Corpuscular Volume 80.9 fL (80.0-100.0); Monocytes # (auto) 1.01 K/uL (0.24-0.82); Monocytes % (auto) 6.9 %; Neutrophils # (auto) 10.75 K/uL (1.4-6.5); Neutrophils % (auto) 73.7 %; Platelet Count 319 K/uL (130-400); RDW Standard Deviation 37.3 fL (36.4-46.3); Red Blood Count 4.39 M/uL (4.63-6.08); White Blood Count 14.59 K/ul (4.8-10.8)
[2022-07-08] MEDS: oxyCODONE HCL IR 5 MG TAB (IMMEDIATE RELEASE) PO PRN ×2 (08:40→12:29)
[2022-07-08] MEDS: SERTRALINE HCL 100 MG TABLET PO SCH (08:41)
--- NOTE | 2022-07-08 11:00 | Surgery Progress Note ---
Date of Service July 08, 2022 Assessment & Plan (1) Perirectal abscess: Plan: Packing was changed at bedside, tolerated well We will plan on discharging the patient home today with 10 days of Augmentin He will need daily packing changes for which he states he has home help with this I will see him back or Monday next week in the office to monitor his healing Admission and Anticipated Discharge Date Admission Date: July 06, 2022 Subjective Patient seen and examined. Pain much improved. Afebrile. Physical Exam Constitutional: WD/WN, vitals as above Skin: Right buttock I&D site with less and induration, packing changed at bedside Results & Data ([facility]) Vital Signs (Past 12 Hours) Vital Signs Temp Pulse Resp BP Pulse Ox O2 Del Method 07/08/22 07:00 Room Air 07/08/22 07:01 36.7 C 64 16 100/64 97 Room Air 07/08/22 01:39 36.5 C 62 18 112/74 97 Room Air PG Care Time/CCT Total # of Minutes Spent Total Time Spent with Patient: Total time spent is greater than 50% in coordination of care (as documented) at patient's floor/unit and/or counseling patient: Coding Level of Care Code None Diagnoses Perirectal abscess K61.1
--- NOTE | 2022-07-12 14:21 | Discharge Summary ---
Date of Service July 08, 2022 Admission HPI Per Admitting Provider This is a 31-year-old male who is known to the [facility] physician group general surgery service. The patient has a complicated history of perirectal abscesses. The patient underwent an I&D of perirectal abscess by Dr. Barahona on 07/31/2020. He required a repeat I&D of a perirectal abscess on 08/02/2020. Following the second I&D the patient was doing well but again developed a perirectal abscess requiring incision and drainage on 11/01/2021, again performed by Dr. Barahona. Following this procedure the patient followed up with Dr. Barahona in November 2021 where his perirectal abscesses were noted to be resolved. Due to the recurrent nature of this problem however Dr. Barahona felt referral to a colorectal specialist was indicated. Patient ultimately saw Dr. Krueger, of [facility] in January 2022. At that time Dr. Krueger recommended patient undergo an exam under anesthesia as well as a flexible sigmoidoscopy to evaluate for possible fistulous. Patient notes that he underwent these procedures in April of this year and no fistulas were found. Patient notes that he was doing well following this procedure however approximately 2 weeks ago the patient began feeling feverish and he was diagnosed with mono. The patient says that he has felt feverish as well as generally fatigued since not being diagnosed with mono in approximately 24 to 48 hours ago he began to experience rectal pain which was similar to what he experienced when he had previous perirectal abscesses. He says that he has been having pain with bowel movements and he is having fevers as high as 102.6. He denies any drainage from his rectum. He denies any dysuria or hematuria. He denies any nausea or vomiting. He does note some generalized fatigue as noted above. Because of this symptomatology and history of pararectal abscesses he presented to the emergency department. In the emergency department patient had labs and imaging which independent reviewed. He underwent a CT scan of the abdomen pelvis that showed a bilobed horseshoe-shaped perirectal abscess along the posterior aspect of the inner sphincter. This appeared to extend in the right buttocks and measured approximately 3.5 cm in diameter.Labs include a CBC her white blood cell count was 15.2. Hemoglobin and hematocrit were 13.1 and 38.9. Platelet count is within normal range. Chemistry profile showed sodium was 133 with a normal potassium. BUN and creatinine were 13 and 0.9. Lactic acid level was not elevated. Urinalysis was not indicative of infection. A COVID test was negative. At the time of my interview the patient was resting comfortably in bed and he was in no distress. Principal Diagnosis Perirectal abscess Discharge Exam Constitutional WD/WN, vitals as above Gastrointestinal (Abdomen) Rectal Exam: + rectal lesions (less induration of right perirectal area) Discharge Data Allergies Allergy/AdvReac Type Severity Reaction Status Date / Time No Known Allergies Allergy Verified 07/06/22 21:44 Consultations 07/06/22 22:59 ED Decision to Admit Stat Procedures Performed Operation Date: 07/07/22 08:30 Actual Procedures p Evaluation Under Anesthesia, Incision and Drainage Ingrid Rectal Abscess(Not Applicable) - Des Bunch DO Ordered Studies 07/06/22 20:46 CT Abd and Pelvis [CT abd pelvis IV con only] Urgent Hospital Course (1) Perirectal abscess: 31 y/o male presented to the ER with rectal pain and history of abscess. White count was 15,[address] showed complex fluid collection. He was admitted to the surgical floor overnight and kept on IV antibiotics. He was taken to the operating room in the morning for I&D and returned to the surgical floor. Packing was changed the next day and he was stable for discharge home. Total Time Total Time Spent Total Time Spent (In Minutes): 15 Discharge Plan Discharge Items Patient Disposition: Home - Self-Care Reason For Visit: INGRID-RECTAL ABSCESS Discharge Diagnosis: incision and drainage of perirectal abscess Condition on Discharge: Fair Activity: Per Instructions section Lifting: Gradually increase as tolerated Bathing: No limitations Exercise/Sports: Wait until after follow-up appointment Driving/Machine Use: no driving if taking any narcotics for pain Non-emergency contact: Surgeon Call non-emergency contact if: you have any medication questions, your symptoms worsen, your pain is not controlled, you have a fever, your temperature is above 101.5, your wound has increased redness, your wound has increased drainage and your wound pain has increased Follow-up/Referrals: Des Bunch DO [Physician] - 07/20/22 10:30 am ( follow up in clinic within 2 weeks ) Pierre,Angeles, ELECTRIC TOOL REPAIRER [Primary Care Provider] - Diet: Regular Addtl Attending Provider Instructions: You may purchase Tylenol and/or Ibuprofen over the counter if needed for additional pain control. -Tylenol 650mg orally every 4-6 hours, as needed for pain. Do not exceed>3grams of Acetaminophen within a 24 hour time period -Ibuprofen 200mg-600mg orally every 6-8 hours, as needed for pain. take with food Change packing daily, you can shower or bath before replacing the packing Please complete the full course of antibiotic as prescribed to you You may cover the incision with dry gauze or a pad (and change as needed) to help collect any drainage and to keep your under garments clean until the area is healed Pending Studies at Discharge: Yes Stand-Alone Forms: [facility], Smoking Cessation Medications and DC Order Prescriptions: New oxycodone 5 mg tablet 5 - 10 mg PO .[id number] PRN (Reason: pain, for initial therapy, max 6 tabs per day) Qty: 12 0RF amoxicillin-pot clavulanate 875-125 mg tablet 1 tab PO Q12H Qty: 20 0RF Continued sertraline 100 mg Tablet 100 mg PO QAM Qty: 30 3RF ondansetron 4 mg tablet,disintegrating 4 mg PO Q6H PRN (Reason: nausea and vomiting) Qty: 10 0RF Discharge Orders: Discharge Order (Routine); Ordered 07/08/22 Ordered By: Ben Graham Admission Data Admit Date/Time: 07/06/22 23:15 Attending Provider: Des Bunch Admit Provider: Des Bunch Primary Care Provider: Angeles Jay Other Providers: Des Bunch Other Interventions: Discharge Summary Assessment (RN) Last Done: 07/08/22 12:40 Coding Level of Care Code D/C DAY MANAGEMENT <30 MINS Diagnoses Perirectal abscess K61.1
== END 2022-07-08 13:15 | disposition home or self-care (01) | DRG 345 ==
LOC: ED 18:38 → 3W 23:15

== ENCOUNTER 2023-10-30 00:25 | Inpatient (IN) ==
--- OUTSIDE RECORDS SUMMARY | 2023-10-30 00:34 | External Medical Summary | Summary of Care ---
Author Name Unknown Organization [facility] Address [address] [place] [address] Phone [phone] Care Team Providers Care Development Engineer Name Role Phone PierreAngeles edge RAJIV Primary Care Provider Reason for Visit * Reason Comments Outpatient Testing Encounter Details Date Type Department Care Team Description 05/09/2023 Laboratory Laboratory Patient Service [place] [address] [id number] [place] [address] [phone] Elevated hemoglobin (HCC) Allergies No known active allergiesdocumented as of this encounter (statuses as of 05/09/2023) Medications Medication Sig Dispensed Refills Start Date End Date Status MULTI-VITAMIN/MINERA LS PO TABS Take by mouth . 0 Active Colchicine 0.6 MG Oral Tablet 1 Tablet. 0 06/02/2022 Active DULoxetine HCl 40 MG Oral Capsule Delayed Release Particles (Irenka) 40 mg. 0 12/07/2022 12/02/2023 Active Naltrexone HCl 50 MG Oral Tablet (Revia) 1 Tablet. 0 12/07/2022 05/24/2023 Activ e Sertraline HCl 100 MG Oral Tablet (Zoloft) Take 1 Tablet by mouth in the morning. 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 Keratosis Pilaris 09/16/2009 documented as of this encounter (statuses as of 05/09/2023) Resolved Problems Problem Noted Date Resolved Date Viral syndrome 06/28/2022 03/16/2023 Fever 06/28/2022 03/16/2023 Cigarette smoker 02/03/2011 09/06/2018 Overview: Resumed smoking 10/2013 Quit 07/03/13 Varicella without complication 08/21/2008 1 11/19/2016 Overview: Natural dz age 3 Epistaxis 10/18/2006 08/21/2008 ADVANCE DIRECTIVE INFORMATION 05/10/2005 Overview: Not applicable (under age of 18) documented as of this encounter (statuses as of 05/09/2023) Immunizations Name Administration Dates Next Due Covid-19 Ad26, Single Dose (Mayela/J&J) 01/04/2021 HPV Vaccine, 4-Valent 01/21/2014,09/12/2013,07/02 Meningococcal Conjugate Vacc ine (Menactra/Menveo) 07/13/2006 PPD 04/21/2015, 5,10/08/2011,09/28,09/22/2011 Pneumococcal Polysaccharide PPV23 (Pneumovax) 10/18/2016 Seasonal Influenza, Quadriva lent, No Preserve, IM 08/21/2019,08/02/2018,08/02/2017,07/25,07/15/2015 Seasonal Influenza, Split, I IV3, With Preserve, Inj 08/07/2014,06/15/2013,06/25/2012 TDAP (age 10 and older)(Boostrix) 09/07/2020 TDAP (age 11 and older)(Adacel) 04/13/2015 documented as of this encounter Social History Tobacco Use Types Packs/Day Years Used Date Smoking Tobacco: Former Cigarettes 0.5 3.5 Q uit: 04/27/2022 Smokeless Tobacco: Never Alcohol Use Standard Drinks/Week Comments Yes 0 (1 standard drink = 0.6 oz pur e alcohol) 3 beers per month Sex Assigned at Date Recorded Male 03/16/2023 10:22 AM EDT Job Start Date Occupation Industry Not on file Not on file Not on file documented as of this encounter Functional Status Functional Status Response Date of Assess ment Are you deaf or do you have serious difficulty h earing? No 06/28/2022 Are you blind or do you have serious difficulty seeing, even when wearing glasses? No 06/28/2022 Do you have serious difficul ty walking or climbing stairs? (5 years old or older) No 06/28/2022 Do you have difficulty dress ing or bathing? (5 years old or older) No 06/28/2022 Because of a physical, menta l, or emotional condition, do you have difficulty doing errands alone such as visiting a doctor s office or shopping? (15 years old or older) No 06/28/20 Cognitive Status Response Date of Assessm ent Because of a physical, menta l, or emotional condition, do you have serious difficulty concentrating, remembering, or making decisions? (5 years old or older No 06/28/2022 documented as of this encounter Plan of Treatment Pending Results Name Type Priority Associated Diagnoses Date /Time CBC Lab Routine Elevated hemoglobin (HCC) 05/09/2023 11:48 AM EDT IRON SCREEN, INCLUDING TIBC Lab Routine Elevated hemoglobin (HCC) 05/09/2023 11:48 AM EDT FERRITIN Lab Routine Elevated hemoglobin (HCC) 05/09/2023 11:48 AM EDT COMPREHENSIVE METABOLIC PANEL Lab Routine Elevated hemoglobin (HCC) 05/09/2023 11:48 AM EDT Health Maintenance Due Date Last Done Comments COVID-19 Vaccine (2 - Booster for Mayela series) 03/01/2021 01/04/2021 Influenza Vaccine (FLU shot) (#1) 2023 08/22/2022, 08/21/2019, 08/02/2018, Additional history exists Depression Screening, Annual for Pts 12 and Over 03/16/2024 03/16/2023 DTaP,Tdap,and Td Vaccines (9 - Td or Tdap) 09/07/2030 09/07/2020, 04/13/2015, 07/26/2005, Additional history exists MENINGOCOCCAL (MENACTRA/MENVEO) Completed 07/13/2006 GARDASIL-HPV IMMUNIZATION SERIES Completed 01/21/2014, 09/12/2013, 07/15/2013 Pneumococcal Vaccine: Pediatrics (0 to 5 Years) and At-Risk Patients (6 to 64 Years) Aged Out 10/18/2016 No longer eligible based on patient's age to complete this topic Hepatitis C Screening Completed 06/28/2022 , 06/28/2022, 09/06/2018, Additional history exists documented as of this encounter Medical Devices Not on filedocumented as of this encounter Visit Diagnoses Diagnosis Elevated hemoglobin (HCC) Other hemoglobinopathies documented in this encounter Advance Directives Latest Code Status on File Code Status Date Activated Date Inactivated Comments Full Code 06/28/2022 8:18 PM 07/02/2022 2:54 PM This order reflects the patients wishes and were consensually agreed upon. Question Answer Comments Discussion of Advance Directives occurred with: Patient Care Teams Development Engineer Relationship Specialty Start Date End Date Angeles Jay CRNP [address] [place] [address] Dr Garsia [address] [place] [address], [place] [id number] PCP - General Nurse Practitioner 07/04/22 documented as of this encounter
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
--- OUTSIDE RECORDS SUMMARY | 2023-10-30 00:35 | External Medical Summary ---
Author Name Unknown Address Unknown Organization [id number]:[facility] - [address] [place] [address] Laboratory Report Ordering Provider Test Date Status TAMANNA YAP 05/09/2023 11:48:52 Final Observation Date Value Abnormality Reference (Units ) Status Magnesium 05/09/2023 11:48:52 2.6 1.5-2.6 (m g/dL) Final Performing Location [facility] - [address] [place] [address]
--- OUTSIDE RECORDS SUMMARY | 2023-10-30 00:35 | External Medical Summary ---
Author Name Unknown Address Unknown Organization [id number]:[facility] [place] [address] [place] [address] Laboratory Report Ordering Provider Test Date Status TAMANNA YAP 05/09/2023 11:48:52 Final Observation Date Value Abnormality Reference (Units ) Status Vitamin B12 05/09/2023 11:48:52 041 994-5492 (pg/mL) Final Performing Location [facility] - [address] [place] [address]
--- OUTSIDE RECORDS SUMMARY | 2023-10-30 00:35 | External Medical Summary ---
Author Name Unknown Address Unknown Organization [id number][facility] [place] [address] [facility] [address] [place] [address] Laboratory Report Ordering Provider Test Date Status NI YAPFUS 05/09/2023 11:48:52 Final Observation Date Value Abnormality Reference (Units ) Status WBC, Total 05/09/2023 11:48:52 6.92 4.00-10.80 (K/uL) Final RBC 05/09/2023 11:48:52 5.91 4.50-5.25 (M/uL) Final Hemoglobin 05/09/2023 11:48:52 15.7 14.0-16.8 (g/dL) Final HCT 05/09/2023 11:48:52 50.7 Above high normal 40.0-48.4 (%) Final MCV 05/09/2023 11:48:52 85.8 82.0-99.5 (fL) Final MCH 05/09/2023 11:48:52 26.6 27.0-34.0 (pg) Final MCHC 05/09/2023 11:48:52 31.0 32.0-36.0 (g/dL) Final RDW 05/09/2023 11:48:52 13.0 11.5-15.5 (%) Final Platelets 05/09/2023 11:48:52 254 140-400 (K/uL) Final MPV 05/09/2023 11:48:52 11.8 6.6-11.1 (fL) Final Nucleated erythrocytes/100 leukocytes [Ratio] in Blood by Automated count 05/09/2023 11:48:52 0 <=0 (/100 WBCs) Final Performing Location [facility] [place] [address] [place] [address]
--- OUTSIDE RECORDS SUMMARY | 2023-10-30 00:35 | External Medical Summary ---
Author Name Unknown Address Unknown Organization [id number]:LABORATORY [facility] [place] - [address] [place] [address] Laboratory Report Ordering Provider Test Date Status TAMANNA YAP 05/09/2023 11:48:52 Final Observation Date Value Abnormality Reference (Units ) Status Iron 05/09/2023 11:48:52 84 45-176 (ug /dL) Final Iron-binding capacity 05/09/2023 11:48:52 335 250-425 (ug/dL) Final Transferrin Sat % 05/09/2023 11:48:52 25 15 -55 (%) Final Performing Location LABORATORY [facility] - [address] [place] [address]
--- OUTSIDE RECORDS SUMMARY | 2023-10-30 00:35 | External Medical Summary ---
Author Name Unknown Address Unknown Organization [id number]:[facility] [place] [address] [place] [address] Laboratory Report Ordering Provider Test Date Status TAMANNA YAP 05/09/2023 11:48:52 Final Observation Date Value Abnormality Reference (Units ) Status Ferritin 05/09/2023 11:48:52 216 30-400 (ng /mL) Final Performing Location [facility] - [address] [place] [address]
--- OUTSIDE RECORDS SUMMARY | 2023-10-30 00:35 | External Medical Summary ---
Author Name Unknown Address Unknown Organization [id number][facility] [place] [address] [place] [address] Laboratory Report Ordering Provider Test Date Status TAMANNA YAP 05/09/2023 11:48:52 Final Deficient: <20 ng/mL
Ins ufficient: 20-29 ng/mL
Recommended/Optimum:30-50 ng/mL

Vitamin D intoxication is rare. If suspicious of Vitamin D toxicity, evaluation of serum Calcium and PTH is recommended. Observation Date Value Abnormality Reference (Units ) Status 25-OH Vitamin D total 05/09/2023 11:48:52 21 >19 (ng/mL) Final Performing Location LAB[facility]ATORY [facility] - [address] [place] [address]
--- OUTSIDE RECORDS SUMMARY | 2023-10-30 00:35 | External Medical Summary ---
Author Name Unknown Address Unknown Organization [id number]:[facility] - [address] [place] [address] Laboratory Report Ordering Provider Test Date Status TAMANNA AYP 05/09/2023 11:48:52 Final Observation Date Value Abnormality Reference (Units ) Status BUN 05/09/2023 11:48:52 14 6-20 (mg/dL) Final Creatinine 05/09/2023 11:48:52 1.0 0.6-1.2 (mg/dL) Final Glomerular filtration rate/1.73 sq M.predicted [Volume Rate/Area] in Serum, Plasma or Blood by Creatinine-based formula (CKD-EPI) 05/09/2023 11:48:52 >90 >=60 (mL/min) Final eGFR is calculated based on the CKD-EPI 2020 equation SODIUM 05/09/2023 11:48:52 146 135-146 (m mol/L) Final Potassium 05/09/2023 11:48:52 4.8 3.5-5.1 (m mol/L) Final Cl 05/09/2023 11:48:52 107 98-107 (mm ol/L) Final CO2 05/09/2023 11:48:52 26 22-32 (mmo l/L) Final Anion gap 05/09/2023 11:48:52 13 7-15 (mmol /L) Final Glucose 05/09/2023 11:48:52 103 70-120 (mg /dL) Final Albumin 05/09/2023 11:48:52 4.8 3.8-5.0 (g /dL) Final AST (Aspartate aminotransferase) 05/09/2023 11:48:52 25 10-50 (U/L) Fin al Alk Phos 05/09/2023 11:48:52 78 35-130 (U/ L) Final Bilirubin, Total 05/09/2023 11:48:52 0.4 <=1 .2 (mg/dL) Final Calcium 05/09/2023 11:48:52 10.2 8.4-10.2 ( mg/dL) Final Protein 05/09/2023 11:48:52 7.0 6.0-8.3 (g /dL) Final ALT (Alanine aminotransferase) 05/09/2023 11:48:52 59 Above high normal 10-50 (U/L) Final Performing Location [facility] [place] [address] [facility] [address]
[2023-10-30] MEDS ORDERED: HYDROmorphone INJ 0.5 MG/0.5 ML SYR IV STA ×2 (00:43→06:20)
[2023-10-30] MEDS ORDERED: ONDANSETRON INJ 2 MG/ML 2 ML VIAL ONE (00:48)
[2023-10-30] MEDS ORDERED: VANCOMYCIN CONSULT ACTIVE PRN (01:03)
[2023-10-30] MEDS ORDERED: VANCOMYCIN HCL 2,000 MG in SODIUM CHLORIDE 0.9% 500 ML IV ONE (01:03)
--- NOTE | 2023-10-30 01:03 | Emergency Department Note ---
Impression & Plan Perianal abscess ED Provider Note NAME: SADE NUÑEZ AGE: 33 SEX: M : 1990 ARRIVES VIA: Walk-In INFORMANT: Patient, ED PROVIDER(S): Mami Glass MD CHIEF COMPLAINT: Rectal pain HPI: This is a 33-year-old male with history of previous pararectal abscesses, transsphincteric anal fistula, presenting for rectal pain. Patient states he has the same pain as when he had a perirectal abscess previously. He had 2 previous abscesses requiring surgery. He notes that today's pain is actually worse than previously. He also had a fever up to 102 at home. He took 3 Motrin earlier. Otherwise he notes slight nausea. Extreme pain. Chills. He was attempting to wait until tomorrow to be seen in the ER but could not wait due to the pain. Symptoms began over the last few days, mild to begin with which he attributed to possible hemorrhoid. However today the pain acutely worsened as well as new onset of fever and chills. ROS: See above HPI for pertinent positives & negatives. A total of 10 systems reviewed and were otherwise negative. PAST MEDICAL HISTORY: See Below PAST SURGICAL HISTORY: See Below FAMILY HISTORY: See Below SOCIAL HISTORY: See Below HOME MEDICATIONS: See Below ALLERGIES: See Below VITALS: See Below PHYSICAL EXAMINATION: General: resting comfortably in no acute distress Head: Normocephalic and atraumatic Eyes: Normal inspection, extraocular muscles intact Ear, nose, throat: Normal external exam Neck: Normal range of motion Respiratory: lungs clear to auscultation bilaterally Cardiovascular: Regular rate/rhythm, no murmur GI: soft, nontender, no guarding or rebound : Perianal tenderness without fluctuance, no erythema externally Extremities: nontender, moves all extremities Neuro: The patient awake and alert, appropriately conversive, no focal deficits, symmetric faces Skin: Warm, dry, and intact MEDICAL DECISION MAKING: This is a 33-year-old male presenting for rectal pain. Patient history of perirectal abscess. Patient believes this is similar. Pain is deep in his rectum. 10/10 in severity. Fevers at home. Will do CT abdomen/pelvis. Will do pain control and broad-spectrum antibiotics initially. Currently does not appear consistent with sepsis. -Patient quadrant is revealing leukocytosis currently -CT imaging does reveal a perianal abscess, 3 x 3 x 2 cm. -Vancomycin and Zosyn already ordered -Fluids ordered -After pain medication including Dilaudid and Tylenol, patient notes symptomatic improvement -Discussed with on-call surgeon, Dr. Cuadra. Patient admitted to medicine for procedure tomorrow -Will admit to medical service under Dr. Severino Differential diagnosis: Perirectal abscess, perianal abscess, lower concern for Yumiko's gangrene ER treatment provided: See below Diagnostics interpreted by me: ECG: None Cardiac Monitoring: An order was placed for continuous cardiac monitoring. The monitor shows a rate of 105 with sinus tachycardia rhythm. Laboratory studies: As stated above and show below. Imaging studies: See below. Past Med/Surg History Medical History Asthma Bursitis COVID-19 Depression Deviated nasal septum Elevated blood uric acid level Elevated liver enzymes IN THE PAST (NOW WNL) Encounter for pre-operative examination Encounter for pre-operative examination Fever Gout Leg pain, right Leukocytosis Obesity Rectal pain Sciatica Sepsis Sleep apnea NO DEVICE Surgical History History of appendectomy History of esophageal dilatation History of esophagogastroduodenoscopy (EGD) History of incision and drainage (11/01/21) Perirectal Abscess - Bill Barahona DO 11/01/2021 History of incision and drainage (07/07/22) Evaluation Under Anesthesia, Incision and Drainage Ingrid Rectal Abscess(Not Applicable) - Des Bunch DO History of removal of skin mole History of tooth extraction Pyrites teeth removed Family History Father Multiple sclerosis Father Family history of ITP Aunt Family history of diabetes mellitus Social History Smoking Status: Current every day smoker Tobacco Type: Cigarettes Cigarettes Per Day: 5-10; Second Hand Exposure: Yes; Do You Dip or Chew Tobacco: No; Hx Alcohol Use: Yes Alcohol type: wine Hx Substance Use: No Preferred Language: Estonian Communication Ability: Effective Visual Impairment: No Limitations Hearing Ability: Normal Institutional Research Director Required: No Beliefs That Will Affect Care: None Current Living Situation: Alone Current Living Situation Comment: roomate Feels Safe at Home: Yes Assistive Devices: None Allergies Allergies Allergy/AdvReac Type Severity Reaction Status Date / Time No Known Allergies Allergy Verified 05/24/23 15:51 Home Meds Home Medications Medication Instructions Recorded Confirmed quetiapine 50 mg tablet 50 mg PO HS 05/24/23 05/24/23 Previous Rx's Medication Instructions Recorded sertraline 100 mg tablet 100 mg PO QAM #30 tabs 08/04/20 sennosides 8.6 mg tablet (Senna 8.6 mg PO BID PRN constipation #20 05/24/23 Laxative) tabs Results & Data (ED) Vital Signs Vital Signs - 24 hr 10/30/23 00:28 10/30/23 00:38 Temperature 37.1 C Temperature Source Temporal Artery Scan Pulse Rate 123 H 124 H Respiratory Rate 18 Respiratory Effort / Characteristics Non-Labored Respiratory Depth Normal Blood Pressure 149/88 H Blood Pressure Mean 108 Pulse Oximetry 97 Oxygen Delivery Method Room Air Sepsis Recent Fever Within 48 Hours Yes Sepsis New/Unexplained Change in Mental Status No Sepsis Action Taken by Nursing No Action Required Laboratory Data 10/30/23 01:00 10/30/23 01:00 Lab Results 10/30/23 10/30/23 Range/Units 00:56 01:00 WBC 13.29 H (4.8-10.8) K/ul RBC 5.70 (4.70-6.10) M/uL Hgb 15.3 (14.0-18.0) g/dl POC Hgb 16.3 (14.0-18.0) g/dl Hct 44.9 (42.0-52.0) % POC Hct 48 (42-52) % MCV 78.8 L (80.0-100.0) fL MCH 26.8 (25.0-34.0) pg MCHC 34.1 (32.0-36.0) g/dL RDW Std Deviation 37.0 (36.4-46.3) fL RDW Coeff of Lobo 13.2 (11.5-14.5) % Plt Count 220 (130-400) K/uL MPV 11.1 (9.4-12.4) fL Immature Gran % (Auto) 0.4 % Neut % (Auto) 64.9 % Lymph % (Auto) 23.2 % Bond % (Auto) 9.8 % Eos % (Auto) 1.1 % Baso % (Auto) 0.6 % Neut # (Auto) 8.63 H (1.40-6.50) K/uL Lymph # (Auto) 3.08 (1.20-3.40) K/uL Bond # (Auto) 1.30 H (0.11-0.59) K/uL Eos # (Auto) 0.15 (0.00-0.50) K/uL Baso # (Auto) 0.08 (0.00-0.20) K/uL Immature Gran # (Auto) 0.05 (0.01-0.20) K/uL POC Sodium 141 (135-144) mmol/L Sodium 137 (136-145) mmol/L POC Potassium 4.2 (3.3-5.0) mmol/L Potassium 3.8 (3.5-5.1) mmol/L POC Chloride 105 (101-112) mmol/L Chloride 106 (98-107) mmol/L Carbon Dioxide 21 (21-32) mmol/L POC Total CO2 23 L (24-31) mmol/L Anion Gap 10 (3-11) POC Anion Gap 19.0 (16-25) mmol/L POC BUN 21 H (7-18) mg/dl BUN 18 (6-23) mg/dl Creatinine 0.96 (0.6-1.4) mg/dl POC Creatinine 1.1 (0.6-1.3) mg/dl Est Cr Clr Drug Dosing 128.3 ml/min Est GFR ( Amer) 119.0 ml/min Est GFR (Non-Af Amer) 102.7 ml/min BUN/Creatinine Ratio 18.8 (10-20) Glucose 96 (70-99(Fasting)) mg/dl POC Glucose (other) 98 (70-99) mg/dl Lactate 1.7 (0.4-2.0) mmol/L Calcium 10.0 (8.6-10.3) mg/dl POC Ioniz Calcium Alejo 1.17 (1.12-1.32) mmol/l Total Bilirubin 0.6 (0.2-1.0) mg/dl AST 20 (13-39) U/L ALT 50 (7-52) U/L Alkaline Phosphatase 53 (34-104) U/L Total Protein 7.0 (6.0-8.3) gm/dl Albumin 4.7 (3.4-5.0) gm/dl Globulin 2.3 L (2.5-4.0) gm/dl Albumin/Globulin Ratio 2.0 (0.9-2) Adenovirus (PCR) Not Detected (NotDetected) B. pertussis DNA (PCR) Not Detected (NotDetected) B.parapertussis DNA PCR Not Detected (NotDetected) C. pneumoniae DNA (PCR) Not Detected (NotDetected) Coronavirus OC43 (PCR) Not Detected (NotDetected) Coronavirus HKU1 (PCR) Not Detected (NotDetected) Coronavirus 229E (PCR) Not Detected (NotDetected) SARS-CoV-2 (PCR) Not Detected (NotDetected) Coronavirus NL63 (PCR) Not Detected (NotDetected) Human Metapneumovir PCR Not Detected (NotDetected) Influenza Type A (PCR) Not Detected (NotDetected) Influenza Type B (PCR) Not Detected (NotDetected) M. pneumoniae (PCR) Not Detected (NotDetected) Parainfluenza 1 (PCR) Not Detected (NotDetected) Parainfluenza 2 (PCR) Not Detected (NotDetected) Parainfluenza 3 (PCR) Not Detected (NotDetected) Parainfluenza 4 (PCR) Not Detected (NotDetected) RSV (PCR) Not Detected (NotDetected) Entero/Rhino (PCR) Not Detected (NotDetected) Administered Medications Vancomycin HCl 2,000 mg/ (Sodium Chloride) 540 mls @ 200 mls/hr IV NOW ONE Stop: 10/30/23 03:32 Last Admin: 10/30/23 01:33 Dose: 200 mls/hr Documented By: MELBA Piperacillin Sod/Tazobactam Sod (Zosyn) 4.5 gm in 100 mls @ 200 mls/hr IV NOW ONE Stop: 10/30/23 02:14 Last Admin: 10/30/23 02:02 Dose: 200 mls/hr Documented By: MELBA Sodium Chloride (Nss) 1,000 mls @ 999 mls/hr IV .Q1H1M ONE Stop: 10/30/23 02:46 Last Admin: 10/30/23 01:55 Dose: 999 mls/hr Documented By: MELBA Discontinued Medications Hydromorphone HCl (Hydromorphone Inj 0.5 Mg/0.5 Ml Syr) 0.5 mg IV NOW STA Stop: 10/30/23 00:44 Last Admin: 10/30/23 00:49 Dose: 0.5 mg Documented By: MELBA Hydromorphone HCl (Hydromorphone Inj 1 Mg/Ml Syringe) 1 mg IV NOW STA Stop: 10/30/23 01:37 Last Admin: 10/30/23 01:54 Dose: 1 mg Documented By: MELBA Acetaminophen (Ofirmev) 1,000 mg in 100 mls @ 400 mls/hr IV NOW STA Stop: 10/30/23 01:50 Last Admin: 10/30/23 01:54 Dose: 400 mls/hr Documented By: MELBA Ioversol (Optiray 320 500ml) 100 ml IV ONCE ONE Stop: 10/30/23 01:22 Last Admin: 10/30/23 01:21 Dose: 86 ml Documented By: JAZMINE Ondansetron HCl (Ondansetron Inj 2 Mg/Ml 2 Ml Vial) Confirm Administered Dose 4 mg .ROUTE .STK-MED ONE Stop: 10/30/23 00:49 Last Admin: 10/30/23 01:11 Dose: Not Given Documented By: MELBA Ondansetron HCl (Ondansetron Inj 2 Mg/Ml 2 Ml Vial) 4 mg IV NOW STA Stop: 10/30/23 01:12 Last Admin: 10/30/23 00:50 Dose: 4 mg Documented By: MELBA Imaging Data Radiologist's Impression: Abdomen/Pelvis CT 10/30/23 00:30 Exam(s): CT ABDOMEN + PELVIS With Contrast IV Amt: 86 ML OPTIRAY 320 EXAM: CT Abdomen and Pelvis With Intravenous Contrast CLINICAL HISTORY: perirectal abscess. TECHNIQUE: Axial computed tomography images of the abdomen and pelvis with intravenous contrast. CTDI is 28.14 mGy and DLP is 1724.97 mGy-cm. Automated exposure control was utilized for the study. A dose lowering technique was utilized adhering to the principles of ALARA. CONTRAST: Patient received 86 ML OPTIRAY 320 of IV contrast COMPARISON: CT abdomen and pelvis with contrast dated 07/06/2022 FINDINGS: Lung bases: Unremarkable. No mass. No consolidation. ABDOMEN: Liver: Unremarkable. No mass. Gallbladder and bile ducts: Unremarkable. No calcified stones. No ductal dilation. Pancreas: Unremarkable. No mass. No ductal dilation. Spleen: Unremarkable. No splenomegaly. Adrenals: Unremarkable. No mass. Kidneys and ureters: Unremarkable. No solid mass. No hydronephrosis. Stomach and bowel: Unremarkable. No obstruction. No mucosal thickening. PELVIS: Appendix: No findings to suggest acute appendicitis. Bladder: Unremarkable. No mass. Reproductive: Unremarkable as visualized. ABDOMEN and PELVIS: Intraperitoneal space: Unremarkable. No free air. No significant fluid collection. Bones/joints: No acute fracture. No dislocation. Soft tissues: There is a recurrent, bilobed rim-enhancing collection in the posterior perianal region measuring up to 3.2 x 2.2 x 3 cm with some extension right posterior laterally into the right ischiorectal fat. There is subcutaneous fat stranding also noted in the posterior paramedian right gluteal region. No subcutaneous emphysema noted. Vasculature: Unremarkable. No abdominal aortic aneurysm. Lymph nodes: Unremarkable. No enlarged lymph nodes. IMPRESSION: There is a recurrent, bilobed rim-enhancing collection in the posterior perianal region measuring up to 3.2 x 2.2 x 3 cm with some extension right posterior laterally into the right ischiorectal fat. There is subcutaneous fat stranding also noted in the posterior paramedian right gluteal region. No subcutaneous emphysema noted. No extension of inflammatory changes noted above the pelvic floor. Electronically signed by: Bill Obrien MD 10/30/23 01:54 AM Discharge Plan Visit Data Chief Complaint: Skin Problem Stated Complaint: PERIRECTAL ABSCESS,FEVER ED Provider: Mami Glass Discharge Problem: Perianal abscess Forms Stand Alone Forms: My [facility] Prescriptions Prescriptions: No Action sertraline 100 mg Tablet 100 mg PO QAM Qty: 30 3RF quetiapine 50 mg tablet 50 mg PO HS sennosides [Senna Laxative] 8.6 mg tablet 8.6 mg PO BID PRN (Reason: constipation) Qty: 20 0RF Referrals Referrals: Torres Edmonds MD [Primary Care Provider] -
[2023-10-30 01:08] LABS: iSTAT Creatinine 1.1 mg/dl (0.6-1.3); iSTAT Hemoglobin 16.3 g/dl (14.0-18.0); iSTAT Ionized Calcium 1.17 mmol/l (1.12-1.32); iSTAT Potassium 4.2 mmol/L (3.3-5.0)
[2023-10-30] MEDS ORDERED: ONDANSETRON INJ 2 MG/ML 2 ML VIAL IV STA (01:11)
[2023-10-30] MEDS ORDERED: OPTIRAY 320 500ml IV ONE (01:21)
[2023-10-30 01:25] LABS: Basophils # (auto) 0.08 K/uL (0.00-0.20); Basophils % (auto) 0.6 %; Eosinophils # (auto) 0.15 K/uL (0.00-0.50); Eosinophils % (auto) 1.1 %; Hematocrit (blood only) 44.9 % (42.0-52.0); Hemoglobin 15.3 g/dl (14.0-18.0); Immature Granulocytes # (auto) 0.05 K/uL (0.01-0.20); Immature Granulocytes % (auto) 0.4 %; Lymphocytes # (auto) 3.08 K/uL (1.20-3.40); Lymphocytes % (auto) 23.2 %; Mean Corpuscular Hemoglobin 26.8 pg (25.0-34.0); Mean Corpuscular Hgb Conc 34.1 g/dL (32.0-36.0); Mean Corpuscular Volume 78.8 fL (80.0-100.0); Mean Platelet Volume 11.1 fL (9.4-12.4); Monocytes % (auto) 9.8 %; Neutrophils # (auto) 8.63 K/uL (1.40-6.50); Neutrophils % (auto) 64.9 %; Platelet Count 220 K/uL (130-400); RDW Coefficient of Variation 13.2 % (11.5-14.5); White Blood Count 13.29 K/ul (4.8-10.8)
[2023-10-30] MEDS ORDERED: HYDROmorphone INJ 1 MG/ML SYRINGE IV STA (01:36)
[2023-10-30] MEDS ORDERED: ACETAMINOPHEN 1,000 MG/100 ML VIAL IV STA (01:36)
[2023-10-30 01:41] LABS: Albumin Level 4.7 gm/dl (3.4-5.0); BUN Creatinine Ratio 18.8 (10-20); Bilirubin,Total 0.6 mg/dl (0.2-1.0); Creatinine Clr Calc Pharmacy 128.3 ml/min; Est GFR (Non-African American) 102.7 ml/min; Globulin 2.3 gm/dl (2.5-4.0); Potassium 3.8 mmol/L (3.5-5.1)
[2023-10-30] MEDS ORDERED: PIPERACILLIN/TAZOBACTAM 4.5 GM/100 ML BAG IV ONE (01:45)
[2023-10-30] MEDS ORDERED: SODIUM CHLORIDE 0.9% 1,000 ML IV ONE (01:46)
--- NOTE | 2023-10-30 01:55 | CT Scan Report ---
Exam(s): CT ABDOMEN + PELVIS With Contrast IV Amt: 86 ML OPTIRAY 320 EXAM: CT Abdomen and Pelvis With Intravenous Contrast CLINICAL HISTORY: perirectal abscess. TECHNIQUE: Axial computed tomography images of the abdomen and pelvis with intravenous contrast. CTDI is 28.14 mGy and DLP is 1724.97 mGy-cm. Automated exposure control was utilized for the study. A dose lowering technique was utilized adhering to the principles of ALARA. CONTRAST: Patient received 86 ML OPTIRAY 320 of IV contrast COMPARISON: CT abdomen and pelvis with contrast dated 07/06/2022 FINDINGS: Lung bases: Unremarkable. No mass. No consolidation. ABDOMEN: Liver: Unremarkable. No mass. Gallbladder and bile ducts: Unremarkable. No calcified stones. No ductal dilation. Pancreas: Unremarkable. No mass. No ductal dilation. Spleen: Unremarkable. No splenomegaly. Adrenals: Unremarkable. No mass. Kidneys and ureters: Unremarkable. No solid mass. No hydronephrosis. Stomach and bowel: Unremarkable. No obstruction. No mucosal thickening. PELVIS: Appendix: No findings to suggest acute appendicitis. Bladder: Unremarkable. No mass. Reproductive: Unremarkable as visualized. ABDOMEN and PELVIS: Intraperitoneal space: Unremarkable. No free air. No significant fluid collection. Bones/joints: No acute fracture. No dislocation. Soft tissues: There is a recurrent, bilobed rim-enhancing collection in the posterior perianal region measuring up to 3.2 x 2.2 x 3 cm with some extension right posterior laterally into the right ischiorectal fat. There is subcutaneous fat stranding also noted in the posterior paramedian right gluteal region. No subcutaneous emphysema noted. Vasculature: Unremarkable. No abdominal aortic aneurysm. Lymph nodes: Unremarkable. No enlarged lymph nodes. IMPRESSION: There is a recurrent, bilobed rim-enhancing collection in the posterior perianal region measuring up to 3.2 x 2.2 x 3 cm with some extension right posterior laterally into the right ischiorectal fat. There is subcutaneous fat stranding also noted in the posterior paramedian right gluteal region. No subcutaneous emphysema noted. No extension of inflammatory changes noted above the pelvic floor. Electronically signed by: Bill Obrien MD 10/30/23 01:54 AM
[2023-10-30 02:09] LABS: Adenovirus PCR Not Detected (NotDetected); Bordetella parapertussis PCR Not Detected (NotDetected); Bordetella pertussis PCR Not Detected (NotDetected); Chlamydia pneumoniae PCR Not Detected (NotDetected); Coronavirus 229E PCR Not Detected (NotDetected); Coronavirus CoV-2 (COVID19)PCR Not Detected (NotDetected); Coronavirus HKU1 PCR Not Detected (NotDetected); Coronavirus NL63 PCR Not Detected (NotDetected); Coronavirus OC43PCR Not Detected (NotDetected); Human Metapneumovirus PCR Not Detected (NotDetected); Influenza A PCR Not Detected (NotDetected); Influenza B PCR Not Detected (NotDetected); Mycoplasma pneumoniae PCR Not Detected (NotDetected); Parainfluenza Virus 1 PCR Not Detected (NotDetected); Parainfluenza Virus 2 PCR Not Detected (NotDetected); Parainfluenza Virus 3 PCR Not Detected (NotDetected); Parainfluenza Virus 4 PCR Not Detected (NotDetected); Respiratory Syncytial VirusPCR Not Detected (NotDetected); Rhinovirus/Enterovirus PCR Not Detected (NotDetected)
[2023-10-30] MEDS ORDERED: POLYETHYLENE (MIRALAX) 17 GM PACK PO STA (02:12)
[2023-10-30] MEDS ORDERED: KETOROLAC 30 MG/ML VIAL IV ONE (02:53)
--- NOTE | 2023-10-30 02:54 | History & Physical Report ---
Date of Service October 30, 2023 Assessment & Plan (1) Sepsis: Plan: Secondary to recurrent perirectal abscess History multiple surgeries Situational hypertension mood disorder, stable GARETT not on CPAP as per records past alcohol abuse ongoing tobacco abuse Medical telemetry CS, Emil General surgery consult Re: Recurrent perirectal abscess (ER provider already in touch with Dr. Cuadra.) N.p.o. in anticipation of procedure in a.m. Nicotine patch DVT prophylaxis. Lovenox subcu Full code Text document was generated using [employer] voice recognition software. It may contain grammatical or spelling errors. Kindly contact undersigned for clarification of any documentation item in question. History of Present Illness Chief Complaint: Rectal pain Primary Care Provider: Torres Edmonds MD History obtained from patient and records. Medical history significant for mood disorder, gout, GARETT not on CPAP, history of septic meningitis as per records, recurrent perirectal abscesses status post surgery, history genital HSV, past alcohol abuse, ongoing tobacco abuse. Last confinement July 2022 under General Surgery service for perirectal abscess status post drainage. Patient started not feeling well yesterday morning. Mild rectal discomfort which patient attributed to possible HSV flare. No response to 1 dose of Valtrex taken at home. Worsening discomfort reminiscent of perirectal abscess pain. Fever, chills. Patient denies chest pain, SOB, cough symptoms. Vancomycin and Zosyn administered at the ER. SBP 140s upon arrival at the ER. 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 Allergies Allergy/AdvReac Type Severity Reaction Status Date / Time No Known Allergies Allergy Verified 10/30/23 02:48 Home Medications Medication Instructions Recorded Confirmed Type sertraline 100 mg tablet 100 mg PO QAM #30 tabs 08/04/20 10/30/23 Rx quetiapine 50 mg tablet 50 mg PO HS PRN Sleep 05/24/23 10/30/23 History multivitamin 1 cap PO DAILY 10/30/23 10/30/23 History Past Med/Surg History Medical History Encounter for pre-operative examination Leukocytosis Rectal pain Encounter for pre-operative examination Leg pain, right Sepsis Fever COVID-19 Gout Bursitis Depression Obesity Elevated liver enzymes IN THE PAST (NOW WNL) Sciatica Deviated nasal septum Elevated blood uric acid level Sleep apnea NO DEVICE Asthma Surgical History History of incision and drainage (07/07/22) Evaluation Under Anesthesia, Incision and Drainage Ingrid Rectal Abscess(Not Applicable) - Des Bunch DO History of incision and drainage (11/01/21) Perirectal Abscess - Bill Barahona DO 11/01/2021 History of appendectomy History of tooth extraction History of esophageal dilatation History of esophagogastroduodenoscopy (EGD) History of removal of skin mole [place] teeth removed Family History Father Multiple sclerosis Father Family history of ITP Aunt Family history of diabetes mellitus Social History Smoking Status: Current every day smoker Tobacco Type: Cigarettes Cigarettes Per Day: 5-10; Second Hand Exposure: Yes; Do You Dip or Chew Tobacco: No; Hx Alcohol Use: No Hx Substance Use: No Preferred Language: Danish Communication Ability: Effective Visual Impairment: No Limitations Hearing Ability: Normal Steel Chipper Required: No Beliefs That Will Affect Care: None Current Living Situation: Alone Current Living Situation Comment: roomate Feels Safe at Home: Yes Safety Concerns: Feels Safe At This Time Assistive Devices: None Review of Systems Review of Systems: As per HPI, all other systems reviewed and negative Physical Exam Physical Exam: GENERAL: Comfortable, pleasant, obese, no respiratory distress SKIN: Normal color, warm HEENT: [place] palpebral conjunctivae, no ptosis, dry buccal mucosa NECK : Supple, no tenderness CHEST : CTA, no tenderness HEART : Tachycardic, no obvious murmurs ABDOMEN: Some distention, nontender EXTREMITIES : Minimal LE swelling, no LE tenderness, no other conspicuous deformities noted NEUROLOGIC : Coherent, no facial asymmetry, no other gross focality Results & Data Results & Data Vital Signs (Past 12 Hours) Vital Signs Temp Pulse Resp BP Pulse Ox O2 Del Method 10/30/23 02:00 106 H 32 H 96 10/30/23 02:00 133/77 10/30/23 01:30 101 H 27 H 98 10/30/23 01:30 126/75 10/30/23 01:19 105 H 19 99 10/30/23 01:19 131/81 10/30/23 01:18 108 H 22 99 10/30/23 00:45 111 H 26 H 98 10/30/23 00:45 113/92 10/30/23 00:38 116 H 28 H 10/30/23 00:38 124 H 10/30/23 00:28 37.1 C 123 H 18 149/88 H 97 Room Air Laboratory Results Laboratory Results WBC 13.29 K/ul (4.8-10.8) H 10/30/23 01:00 RBC 5.70 M/uL (4.70-6.10) 10/30/23 01:00 Hgb 15.3 g/dl (14.0-18.0) 10/30/23 01:00 POC Hgb 16.3 g/dl (14.0-18.0) 10/30/23 00:56 Hct 44.9 % (42.0-52.0) 10/30/23 01:00 POC Hct 48 % (42-52) 10/30/23 00:56 MCV 78.8 fL (80.0-100.0) L 10/30/23 01:00 MCH 26.8 pg (25.0-34.0) 10/30/23 01:00 MCHC 34.1 g/dL (32.0-36.0) 10/30/23 01:00 RDW Std Deviation 37.0 fL (36.4-46.3) 10/30/23 01:00 RDW Coeff of Lobo 13.2 % (11.5-14.5) 10/30/23 01:00 Plt Count 220 K/uL (130-400) 10/30/23 01:00 MPV 11.1 fL (9.4-12.4) 10/30/23 01:00 Immature Gran % (Auto) 0.4 % 10/30/23 01:00 Neut % (Auto) 64.9 % 10/30/23 01:00 Lymph % (Auto) 23.2 % 10/30/23 01:00 Brooke % (Auto) 9.8 % 10/30/23 01:00 Eos % (Auto) 1.1 % 01/29/24 01:00 Baso % (Auto) 0.6 % 10/30/23 01:00 Neut # (Auto) 8.63 K/uL (1.40-6.50) H 10/30/23 01:00 Lymph # (Auto) 3.08 K/uL (1.20-3.40) 10/30/23 01:00 Brooke # (Auto) 1.30 K/uL (0.11-0.59) H 10/30/23 01:00 Eos # (Auto) 0.15 K/uL (0.00-0.50) 10/30/23 01:00 Baso # (Auto) 0.08 K/uL (0.00-0.20) 10/30/23 01:00 Immature Gran # (Auto) 0.05 K/uL (0.01-0.20) 10/30/23 01:00 POC Sodium 141 mmol/L (135-144) 10/30/23 00:56 Sodium 137 mmol/L (136-145) 10/30/23 01:00 POC Potassium 4.2 mmol/L (3.3-5.0) 10/30/23 00:56 Potassium 3.8 mmol/L (3.5-5.1) 10/30/23 01:00 POC Chloride 105 mmol/L (101-112) 10/30/23 00:56 Chloride 106 mmol/L (98-107) 10/30/23 01:00 Carbon Dioxide 21 mmol/L (21-32) 10/30/23 01:00 POC Total CO2 23 mmol/L (24-31) L 10/30/23 00:56 Anion Gap 10 (3-11) 10/30/23 01:00 POC Anion Gap 19.0 mmol/L (16-25) 10/30/23 00:56 POC BUN 21 mg/dl (7-18) H 10/30/23 00:56 BUN 18 mg/dl (6-23) 10/30/23 01:00 Creatinine 0.96 mg/dl (0.6-1.4) 10/30/23 01:00 POC Creatinine 1.1 mg/dl (0.6-1.3) 10/30/23 00:56 Est Cr Clr Drug Dosing 128.3 ml/min 10/30/23 01:00 Est GFR ( Amer) 119.0 ml/min 10/30/23 01:00 Est GFR (Non-Af Amer) 102.7 ml/min 10/30/23 01:00 BUN/Creatinine Ratio 18.8 (10-20) 10/30/23 01:00 Glucose 96 mg/dl (70-99(Fasting)) 10/30/23 01:00 POC Glucose (other) 98 mg/dl (70-99) 10/30/23 00:56 Lactate 1.7 mmol/L (0.4-2.0) 10/30/23 01:00 Calcium 10.0 mg/dl (8.6-10.3) 10/30/23 01:00 POC Ioniz Calcium Alejo 1.17 mmol/l (1.12-1.32) 10/30/23 00:56 Total Bilirubin 0.6 mg/dl (0.2-1.0) 10/30/23 01:00 AST 20 U/L (13-39) 10/30/23 01:00 ALT 50 U/L (7-52) 10/30/23 01:00 Alkaline Phosphatase 53 U/L (34-104) 10/30/23 01:00 Total Protein 7.0 gm/dl (6.0-8.3) 10/30/23 01:00 Albumin 4.7 gm/dl (3.4-5.0) 10/30/23 01:00 Globulin 2.3 gm/dl (2.5-4.0) L 10/30/23 01:00 Albumin/Globulin Ratio 2.0 (0.9-2) 10/30/23 01:00 Adenovirus (PCR) Not Detected (NotDetected) 10/30/23 01:00 B. pertussis DNA (PCR) Not Detected (NotDetected) 10/30/23 01:00 B.parapertussis DNA PCR Not Detected (NotDetected) 10/30/23 01:00 C. pneumoniae DNA (PCR) Not Detected (NotDetected) 10/30/23 01:00 Coronavirus OC43 (PCR) Not Detected (NotDetected) 10/30/23 01:00 Coronavirus HKU1 (PCR) Not Detected (NotDetected) 10/30/23 01:00 Coronavirus 229E (PCR) Not Detected (NotDetected) 10/30/23 01:00 SARS-CoV-2 (PCR) Not Detected (NotDetected) 10/30/23 01:00 Coronavirus NL63 (PCR) Not Detected (NotDetected) 10/30/23 01:00 Human Metapneumovir PCR Not Detected (NotDetected) 10/30/23 01:00 Influenza Type A (PCR) Not Detected (NotDetected) 10/30/23 01:00 Influenza Type B (PCR) Not Detected (NotDetected) 10/30/23 01:00 M. pneumoniae (PCR) Not Detected (NotDetected) 10/30/23 01:00 Parainfluenza 1 (PCR) Not Detected (NotDetected) 10/30/23 01:00 Parainfluenza 2 (PCR) Not Detected (NotDetected) 10/30/23 01:00 Parainfluenza 3 (PCR) Not Detected (NotDetected) 10/30/23 01:00 Parainfluenza 4 (PCR) Not Detected (NotDetected) 10/30/23 01:00 RSV (PCR) Not Detected (NotDetected) 10/30/23 01:00 Entero/Rhino (PCR) Not Detected (NotDetected) 10/30/23 01:00 Impressions Abdomen/Pelvis CT 10/30/23 00:30 Exam(s): CT ABDOMEN + PELVIS With Contrast IV Amt: 86 ML OPTIRAY 320 EXAM: CT Abdomen and Pelvis With Intravenous Contrast CLINICAL HISTORY: perirectal abscess. TECHNIQUE: Axial computed tomography images of the abdomen and pelvis with intravenous contrast. CTDI is 28.14 mGy and DLP is 1724.97 mGy-cm. Automated exposure control was utilized for the study. A dose lowering technique was utilized adhering to the principles of ALARA. CONTRAST: Patient received 86 ML OPTIRAY 320 of IV contrast COMPARISON: CT abdomen and pelvis with contrast dated 07/06/2022 FINDINGS: Lung bases: Unremarkable. No mass. No consolidation. ABDOMEN: Liver: Unremarkable. No mass. Gallbladder and bile ducts: Unremarkable. No calcified stones. No ductal dilation. Pancreas: Unremarkable. No mass. No ductal dilation. Spleen: Unremarkable. No splenomegaly. Adrenals: Unremarkable. No mass. Kidneys and ureters: Unremarkable. No solid mass. No hydronephrosis. Stomach and bowel: Unremarkable. No obstruction. No mucosal thickening. PELVIS: Appendix: No findings to suggest acute appendicitis. Bladder: Unremarkable. No mass. Reproductive: Unremarkable as visualized. ABDOMEN and PELVIS: Intraperitoneal space: Unremarkable. No free air. No significant fluid collection. Bones/joints: No acute fracture. No dislocation. Soft tissues: There is a recurrent, bilobed rim-enhancing collection in the posterior perianal region measuring up to 3.2 x 2.2 x 3 cm with some extension right posterior laterally into the right ischiorectal fat. There is subcutaneous fat stranding also noted in the posterior paramedian right gluteal region. No subcutaneous emphysema noted. Vasculature: Unremarkable. No abdominal aortic aneurysm. Lymph nodes: Unremarkable. No enlarged lymph nodes. IMPRESSION: There is a recurrent, bilobed rim-enhancing collection in the posterior perianal region measuring up to 3.2 x 2.2 x 3 cm with some extension right posterior laterally into the right ischiorectal fat. There is subcutaneous fat stranding also noted in the posterior paramedian right gluteal region. No subcutaneous emphysema noted. No extension of inflammatory changes noted above the pelvic floor. Electronically signed by: Bill Obrien MD 10/30/23 01:54 AM Diagnostic Findings Chest x-ray as per my interpretation atelectasis EKG as per my interpretation : Rate 100, NSR, normal axis, no ischemia
[2023-10-30] MEDS ORDERED: PROMETHAZINE HCL 12.5 MG in SODIUM CHLORIDE 0.9% 50 ML IV PRN ×2 (02:57→09:46)
[2023-10-30] MEDS ORDERED: LORazepam 0.5 MG TAB PO PRN (02:57)
[2023-10-30] MEDS ORDERED: QUEtiapine FUMARATE 25 MG TABLET PO STA (02:57)
[2023-10-30] MEDS ORDERED: KETOROLAC TROMETHAMINE 15 MG/ML VIAL IV PRN (02:57)
[2023-10-30 02:58] LABS: Magnesium 1.8 mg/dl (1.7-2.4)
[2023-10-30] MEDS ORDERED: NSS + 20MEQ KCL 20 MEQ/1,000 ML BAG IV ONE ×3 (03:30→05:00)
[2023-10-30] MEDS ORDERED: MAGNESIUM SULFATE / D5W 1 GM/100 ML BAG IV ONE (03:45)
[2023-10-30] MEDS ORDERED: HYDROmorphone INJ 0.5 MG/0.5 ML SYR IV PRN (04:17)
[2023-10-30] MEDS: NICOTINE 14 MG/24 HR PATCH TD SCH (06:35)
--- NOTE | 2023-10-30 07:42 | XRay Report ---
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 No pneumothorax, pleural effusion o r airspace consolidation. The bones appear grossly intact. IMPRESSION: No acute process. ACT 112: Negative or not required by law. The above report was generated using voice recognition software. It may contain grammatical, syntax o r spelling errors. Electronically signed by: Will Swartz M.D. 10/30/2023 7:41 AM
--- NOTE | 2023-10-30 08:07 | Surgery Consultation ---
Date of Consultation October 30, 2023 Assessment & Plan (1) Perirectal abscess: 33-year-old man with perirectal abscess, recurrent. I discussed the risks and benefits of incision and drainage of the perirectal abscess in the operating room. All his questions were answered and he is agreeable to proceed. Will take him to the operating room at the earliest convenience. Consent has been obtained. History of Present Illness Reason for Consultation: Perirectal abscess Requesting Physician: Ken Solorzano MD Attending Physician: Ken Solorzano MD History of Present Illness 33-year-old presents with recurrent perirectal abscess. He last had this 2 years ago. He has had perirectal abscesses in the same place 3 times. He noted pain and swelling starting 2 days ago. The pressure continued to increase. He did have fevers. He denies nausea or vomiting. Bowel movements are normal. CT scan demonstrates 3 cm abscess in the right buttock/perirectal space Allergies Allergy/AdvReac Type Severity Reaction Status Date / Time No Known Allergies Allergy Verified 10/30/23 02:48 Home Medications Medication Instructions Recorded Confirmed Type sertraline 100 mg tablet 100 mg PO QAM #30 tabs 08/04/20 10/30/23 Rx quetiapine 50 mg tablet 50 mg PO HS PRN Sleep 05/24/23 10/30/23 History multivitamin 1 cap PO DAILY 10/30/23 10/30/23 History Patient History Medical History Encounter for pre-operative examination Leukocytosis Rectal pain Encounter for pre-operative examination Leg pain, right Sepsis Fever COVID-19 Gout Bursitis Depression Obesity Elevated liver enzymes IN THE PAST (NOW WNL) Sciatica Deviated nasal septum Elevated blood uric acid level Sleep apnea NO DEVICE Asthma Surgical History History of incision and drainage (07/07/22) Evaluation Under Anesthesia, Incision and Drainage Ingrid Rectal Abscess(Not Applicable) - Des Bunch DO History of incision and drainage (11/01/21) Perirectal Abscess - Bill Barahona DO 11/01/2021 History of appendectomy History of tooth extraction History of esophageal dilatation History of esophagogastroduodenoscopy (EGD) History of removal of skin mole [place] teeth removed Family History Father Multiple sclerosis Father Family history of ITP Aunt Family history of diabetes mellitus Social History Smoking Status: Current every day smoker Tobacco Type: Cigarettes Cigarettes Per Day: 5-10; Second Hand Exposure: Yes; Do You Dip or Chew Tobacco: No; Hx Alcohol Use: No Hx Substance Use: No Preferred Language: Kyrgyz Communication Ability: Effective Visual Impairment: No Limitations Hearing Ability: Normal [employer] Required: No Beliefs That Will Affect Care: None Current Living Situation: Alone Current Living Situation Comment: roomate Feels Safe at Home: Yes Safety Concerns: Feels Safe At This Time Assistive Devices: None Review of Systems Review of Systems: All systems reviewed & are unremarkable except as noted in HPI & below Physical Exam Constitutional: WD/WN, vitals as above Eyes: PERRL, conjunctivae normal, anicteric sclerae Neck: trachea midline, no thyromegaly Respiratory: normal respiratory effort; no respiratory distress and no labored breathing Cardiovascular: Rate/Rhythm: regular rate and regular rhythm Gastrointestinal (Abdomen): Inspection/Auscultation: abdomen normal to inspection; abdomen not distended Percussion/Palpation: abdomen soft; abdomen nontender Skin: no rashes, warm and dry Psychiatric: A+Ox3, euthymic affect Results & Data Vital Signs (Past 12 Hours) Vital Signs Temp Pulse Pulse Resp BP BP Pulse Ox 10/30/23 07:10 83 10/30/23 06:01 99 H 19 108/64 94 10/30/23 04:16 10/30/23 04:01 94 H 22 122/60 95 10/30/23 03:34 105 H 14 123/85 98 10/30/23 03:30 97 H 19 123/85 10/30/23 02:30 100 H 15 131/68 10/30/23 02:00 106 H 32 H 96 10/30/23 02:00 133/77 10/30/23 01:30 101 H 27 H 98 10/30/23 01:30 126/75 10/30/23 01:19 105 H 19 99 10/30/23 01:19 131/81 10/30/23 01:18 108 H 22 99 10/30/23 00:45 111 H 26 H 98 10/30/23 00:45 113/92 10/30/23 00:38 116 H 28 H 10/30/23 00:38 124 H 10/30/23 00:28 37.1 C 123 H 18 149/88 H 97 Pulse Ox O2 Del Method O2 Del Method 10/30/23 07:10 10/30/23 06:01 10/30/23 04:16 98 Room Air 10/30/23 04:01 10/30/23 03:34 Room Air 10/30/23 03:30 10/30/23 02:30 10/30/23 02:00 10/30/23 02:00 10/30/23 01:30 10/30/23 01:30 10/30/23 01:19 10/30/23 01:19 10/30/23 01:18 10/30/23 00:45 10/30/23 00:45 10/30/23 00:38 10/30/23 00:38 10/30/23 00:28 Room Air Laboratory Results 10/30/23 10/30/23 Range/Units 01:00 00:56 WBC 13.29 H (4.8-10.8) K/ul RBC 5.70 (4.70-6.10) M/uL Hgb 15.3 (14.0-18.0) g/dl POC Hgb 16.3 (14.0-18.0) g/dl Hct 44.9 (42.0-52.0) % POC Hct 48 (42-52) % MCV 78.8 L (80.0-100.0) fL MCH 26.8 (25.0-34.0) pg MCHC 34.1 (32.0-36.0) g/dL RDW Std Deviation 37.0 (36.4-46.3) fL RDW Coeff of Lobo 13.2 (11.5-14.5) % Plt Count 220 (130-400) K/uL MPV 11.1 (9.4-12.4) fL Immature Gran % (Auto) 0.4 % Neut % (Auto) 64.9 % Lymph % (Auto) 23.2 % Ralls % (Auto) 9.8 % Eos % (Auto) 1.1 % Baso % (Auto) 0.6 % Neut # (Auto) 8.63 H (1.40-6.50) K/uL Lymph # (Auto) 3.08 (1.20-3.40) K/uL [place]alls # (Auto) 1.30 H (0.11-0.59) K/uL Eos # (Auto) 0.15 (0.00-0.50) K/uL Baso # (Auto) 0.08 (0.00-0.20) K/uL Immature Gran # (Auto) 0.05 (0.01-0.20) K/uL POC Sodium 141 (135-144) mmol/L Sodium 137 (136-145) mmol/L POC Potassium 4.2 (3.3-5.0) mmol/L Potassium 3.8 (3.5-5.1) mmol/L POC Chloride 105 (101-112) mmol/L Chloride 106 (98-107) mmol/L Carbon Dioxide 21 (21-32) mmol/L POC Total CO2 23 L (24-31) mmol/L Anion Gap 10 (3-11) POC Anion Gap 19.0 (16-25) mmol/L POC BUN 21 H (7-18) mg/dl BUN 18 (6-23) mg/dl Creatinine 0.96 (0.6-1.4) mg/dl POC Creatinine 1.1 (0.6-1.3) mg/dl Est Cr Clr Drug Dosing 128.3 ml/min Est GFR ( Amer) 119.0 ml/min Est GFR (Non-Af Amer) 102.7 ml/min BUN/Creatinine Ratio 18.8 (10-20) Glucose 96 (70-99(Fasting)) mg/dl POC Glucose (other) 98 (70-99) mg/dl Lactate 1.7 (0.4-2.0) mmol/L Calcium 10.0 (8.6-10.3) mg/dl POC Ioniz Calcium Alejo 1.17 (1.12-1.32) mmol/l Magnesium 1.8 (1.7-2.4) mg/dl Total Bilirubin 0.6 (0.2-1.0) mg/dl AST 20 (13-39) U/L ALT 50 (7-52) U/L Alkaline Phosphatase 53 (34-104) U/L Total Protein 7.0 (6.0-8.3) gm/dl Albumin 4.7 (3.4-5.0) gm/dl Globulin 2.3 L (2.5-4.0) gm/dl Albumin/Globulin Ratio 2.0 (0.9-2) Adenovirus (PCR) Not Detected (NotDetected) B. pertussis DNA (PCR) Not Detected (NotDetected) B.parapertussis DNA PCR Not Detected (NotDetected) C. pneumoniae DNA (PCR) Not Detected (NotDetected) Coronavirus OC43 (PCR) Not Detected (NotDetected) Coronavirus HKU1 (PCR) Not Detected (NotDetected) Coronavirus 229E (PCR) Not Detected (NotDetected) SARS-CoV-2 (PCR) Not Detected (NotDetected) Coronavirus NL63 (PCR) Not Detected (NotDetected) Human Metapneumovir PCR Not Detected (NotDetected) Influenza Type A (PCR) Not Detected (NotDetected) Influenza Type B (PCR) Not Detected (NotDetected) M. pneumoniae (PCR) Not Detected (NotDetected) Parainfluenza 1 (PCR) Not Detected (NotDetected) Parainfluenza 2 (PCR) Not Detected (NotDetected) Parainfluenza 3 (PCR) Not Detected (NotDetected) Parainfluenza 4 (PCR) Not Detected (NotDetected) RSV (PCR) Not Detected (NotDetected) Entero/Rhino (PCR) Not Detected (NotDetected) Diagnostic Findings Exam(s): CT ABDOMEN + PELVIS With Contrast IV Amt: 86 ML OPTIRAY 320 EXAM: CT Abdomen and Pelvis With Intravenous Contrast CLINICAL HISTORY: perirectal abscess. TECHNIQUE: Axial computed tomography images of the abdomen and pelvis with intravenous contrast. CTDI is 28.14 mGy and DLP is 1724.97 mGy-cm. Automated exposure control was utilized for the study. A dose lowering technique was utilized adhering to the principles of ALARA. CONTRAST: Patient received 86 ML OPTIRAY 320 of IV contrast COMPARISON: CT abdomen and pelvis with contrast dated 07/06/2022 FINDINGS: Lung bases: Unremarkable. No mass. No consolidation. ABDOMEN: Liver: Unremarkable. No mass. Gallbladder and bile ducts: Unremarkable. No calcified stones. No ductal dilation. Pancreas: Unremarkable. No mass. No ductal dilation. Spleen: Unremarkable. No splenomegaly. Adrenals: Unremarkable. No mass. Kidneys and ureters: Unremarkable. No solid mass. No hydronephrosis. Stomach and bowel: Unremarkable. No obstruction. No mucosal thickening. PELVIS: Appendix: No findings to suggest acute appendicitis. Bladder: Unremarkable. No mass. Reproductive: Unremarkable as visualized. ABDOMEN and PELVIS: Intraperitoneal space: Unremarkable. No free air. No significant fluid collection. Bones/joints: No acute fracture. No dislocation. Soft tissues: There is a recurrent, bilobed rim-enhancing collection in the posterior perianal region measuring up to 3.2 x 2.2 x 3 cm with some extension right posterior laterally into the right ischiorectal fat. There is subcutaneous fat stranding also noted in the posterior paramedian right gluteal region. No subcutaneous emphysema noted. Vasculature: Unremarkable. No abdominal aortic aneurysm. Lymph nodes: Unremarkable. No enlarged lymph nodes. IMPRESSION: There is a recurrent, bilobed rim-enhancing collection in the posterior perianal region measuring up to 3.2 x 2.2 x 3 cm with some extension right posterior laterally into the right ischiorectal fat. There is subcutaneous fat stranding also noted in the posterior paramedian right gluteal region. No subcutaneous emphysema noted. No extension of inflammatory changes noted above the pelvic floor. Electronically signed by: Bill Obrien MD 10/30/23 01:54 AM
[2023-10-30] MEDS: MULTIVITAMIN TAB PO SCH (08:17)
[2023-10-30] MEDS: SERTRALINE HCL 100 MG TABLET PO SCH ×2 (08:17→16:36)
[2023-10-30] MEDS: HYDROmorphone INJ 0.5 MG/0.5 ML SYR IV PRN ×4 (08:28→21:01)
[2023-10-30] MEDS: ENOXAPARIN INJ 40 MG/0.4 ML SYR SQ SCH (08:29)
[2023-10-30] MEDS: PIPERACILLIN/TAZOBACTAM 4.5 GM in DEXTROSE 5% MINI-B 100 ML IV SCH ×3 (08:29→23:52)
[2023-10-30] MEDS ORDERED: LACTATED RINGER'S 1,000 ML IV SCH (08:45)
[2023-10-30] MEDS ORDERED: FLUMAZENIL 0.1 MG/1 ML 10 ML VIAL IV PRN (09:46)
[2023-10-30] MEDS ORDERED: LABETALOL HCL IV 5 MG/ML 20ML IV PRN (09:46)
[2023-10-30] MEDS ORDERED: ATROPINE SULFATE 0.1 MG/ML 10ML SYR IV PRN (09:46)
[2023-10-30] MEDS ORDERED: HYDROmorphone INJ 1 MG/ML SYRINGE IV PRN (09:46)
[2023-10-30] MEDS ORDERED: ePHEDrine sulfate 50 MG/ML AMP IV PRN (09:46)
[2023-10-30] MEDS ORDERED: ONDANSETRON INJ 2 MG/ML 2 ML VIAL IV PRN (09:46)
[2023-10-30] MEDS ORDERED: NALOXONE HCL 0.4 MG/1 ML VIAL/CARP IV PRN (09:46)
--- NOTE | 2023-10-30 09:46 | Anesthesiology Consultation ---
Date of Service October 30, 2023 Assessment & Plan Chart Review Chart Review: Acceptable Risk for Surgery and Patient NOT seen in Pre Admission Testing Consults Requested none ASA [id number] Proposed Anesthesia Anesthesia Type: General Risk / Benefits Reviewed With: PT / POA / Parent / Guardian, Accepts Plan and Informed Consent Obtained History Surgery Operation Date: 10/30/23 07:00 Proposed Procedures p Incision and Drainage Perirectal Abscess - Carl Cuadra MD Height/Weight Height: 5 ft 10 in Weight: 115.666 kg Allergies Allergy/AdvReac Type Severity Reaction Status Date / Time No Known Allergies Allergy Verified 10/30/23 02:48 Medications Home Medications Medication Instructions Recorded Confirmed Last Taken sertraline 100 mg tablet 100 mg PO QAM #30 tabs 08/04/20 10/30/23 10/29/23 09:00 quetiapine 50 mg tablet 50 mg PO HS PRN Sleep 05/24/23 10/30/23 7 Days Ago ~10/23/23 multivitamin 1 cap PO DAILY 10/30/23 10/30/23 10/29/23 09:00 Active Medications Generic Name Dose Route Start Last Admin Trade Name Freq PRN Reason Stop Dose Admin Enoxaparin Sodium 40 mg 10/30/23 09:00 10/30/23 08:29 Enoxaparin Inj 40 Mg/0.4 Ml Syr SQ 11/29/23 08:59 40 mg QAM LISA Administration Hydromorphone HCl 1 mg 10/30/23 06:21 10/30/23 08:28 Hydromorphone Inj 0.5 Mg/0.5 Ml Syr IV 11/13/23 04:16 1 mg Q4H PRN Administration Pain Piperacillin Sod/Tazobactam 100 mls @ 25 mls/hr 10/30/23 08:00 10/30/23 08:29 Sod 4.5 gm/ Dextrose IV 11/09/23 07:59 25 mls/hr Q8H LISA Administration Protocol Potassium Chloride/Sodium Chloride 20 meq in 1,000 mls @ 100 mls/hr 10/30/23 03:30 10/30/23 03:59 Normal Saline W/20 Meq Kcl IV 10/30/23 13:29 100 mls/hr .Q10H ONE Administration Protocol Lactated Ringer's 1,000 mls @ 15 mls/hr 10/30/23 08:45 10/30/23 09:14 Lr IV 11/29/23 08:44 15 mls/hr .Q24H LISA Administration Multivitamins 1 tab 10/30/23 09:00 10/30/23 08:17 Multivitamin Tab PO 11/29/23 08:59 Not Given DAILY LISA Nicotine 14 mg 10/30/23 05:30 10/30/23 06:35 Nicotine 14 Mg/24 Hr Patch TD 11/29/23 05:29 14 mg QAM LISA Administration Sertraline HCl 100 mg 10/30/23 09:00 10/30/23 08:17 Sertraline Hcl 100 Mg Tablet PO 11/29/23 08:59 Not Given QAM LISA NPO Date Last Intake of Fluids: 10/30/23 Time Last Intake of Fluids: 03:00 Date Last Intake of Solids: 10/29/23 Time Last Intake of Solids: 19:00 Past Medical History Medical History Encounter for pre-operative examination Leukocytosis Rectal pain Encounter for pre-operative examination Leg pain, right Sepsis Fever COVID-19 Gout Bursitis Depression Obesity Elevated liver enzymes IN THE PAST (NOW WNL) Sciatica Deviated nasal septum Elevated blood uric acid level Sleep apnea NO DEVICE Asthma Exercise / Class Metabolic Activity II 4-5 Yardwork/Stairs/Walk up hill Past Family History Family History Father Multiple sclerosis Father Family history of ITP Aunt Family history of diabetes mellitus Past Surgical History Surgical History History of incision and drainage (07/07/22) Evaluation Under Anesthesia, Incision and Drainage Ingrid Rectal Abscess(Not Applicable) - Des Bunch DO History of incision and drainage (11/01/21) Perirectal Abscess - Bill Barahona DO 11/01/2021 History of appendectomy History of tooth extraction History of esophageal dilatation History of esophagogastroduodenoscopy (EGD) History of removal of skin mole Morrice teeth removed Past Anesthesia History No Hx of Anesthesia Complications and No Family Hx of Anesthesia Complications History of PONV No Hx of PONV and No Hx of Motion Sickness Social History Smoking Status: Current every day smoker tobacco type: cigarettes Smoking cigarettes per day: 5-10 Do You Dip or Chew Tobacco: No Hx Alcohol Use: No Alcohol type: wine alcohol intake frequency: holidays/special occasions only Hx Substance Use: No substance use type: does not use Physical Exam Vital Signs Last Vital Signs Temp 37.4 C 10/30/23 09:09 Pulse 102 H 10/30/23 09:09 Resp 20 10/30/23 09:09 BP 108/61 10/30/23 09:09 Pulse Ox 95 10/30/23 09:09 O2 Del Method Room Air 10/30/23 09:09 Constitutional + morbidly obese; no acute distress ENMT Mouth: no dentition abnormality Thyromental Distance: > or= 3.5 Finger Breadths Mallampati Class: III Neck normal visual inspection, trachea midline, + short neck, + thick neck and + facial hair; neck extension not limited Respiratory normal respiratory effort Auscultation: lungs clear to auscultation bilaterally Cardiovascular Rate/Rhythm: regular rate and regular rhythm Heart Sounds: no murmur Vessels: no carotid bruit Musculoskeletal Spine: normal cervical ROM and no pain with cervical ROM Extremities: full ROM of extremities Neurologic moves all extremities Motor/Sensory: no sensory deficit Psychiatric Orientation: alert and oriented x 3 Testing Laboratory Results 10/30/23 01:00 10/30/23 01:00 10/30/23 00:56 POC Glucose (other) 98 Electrocardiogram Date: 10/30/23 Findings: + NSR @ (@ 99) Chest X-Ray Date: 10/30/23 Findings: + NAD
[2023-10-30] MEDS ORDERED: PROPOFOL IV EMULSION 10 MG/ML 20 ML VIAL IV ONE (09:49)
[2023-10-30] MEDS ORDERED: MIDAZOLAM HCL 1 MG/ML 2ML VIAL ONE (09:50)
[2023-10-30] MEDS ORDERED: fentaNYL citrate PF 100 MCG/2 ML VIAL ONE ×2 (09:51→10:50)
[2023-10-30] MEDS ORDERED: LIDOCAINE 1%/EPINEPHRINE 1:100,000 20 ML VIAL ONE (09:55)
--- NOTE | 2023-10-30 09:55 | Electrocardiogram Report ---
Test Reason : Blood Pressure : / mmHG Vent. Rate : 099 BPM Atrial Rate : 099 BPM P-R Int : 160 ms QRS Dur : 098 ms QT Int : 334 ms P-R-T Axes : 042 018 021 degrees QTc Int : 428 ms Normal sinus rhythm Normal ECG When compared with ECG of 22-DEC-2020 16:48, ST no longer depressed in Anterior leads Confirmed by Jermaine Light ([id number]) on 10/30/2023 9:55:30 AM Referred By: REFERRED SELF Confirmed By:Jermaine Light
[2023-10-30] MEDS ORDERED: SUCCINYLCHOLINE CHLORIDE 20 MG/ML 10 ML VIAL IV ONE (10:21)
--- NOTE | 2023-10-30 10:35 | Post Operative Brief Note ---
Immediate Post Op Note v1 Date of Surgery October 30, 2023 Pre & Post Diagnosis Operation Date: 10/30/23 07:00 Preop: Complex perirectal abscess Postop: Same I identified the patient and participated in the time-out.: Yes Procedure Operation Date: 10/30/23 07:00 Incision and drainage of complex perirectal abscess Surgeon Carl Cuadra MD Medicare Contact Specialist None Estimated Blood Loss 10 Findings Consistent with Post-Op Diagnosis
[2023-10-30] MEDS ORDERED: PHENYLEPHRINE 100MCG/ML 10ML SYR IV ONE (10:38)
--- NOTE | 2023-10-30 10:38 | Operative Report ---
Post Operative Report Pre & Post Diagnosis Operation Date: 10/30/23 07:00 Preop: Complex perirectal abscess Postop: Same I identified the patient and participated in the time-out.: Yes Procedure Operation Date: 10/30/23 07:00 Incision and drainage of complex peritoneal abscess Surgeon Carl Cuadra MD Emt/Dispatcher None Estimated Blood Loss 10 Findings Consistent with Post-Op Diagnosis Purulent drainage returned the right posterior portion. 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 A timeout was performed, perioperative antibiotics were administered, SCD boots were placed. After adequate anesthesia and analgesia was obtained, patient was placed in lithotomy position was prepped and draped in normal sterile fashion. Local anesthetic was injected into and around the area of the prior incision sites. A cruciate incision was made in this location into an old cavity of chronic granulation tissue. No purulence was returned immediately. The cavity was probed. The old cavity was noted to track up along the right side outside of the sphincter muscle. No purulence was noted in this location. Using the CT as a guide, we used a hemostat to track posteriorly. In the posterior plane, an abscess cavity was identified and was accessed with a hemostat. A moderate amount of purulent fluid was returned. Cultures were sent. This cavity was opened wide and further pus was removed. The entire area was irrigated with saline. No further purulent pockets were identified. Loculations were broken up with hemostat. Half-inch packing was soaked in Betadine and placed within the cavity. Dressings were applied. He tolerated the procedure without complication, was transferred in stable condition to the PACU. All instrument, needle, and sponge counts were correct at the end of the case. I attest to the content of the Intraoperative Record and any orders documented therein. Any exceptions are noted below.
[2023-10-30] MEDS: fentaNYL citrate PF 100 MCG/2 ML VIAL IV PRN ×4 (10:53→11:18)
--- NOTE | 2023-10-30 11:41 | Anesthesiology Progress Note ---
Date of Service October 30, 2023 Anesthesia Post Procedure Vital Signs Vital Signs: Temp Pulse Pulse Resp BP BP Pulse Ox 10/30/23 11:25 102 H 24 101/54 L 97 10/30/23 11:15 100 H 14 111/58 L 98 10/30/23 11:05 101 H 15 114/70 94 10/30/23 10:55 37.0 C 94 H 13 118/56 L 93 10/30/23 10:47 37.0 C 88 20 139/68 97 10/30/23 09:09 37.4 C 102 H 20 108/61 95 10/30/23 08:30 37.5 C 10/30/23 08:30 105 H 24 98 10/30/23 08:27 129/88 10/30/23 08:27 102 H 16 99 10/30/23 08:00 95 H 18 97 10/30/23 07:30 89 14 95 10/30/23 07:10 83 10/30/23 07:00 96 H 19 95 10/30/23 06:30 90 13 92 10/30/23 06:01 99 H 19 108/64 94 10/30/23 04:16 10/30/23 04:01 94 H 22 122/60 95 10/30/23 03:34 105 H 14 123/85 98 10/30/23 03:30 97 H 19 123/85 10/30/23 02:30 100 H 15 131/68 10/30/23 02:00 106 H 32 H 96 10/30/23 02:00 133/77 10/30/23 01:30 101 H 27 H 98 10/30/23 01:30 126/75 10/30/23 01:19 105 H 19 99 10/30/23 01:19 131/81 10/30/23 01:18 108 H 22 99 10/30/23 00:45 111 H 26 H 98 10/30/23 00:45 113/92 10/30/23 00:38 116 H 28 H 10/30/23 00:38 124 H 10/30/23 00:28 37.1 C 123 H 18 149/88 H 97 Pulse Ox O2 Del Method O2 Del Method O2 Flow Rate 10/30/23 11:25 Oxymask 2 10/30/23 11:15 Oxymask 4 10/30/23 11:05 Oxymask 4 10/30/23 10:55 Oxymask 4 10/30/23 10:47 Oxymask 8 10/30/23 09:09 Room Air 10/30/23 08:30 10/30/23 08:30 10/30/23 08:27 10/30/23 08:27 10/30/23 08:00 10/30/23 07:30 10/30/23 07:10 10/30/23 07:00 10/30/23 06:30 10/30/23 06:01 10/30/23 04:16 98 Room Air 10/30/23 04:01 10/30/23 03:34 Room Air 10/30/23 03:30 10/30/23 02:30 10/30/23 02:00 10/30/23 02:00 10/30/23 01:30 10/30/23 01:30 10/30/23 01:19 10/30/23 01:19 10/30/23 01:18 10/30/23 00:45 10/30/23 00:45 10/30/23 00:38 10/30/23 00:38 10/30/23 00:28 Room Air Pain Intensity Buttock: Pain Intensity: 7 Transfer of Care Handoff Completed per policy Notes Mental Status: alert / awake / arousable Patient Amnestic to Procedure: Yes Nausea / Vomiting: adequately controlled Pain: adequately controlled Airway Patency, RR, SpO2: stable & adequate BP & HR: stable & adequate Hydration State: stable & adequate Anesthetic Complications: no major complications apparent
[2023-10-30] MEDS: oxyCODONE HCL IR 5 MG TAB (IMMEDIATE RELEASE) PO PRN ×2 (16:58→23:09)
--- NOTE | 2023-10-30 17:01 | Communication Note ---
Date of Service: October 30, 2023 The patient was seen and examined in medical telemetry unit. 33-year-old male underwent incision and drainage's of perirectal abscess today. He has been stable but complains to have more pain. Pain medications will be given as needed. Remains hemodynamically stable and full progress note will be done tomorrow. Dr Sanket Solorzano
[2023-10-30] MEDS: ACETAMINOPHEN 325 MG TAB PO PRN ×2 (18:02→23:10)
[2023-10-31] MEDS: HYDROmorphone INJ 0.5 MG/0.5 ML SYR IV PRN ×3 (01:14→09:41)
[2023-10-31] MEDS ORDERED: KETOROLAC TROMETHAMINE 15 MG/ML VIAL IV ONE (02:51)
[2023-10-31] MEDS ORDERED: NSS + 20MEQ KCL 20 MEQ/1,000 ML BAG IV ONE (02:52)
[2023-10-31 06:22] LABS: Basophils # (auto) 0.07 K/uL (0.00-0.20); Basophils % (auto) 0.5 %; Eosinophils # (auto) 0.13 K/uL (0.00-0.50); Hematocrit (blood only) 39.4 % (42.0-52.0); Hemoglobin 13.2 g/dl (14.0-18.0); Immature Granulocytes # (auto) 0.05 K/uL (0.01-0.20); Immature Granulocytes % (auto) 0.4 %; Lymphocytes # (auto) 2.22 K/uL (1.20-3.40); Lymphocytes % (auto) 16.8 %; Mean Corpuscular Hgb Conc 33.5 g/dL (32.0-36.0); Mean Corpuscular Volume 80.7 fL (80.0-100.0); Mean Platelet Volume 11.4 fL (9.4-12.4); Monocytes # (auto) 1.08 K/uL (0.11-0.59); Monocytes % (auto) 8.2 %; Neutrophils # (auto) 9.67 K/uL (1.40-6.50); Neutrophils % (auto) 73.1 %; Platelet Count 179 K/uL (130-400); RDW Coefficient of Variation 13.2 % (11.5-14.5); RDW Standard Deviation 38.5 fL (36.4-46.3); Red Blood Count 4.88 M/uL (4.70-6.10); White Blood Count 13.22 K/ul (4.8-10.8)
[2023-10-31 06:31] LABS: BUN Creatinine Ratio 12.1 (10-20); Calcium 9.3 mg/dl (8.6-10.3); Creatinine Clr Calc Pharmacy 123.9 ml/min; Est GFR (African American) 104.4 ml/min; Est GFR (Non-African American) 90.1 ml/min; Potassium 4.1 mmol/L (3.5-5.1)
[2023-10-31] MEDS: oxyCODONE HCL IR 5 MG TAB (IMMEDIATE RELEASE) PO PRN ×3 (07:07→19:13)
[2023-10-31] MEDS: PIPERACILLIN/TAZOBACTAM 4.5 GM in DEXTROSE 5% MINI-B 100 ML IV SCH ×2 (08:13→15:51)
[2023-10-31] MEDS: SERTRALINE HCL 100 MG TABLET PO SCH (08:14)
[2023-10-31] MEDS: ENOXAPARIN INJ 40 MG/0.4 ML SYR SQ SCH (08:14)
[2023-10-31] MEDS: NICOTINE 14 MG/24 HR PATCH TD SCH (08:15)
[2023-10-31] MEDS: MULTIVITAMIN TAB PO SCH (08:15)
--- NOTE | 2023-10-31 09:29 | Surgery Progress Note ---
Date of Service October 31, 2023 Assessment & Plan (1) Perirectal abscess: Plan pod 1. S/p I and D of perirectal abscess Fevers overnight we will leave the packing for now, we will remove it tomorrow Continue IV antibiotics, we will need at least 1 more day of IV antibiotics continuing to follow Admission and Anticipated Discharge Date Admission Date: October 30, 2023 Subjective Doing fairly well this morning. Some pain and discomfort in the rectal area. did have a fever last night. No nausea or vomiting. Physical Exam Physical Exam: NAD, A&O x3 Currently afebrile, vital signs stable and normal Dressing dry and intact Results & Data Vital Signs (Past 12 Hours) Vital Signs Temp Pulse Pulse Resp BP Pulse Ox O2 Del Method 10/31/23 07:18 36.7 C 85 18 145/62 H 96 Room Air 10/31/23 07:00 79 10/31/23 03:46 36.9 C 10/31/23 02:47 37.6 C H 92 H 20 123/80 93 Room Air 10/31/23 01:11 82 10/30/23 23:51 37.4 C 10/30/23 23:19 Room Air 10/30/23 23:07 37.8 C H 99 H 20 115/67 95 Room Air Laboratory Results 10/31/23 Range/Units 05:36 WBC 13.22 H (4.8-10.8) K/ul RBC 4.88 (4.70-6.10) M/uL Hgb 13.2 L (14.0-18.0) g/dl Hct 39.4 L (42.0-52.0) % MCV 80.7 (80.0-100.0) fL MCH 27.0 (25.0-34.0) pg MCHC 33.5 (32.0-36.0) g/dL RDW Std Deviation 38.5 (36.4-46.3) fL RDW Coeff of Lobo 13.2 (11.5-14.5) % Plt Count 179 (130-400) K/uL MPV 11.4 (9.4-12.4) fL Immature Gran % (Auto) 0.4 % Neut % (Auto) 73.1 % Lymph % (Auto) 16.8 % Dixie % (Auto) 8.2 % Eos % (Auto) 1.0 % Baso % (Auto) 0.5 % Neut # (Auto) 9.67 H (1.40-6.50) K/uL Lymph # (Auto) 2.22 (1.20-3.40) K/uL Dixie # (Auto) 1.08 H (0.11-0.59) K/uL Eos # (Auto) 0.13 (0.00-0.50) K/uL Baso # (Auto) 0.07 (0.00-0.20) K/uL Immature Gran # (Auto) 0.05 (0.01-0.20) K/uL Sodium 136 (136-145) mmol/L Potassium 4.1 (3.5-5.1) mmol/L Chloride 103 (98-107) mmol/L Carbon Dioxide 26 (21-32) mmol/L Anion Gap 7 (3-11) BUN 13 (6-23) mg/dl Creatinine 1.07 (0.6-1.4) mg/dl Est Cr Clr Drug Dosing 123.9 ml/min Est GFR ( Amer) 104.4 ml/min Est GFR (Non-Af Amer) 90.1 ml/min BUN/Creatinine Ratio 12.1 (10-20) Glucose 147 H (70-99(Fasting)) mg/dl Calcium 9.3 (8.6-10.3) mg/dl
[2023-10-31] MEDS: ADVANCED PROBIOTIC 1250 MG CAPSULE PO SCH (09:41)
[2023-10-31] MEDS: ACETAMINOPHEN 325 MG TAB PO PRN (13:09)
--- NOTE | 2023-10-31 13:46 | Hospitalist Progress Note ---
Date of Service October 31, 2023 Assessment & Plan (1) Sepsis: Plan: Secondary to recurrent perirectal abscess History multiple surgeries Has been getting intravenous Zosyn Blood cultures have been negative Wound culture showing pinpoint growth and Gram stain showed moderate WBC with rare gram-positive cocci Appreciate surgery input and status post I&D Has had fever last evening none since then White count remains mildly elevated at 13.22 Will continue IV antibiotic as of today Has been tolerating diet and ambulating Pain is controlled with current regimen Will monitor CBC and PRP Likely discharge tomorrow on oral Augmentin Situational hypertension Blood pressure is controlled now Mood disorder, stable We will continue current medications GARETT not on CPAP as per records Past alcohol abuse Ongoing tobacco abuse Nicotine patch DVT prophylaxis. 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 It may contain grammatical or spelling errors. Kindly contact undersigned for clarification of any documentation item in question. Admission and Anticipated Discharge Date Admission Date: October 30, 2023 Subjective 10/31/2023 The patient was seen and examined in medical telemetry unit He complains to have ongoing pain involving the rectal area Has been tolerating diet Has had fever of 38.6 on the evening of 30 October None since then Review of Systems Review of Systems: All systems reviewed and are unremarkable except as noted below Physical Exam Physical Exam: Lying in bed without any acute distress Constitutional: well developed, well nourished, + ill appearing and + obese Eyes: PERRL, conjunctivae normal, anicteric sclerae ENMT: external ear and nose normal, oropharynx normal Neck: trachea midline, no thyromegaly Respiratory: no respiratory distress Auscultation: lungs clear to auscultation bilaterally Cardiovascular: Rate/Rhythm: regular rate and regular rhythm; not tachycardic Heart Sounds: normal S1 and normal S2; no murmur Extremities: no edema Gastrointestinal (Abdomen): Inspection/Auscultation: normal bowel sounds; abdomen not distended Percussion/Palpation: abdomen soft; abdomen nontender Musculoskeletal: No acute arthritis involving any of the joint Neurologic: Alert, awake and oriented x 3. No focal sensory or motor deficit appreciated Psychiatric: A+Ox3, euthymic affect Lymphatic: no cervical or axillary lymphadenopathy Results & Data Results & Data Vital Signs (Past 12 Hours) Vital Signs Temp Pulse Pulse Resp BP Pulse Ox O2 Del Method 10/31/23 11:06 37.4 C 71 18 111/72 94 Room Air 10/31/23 09:00 Room Air 10/31/23 07:18 36.7 C 85 18 145/62 H 96 Room Air 10/31/23 07:00 79 10/31/23 03:46 36.9 C 10/31/23 02:47 37.6 C H 92 H 20 123/80 93 Room Air Laboratory Results Short CBC 10/31/23 Range/Units 05:36 WBC 13.22 H (4.8-10.8) K/ul Hgb 13.2 L (14.0-18.0) g/dl Hct 39.4 L (42.0-52.0) % Plt Count 179 (130-400) K/uL BMP 10/31/23 05:36 Sodium 136 Potassium 4.1 Chloride 103 Carbon Dioxide 26 BUN 13 Creatinine 1.07 Glucose 147 H Calcium 9.3 Medications Administered Current Inpatient Medications Acetaminophen (Acetaminophen 325 Mg Tab) 650 mg PO Q4H PRN PRN Reason: Pain or Fever Stop: 11/29/23 03:40 Last Admin: 10/31/23 13:09 Dose: 650 mg Enoxaparin Sodium (Enoxaparin Inj 40 Mg/0.4 Ml Syr) 40 mg SQ QAM LISA Stop: 11/29/23 08:59 Last Admin: 10/31/23 08:14 Dose: 40 mg Hydromorphone HCl (Hydromorphone Inj 0.5 Mg/0.5 Ml Syr) 1 mg IV Q4H PRN PRN Reason: Pain Stop: 11/13/23 04:16 Last Admin: 10/31/23 09:41 Dose: 1 mg Promethazine HCl 12.5 mg/ (Sodium Chloride) 50.5 mls @ 202 mls/hr IV Q6H PRN PRN Reason: Nausea And Vomiting Stop: 11/29/23 02:56 Last Infusion: 10/31/23 10:43 Dose: Infused Piperacillin Sod/Tazobactam (Sod 4.5 gm/ Dextrose) 100 mls @ 25 mls/hr IV Q8H LISA; Protocol Stop: 11/09/23 07:59 Last Infusion: 10/31/23 12:20 Dose: Infused Potassium Chloride/Sodium Chloride (Normal Saline W/20 Meq Kcl) 20 meq in 1,000 mls @ 80 mls/hr IV .[id number] ONE; Protocol Stop: 10/31/23 15:21 Last Admin: 10/31/23 03:04 Dose: 80 mls/hr Lactobacillus Acidophilus (Advanced Probiotic 1250 Mg Capsule) 2 cap PO DAILY [facility] Stop: 11/30/23 09:29 Last Admin: 10/31/23 09:41 Dose: 2 cap Lorazepam (Lorazepam 0.5 Mg Tab) 0.5 mg PO TID PRN PRN Reason: Anxiety Stop: 11/29/23 02:56 Miscellaneous (Remove Nicoderm Patch) 1 each N/A DAILY@0859 [facility] Stop: 11/30/23 08:58 Last Admin: 10/31/23 08:16 Dose: 1 each Multivitamins (Multivitamin Tab) 1 tab PO DAILY [facility] Stop: 11/29/23 08:59 Last Admin: 10/31/23 08:15 Dose: 1 tab Nicotine (Nicotine 14 Mg/24 Hr Patch) 14 mg TD QAM [facility] Stop: 11/29/23 05:29 Last Admin: 10/31/23 08:15 Dose: 14 mg Oxycodone HCl (Oxycodone Hcl Ir 5 Mg Tab (Immediate Release)) 5 - 10 mg PO QID PRN PRN Reason: Pain Stop: 11/13/23 02:56 Last Admin: 10/31/23 13:08 Dose: 10 mg Quetiapine Fumarate (Quetiapine Fumarate 25 Mg Tablet) 50 mg PO HS PRN PRN Reason: Sleep Stop: 11/29/23 03:40 Sertraline HCl (Sertraline Hcl 100 Mg Tablet) 100 mg PO QAM [facility] Stop: 11/29/23 08:59 Last Admin: 10/31/23 08:14 Dose: 100 mg
[2023-10-31] MEDS: HYDROmorphone INJ 1 MG/ML SYRINGE IV PRN ×3 (14:18→21:23)
[2023-11-01] MEDS: QUEtiapine FUMARATE 25 MG TABLET PO PRN ×2 (00:12→23:55)
[2023-11-01] MEDS: PIPERACILLIN/TAZOBACTAM 4.5 GM in DEXTROSE 5% MINI-B 100 ML IV SCH ×4 (00:14→22:07)
[2023-11-01] MEDS: HYDROmorphone INJ 1 MG/ML SYRINGE IV PRN ×6 (00:57→21:59)
[2023-11-01] MEDS: oxyCODONE HCL IR 5 MG TAB (IMMEDIATE RELEASE) PO PRN ×4 (04:27→23:53)
[2023-11-01] MEDS: SERTRALINE HCL 100 MG TABLET PO SCH (07:13)
[2023-11-01] MEDS: ADVANCED PROBIOTIC 1250 MG CAPSULE PO SCH (07:13)
[2023-11-01] MEDS: MULTIVITAMIN TAB PO SCH (07:14)
[2023-11-01] MEDS: ENOXAPARIN INJ 40 MG/0.4 ML SYR SQ SCH (07:14)
[2023-11-01] MEDS: NICOTINE 14 MG/24 HR PATCH TD SCH (07:14)
[2023-11-01] MEDS ORDERED: AMOXICILLIN/CLAVULANATE 875 MG TAB PO SCH (08:00)
[2023-11-01 08:14] LABS: Basophils # (auto) 0.07 K/uL (0.00-0.20); Basophils % (auto) 0.7 %; Eosinophils # (auto) 0.33 K/uL (0.00-0.50); Eosinophils % (auto) 3.3 %; Hematocrit (blood only) 40.7 % (42.0-52.0); Hemoglobin 13.1 g/dl (14.0-18.0); Immature Granulocytes # (auto) 0.04 K/uL (0.01-0.20); Immature Granulocytes % (auto) 0.4 %; Lymphocytes # (auto) 2.82 K/uL (1.20-3.40); Lymphocytes % (auto) 28.1 %; Mean Corpuscular Hemoglobin 26.6 pg (25.0-34.0); Mean Corpuscular Hgb Conc 32.2 g/dL (32.0-36.0); Mean Corpuscular Volume 82.7 fL (80.0-100.0); Monocytes # (auto) 1.09 K/uL (0.11-0.59); Monocytes % (auto) 10.9 %; Neutrophils # (auto) 5.67 K/uL (1.40-6.50); Neutrophils % (auto) 56.6 %; Platelet Count 189 K/uL (130-400); RDW Coefficient of Variation 12.8 % (11.5-14.5); RDW Standard Deviation 38.3 fL (36.4-46.3); Red Blood Count 4.92 M/uL (4.70-6.10); White Blood Count 10.02 K/ul (4.8-10.8)
[2023-11-01 08:34] LABS: BUN Creatinine Ratio 10.7 (10-20); Calcium 9.7 mg/dl (8.6-10.3); Creatinine Clr Calc Pharmacy 121.9 ml/min; Est GFR (African American) 98.8 ml/min; Est GFR (Non-African American) 85.2 ml/min; Potassium 4.2 mmol/L (3.5-5.1)
--- NOTE | 2023-11-01 08:39 | Surgery Progress Note ---
Date of Service November 01, 2023 Assessment & Plan (1) Perirectal abscess: Plan pod 2. S/p I and D of perirectal abscess improving packing removed, no need to repack Continue IV antibiotics, we will need at least 1 more day of IV antibiotics continuing to follow Admission and Anticipated Discharge Date Admission Date: October 30, 2023 Subjective Improving, less pain today. No fevers overnight. Physical Exam Physical Exam: NAD, A&O x3 Currently afebrile, vital signs stable and normal Dressing dry and intact dressing removed and packing removed seepage of serosanguineous fluid Dressing were placed Results & Data Vital Signs (Past 12 Hours) Vital Signs Temp Pulse Pulse Resp BP BP Pulse Ox 11/01/23 07:10 36.9 C 84 16 146/82 H 98 11/01/23 07:00 77 11/01/23 03:11 36.9 C 85 18 112/69 96 10/31/23 22:53 37.6 C H 86 18 121/68 97 10/31/23 21:55 89 O2 Del Method 11/01/23 07:10 Room Air 11/01/23 07:00 11/01/23 03:11 Room Air 10/31/23 22:53 Room Air 10/31/23 21:55
--- NOTE | 2023-11-01 14:23 | Hospitalist Progress Note ---
Date of Service November 01, 2023 Assessment & Plan (1) Sepsis: Plan: Secondary to recurrent perirectal abscess History multiple surgeries Has been getting intravenous Zosyn Blood cultures have been negative Wound culture showing pinpoint growth and Gram stain showed moderate WBC with rare gram-positive cocci Appreciate surgery input and status post I&D Has had fever last evening none since then White count remains mildly elevated at 13.22 Will continue IV antibiotic as of today Has been tolerating diet and ambulating Pain is controlled with current regimen Will monitor CBC and PRP Has had low-grade fever last night with profuse sweating Repeat blood culture has not been growing any organisms so far Will continue IV antibiotic for today likely discharge tomorrow on oral Augmentin to finish a total of 14 days of antibiotic Situational hypertension Blood pressure is controlled now Mood disorder, stable We will continue current medications GARETT not on CPAP as per records Past alcohol abuse Ongoing tobacco abuse Nicotine patch DVT prophylaxis. Lovenox subcu Full code Text document was generated using [employer] voice recognition software. It may contain grammatical or spelling errors. Kindly contact undersigned for clarification of any documentation item in question. Admission and Anticipated Discharge Date Admission Date: October 30, 2023 Subjective 10/31/2023 The patient was seen and examined in medical telemetry unit He complains to have ongoing pain involving the rectal area Has been tolerating diet Has had fever of 38.6 on the evening of 30 October None since then 11/01/2023 The patient was seen and examined in medical telemetry unit He has had mild fever last night with profuse sweating thereafter Repeat blood cultures has been negative so far Complains of pain which seems to be under control with current pain regimen Likely discharge tomorrow on oral Augmentin Review of Systems Review of Systems: All systems reviewed and are unremarkable except as noted below Physical Exam Physical Exam: Lying in bed without any acute distress Constitutional: well developed, well nourished, + ill appearing and + obese Eyes: PERRL, conjunctivae normal, anicteric sclerae ENMT: external ear and nose normal, oropharynx normal Neck: trachea midline, no thyromegaly Respiratory: no respiratory distress Auscultation: lungs clear to auscultation bilaterally Cardiovascular: Rate/Rhythm: regular rate and regular rhythm; not tachycardic Heart Sounds: normal S1 and normal S2; no murmur Extremities: no edema Gastrointestinal (Abdomen): Inspection/Auscultation: normal bowel sounds; abdomen not distended Percussion/Palpation: abdomen soft; abdomen nontender Musculoskeletal: No acute arthritis involving any joint Neurologic: normal touch/pain/proprioception and moves all extremities; no focal motor deficits Psychiatric: A+Ox3, euthymic affect Lymphatic: no cervical or axillary lymphadenopathy Results & Data Results & Data Vital Signs (Past 12 Hours) Vital Signs Temp Pulse Pulse Resp BP Pulse Ox O2 Del Method 11/01/23 11:33 36.9 C 78 16 111/72 93 Room Air 11/01/23 09:00 Room Air 11/01/23 07:10 36.9 C 84 16 146/82 H 98 Room Air 11/01/23 07:00 77 11/01/23 03:11 36.9 C 85 18 112/69 96 Room Air Laboratory Results Short CBC 11/01/23 Range/Units 07:43 WBC 10.02 (4.8-10.8) K/ul Hgb 13.1 L (14.0-18.0) g/dl Hct 40.7 L (42.0-52.0) % Plt Count 189 (130-400) K/uL BMP 11/01/23 07:43 Sodium 137 Potassium 4.2 Chloride 101 Carbon Dioxide 30 BUN 12 Creatinine 1.12 Glucose 102 H Calcium 9.7 Medications Administered Current Inpatient Medications Acetaminophen (Acetaminophen 325 Mg Tab) 650 mg PO Q4H PRN PRN Reason: Pain or Fever Stop: 11/29/23 03:40 Last Admin: 10/31/23 13:09 Dose: 650 mg Enoxaparin Sodium (Enoxaparin Inj 40 Mg/0.4 Ml Syr) 40 mg SQ QAM LISA Stop: 11/29/23 08:59 Last Admin: 11/01/23 07:14 Dose: 40 mg Hydromorphone HCl (Hydromorphone Inj 1 Mg/Ml Syringe) 1 mg IV Q3H PRN PRN Reason: Pain Stop: 11/13/23 06:20 Last Admin: 11/01/23 14:14 Dose: 1 mg Promethazine HCl 12.5 mg/ (Sodium Chloride) 50.5 mls @ 202 mls/hr IV Q6H PRN PRN Reason: Nausea And Vomiting Stop: 11/29/23 02:56 Last Infusion: 10/31/23 10:43 Dose: Infused Piperacillin Sod/Tazobactam (Sod 4.5 gm/ Dextrose) 100 mls @ 25 mls/hr IV Q8H [facility]; Protocol Stop: 11/08/23 14:59 Last Admin: 11/01/23 14:14 Dose: 25 mls/hr Lactobacillus Acidophilus (Advanced Probiotic 1250 Mg Capsule) 2 cap PO DAILY [facility] Stop: 11/30/23 09:29 Last Admin: 11/01/23 07:13 Dose: 2 cap Lorazepam (Lorazepam 0.5 Mg Tab) 0.5 mg PO TID PRN PRN Reason: Anxiety Stop: 11/29/23 02:56 Miscellaneous (Remove Nicoderm Patch) 1 each N/A DAILY@0859 [facility] Stop: 11/30/23 08:58 Last Admin: 11/01/23 07:14 Dose: 1 each Multivitamins (Multivitamin Tab) 1 tab PO DAILY [facility] Stop: 11/29/23 08:59 Last Admin: 11/01/23 07:14 Dose: 1 tab Nicotine (Nicotine 14 Mg/24 Hr Patch) 14 mg [facility] [place] [place] Stop: 11/29/23 05:29 Last Admin: 11/01/23 07:14 Dose: 14 mg Oxycodone HCl (Oxycodone Hcl Ir 5 Mg Tab (Immediate Release)) 5 - 10 mg PO QID PRN PRN Reason: Pain Stop: 11/13/23 02:56 Last Admin: 11/01/23 10:03 Dose: 10 mg Quetiapine Fumarate (Quetiapine Fumarate 25 Mg Tablet) 50 mg PO HS PRN PRN Reason: Sleep Stop: 11/29/23 03:40 Last Admin: 11/01/23 00:12 Dose: 50 mg Sertraline HCl (Sertraline Hcl 100 Mg Tablet) 100 mg PO QAM [facility] Stop: 11/29/23 08:59 Last Admin: 11/01/23 07:13 Dose: 100 mg
[2023-11-02] MEDS: HYDROmorphone INJ 1 MG/ML SYRINGE IV PRN ×2 (05:53→10:41)
[2023-11-02] MEDS: PIPERACILLIN/TAZOBACTAM 4.5 GM in DEXTROSE 5% MINI-B 100 ML IV SCH (06:05)
[2023-11-02 06:49] LABS: Basophils # (auto) 0.07 K/uL (0.00-0.20); Basophils % (auto) 1.1 %; Eosinophils # (auto) 0.37 K/uL (0.00-0.50); Eosinophils % (auto) 5.8 %; Hematocrit (blood only) 43.8 % (42.0-52.0); Hemoglobin 14.2 g/dl (14.0-18.0); Immature Granulocytes # (auto) 0.02 K/uL (0.01-0.20); Immature Granulocytes % (auto) 0.3 %; Lymphocytes # (auto) 2.48 K/uL (1.20-3.40); Lymphocytes % (auto) 39.2 %; Mean Corpuscular Hemoglobin 26.6 pg (25.0-34.0); Mean Corpuscular Hgb Conc 32.4 g/dL (32.0-36.0); Mean Corpuscular Volume 82.2 fL (80.0-100.0); Mean Platelet Volume 11.3 fL (9.4-12.4); Monocytes % (auto) 12.6 %; Neutrophils # (auto) 2.59 K/uL (1.40-6.50); Platelet Count 234 K/uL (130-400); RDW Coefficient of Variation 12.7 % (11.5-14.5); RDW Standard Deviation 37.9 fL (36.4-46.3); Red Blood Count 5.33 M/uL (4.70-6.10); White Blood Count 6.33 K/ul (4.8-10.8)
[2023-11-02] MEDS: oxyCODONE HCL IR 5 MG TAB (IMMEDIATE RELEASE) PO PRN ×2 (07:22→13:23)
[2023-11-02] MEDS: ENOXAPARIN INJ 40 MG/0.4 ML SYR SQ SCH (07:47)
[2023-11-02] MEDS: ADVANCED PROBIOTIC 1250 MG CAPSULE PO SCH (07:48)
[2023-11-02] MEDS: SERTRALINE HCL 100 MG TABLET PO SCH (07:48)
[2023-11-02] MEDS: MULTIVITAMIN TAB PO SCH (07:49)
[2023-11-02] MEDS: NICOTINE 14 MG/24 HR PATCH TD SCH (07:50)
--- NOTE | 2023-11-02 12:18 | Hospitalist Progress Note ---
Date of Service November 02, 2023 Assessment & Plan (1) Sepsis: Plan: Secondary to recurrent perirectal abscess History multiple surgeries Has been getting intravenous Zosyn Blood cultures have been negative Wound culture showing pinpoint growth and Gram stain showed moderate WBC with rare gram-positive cocci Appreciate surgery input and status post I&D Has had fever last evening none since then White count remains mildly elevated at 13.22 Will continue IV antibiotic as of today Has been tolerating diet and ambulating Pain is controlled with current regimen Will monitor CBC and PRP Has had low-grade fever last night with profuse sweating Repeat blood culture has not been growing any organisms so far Will continue IV antibiotic for today likely discharge tomorrow on oral Augmentin to finish a total of 14 days of antibiotic Antibiotic will be changed to oral Augmentin and finish the course of 10 days in total Situational hypertension Blood pressure is controlled now Blood pressure remains stable Mood disorder, stable We will continue current medications GARETT not on CPAP as per records Past alcohol abuse Ongoing tobacco abuse Nicotine patch DVT prophylaxis. [facility] [facility] Full code Text document was generated using [employer] voice recognition software. It may contain grammatical or spelling errors. Kindly contact undersigned for clarification of any documentation item in question. Will be discharged home this afternoon Admission and Anticipated Discharge Date Admission Date: October 30, 2023 Subjective 10/31/2023 The patient was seen and examined in medical telemetry unit He complains to have ongoing pain involving the rectal area Has been tolerating diet Has had fever of 38.6 on the evening of 30 October None since then 11/01/2023 The patient was seen and examined in medical telemetry unit He has had mild fever last night with profuse sweating thereafter Repeat blood cultures has been negative so far Complains of pain which seems to be under control with current pain regimen Likely discharge tomorrow on oral Augmentin 11/02/2023 The patient was seen and examined in medical telemetry unit He has been feeling much better and has been ambulating without difficulty No fever and no chills Review of Systems Review of Systems: All systems reviewed and are unremarkable except as noted below Physical Exam Physical Exam: Lying in bed without any acute distress Constitutional: well developed, well nourished, + ill appearing and + obese Eyes: PERRL, conjunctivae normal, anicteric sclerae ENMT: external ear and nose normal, oropharynx normal Neck: trachea midline, no thyromegaly Respiratory: no respiratory distress Auscultation: lungs clear to auscultation bilaterally Cardiovascular: Rate/Rhythm: regular rate and regular rhythm; not tachycardic Heart Sounds: normal S1 and normal S2; no murmur Extremities: no edema Gastrointestinal (Abdomen): Inspection/Auscultation: normal bowel sounds; abdomen not distended Percussion/Palpation: abdomen soft; abdomen nontender Neurologic: normal touch/pain/proprioception and moves all extremities; no focal motor deficits Psychiatric: A+Ox3, euthymic affect Lymphatic: no cervical or axillary lymphadenopathy Results & Data Results & Data Vital Signs (Past 12 Hours) Vital Signs Temp Pulse Pulse Resp BP BP Pulse Ox 11/02/23 11:25 36.7 C 67 18 121/74 93 11/02/23 07:37 36.5 C 69 18 132/86 96 11/02/23 07:12 74 O2 Del Method 11/02/23 11:25 Room Air 11/02/23 07:37 Room Air 11/02/23 07:12 Laboratory Results Short CBC 11/02/23 Range/Units 05:34 WBC 6.33 (4.8-10.8) K/ul Hgb 14.2 (14.0-18.0) g/dl Hct 43.8 (42.0-52.0) % Plt Count 234 (130-400) K/uL Medications Administered Current Inpatient Medications Acetaminophen (Acetaminophen 325 Mg Tab) 650 mg PO Q4H PRN PRN Reason: Pain or Fever Stop: 11/29/23 03:40 Last Admin: 10/31/23 13:09 Dose: 650 mg Enoxaparin Sodium (Enoxaparin Inj 40 Mg/0.4 Ml Syr) 40 mg SQ QAM LISA Stop: 11/29/23 08:59 Last Admin: 11/02/23 07:47 Dose: 40 mg Hydromorphone HCl (Hydromorphone Inj 1 Mg/Ml Syringe) 1 mg IV Q3H PRN PRN Reason: Pain Stop: 11/13/23 06:20 Last Admin: 11/02/23 10:41 Dose: 1 mg Promethazine HCl 12.5 mg/ (Sodium Chloride) 50.5 mls @ 202 mls/hr IV Q6H PRN PRN Reason: Nausea And Vomiting Stop: 11/29/23 02:56 Last Infusion: 10/31/23 10:43 Dose: Infused Piperacillin Sod/Tazobactam (Sod 4.5 gm/ Dextrose) 100 mls @ 25 mls/hr IV Q8H [facility]; Protocol Stop: 11/08/23 14:59 Last Infusion: 11/02/23 10:28 Dose: Infused Lactobacillus Acidophilus (Advanced Probiotic 1250 Mg Capsule) 2 cap PO DAILY [facility] Stop: 11/30/23 09:29 Last Admin: 11/02/23 07:48 Dose: 2 cap Lorazepam (Lorazepam 0.5 Mg Tab) 0.5 mg PO TID PRN PRN Reason: Anxiety Stop: 11/29/23 02:56 Miscellaneous (Remove Nicoderm Patch) 1 each N/A DAILY@0859 [facility] Stop: 11/30/23 08:58 Last Admin: 11/02/23 07:47 Dose: 1 each Multivitamins (Multivitamin Tab) 1 tab PO DAILY [facility] Stop: 11/29/23 08:59 Last Admin: 11/02/23 07:49 Dose: 1 tab Nicotine (Nicotine 14 Mg/24 Hr Patch) 14 mg TD QAM [facility] Stop: 11/29/23 05:29 Last Admin: 11/02/23 07:50 Dose: 14 mg Oxycodone HCl (Oxycodone Hcl Ir 5 Mg Tab (Immediate Release)) 5 - 10 mg PO QID PRN PRN Reason: Pain Stop: 11/13/23 02:56 Last Admin: 11/02/23 07:22 Dose: 10 mg Quetiapine Fumarate (Quetiapine Fumarate 25 Mg Tablet) 50 mg PO HS PRN PRN Reason: Sleep Stop: 11/29/23 03:40 Last Admin: 11/01/23 23:55 Dose: 50 mg Sertraline HCl (Sertraline Hcl 100 Mg Tablet) 100 mg PO QAM [facility] Stop: 11/29/23 08:59 Last Admin: 11/02/23 07:48 Dose: 100 mg
--- NOTE | 2023-11-02 12:30 | Surgery Progress Note ---
Date of Service November 02, 2023 Assessment & Plan (1) Perirectal abscess: Plan pod 3. S/p I and D of perirectal abscess improving packing removed, no need to repack may switch to PO antibiotics May be discharged to home today from surgical standpoint will need 2 week course of Augmentin follow up in clinic in 1 week. Admission and Anticipated Discharge Date Admission Date: October 30, 2023 Subjective feeling better today. No fevers overnight. Less pain. No nausea or vomiting. Physical Exam Physical Exam: NAD, A&O x3 Currently afebrile, vital signs stable and normal Dressing dry and intact dressing removed - minimal drainage Dressing was replaced Results & Data Vital Signs (Past 12 Hours) Vital Signs Temp Pulse Pulse Resp BP BP Pulse Ox 11/02/23 11:25 36.7 C 67 18 121/74 93 11/02/23 07:37 36.5 C 69 18 132/86 96 11/02/23 07:12 74 O2 Del Method 11/02/23 11:25 Room Air 11/02/23 07:37 Room Air 11/02/23 07:12 Laboratory Results 11/02/23 Range/Units 05:34 WBC 6.33 (4.8-10.8) K/ul RBC 5.33 (4.70-6.10) M/uL Hgb 14.2 (14.0-18.0) g/dl Hct 43.8 (42.0-52.0) % MCV 82.2 (80.0-100.0) fL MCH 26.6 (25.0-34.0) pg MCHC 32.4 (32.0-36.0) g/dL RDW Std Deviation 37.9 (36.4-46.3) fL RDW Coeff of Lobo 12.7 (11.5-14.5) % Plt Count 234 (130-400) K/uL MPV 11.3 (9.4-12.4) fL Immature Gran % (Auto) 0.3 % Neut % (Auto) 41.0 % Lymph % (Auto) 39.2 % Osborne % (Auto) 12.6 % Eos % (Auto) 5.8 % Baso % (Auto) 1.1 % Neut # (Auto) 2.59 (1.40-6.50) K/uL Lymph # (Auto) 2.48 (1.20-3.40) K/uL Osborne # (Auto) 0.80 H (0.11-0.59) K/uL Eos # (Auto) 0.37 (0.00-0.50) K/uL Baso # (Auto) 0.07 (0.00-0.20) K/uL Immature Gran # (Auto) 0.02 (0.01-0.20) K/uL
[2023-11-02] MEDS ORDERED: AMOXICILLIN/CLAVULANATE 875 MG TAB PO SCH (17:00)
--- NOTE | 2023-11-03 12:58 | Discharge Summary ---
Date of Service November 02, 2023 Admission HPI Per Admitting Provider History obtained from patient and records. Medical history significant for mood disorder, gout, GARETT not on CPAP, history of septic meningitis as per records, recurrent perirectal abscesses status post surgery, history genital HSV, past alcohol abuse, ongoing tobacco abuse. Last confinement July 2022 under General Surgery service for perirectal abscess status post drainage. Patient started not feeling well yesterday morning. Mild rectal discomfort which patient attributed to possible HSV flare. No response to 1 dose of Valtrex taken at home. Worsening discomfort reminiscent of perirectal abscess pain. Fever, chills. Patient denies chest pain, SOB, cough symptoms. Vancomycin and Zosyn administered at the ER. SBP 140s upon arrival at the ER. 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 Exam Per Admitting Provider Physical Exam: GENERAL: Comfortable, pleasant, obese, no respiratory distress SKIN: Normal color, warm HEENT: [place] palpebral conjunctivae, no ptosis, dry buccal mucosa NECK : Supple, no tenderness CHEST : CTA, no tenderness HEART : Tachycardic, no obvious murmurs ABDOMEN: Some distention, nontender EXTREMITIES : Minimal LE swelling, no LE tenderness, no other conspicuous deformities noted NEUROLOGIC : Coherent, no facial asymmetry, no other gross focality Principal Diagnosis Perirectal abscess status post I&D Discharge Exam Lying in bed without any acute distress Constitutional well developed, well nourished, + ill appearing and + obese Eyes PERRL, conjunctivae normal, anicteric sclerae ENMT external ear and nose normal, oropharynx normal Neck trachea midline, no thyromegaly Respiratory no respiratory distress Auscultation: lungs clear to auscultation bilaterally Cardiovascular Rate/Rhythm: regular rate and regular rhythm; not tachycardic Heart Sounds: normal S1 and normal S2; no murmur Extremities: no edema Gastrointestinal (Abdomen) Inspection/Auscultation: normal bowel sounds; abdomen not distended Percussion/Palpation: abdomen soft; abdomen nontender Neurologic normal touch/pain/proprioception and moves all extremities; no focal motor deficits Psychiatric A+Ox3, euthymic affect Lymphatic no cervical or axillary lymphadenopathy Discharge Data Allergies Allergy/AdvReac Type Severity Reaction Status Date / Time No Known Allergies Allergy Verified 10/30/23 02:48 Consultations 10/30/23 02:40 ED Decision to Admit Stat 10/30/23 03:41 Consult General Surgery Routine Procedures Performed Operation Date: 10/30/23 07:00 Actual Procedures p Incision and Drainage Perirectal Abscess(Not Applicable) - Carl Cuadar MD Ordered Studies 10/30/23 00:30 CT abd pelvis IV con only Stat Hospital Course (1) Sepsis: Secondary to recurrent perirectal abscess History multiple surgeries Has been getting intravenous Zosyn Blood cultures have been negative Wound culture showing pinpoint growth and Gram stain showed moderate WBC with rare gram-positive cocci Appreciate surgery input and status post I&D Has had fever last evening none since then White count remains mildly elevated at 13.22 Will continue IV antibiotic as of today Has been tolerating diet and ambulating Pain is controlled with current regimen Will monitor CBC and PRP Has had low-grade fever last night with profuse sweating Repeat blood culture has not been growing any organisms so far Will continue IV antibiotic for today likely discharge tomorrow on oral Augmentin to finish a total of 14 days of antibiotic Antibiotic will be changed to oral Augmentin and finish the course of 10 days in total Situational hypertension Blood pressure is controlled now Blood pressure remains stable Mood disorder, stable We will continue current medications GARETT not on CPAP as per records Past alcohol abuse Ongoing tobacco abuse Nicotine patch DVT prophylaxis. Lovenox subcu Full code Text document was generated using [employer] voice recognition software. It may contain grammatical or spelling errors. Kindly contact undersigned for clarification of any documentation item in question. Will be discharged home this afternoon Total Time Total Time Spent Total Time Spent (In Minutes): 35 minutes Discharge Plan Discharge Items Patient Disposition: Home - Self-Care Reason For Visit: SEPSIS Discharge Diagnosis: Perirectal abscess status post I&D Condition on Discharge: Good Activity: Resume your previous activity Non-emergency contact: Primary Care Provider Call non-emergency contact if: you have any medication questions and your symptoms worsen Follow-up/Referrals: Carl Cuadra MD [Physician] - (Date & Time 11/09/2023 9:30 AM Provider Carl Cuadra MD Department General Surgery, [facility] ) Torres Edmonds MD [Primary Care Provider] - (Date & Time 11/08/2023 10:40 AM Provider Torres Edmonds MD [facility] ) Diet: Regular Addtl Attending Provider Instructions: Please take precautions to avoid falls Finish the course of antibiotic Keep that area clean and dry-wound care as per surgery svc instruction Please keep appointments with your healthcare provider Pending Studies at Discharge: No Stand-Alone Forms: My [facility], Pain - Opioid Pain Management, Work/School Release, Smoking Cessation Medications and DC Order Prescriptions: New amoxicillin-pot clavulanate 875-125 mg Tablet 1 tab PO BIDM Qty: 14 0RF oxycodone 5 mg Tablet 5 mg PO QID PRN (Reason: pain) Qty: 20 0RF Advanced Probiotic 625 mg (10 billion cell) Capsule 2 cap PO DAILY Qty: 60 0RF nicotine 14 mg/24 hr patch 24 hour 1 patch transdermal DAILY Qty: 28 0RF Continued sertraline 100 mg Tablet 100 mg PO QAM Qty: 30 3RF quetiapine 50 mg tablet 50 mg PO HS PRN (Reason: Sleep) multivitamin Capsule 1 cap PO DAILY Discharge Orders: Discharge Order (Routine); Ordered 11/02/23 Ordered By: Ken Solorzano Admission Data Admit Date/Time: 10/30/23 02:56 Attending Provider: Ken Solorzano Admit Provider: [place] Primary Care Provider: Torres Edmonds I. Other Providers: [place]; Carl Cuadra Other Interventions: Discharge Summary Assessment (RN) Last Done: 11/02/23 12:31
== END 2023-11-02 13:48 | disposition home or self-care (01) | DRG 854 ==
LOC: ED 00:25 → EDINP 02:56 → 2W 12:29